=== PATIENT | female | born 1970 | race Caucasian/White ===

== ENCOUNTER 2022-12-23 11:52 | Outpatient (OUT) | payer OTHER, SELFPAY ==
--- NOTE | 2022-12-23 11:55 | MM_ITS ---
Patient: CHIP LUCAS Exam Date: 12/23/2022 : 1970 Gender:F Ordering : DR Kay Devries M.D. Admission #: [id number] Family : Order #: [id number] CLICK HERE TO VIEW EXAM RADIOLOGY REPORT PROCEDURE: MM TOMOSYNTHESIS SCREENING BI COMPARISON: MG MAMM SCREEN 3D DENISSE CAD, 09/14/2020. MG MAMM SCREEN 3D DENISSE CAD, 11/08/2021. INDICATIONS: Screening Calculator Name NCI Breast Cancer Risk Assessment Tool 5 Year Breast Cancer Risk 1.70% Lifetime Breast Cancer Risk 12.60% Personal Breast Cancer No Personal Ovarian Cancer No Treatments None Family Cancers Mother with uterine cancer at age 54; Father with colon cancer at age 65. LOCATION: [facility] BREAST COMPOSITION: Scattered areas fibroglandular density. DIAGNOSTIC CATEGORY 1--NEGATIVE. NO CHANGE FROM COMPARISON ASSESSMENT. Scattered benign-appearing calcifications are present. Scattered benign-appearing lymph nodes are present. RIGHT BREAST: No significant suspicious finding. LEFT BREAST: No significant suspicious finding. RECOMMENDATIONS: ROUTINE MAMMOGRAM AND CLINICAL EVALUATION IN 12 MONTHS. PLEASE NOTE: A NORMAL MAMMOGRAM DOES NOT EXCLUDE THE POSSIBILITY OF BREAST CANCER. A CLINICALLY SUSPICIOUS PALPABLE LUMP SHOULD BE BIOPSIED. Dictated by: Stuart Johnson MD on 12/23/2022 at 13:55 Approved by: Stuart Johnson MD on 12/23/2022 at 13:57
== END 2022-12-23 11:53 | disposition home or self-care (01) ==
LOC: MAMMO 11:52
PROVIDERS: PCP Family Medicine; Visit Provider Family Medicine
DX: Z12.31 Encounter for screening mammogram for malignant neoplasm of breast (principal); Z80.0 Family history of malignant neoplasm of digestive organs; Z80.8 Family history of malignant neoplasm of other organs or systems
CPT/HCPCS: 77063; 77067

== ENCOUNTER 2022-12-23 13:45 | Outpatient (RCR) | payer OTHER, SELFPAY | END 2023-02-25 16:04 | disposition home or self-care (01) | LOC: PT 13:45 | PROVIDERS: PCP Family Medicine; Visit Provider Family Medicine | DX: Z12.31 Encounter for screening mammogram for malignant neoplasm of breast (principal); Z80.0 Family history of malignant neoplasm of digestive organs; Z80.8 Family history of malignant neoplasm of other organs or systems | CPT/HCPCS: 77063; 77067; 97010; 97012; 97110; 97140; 97162 ==

== ENCOUNTER 2023-02-06 20:39 | Outpatient (REF) | payer OTHER, SELFPAY ==
[2023-02-10 17:07] LABS: Age Gdln ACOG Testing Note (.); HPV Aptima Negative (Negative); IGP, Aptima HPV, rfx 16/18,45 Note (.)
== END 2023-02-06 20:40 | disposition home or self-care (01) ==
LOC: LAB 20:39
PROVIDERS: PCP Family Medicine; Visit Provider Physician Assistant
DX: Z01.419 Encounter for gynecological examination (general) (routine) without abnormal findings (principal)
CPT/HCPCS: 87624; G0145

== ENCOUNTER 2024-02-23 09:23 | Outpatient (OUT) | payer OTHER, SELFPAY ==
--- NOTE | 2024-02-23 09:27 | MM_ITS ---
Patient Name: CHIP LUCAS MR#: [id number] : 1970 Exam Date: 02/23/2024 Ordering Doctor: Non-Staff Physician RADIOLOGY REPORT PROCEDURE: MM TOMOSYNTHESIS SCREENING BI COMPARISON: MM TOMOSYNTHESIS SCREENING BI, 12/23/2022. MG MAMM SCREEN 3D DENISSE CAD, 11/08/2021. MG MAMM SCREEN 3D DENISSE CAD, 09/14/2020. MG MAMM DENISSE SCRN W CAD DIG, 04/02/2013. INDICATIONS: Screening Calculator Name NCI Breast Cancer Risk Assessment Tool 5 Year Breast Cancer Risk 1.70% Lifetime Breast Cancer Risk 12.40% Personal Breast Cancer No Personal Ovarian Cancer No Treatments None Family Cancers Mother with uterine cancer at age 54; Father with colon cancer at age 65. LOCATION: [facility] BREAST COMPOSITION: There are scattered areas of fibroglandular density. FINDINGS: DIAGNOSTIC CATEGORY 1--NEGATIVE. RIGHT BREAST: No significant suspicious finding. No significant change has occurred. LEFT BREAST: No significant suspicious finding. No significant change has occurred. RECOMMENDATIONS: ROUTINE MAMMOGRAM AND CLINICAL EVALUATION IN 12 MONTHS. PLEASE NOTE: A NORMAL MAMMOGRAM DOES NOT EXCLUDE THE POSSIBILITY OF BREAST CANCER. A CLINICALLY SUSPICIOUS PALPABLE LUMP SHOULD BE BIOPSIED. Dictated by: Jeison Willard M.D. on 02/28/2024 at 14:12 Approved by: Jeison Willard M.D. on 02/28/2024 at 14:31
== END 2024-02-23 09:24 | disposition home or self-care (01) ==
PROVIDERS: PCP Family Medicine
DX: Z12.31 Encounter for screening mammogram for malignant neoplasm of breast (principal); Z80.0 Family history of malignant neoplasm of digestive organs; Z80.8 Family history of malignant neoplasm of other organs or systems
CPT/HCPCS: 77063; 77067

== ENCOUNTER 2025-04-18 08:59 | Outpatient (OUT) | payer OTHER, SELFPAY ==
--- OUTSIDE RECORDS SUMMARY | 2025-04-18 09:03 | XMS_ITS | CCD ---
Author Organization [facility] Care Team Providers Care Warehouse Assembly Worker Name Role Phone Trung Magdaleno MD Primary Care Provider LISA, DR CORRALES Admitting Unavailable KARASIK, DR CORRALES Attending Unavailable REQUEST, NONE LISTED Primary Care Unavaila ble KARASIK, DR CORRALES Consulting Unavailable WEST, DR CARROLL Jacinto Consulting Unavailable KARASIK, DR CORRALES Admitting Unavailable KARASIK, DR CORRALES Attending Unavailable REQUEST, NONE LISTED Primary Care Unavaila ble KARASIK, DR CORRALES Consulting Unavailable KARASIK, DR CORRALES Admitting Unavailable KARASIK, DR CORRALES Attending Unavailable REQUEST, NONE LISTED Primary Care Unavaila ble KARASIK, DR CORRALES Consulting Unavailable WEST, DR CARROLL Jacinto Consulting Unavailable MAGDALENO, DR TRUNG Martinez Primary Care Unavailable ONEL CARDONA Admitting Unavailable ONEL CARDONA Attending Unavailable CA, DR CARROLL Jacinto Consulting Unavailable DALE ALEMAN Consulting Unavailable TRUNG MAGDALENO Primary Care Physician Trung Magdaleno MD Primary Care Provider Trung Magdaleno MD Primary Care Provider NILYoana, Terrence R Referring Unavailable NILL, Terrence R Admitting Unavailable NILL, Terrence R Attending Unavailable NILL, Terrence R Referring Unavailable NILL, Terrence R Admitting Unavailable NILL, Terrence R Attending Unavailable NILYoana, Terrence Bolanos Attending Unavailable Trung Magdaleno MD Primary Care Provider Trung Magdaleno MD Primary Care Provider Trung Magdaleno Unavailable Petra Wilson Unavailable SIMON SMITH Attending Unavailable TRUNG MAGDALENO Referring Unavailable TRUNG MAGDALENO Primary Care Unavailable SIMON SMITH Referring Unavailable TRUNG MAGDALENO Primary Care Unavailable TRUNG MAGDALENO Referring Unavailable TRUNG MAGDALENO Primary Care Unavailable GIOVANY RIVAS Attending Unavailable Trung Magdaleno MD Primary Care Provider [phone] JOSH, DARIA Referring Unavailable TRUNG MAGDALENO Primary Care Unavailable Trung Magdaleno MD Primary Care Provider [phone] TRUNG MAGDALENO Primary Care Unavailable JUSTIN PRESTON Referring Unavailable TRUNG MAGDALENO Primary Care Unavailable JUSTIN PRESTON Attending Unavailable TRUNG MAGDALENO Primary Care Unavailable JUSTIN PRESTON Referring Unavailable TRUNG MAGDALENO Primary Care Unavailable JUSTIN PRESTON Referring Unavailable TRUNG MAGDALENO Primary Care Unavailable JUSTIN PRESTON Attending Unavailable Medications Current Medications MedicationDrug Class(es)DatesSig (Normalized)Sig (Original)albuterol HFA 90 mcg/inh MDI (1 source)Start: 17-59-9052kmpv 2 puff(s) by inhalation four times daily albuterol HFA 90 mcg/inh MDI 2 puff(s), Inhalation, QID Shortness of breath or wheezing, Refill(s) 0 Start Date: 01/07/22 Status: Orderedamoxicillin 875 mg / clavulanate 125 mg oral tablet (2 sources)Penicillin-class AntibacterialStart: 50-06-2476ijci 1 tablet by mouth every twelve hoursAmoxicillin-Pot Clavulanate 875-125 MG 1 tablet Orally every 12 hrs for 10 day(s) Dec, Activeascorbic acid 1000 mg oral tablet (20 sources)Vitamin Ctake 1 tablet by mouth once dailyAscorbic Acid 1,000 mg tablet Take 1,000 mg by mouth once daily. ActiveComment on above:Take 1,000 mg by mouth once daily.60 actuat budesonide 0.08 mg/actuat / formoterol fumarate 0.0045 mg/actuat metered dose inhaler (20 sources)Corticosteroid, beta2-Adrenergic AgonistStart: 04-84-8068tyuf 1 puff(s) by mouth twice dailySYMBICORT 80-4.5 mcg/actuation inhaler TAKE 1 PUFF BY MOUTH TWICE A DAY 11/28/2020 Activetake 1 puff(s) by mouth twice daily Symbicort 80-4.5 MCG/ACT TAKE 1 PUFF BY MOUTH TWICE A DAY for 30 ActiveComment on above:TAKE 1 PUFF BY MOUTH TWICE A DAYcholecalciferol 0.01 mg oral capsule (20 sources)Vitamin Dtake 1 capsule by mouth once dailycholecalciferol, vitamin D3, 10 mcg (400 unit) cap Take 3,000 Units by mouth once daily. Activetake 1 capsule by mouth once dailycholecalciferol, vitamin D3, 10 mcg (400 unit) cap Take 400 Units by mouth once daily. 0 ActiveComment on above:Take 400 Units by mouth once daily.Take 3,000 Units by mouth once daily.fluticasone propionate 0.05 mg/actuat metered dose nasal spray (1 source)CorticosteroidStart: 11-74-1716lzpp 1 spray(s) nasal route once daily Fluticasone Propionate 50 MCG/ACT 1 spray in each nostril Nasally Once a day for 30 days Jan, Activemeloxicam 15 mg oral tablet (7 sources)Nonsteroidal Anti-inflammatory DrugStart: 56-99-1357vanq 1 tablet by mouth once daily at mealtime for painmeloxicam (MOBIC) 15 mg tablet Take 1 tablet by mouth once daily. Take with food. For pain 90 tablet 3 05/17/2024 ActiveStart: 10-20-2023 End: 48-00-9568hfye 1 tablet by mouth once dailymeloxicam (MOBIC) 7.5 mg tablet Indications: Chronic bilateral low back pain with left-sided sciatica , Chronic hip pain, bilateral , Chronic pain of both knees , Cervicalgia Take 1 tablet by mouth once daily. 30 tablet 3 10/20/2023 05/17/2024 Discontinuedmv- min/iron/folic/calcium/vitK (WOMEN'S 50 PLUS MULTIVIT-IRON ORAL) (20 sources)mv-min/iron/folic/calcium/vitK (WOMEN'S 50 PLUS MULTIVIT-IRON ORAL) Take by mouth. Activemv-min/iron/folic/calcium/vitK (WOMEN'S 50 PLUS MULTIVIT- IRON ORAL) Take by mouth. 0 ActiveComment on above:Take by mouth.Symbicort 80/4.5 inhalation aerosol with adapter (1 source)Start: 07-86-6129jgrt 2 puff(s) by inhalation twice dailySymbicort 80/4.5 inhalation aerosol with adapter 2 puff(s), Inhalation, BID, Refill(s) 0 Start Date: 01/07/22 Status: Ordered Completed/Discontinued Medications MedicationDrug Class(es)DatesSig (Normalized)Sig (Original)calcium/D3/mag ox/copy center operator/ai/Zn (CALTRATE + D3 PLUS MINERALS ORAL) (14 sources) End: 61-45-1947xvgdisq/D3/mag ox/copy center operator/ai/Zn (CALTRATE + D3 PLUS MINERALS ORAL) Take by mouth. 0 04/05/2023 Discontinuedcalcium/D3/mag ox/copy center operator/ai/Zn (CALTRATE + D3 PLUS MINERALS ORAL) Take by mouth. 0 ActiveComment on above:Take by mouth. folic acid 1 mg oral tablet (20 sources)Start: 09-14-2021 End: 88-10-8015sxjt 1 tablet by mouth once daily at mealtimefolic acid 1 mg tablet Indications: GEGE positive TAKE 1 TABLET BY MOUTH EVERY DAY WITH FOOD 90 tablet 3 04/05/2023 ActiveComment on above:TAKE 1 TABLET BY MOUTH EVERY DAY WITH FOODMagnesium (14 sources) End: 34-62-4877Fhpbmbdfm 250 mg tab Take 250 mg by mouth. 0 04/05/2023 DiscontinuedMagnesium 250 mg tab Take 250 mg by mouth. 0 ActiveComment on above: Take 250 mg by mouth.methotrexate 2.5 mg oral tablet (20 sources)Folate Analog Metabolic InhibitorStart: 10-20-2022 End: 87-54-8295googhvtjuoeu 2.5 mg tablet Indications: GEGE positive TAKE 3 TABS ONCE A WEEK WITH FOOD. NO ALCOHOL.HOLD IF ON ANTIBIOTICS OR ILL. HOLD 1-2WEEKS AFTER VACCINES. 30 tablet 3 03/21/2023 04/05/2023 DiscontinuedStart: 01-10-2022 End: 87-08-0433kmshhakzkktn 2.5 mg tablet Indications: GEGE positive TAKE 6 TABS ONCE A WEEK WITH FOOD. NO ALCOHOL.HOLD IF ON ANTIBIOTICS OR ILL. HOLD 1-2WEEKS AFTER VACCINES. 30 tablet 3 01/10/2022 10/20/2022 DiscontinuedStart: 01-07-2022 take 1 tablet by mouth once dailymethotrexate 2.5 mg Tab 2.5 mg = 1 tab(s), Oral, Daily, Refills(s) 0 Start Date: 01/07/22 Status: OrderedStart: 07-13-2021 methotrexate 2.5 mg tablet Indications: GEGE positive TAKE 4 TABS ONCE A WEEK WITH FOOD. NO ALCOHOL.HOLD IF ON ANTIBIOTICS OR ILL. HOLD 1-2WEEKS AFTER VACCINES. 36 tablet 3 04/05/2023 ActiveComment on above:TAKE 4 TABS ONCE A WEEK WITH FOOD. NO ALCOHOL. HOLD IF ON ANTIBIOTICS OR ILL. HOLD 1-2WEEKS AFTER [facility] CCINES.TAKE 6 TABS ONCE A WEEK WITH FOOD. NO ALCOHOL. HOLD IF ON ANTIBIOTICS OR ILL. HOLD 1-2WEEKS AFTER VACCINES.TAKE 3 TABS ONCE A WEEK WITH FOOD. NO ALCOHOL. HOLD IF ON ANTIBIOTICS OR ILL. HOLD 1-2WEEKS AFTER VACCINES. omrba-2p-kfd-epa-fish oil 600-1,200 mg cap (14 sources) End: 13-47-7972qpsie-4c-ahj-ovb-fish oil 600-1,200 mg cap Take by mouth. 0 04/05/2023 Ketittkhsvkjhihvf-7w-myb-epa-fish oil 600-1,200 mg cap Take by mouth. 0 ActiveComment on above:Take by mouth.pregabalin 100 mg oral capsule (20 sources)Start: 03-11-2022 End: 66-71-8984ydhd 1 capsule by mouth once dailypregabalin (LYRICA) 100 mg capsule Indications: Chronic bilateral low back pain with left-sided sciatica , Fibromyalgia Take 1 capsule by mouth once daily. 90 capsule 3 05/17/2024 09/21/2024 DiscontinuedStart: 08-16-2021 End: 39-23-6081tins 1 tablet by mouth once dailypregabalin (LYRICA) 25 mg capsule Indications: Chronic bilateral low back pain with left-sided sciatica Take 1tab of 75mg plus 1tab 25mg by mouth nightly. May cause drowsiness 90 capsule 3 209/ DiscontinuedStart: 08-16-2021 End: 08-96-5874oprs 1 capsule by mouth once daily, then take 1 capsule by mouth once dailypregabalin (LYRICA) 75 mg capsule Indications: Chronic bilateral low back pain with left-sided sciatica TAKE 1 CAPSULE BY MOUTH NIGHTLY PLUS TAKE 1 CAPSULE 25MG NIGHTLY 90 capsule 3 03/02/2022 03/11/2022 DiscontinuedComment on above:Take 1tab of 75mg plus 1tab 25mg by mouth nightly. May cause drowsiness Take 1 capsule by mouth once daily.TAKE 1 CAPSULE BY MOUTH NIGHTLY PLUS TAKE 1 CAPSULE 25MG NIGHTLYvitamin b12 1 mg oral tablet (14 sources)Vitamin B12 End: 09-41-9958ouyv 1 tablet by mouth once dailycyanocobalamin (VITAMIN B-12) 1,000 mcg tab Take 1,000 mcg by mouth once daily. 0 04/05/2023 Discontinued Comment on above:Take 1,000 mcg by mouth once daily. Problems Active Problems Problem ClassificationProblemDateDocumented DateEpisodic/ChronicAcquired foot deformities (2 sources)Valgus deformity, not elsewhere classified, left ankle; Translations: [Valgus deformity]EpisodicAsthma (5 sources)Asthma; Translations: [Asthmatic bronchitis]51-81-8219FkhumlbUferyan dysrhythmias (2 sources)Tachycardia; Translations: [Tachycardia, unspecified]Onset: 85-78-0520DlydfdvbYlivwjh obstructive pulmonary disease and bronchiectasis (1 source)Bronchitis; Translations: [Bronchitis, not specified as acute or chronic]EpisodicConditions associated with dizziness or vertigo (2 sources)Benign paroxysmal vertigo, bilateral; Translations: [Dizziness and giddiness]EpisodicDeficiency and other anemia (7 sources)Anemia of chronic disease; Translations: [Anemia in other chronic diseases classified elsewhere]ChronicDeficiency and other anemia (1 source)Anemia in other chronic diseases classified elsewhere; Translations: [Anemia of chronic disease]Onset: 17-73-4711JdxmsuiTgdatliynbl chest pain (1 source)Chest pain; Translations: [Chest pain, unspecified]EpisodicNutritional deficiencies (8 sources)Vitamin D deficiency; Translations: [Vitamin D deficiency, unspecified]Onset: 65-18-1339TrliteyHlfewpjqluw deficiencies (1 source)Cobalamin deficiency; Translations: [Deficiency of other specified B group vitamins]EpisodicOsteoarthritis (20 sources)Degenerative joint disease involving multiple joints; Translations: [Secondary multiple arthritis]Onset: 447712-65-9063RrenantPuveusmgaucg (3 sources)Postmenopausal osteoporosis; Translations: [Age-related osteoporosis without current pathological fracture]ChronicOther acquired deformities (1 source)Contracture of ankle fakig53-72-7776MqlhctfFxcdo acquired deformities (1 source)Joint contracture of the ankle and/or foot; Translations: [Contracture, left ankle]ChronicOther acquired deformities (1 source)Acquired varus deformity of joint of lower juvn32-12-1250KahcispxOacss connective tissue disease (20 sources)Fibromyalgia; Translations: [Fibromyalgia]Onset: 01-25-2021 51-12-7534QdcuvxntEayfw connective tissue disease (1 source)Pain in left foot; Translations: [Pain in left foot]EpisodicOther connective tissue disease (1 source)Tibialis tendinitis; Translations: [Posterior tibial tendinitis, left leg]EpisodicOther diseases of veins and lymphatics (1 source)Chronic venous hypertension (idiopathic) without complications of unspecified lower extremity; Translations: [Chronic venous hypertension (idiopathic) without complications of unspecified lower extremity]Onset: 90-05-1817HhaudngKhyuf diseases of veins and lymphatics (2 sources)Venous hypertension; Translations: [Chronic venous hypertension (idiopathic) without complications of unspecified lower extremity]Onset: 895769-40-8649BbpvklwUfuoy diseases of veins and lymphatics (2 sources)Venous insufficiency (chronic) (peripheral); Translations: [Venous insufficiency (chronic) (peripheral)]Onset: 69-59-0220IrzpprstRpuqk endocrine disorders (4 sources)Hypoglycemia; Translations: [Hypoglycemia, unspecified]ChronicOther endocrine disorders (1 source)Hypoglycemia, unspecifiedChronicOther female genital disorders (4 sources)Hypertrophy of uterus; Translations: [HYPERTROPHY OF UTERUS]Onset: 39-88-2966YbrjhgcjLuccn female genital disorders (1 source)Hypertrophy of uterus; Translations: [Hypertrophy of uterus]Episodic Other injuries and conditions due to external causes (1 source)History of fall; Translations: [History of falling]EpisodicOther nervous system disorders (1 source)Other chronic pain; Translations: [Chronic bilateral low back pain with left-sided sciatica]Onset: 05-17-7033PfjjcwnXwohs nervous system disorders (2 sources)Tremor; Translations: [Tremor, unspecified]96-56-1807OhsyabdbCaiey non-traumatic joint disorders (1 source)Arthralgia of the ankle and/or foot; Translations: [Pain in left ankle and joints of left foot]EpisodicOther non-traumatic joint disorders (1 source)Joint pain; Translations: [Pain in unspecified joint]EpisodicOther nutritional; endocrine; and metabolic disorders (2 sources)Body mass index 25-29 - overweight; Translations: [Body mass index (BMI) 25.0-25.9, adult]98-64-8242DjpueirzDygmw nutritional; endocrine; and metabolic disorders (1 source)Overweight; Translations: [Overweight]EpisodicOther screening for suspected conditions (not mental disorders or infectious disease) (20 sources)Other specified abnormal findings of blood chemistry; Translations: [Other abnormal blood chemistry]Onset: 88-79-4153NhlnckihFejxx upper respiratory infections (1 source)Chronic sinusitis; Translations: [Chronic sinusitis, unspecified] ChronicOther upper respiratory infections (2 sources)Acute sinusitis; Translations: [Acute sinusitis, unspecified]Onset: 07-81-1754VfkczqtjDwjhvg media and related conditions (1 source)Unspecified Eustachian tube disorder, left earEpisodicOvarian cyst (1 source)Unspecified ovarian cyst, left side; Translations: [UNSPECIFIED OVARIAN CYST LEFT SIDE]Onset: 47-32-4741FmhcfzhdUiuvjchnh (except that caused by tuberculosis or sexually transmitted disease) (1 source)Pneumonia (except that caused by tuberculosis or sexually transmitted disease); Translations: [PNEUMONIA D/T CORONAVIRUS DIS 2019]Onset: 06-22-2021 Residual codes; unclassified (1 source)Family history of malignant neoplasm of digestive organs; Translations: [FAM HX MALIG NEOPLASM DIGESTIV ORGN]Onset: 05-98-8344Ybzzklry Residual codes; unclassified (1 source)Family history of malignant neoplasm of other genital organs; Translations: [FAM HX MALIG NEOPLSM OTH GENIT ORGN]Onset: 20-29-6465Gdtycsdi Residual codes; unclassified (1 source)Menopause vumjbvf04-16-4046XhiugubgOvbgevla codes; unclassified (1 source)Postmenopausal state; Translations: [Asymptomatic menopausal state] EpisodicRespiratory failure; insufficiency; arrest (adult) (1 source)Respiratory failure; insufficiency; arrest (adult)Onset: 08-10-2023 Rheumatoid arthritis and related disease (2 sources)Rheumatoid arthritis; Translations: [Rheumatoid arthritis, unspecified]98-27-4703JbdmpdhHdpetvmtyyyb (1 source)Patient encounter gsaxoy18-47-6482Pclapeppsplg (1 source)New PatientOnset: 15-61-4404Apscyqac veins of lower extremity (3 sources)Varicose veins of bilateral lower extremities with pain; Translations: [Varicose veins of lower extremity]Onset: EpisodicViral infection (2 sources)COVID-19; Translations: [Disease caused by 2019-nCoV]Onset: 06-22-2021 Past or Other Problems Problem ClassificationProblemDateDocumented DateEpisodic/ChronicAbdominal pain (1 source)Pelvic and perineal pain; Translations: [Pelvic and perineal pain] Resolved: 56-06-5080DrqhnaoyEvccdsgqbejzj and screening for infectious disease (20 sources)Anti-nuclear factor positive; Translations: [Other specified abnormal immunological findings in serum]Onset: 36-54-5929UsoxysifSvnddwxivbum breast conditions (1 source)Breast signs and symptoms; Translations: [Other signs and symptoms in breast]Onset: 09-25-2007 Resolved: 81-91-4075GvasqjmgKuxzk aftercare (20 sources)H/O: high risk medication; Translations: [Other exterminator helper termite (current) drug therapy]Onset: 942149-26-3070OoqunnqgPnqld aftercare (1 source)Other exterminator helper termite (current) drug therapy; Translations: [OTH TILE FITTER CURRENT DRUG THERAPY]Onset: 25-74-5215BzxwezmpDuwkq aftercare (1 source)History and physical examination, follow-up; Translations: [Encounter for follow-up examination after completed treatment for conditions other than malignant neoplasm] Resolved: 14-17-3411AwmtsnnoDrsmg bone disease and musculoskeletal deformities (6 sources)Osteopenia; Translations: [Other specified disorders of bone density and structure, multiple sites]Onset: 067430-35-5187AqomgmruPpdkt connective tissue disease (20 sources)Pain of bilateral hands; Translations: [Pain in right hand]Onset: 342496-19-1974EwwczgdhZhrkw connective tissue disease (20 sources)Medial epicondylitis of right humerus; Translations: [Medial epicondylitis, right elbow]Onset: 882667-84-7963YncacomzDfjyx connective tissue disease (1 source)Fibromyalgia; Translations: [Fibromyalgia]Onset: 84-27-6020Qqnlqazc Other diseases of veins and lymphatics (1 source)Vascular insufficiency; Translations: [Venous insufficiency (chronic) (peripheral)]48-22-1344HycsfrdiOicug female genital disorders (1 source)Noninflammatory disorder of vulva; Translations: [Other specified noninflammatory disorders of vulva and perineum]Onset: 09-29-2007 Resolved: 42-52-3745XpauxmjiBxatg hematologic conditions (20 sources)ESR raised; Translations: [Elevated erythrocyte sedimentation rate] Onset: 18-03-4667YudnpfphWbmvb hematologic conditions (1 source)Elevated erythrocyte sedimentation rate; Translations: [Elevated sed rate]Onset: 68-17-1643QrlkonlrVfpob lower respiratory disease (3 sources)Shortness of breath; Translations: [SHORTNESS OF BREATH]Onset: 30-70-7807MkefbzqbHfnmz nervous system disorders (20 sources)Paresthesia of hand ; Translations: [Anesthesia of skin]Onset: 707589-74-9663TbdmbukgAchsm non-traumatic joint disorders (20 sources)Pain in right knee; Translations: [Pain in joint, lower leg]Onset: 399028-65-3667WkchpgcuXhsrf non-traumatic joint disorders (20 sources)Chronic pain of right upper limb; Translations: [Pain in right elbow]Onset: 421280-79-4366AtfecugoQrayb non-traumatic joint disorders (19 sources)Hip pain; Translations: [Pain in right hip]Onset: 78-17-8371Oyqstofo Other skin disorders (1 source)Hypertrophic condition of skin; Translations: [Other hypertrophic disorders of the skin]Onset: 09-47-9001PlzuzvqlOwonvykj codes; unclassified (20 sources)FH: Gout; Translations: [Family history of other diseases of the musculoskeletal system and connective tissue]Onset: 098257-00-0900Usrchmfn Residual codes; unclassified (20 sources)FH: Rheumatoid arthritis; Translations: [Family history of arthritis]Onset: 689632-33-3532LgpqoajtKsrqozwljsf; intervertebral disc disorders; other back problems (20 sources)Chronic low back pain; Translations: [Lumbago with sciatica, left side]Onset: 040494-15-2973RpznnnbxQcres infection (1 source)Herpesviral vesicular dermatitis; Translations: [Herpesviral vesicular dermatitis]Onset: 64-07-9544Gklugjmd Results Test NameValueInterpretationReference RangeFacilityCNPNon 71-54-0959BKWD Telephone ([employer]án) CHIP LUCAS ([id number]) 1970 F Date Time Provider Department 04/03/25 JUSTIN PRESTON During your visit today, we recorded the following information about you: Justin Preston MD 04/03/2025 8:30 PM Signed Please Call patient if [employer] note not read to review results/released to My Chart if tests completed at [facility]: normal labs and no inflammation. Continue same vitamin D intake with food. Happy to further review and discuss at follow up visit. Thank you. 03/31/25 normal cbc, cmp, esr 15, crp 0.8, vitamin D 50.1; Dannie Ortiz MA 04/04/2025 8:09 AM Signed patient has viewed the [employer] message per [employer]. Allergies As of Date: 04/03/2025 (No Known Allergies) Date Reviewed: 03/31/2025 Reviewed by: Justin Preston MD - Fully Assessed Reason for Visit: Results [95] Prescriptions as of 04/04/2025 - pregabalin (LYRICA) 50 mg capsule Take 1cap by mouth nightly - meloxicam (MOBIC) 15 mg tablet Take 1 tablet by mouth once daily. Take with food. For pain - SYMBICORT 80-4.5 mcg/actuation inhaler TAKE 1 PUFF BY MOUTH TWICE A DAY - mv-min/iron/folic/calcium/vitK (WOMEN'S 50 PLUS MULTIVIT-IRON ORAL) Take by mouth. - cholecalciferol, vitamin D3, 10 mcg (400 unit) cap Take 3,000 Units by mouth once daily. - Ascorbic Acid 1,000 mg tablet Take 1,000 mg by mouth once daily. Problem List As Of Date 04/03/2025 Noted Resolved Secondary osteoarthritis of multiple sites [M15*01/25/2021 Chronic bilateral low back pain with left-sided*01/25/2021 Bilateral hand pain [M79.641, M79.642] 01/25/2021 Chronic pain of both knees [M25.561, M25.562, G*01/25/2021 Chronic elbow pain, right [M25.521, G89.29] 01/25/2021 Elevated sed rate [R70.0] 01/25/2021 Elevated C-reactive protein (CRP) [R79.82] 01/25/2021 Fibromyalgia [M79.7] 01/25/2021 Numbness and tingling in both hands [R20.0, R20*01/25/2021 Medial epicondylitis of right elbow [M77.01] 01/25/2021 Family history of gout [Z82.69] 01/25/2021 Family history of rheumatoid arthritis [Z82.61] 01/25/2021 Long-term use of high-risk medication [Z79.899] 01/25/2021 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] 01/28/2021 Chronic hip pain, bilateral [M25.551, M25.552, *10/20/2022 Inflammatory arthritis [M13.80] 10/20/2022 Osteopenia of multiple sites [M85.89] 10/21/2023 Numbness and tingling of left leg [R20.0, R20.2]03/31/2025 Cervicalgia [M54.2] 03/31/2025 Encounter Status:Closed by DANNIE ORTIZ on [address] [place], [place] [id number]([place])D3 SamiTrinh [id number]-rmrkbivkljvkqe D3 [Mass/Vol]50.1 ng/qPJznlva11.0-80.0[facility] on above:Order Comment: Specimen Type: BLOOD SPECIMEN Ordering Facility: [facility] Address: [address] [place], [place] [id number] Comment: Classification of 25 [place] Vitamin D status: Deficiency/Insufficiency: < or = 30 ng/ml. Sufficiency/Optimal Levels: 31-80 ng/mL Toxicity: > 100 ng/mL. Test performed by chemiluminescent immunoassay.Performed By: #### 1989-3 #### [facility] CLIA [id number] [address] [place], [place] [id number] [place] AMER[place]BC panel Auto (Bld)on 53-09-8320Erujhfnzqxe distribution width (RBC) [Ratio]14.6 %Etydle50.5-15.0 [facility] on above:Order Comment: Specimen Type: BLOOD SPECIMEN Ordering Facility: [facility] Address: [address] [place], [place] [id number] By: #### 93979-9, 4537-7 #### [facility] CLIA [id number] [address] [place], [place] [id number] [place] AMERICAHematocrit (Bld) [Volume fraction]43.5 %Eaulit09.0-46.0[facility] on above:Order Comment: Specimen Type: BLOOD SPECIMEN Ordering Facility: [facility] Address: [address] [place], [place] [id number] By: #### 17566-5, 4537-7 #### [facility] CLIA [id number] [address] [place], [place] [address] [place] AMERICAHemoglobin (Bld) [Mass/Vol] 14.0 g/pUDvyify29.5-15.5C[facility] on above:Order Comment: Specimen Type: BLOOD SPECIMEN Ordering Facility: [facility] Address: [address] [place], [place] [address]Performed By: #### 80162-7, 4537-7 #### [facility] CLIA [id number] [address] [place], [place] [address] (RBC) [Entitic mass]26.5 ahDpghat22.0-34.0[facility] on above:Order Comment: Specimen Type: BLOOD SPECIMEN Ordering Facility: [facility] Address: [address] [place], [place] [address]Performed By: #### 19499-5, 4537-7 #### [facility] CLIA [id number] [address] [place], [place] [address]HC (RBC) [Mass/Vol]32.2 g/xITrjjsf56.5-36.0[facility] on above:Order Comment: Specimen Type: BLOOD SPECIMEN Ordering Facility[facility] Address: [address] [place], [place] [address]Performed By: #### 00691-8, 4537-7 #### [facility] CLIA [id number] [address] [place] [address] (RBC) [Entitic vol]82.2 uZFsdvoq45.0-100.0[facility] on above:Order Comment: Specimen Type: BLOOD SPECIMEN Ordering Facility[facility] Address: [address] [place], [place] [address]Performed By: #### 26899-6, 4537-7 #### [facility] CLIA [id number] [address] [place] [address] RBC (Bld) [#/Vol] 10*3/uLNormal<0.01[facility] on above:Order Comment: Specimen Type: BLOOD SPECIMEN Ordering Facility[facility] Address: [address] [place], [place] [address]Performed By: #### 24311-2, 4537-7 #### [facility] CLIA [id number] [address] [place], [place] [address] [place] OF AMERICAPlatelet mean volume (Bld) [Entitic vol]10.8 fLNormal9.0-12.7CSelect [facility] on above: Order Comment: Specimen Type: BLOOD SPECIMEN [facility] Address: [address] [place], [place] [address]Performed By: #### 36587-8, 4537-7 #### [facility] CLIA [id number] [address] [place], [place] [address] [place] AMERICAPlatelets (Bld) [#/Vol]314 10*3/tQWwtdjm281-127OmtmpreenOhioHealth [facility]ville Health Center on above:Order Comment: Specimen Type: BLOOD SPECIMEN [facility] Address: [address] [place], [place] [address]Performed By: #### 61804-0, 4537-7 #### [facility] CLIA [id number] [address] [place] [address] [place] AMERICARBC (Bld) [#/Vol]5.29 10*6/uLHigh3.90-5.20[facility] on above:Order Comment: Specimen Type: BLOOD SPECIMEN [facility] Address: [address] [place], [place] [address]Performed By: #### 98162-5, 4537-7 #### [facility] CLIA [id number] [address] [place] [address] [place] AMERICAWBC (Bld) [#/Vol]6.68 10*3/uLNormal3.70-11.00[facility] on above:Order Comment: Specimen Type: BLOOD SPECIMEN [facility] Address: [address] [place], [place] [address]Performed By: #### 72536-9, 4537-7 #### [facility] CLIA [id number] [address] [place] [address] [address]CNOVon [id number] Visit (LEANNE) CHIP LUCAS ([id number]) 1970 F Date Time Provider Department 03/31/25 8:20 AM JUSTIN PRESTON During your visit today, we recorded the following information about you: Pulse Blood pressure Weight 84/minute 103/70 67.5 kg Justin Preston MD 03/31/2025 9:10 AM Addendum May apply over the counter arthritis creams/patches (biofreeze, icy hot, asper cream, tiger balm, capsacin, lidocaine, salon pas, voltaren gel, etc.) or over the counter pain patches to painful joints up to four times a day. Avoid contact with eyes. May take Extra Strength acetaminophen 500mg every 4-6hours for joint pain. Do not exceed 3000mg /day. Decrease stress Improve sleep May apply heat/ice 20minutes on and off to areas of pain Avoid aggravating triggers If needed, may take Calcium 1200mg daily with food in DIVIDED doses If labs normal, take Vitamin D 4000 International Units daily with food lyrica 50mg daily at nightly OFF Methotrexate/folic acid take mobic 15mg daily with food for pain if needed Recommend goal: exercising 30minutes 3-5 times a week Recommend weight-bearing aerobic exercises such as walking, dancing, low impact aerobics, elliptical machine, stair climbing, gardening flexibility exercises and strength training exercises Recommend avoiding high impact exercises such as jumping, running or jogging or movements where you bend forward and twist the waist, for instance- touching your toes, sit-ups, using row machine Next bone mineral density after 04/05/2025 group home pain recommendations per primary care provider/pain clinic Nonfasting labs as scheduled Thank you. 05/17/24 neck xrays- Mild cervical spine degenerative changes as described. Minimal anterolisthesis of C2 on C3 and C6 on C7. Tiny multilevel endplate osteophytes. Mild bony femoral narrowing involving C5-C6 on the right. 05/17/24 high crp 0.9;normal esr 10; 12/18/23 normal cbc, cmp, esr 16, crp 0.9, vitamin D 56.1; 09/15/23 high glucose 126, crp 1.3;normal rest of cmp, cbc, esr 17, vitamin D 59.5; Justin Preston MD 03/31/2025 9:10 AM Signed Face to face follow up visit for osteoarthritis/ osteopenia/+GEGE/high crp/inflammatory arthritis Today's visit 03/31/25:bmd after 04/05/25. Labs due. taking vitamin D 3000 International Units daily with food, mobic 1tab/not daily, lyrica 100mg/not daily gives her a hangover the next morning, inhalers. Last month recent oral steroids x 2 for illness URI (was also on antibiotics). Numbness of left leg/foot if sitting long time. no issues with eyes. Poor sleep. (if high APRs/start dmards/plaquenil/azathioprine/sulfasalazine/arava ) 05/17/24 neck xrays- Mild cervical spine degenerative changes as described. Minimal anterolisthesis of C2 on C3 and C6 on C7. Tiny multilevel endplate osteophytes. Mild bony femoral narrowing involving C5-C6 on the right. 05/17/24 high crp 0.9;normal esr 10; Walking for exercise. NO swelling. Chronic current pain in both hips, knees worse in AM. Reports pain 2/10. Has 20min minimal AM stiffness. Feels safe at home. Has enough food, supplies and medications. Overall mildly uncomfortable but happy with rheum care. No falls/fx/trauma/illness/oral sores/rash/hairloss/jaw pain/dysphagia/epistaxis/hemoptysis since last visit. No adverse effects with meds. No other complaints. Patient denies fever, chills, cp, dyspnea, nausea, vomiting, night sweats, scalp tenderness, visual changes, castillo, bowel/bladder changes, weight changes or other complaints. Last visit supportive care, check labs, check xrays, increase mobic 15mg daily, if high APRs/start dmards/plaquenil/azathioprine/sulfasalazine/arava, start hand/feet braces/sleeves, restart PT, OFF methotrexate/folic acid due to brain fog/lightheadedness, start fall precautions, improved with lyrica change to 100mg capsule nightly/notify office if interested in increased dose, improved with prn nsaids/stopped aleve due to GI upset, start prn heat/ice/otc arthritis creams, start low impact weightbearing exercise as tolerated, avoid aggravating triggers, improved methotrexate/lightheaded/dizzy at higher doses/notify office if not tolerated, daily folic acid, calcium/vit D, did discuss additional dmards if high APRs/patient agreeable to start new medication , may consider bisphosphonates if repeat BMD abnormal, 05/17/24:bmd after 04/05/25. taking mobic, vitamin D 3000 International Units daily with food, improved with lyrica 100mg daily. NO recent oral steroids. OFF methotrexate/decreased mental focus. But open to retrying another arthritis medication. 12/18/23 normal cbc, cmp, esr 16, crp 0.9, vitamin D 56.1; Motivated to start exercise. NO swelling. Chronic current pain in both hands, L>R thumbs, feet, neck, hips. Last 2days intense discomfort at base of head and then goes away. Reports pain 5/10. H (more content not included)...Normal [facility] SerPl-ncon [id number] [Mass/Vol]0.8 mg/dL Normal<0.9CBluffton HospitalComtrinity health [facility] on above:Order Comment: Specimen Type: BLOOD SPECIMEN Order[facility] Address: [address] [place] [id number] By: #### 49843-4, 1987-10 #### [facility] CLIA [id number] [address] [place] [address] [place] OF AMERICAComprehensive metabolic 2000 panelon [id number] [Mass/Vol]4.3 g/dLNormal3.9-4.9CSelect [facility] on above:Order Comment: Specimen Type: BLOOD SPECIMEN [facility] Address: [address] [place], [place] [address]Performed By: #### 84501-0, 1987-10 #### [facility] CLIA [id number] [address] [place], [place] [address] [place] AMERICAALP [Catalytic activity/Vol] 98 U/NUfkgnq77-723AkylcohesOhioHealth Nelsonville Health Center on above:Order Comment: Specimen Type: BLOOD SPECIMEN [facility] Address: [address] [place], [place] [address]Performed By: #### 63663-9, 1987-10 #### [facility] CLIA [id number] [address] [place], [place] [address] [place] AMERICAALT [Catalytic activity/Vol] 22 U/LNormal7-38[facility] on above:Order Comment: Specimen Type: BLOOD SPECIMEN [facility] Address: [address] [place], [place] [address]Performed By: #### 40473-6, 1987-10 #### [facility] CLIA [id number] [address] [place], [place] [address] [place] AMERICAAnion gap [Moles/Vol]11 mmol/LNormal8-15[facility] on above:Order Comment: Specimen Type: BLOOD SPECIMEN [facility] Address: [address] [place], [place] [address]Performed By: #### 78019-7, 1987-10 #### [facility] CLIA [id number] [address] [place] [address] [place] AMERICAAST [Catalytic activity/Vol] 23 U/VFxbiqr40-90ZqgphcdvgOhioHealth [facility] Health Center on above:Order Comment: Specimen Type: BLOOD SPECIMEN [facility] Address: [address] [place], [place] [address]Performed By: #### 04527-2, 1987-10 #### [facility] CLIA [id number] [address] [place] [address] [place] AMERICABilirubin [Mass/Vol]0.3 mg/dLNormal0.2-1.3CSelect [facility] on above:Order Comment: Specimen Type: BLOOD SPECIMEN Order[facility] Address: [address] [place], [place] [address]Performed By: #### 81668-3, 1987-10 #### [facility] CLIA [id number] [address] [place], [place] [address] [place] AMERICACalcium [Mass/Vol]9.9 mg/dL Normal8.5-10.2C[facility] on above:Order Comment: Specimen Type: BLOOD SPECIMEN [facility] Address: [address] [place], [place] [address]Performed By: #### 14806-9, 1987-10 #### [facility] CLIA [id number] [address] [place], [place] [address] [place] AMERICAChloride [Moles/Vol]104 mmol/GHwyons75-047JydsggjxyOhioHealth [facility] Center on above:Order Comment: Specimen Type: BLOOD SPECIMEN [facility] Address: [address] [place] [id number] By: #### 56236-2, 1987-10 #### [facility] CLIA [id number] [address] [place] [address] [place] AMERICACO2 [Moles/Vol]25 mmol/L Pshszg26-37CwxshpnfsOhioHealth Nelsonville Health Center on above:Order Comment: Specimen Type: BLOOD SPECIMEN Order[facility] Address: [address] [place], [place] [address]Performed By: #### 81980-2, 1987-10 #### [facility] CLIA [id number] [address] [place] [address] [place] AMERICACreatinine [Mass/Vol]0.62 mg/dLNormal0.58-0.96[facility] on above:Order Comment: Specimen Type: BLOOD SPECIMEN Order[facility] Address: [address] [place], [place] [address]Performed By: #### 73347-7, 1987-10 #### [facility] IA [id number] [address] [place] [address] [place] AMERICAeGFRcr SerPlBld CKD-EPI 2020 105 mL/min/1.73m???Normal>=60[facility] on above:Order Comment: Specimen Type: BLOOD SPECIMEN [facility] Address: [address] [place], [place] [address]Result Comment: Estimated Glomerular Filtration Rate (eGFR) is calculated using the 2020 CKD-EPI cre atinine equation. This equation utilizes serum creatinine, sex, and age as parameters. The creatinine assay has traceable calibration to isotope dilution- mass spectrometry. Refer to KDIGO guidelines for clinical interpretation. In patients with unstable renal function, e.g. those with acute kidney injury, the eGFR may not accurately reflect actual GFR.Performed By: #### 33102-8, 1987-10 #### [facility] CLIA [id number] [address] [place], [place] [address] [place] AMERICAGlucose [Mass/Vol]102 mg/dL Mrlh03-88IgwkwbvxcOhioHealth [facility]ville Health Center on above:Order Comment: Specimen Type: BLOOD SPECIMEN Order[facility] Address: [address] [place], [place] [address]Result Comment: The [place] Diabetes Association (ADA) provides guidance for cutoff values for fasting glucose and random glucose. The ADA defines fasting as no caloric intake for at least 8 hours. Fasting plasma glucose results between 100 to 125 mg/dL indicate increased risk for diabetes (prediabetes). Fasting plasma glucose results greater than or equal to 126 mg/dL meet the criteria for diagnosis of diabetes. In the absence of unequivocal hyperglycemia, results should be confirmed by repeat testing. In a patient with classic symptoms of hyperglycemia or hyperglycemic crisis, random plasma glucose results greater than or equal to 200 mg/dL meet the criteria for diagnosis of diabetes. Reference: Standards of Medical Care in Diabetes 2016, [place] Diabetes Association. Diabetes Care. 2016.39(Suppl 1).Performed By: #### 31453-0, 1987-10 #### [facility] CLIA [id number] [address] [place] [address] [place] AMERICAPotassium [Moles/Vol]4.3 mmol/LNormal3.7-5.1CSelect [facility] on above:Order Comment: Specimen Type: BLOOD SPECIMEN [facility] Address: [address] [place], [place] [address]Performed By: #### 89892-6, 1987-10 #### [facility] CLIA [id number] [address] [place] [address] [place] AMERICAProtein [Mass/Vol]7.5 g/dL Normal6.3-8.0[facility] on above:Order Comment: Specimen Type: BLOOD SPECIMEN [facility] Address: [address] [place], [place] [address]Performed By: #### 54997-0, 1987-10 #### [facility] CLIA [id number] [address] [place] [address] [place] AMERICASodium [Moles/Vol]140 mmol/L Shdpqk547-610WlytofshgOhioHealth Nelsonville Health Center on above:Order Comment: Specimen Type: BLOOD SPECIMEN [facility] Address: [address] [place], [place] [address]Performed By: #### 63858-3, 1987-10 #### [facility] CLIA [id number] [address] [place], [place] [address] [place] AMERICAUrea nitrogen [Mass/Vol]16 mg/dLNormal7-21[facility] on above:Order Comment: Specimen Type: BLOOD SPECIMEN [facility] Address: [address] [place], [place] [address]Performed By: #### 02260-8, 1987-10 #### [facility] CLIA [id number] [address] [place] [address] OF DAY[facility] OSTEOPATHIC HOSPITALESR Westergren method (Bld) [Velocity]on [id number] (Bld) [Velocity]15 mm/hNormal0-20[facility] on above:Order Comment: Specimen Type: BLOOD SPECIMEN [facility] Address: [address] [place] [address] [place], [place] [address]Performed By: #### 41964-0, 45377 #### [facility] CLIA [id number] [address] [place], [place] [address]CNPNon [id number] Telephone (LEANNE) CHIP LUCAS ([id number]) 1970 F Date Time Provider Department 05/18/24 JUSTIN PRESTON During your visit today, we recorded the following information about you: Justin Preston MD 05/23/2024 6:32 PM Addendum Please Call patient if MyChart note not read to review results/released to My Chart if tests completed at [facility]: One borderline inflammatory test-will monitor. Notify office if agreeable to try a new anti inflammatory medication. Neck xrays show osteoarthritis with osteophytes. May see spine and or pain clinic if pain symptoms persist or worsen.. Happy to further review and discuss at follow up visit. Thank you. (if high APRs/start dmards/plaquenil/azathioprine/sulfasalazine/arava ) 05/17/24 neck xrays- Mild cervical spine degenerative changes as described. Minimal anterolisthesis of C2 on C3 and C6 on C7. Tiny multilevel endplate osteophytes. Mild bony femoral narrowing involving C5-C6 on the right. 05/17/24 high crp 0.9;normal esr 10; Dannie Ortiz MA 05/20/2024 7:30 AM Signed patient has viewed the GloNav message per [employer]. Allergies As of Date: 05/18/2024 (No Known Allergies) Date Reviewed: 05/18/2024 Reviewed by: Justin Preston MD - Fully Assessed Reason for Visit: Results [95] Prescriptions as of 05/23/2024 - meloxicam (MOBIC) 15 mg tablet Take 1 tablet by mouth once daily. Take with food. For pain - pregabalin (LYRICA) 100 mg capsule Take 1 capsule by mouth once daily. - SYMBICORT 80-4.5 mcg/actuation inhaler TAKE 1 PUFF BY MOUTH TWICE A DAY - mv-min/iron/folic/calcium/vitK (WOMEN'S 50 PLUS MULTIVIT-IRON ORAL) Take by mouth. - cholecalciferol, vitamin D3, 10 mcg (400 unit) cap Take 3,000 Units by mouth once daily. - Ascorbic Acid 1,000 mg tablet Take 1,000 mg by mouth once daily. Problem List As Of Date 05/18/2024 Noted Resolved Secondary osteoarthritis of multiple sites [M15*01/25/2021 Chronic bilateral low back pain with left-sided*01/25/2021 Bilateral hand pain [M79.641, M79.642] 01/25/2021 Chronic pain of both knees [M25.561, M25.562, G*01/25/2021 Chronic elbow pain, right [M25.521, G89.29] 01/25/2021 Elevated sed rate [R70.0] 01/25/2021 Elevated C-reactive protein (CRP) [R79.82] 01/25/2021 Fibromyalgia [M79.7] 01/25/2021 Numbness and tingling in both hands [R20.0, R20*01/25/2021 Medial epicondylitis of right elbow [M77.01] 01/25/2021 Family history of gout [Z82.69] 01/25/2021 Family history of rheumatoid arthritis [Z82.61] 01/25/2021 Long-term use of high-risk medication [Z79.899] 01/25/2021 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] 01/28/2021 Chronic hip pain, bilateral [M25.551, M25.552, *10/20/2022 Inflammatory arthritis [M19.90] 10/20/2022 Osteopenia of multiple sites [M85.89] 10/21/2023 Encounter Status:Closed by DANNIE ORTIZ on 05/20/24NoalCACMC Healthcare System-REACTIVE PROTEINon [id number] [Mass/Vol]0.9 mg/dLHighNINF - 0.9 mg/dLAdams County HospitalCNOVon [id number] Visit (LEANNE) CHIP LUCAS ([id number]) 1970 F Date Time Provider Department 05/17/24 10:00 AM JUSTIN PRESTON During your visit today, we recorded the following information about you: Pulse Blood pressure Weight 71/minute 115/50 71 kg Justin Preston MD 05/18/2024 8:05 AM Signed Face to face follow up visit for osteoarthritis/ osteopenia/+GEGE/high crp/inflammatory arthritis Today's visit 05/17/24:bmd after 04/05/25. taking mobic, vitamin D 3000 International Units daily with food, improved with lyrica 100mg daily. NO recent oral steroids. OFF methotrexate/decreased mental focus. But open to retrying another arthritis medication. 12/18/23 normal cbc, cmp, esr 16, crp 0.9, vitamin D 56.1; Motivated to start exercise. NO swelling. Chronic current pain in both hands, L>R thumbs, feet, neck, hips. Last 2days intense discomfort at base of head and then goes away. Reports pain 5/10. Has minimal AM stiffness. Feels safe at home. Has enough food, supplies and medications. Overall uncomfortable but happy with rheum care. No falls/fx/trauma/illness/oral sores/rash/hairloss/jaw pain/dysphagia/epistaxis/hemoptysis since last visit. No adverse effects with meds. No other complaints. Patient denies fever, chills, cp, dyspnea, nausea, vomiting, night sweats, scalp tenderness, visual changes, castillo, bowel/bladder changes, weight changes or other complaints. Last visit supportive care, consult PT, stop methotrexate/folic acid due to brain fog/lightheadedness, start mobic 7.5mg prn, notify office if interested in starting alternative dmard, start fall precautions, improved with lyrica change to 100mg capsule nightly, improved with prn nsaids/stopped aleve due to GI upset, start prn heat/ice/otc arthritis creams, start low impact weightbearing exercise as tolerated, avoid aggravating triggers, improved methotrexate/lightheaded/dizzy at higher doses/notify office if not tolerated, daily folic acid, calcium/vit D, did discuss additional dmards if high APRs/patient will notify office which medication she is comfortable starting if needed, may consider bisphosphonates if repeat BMD abnormal, 10/20/23:due for labs 11/2023. taking lyrica 100mg nightly, methotrexate 3tabs weekly gave brain fog/lightheadedness, folic acid daily, tylenol with good response, vitamin D 3000 International Units daily with food. No recent oral steroids. 09/15/23 high glucose 126, crp 1.3;normal rest of cmp, cbc, esr 17, vitamin D 59.5; 07/10/23 and 08/10/23 saw vascular for LE varicosities from venous HTN better with compression therapy and leg elevation. 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 04/05/23 bmd osteopenia 04/05/23 lumbar xrays-Slight disc space narrowing and endplate osteophytes at L4-5 and mild facet hypertrophy. Slight anterolisthesis. L1-2, L2-3 and L3-4 disc spaces are preserved. Posterior elements are intact. Mild degenerative changes at sacral iliac joints 02/10/23 normal cbc, cmp, esr 17, crp 0.8, tsh 1.41, fsh 32.9, DHEA-S 120.3, progesterone 0.2, estradiol 61; 11/04/22 high crp 1.3 (0.7);normal cbc, cmp, esr 15(17), vitamin D 56.5; limited exercise. Joint pain better when stretching. ankle swelling anytime. Chronic current pain in neck, low back, hips, knees. Reports pain /10. Has minimal AM stiffness. Feels safe at home. Has enough food, supplies and medications. Overall mildly uncomfortable but happy with rheum care. No falls/fx/trauma/illness/oral sores/rash/hairloss/jaw pain/dysphagia/epistaxis/hemoptysis since last visit. No adverse effects with meds. No other complaints. Patient denies fever, chills, cp, dyspnea, nausea, vomiting, night sweats, scalp tenderness, visual changes, castillo, bowel/bladder changes, weight changes or other complaints. Last visit supportive care, start fall precautions, improved with lyrica change to 100mg capsule nightly, improved with prn nsaids, start prn heat/ice/otc arthritis creams, start low impact weightbearing exercise as tolerated, avoid aggravating triggers, improved methotrexate/try lower dose 1-3tabs ONCE a week/lightheaded/dizzy at higher doses/notify office if not tolerated, daily folic acid, calcium/vit D, did discuss additional dmards if high APRs/patient will notify office which medication she is comfortable starting if needed, may consider bisphosphonates if repeat BMD abnormal, 10/20/22:due for labs 10/2022. Due for bmd after 10/19/22, in 10/19/20 osteopenia. Much improved with lyrica 100mg daily, methotrexate 6tabs weekly/very dizzy last while/loopy, felt great at 1-3tabs weekly but more side effects with higher doses,daily folic acid, vitamin D 400 International Units daily with food, daily vitamin b12, daily calcium. No recent infections. recent oral ster (more content not included)...NormalMercy HealthCRP SerPl-mCncon [id number] [Mass/Vol]0.9 mg/dLHigh<0.9CBluffton Hospital Comment on above:Order Comment: Specimen Type: BLOOD SPECIMEN [facility] Address: [address] [place], [place] [address]Performed By: #### 1988-5 #### [facility] CLIA [id number] [address] [place] [address] [place] AMERICACRP [Mass/Vol]on 05-17-2024 Interpretation and review of laboratory resultsAbnormalCThe Bellevue HospitalR Westergren method (Bld) [Velocity]on [id number] (Bld) [Velocity]10 mm/hCleveland ClinicInterpretation and review of laboratory resultsNormal [facility] HospitalR (Bld) [Velocity]10 mm/hNormal0-20Mercy HealthComment on above:Order Comment: Specimen Type: BLOOD SPECIMEN Ordering Facility: [facility] Address: [address] [place], [place] [address]Performed By: #### [id number] #### [facility] CLIA [id number] [address] [place] [address] [place] OF AMERICAXR CERVICAL 4V AP/LAT/OBLon 24-23-6293FJ CERVICAL 4V AP/LAT/OBL* * *Final Report* * * DATE OF EXAM: May 17 2024 11:09AM LNX 5311 - XR CERVICAL 4V AP/LAT/OBL / PROCEDURE REASON: Cervicalgia * * * * Physician Interpretation * * * * HISTORY: Cervicalgia . Pain in the neck and posterior aspect of the skull TECHNIQUE: XR CERVICAL 4V AP/LAT/OBL Laterality: NOT APPLICABLE Number of different views (projections): 4 COMPARISON: None RESULT: Counting reference: Craniocervical junction. Vertebral body heights are maintained without compression deformity. Minimal anterolisthesis of C2 on C3 and C6 on C7. Disc spaces are preserved. Tiny multilevel endplate osteophytes. Facet joints are intact bilaterally. Mild bony femoral narrowing involving C5-C6 on the right. No significant bony femoral narrowing on the left. Prevertebral soft tissues are within normal limits. IMPRESSION: Mild cervical spine degenerative changes as described. Veterinary Toxicologist: PSCB Transcribe Date/Time: May 21 2024 8:41A Dictated by : SAVANNA ADAM MD This examination was interpreted and the report reviewed and electronically signed by: SAVANNA ADAM MD on May 21 2024 8:43AM EST [id number] Health System Marietta Memorial HospitalvelandCytology Reporton [id number] report Cyto stain.thin prep Doc (Cvx/Vag)(NOTE) Path Number: [id number] DIAGNOSIS Imaged ThinPrep Pap - Cervical (1 monolayer slide): Specimen Adequacy: Satisfactory for evaluation. -Endocervical/transformation zone component is absent. Descriptive Diagnosis: Negative for intraepithelial lesion or malignancy. Cytotech Screener: EY Electronically Signed Out Magdy Orozco CT(ASCP) ey/03/15/2024 Source of Specimen: A: Imaged ThinPrep Pap - Cervical (1 monolayer slide) HPV Reflex?......................HPV if Abnormal Clinical History Z01.419 Routine bag machine adjuster exam without abnormal findings LMP: 01.23.2024 Processing Lab: [address] [address] Interpretation performed at [address] [address] This Pap Test has been evaluated with the assistance of the ThinPrep Pap Test Imaging System. The Pap smear is a screening test primarily for squamous epithelial lesions, which is subject to both false negative and false positive results. Your patient should be reminded to consult you immediately if she experiences any suspicious signs or symptoms, regardless of her Pap smear result. GYNECOLOGIC CYTOLOGY REPORT Patient Name: CHIP LUCAS [facility] Rec: [id number] [facility] ANATOMIC PATHOLOGY [facility]. [place], [place] [address] NormalMercy Health Perrysburg HospitalXR LUMBAR GENERAL 3V AP/LAT/L5-S1 on [id number] ClinicXR HAND GENERAL 3V PA/LAT/OBL BILATERALon [id number] ClinicCoding Summary.on 21-91-1525Fotvvu Summary. CD:[id number] MD9FHloV5YumpAr [file] dHls (more content not included)...[facility]HealthCoding Summary. CD:[id number] [id number] [file] dHls (more content not included)...[facility]HealthProgress Note-Physicianon [id number] Note-PhysicianPatient: CHIP LUCAS Age: 51 years Sex: Female : 1970 Associated Diagnoses: None Author: Carlos Hobbs Jr, DO Postoperative Information Post Operative Note: Post Anesthesia Care Unit. Anesthetic utilized: Monitored anesthesia care. Health Status Allergies: Allergic Reactions (Selected) No Known Allergies Problem list: All Problems Varus foot deformity, acquired / SNOMED CT 357759605 / Confirmed Asthma / SNOMED CT 690290740 / Confirmed BMI 26.0-26.9,adult / SNOMED CT 5436779889 / Confirmed Ankle contracture / SNOMED CT 171484034 / Confirmed Menopause / SNOMED CT 867544820 / Confirmed Screening for malignant neoplasm of colon / SNOMED CT 095351207 / Confirmed Rheumatoid arthritis / SNOMED CT 910902101 / Confirmed Tremor / SNOMED CT 38120365 / Confirmed Physical Examination Vital Signs 02/04/2022 8:40 EDT Heart Rate Monitored 69 bpm Respiratory Rate Monitored 12 br/min Systolic Blood Pressure 115 mmHg Diastolic Blood Pressure 57 mmHg LOW Blood Pressure Location Left arm SpO2 98 % 02/04/2022 8:25 EDT Heart Rate Monitored 80 bpm Respiratory Rate Monitored 20 br/min Systolic Blood Pressure 98 mmHg Diastolic Blood Pressure 50 mmHg LOW Blood Pressure Location Left arm SpO2 90 % 02/04/2022 8:20 EDT Heart Rate Monitored 74 bpm Respiratory Rate Monitored 13 br/min Systolic Blood Pressure 100 mmHg Diastolic Blood Pressure 55 mmHg LOW Blood Pressure Location Left arm SpO2 97 % 02/04/2022 8:15 EDT Heart Rate Monitored 78 bpm Respiratory Rate Monitored 13 br/min Systolic Blood Pressure 98 mmHg Diastolic Blood Pressure 58 mmHg LOW Blood Pressure Location Left arm SpO2 97 % 02/04/2022 8:13 EDT Temperature Temporal Artery 36.6 DegC Heart Rate Monitored 76 bpm Respiratory Rate Monitored 13 br/min Systolic Blood Pressure 100 mmHg Diastolic Blood Pressure 60 mmHg Blood Pressure Location Left arm SpO2 99 % 02/04/2022 8:10 EDT Heart Rate Monitored 79 bpm bpm Respiratory Rate Monitored 16 br/min br/min SpO2 100 % % 02/04/2022 8:09 EDT Systolic Blood Pressure 108 mmHg mmHg Diastolic Blood Pressure 70 mmHg mmHg 02/04/2022 8:05 EDT Heart Rate Monitored 76 bpm bpm Respiratory Rate Monitored 16 br/min br/min Systolic Blood Pressure 120 mmHg mmHg Diastolic Blood Pressure 75 mmHg mmHg SpO2 100 % % 02/04/2022 8:01 EDT Systolic Blood Pressure 91 mmHg mmHg Diastolic Blood Pressure 56 mmHg mmHg 02/04/2022 8:00 EDT Heart Rate Monitored 75 bpm bpm Respiratory Rate Monitored 16 br/min br/min SpO2 100 % % 02/04/2022 7:57 EDT Systolic Blood Pressure 119 mmHg mmHg Diastolic Blood Pressure 77 mmHg mmHg 02/04/2022 7:47 EDT Temperature Temporal Artery 36.3 DegC Heart Rate Monitored 89 bpm Respiratory Rate Monitored 15 br/min Systolic Blood Pressure 115 mmHg Diastolic Blood Pressure 69 mmHg Blood Pressure Location Left arm SpO2 100 % Vital Signs (last 24 hrs) Last Charted Resp Rate 12 br/min (FEB 04 08:40) SBP 115 mmHg (FEB 04 08:40) DBP L 57mmHg (FEB 04 08:40) SpO2 98 % (FEB 04 08:40) Weight 70.7 kg (FEB 04 07:46) BMI 26.77 (FEB 04 07:46) Documented vital signs Pain assessment: Pain Assessment 02/04/2022 8:40 EDT Pain Symptoms Self Report No, able to self report 02/04/2022 8:25 EDT Pain Symptoms Self Report No, able to self report Patient Preferred Pain Tool Numeric rating Numeric Pain Scale 0 = No pain Numeric Pain Score 0 . General: Alert and oriented, No acute distress. Respiratory: Lungs are clear to auscultation. Cardiovascular: Normal rate, Regular rhythm. Neurologic: Normal sensory. Review / Management Condition: Stable. Assessment Anesthetic outcome No anesthetic complications noted. Adequate pain relief. TOLERATING PO INTAKE. voiding w/o diff.. No Complaint of nausea and vomiting. Plan Transfer/ Discharge: Condition stable.[place]HealthComment on above:Result Comment: Electronically Signed By: Carlos Hobbs Jr, DO\.br\Date and Time Signed: 02/21/22 08:11 EDTProgress Note-PhysicianPatient: CHIP LUCAS Age: 51 years Sex: Female : 1970 Associated Diagnoses: None Author: Carlos Hobbs Jr, DO Preoperative Information Anesthesia Preop Information NPO 8 HOURS EXCEPT GI PREP AT LEAST 4 HOURS PRIOR TO PROCEDURE Anesthesia history: Patient history: No prior anesthesia problems. Re-evaluation prior to induction: Initial evaluation reviewed: No significant change. Anesthesia results Review of Systems Cardiovascular: Negative. Respiratory: Negative. Health Status Allergies: Allergic Reactions (Selected) No Known Allergies Current medications: (Selected) Inpatient Medications Ordered Sodium Chloride 0.9% IV Delma 1000 mL 1,000 mL: 1,000 mL, IV, 20 mL/hr, Routine, Start date 02/04/22 6:49:00 EDT, 50 hour(s), Total volume (mL): 1,000, 70.7 kg, 1.79, m2 Documented Medications Documented Lyrica 25 mg Cap: 25 mg = 1 cap(s), Oral, Bedtime, Refills(s) 0, Arthritis Symbicort 80/4.5 inhalation aerosol with adapter: 2 puff(s), Inhalation, BID Shortness of breath orwheezing, Refill(s) 0, Asthma albuterol HFA 90 mcg/inh MDI: 2 puff(s), Inhalation, QID Shortness of breath or wheezing, Refill(s)0 methotrexate 2.5 mg Tab: 2.5 mg = 1 tab(s), Oral, qWeek, Refills(s) 0, Arthritis, Home Medications (4) Active albuterol HFA 90 mcg/inh MDI 2 puff(s), PRN, Inhalation, QID Lyrica 25 mg Cap 25 mg = 1 cap(s), Oral, Bedtime methotrexate 2.5 mg Tab 2.5 mg = 1 tab(s), Oral, qWeek Symbicort 80/4.5 inhalation aerosol with adapter 2 puff(s), PRN, Inhalation, BID Problem list: All Problems Varus foot deformity, acquired / SNOMED CT 062033668 / Confirmed Asthma / SNOMED CT 377615009 / Confirmed BMI 26.0-26.9,adult / SNOMED CT 1834689948 / Confirmed Ankle contracture / SNOMED CT 475156673 / Confirmed Menopause / SNOMED CT 333012746 / Confirmed Screening for malignant neoplasm of colon / SNOMED CT 956354450 / Confirmed Rheumatoid arthritis / SNOMED CT 171482610 / Confirmed Tremor / SNOMED CT 58819536 / Confirmed Histories Past Medical History: No active or resolved past medical history items have been selected or recorded. Social History Social & Psychosocial Habits Alcohol 03/03/2020 Risk Assessment: Low Risk Substance Abuse 01/10/2022 Risk Assessment: Denies Substance Abuse Tobacco 01/10/2022 Tobacco Use: Never (less than 100 in l Smokeless tobacco use: Never . Physical Examination Airway: Mallampati classification: II (soft palate, fauces, uvula visible). Respiratory: Lungs are clear to auscultation. Cardiovascular: Regular rhythm. Neurologic: Alert, Oriented. Plan Citizen Of [place] Society of Anesthesiologists (ASA) physical status classification: Class II. Anesthetic Preoperative Plan Anesthesia: General. . Anesthetic plan, risks, benefits, and alternatives discussed with the patient and/or family. Communication: face to face with (patient 5 minutes, Patient educated on smoking cesstation).[place]HealthComment on above:Result Comment: Electronically Signed By: Carlos Hobbs Jr, DO\.annabel\Date and Time Signed: 02/21/22 08:11 EDTIntraOperative Documentson 02-14-2022 IntraOperative [id number]#1.00CD:127 [facility]HealthPostoperative Documentson 02-10-2022 Postoperative [id number]#1.00CD:127 [facility] OR Intraoperative Recordon [id number] OR Intraoperative RecordIntraOp Document Type FT Summary Primary Physician: Terrence GOOD MD Finalized Date/Time: 02/08/22 15:22:08 Pt. Name: CHIP LUCAS D.O.B./Sex: 1970 Female Med Rec #: [id number] Physician: Terrence GOOD MD Financial #: [id number] Pt. Type: A Room/Bed: / Admit/Disch: 02/04/22 07:22:51 - 02/04/22 23:59:59 Institution: Case Times FT Entry 1 Patient Times In Room 02/04/22 07:57:00 Out Room 02/04/22 08:13:00 Procedure Times Start 02/04/22 08:00:00 Stop 02/04/22 08:11:00 Anesthesia Times Start 02/04/22 07:57:00 Stop 02/04/22 08:13:00 Time at [place] 02/04/22 08:05:00 Last Modified By: Alexis MEJIA, Amina Alcaraz 02/04/22 08:13:22 General Comments: 02/08/22 Chart open to review and send charges. yoana banerjee rn Case Attendance FT Entry 1 Entry 2 Entry 3 Case Attendee Chip Foreman RN, Lelia Lopez Role Performed Anesthesiologist Medical Billing Supervisor - Primary Staff - Other Kosher Dietary Service Supervisor Time In 02/04/22 07:57:00 02/04/22 07:57:00 02/04/22 07:57:00 Time Out 02/04/22 08:13:00 02/04/22 08:13:00 02/04/22 08:13:00 Procedure COLONOSCOPY(.) COLONOSCOPY(.) COLONOSCOPY(.) Comments Dr. Hobbs is supervising Last Modified By: Alexis MEJIA, Amina Espinoza RN, Amina Moe RN 02/04/22 08:13:22 02/04/22 08:13:22 02/04/22 08:13:22 Entry 4 Entry 5 Case Attendee Andreina Frey MD, Michael R Role Performed Scrub - Primary Surgeon - Primary Time In 02/04/22 07:57:00 02/04/22 07:57:00 Time Out 02/04/22 08:13:00 02/04/22 08:13:00 Procedure COLONOSCOPY(.) COLONOSCOPY(.) Comments Last Modified By: Amina Espinoza RN, RN, Kristin N 02/04/22 08:13:22 02/04/22 08:13:22 Perioperative Protocols FT Pre-Care Text: Implements protective measures prior to operative or invasive procedure, confirms identity before the operative or invasive procedure, verifies operative procedure, surgical site, and laterality Entry 1 Procedure(s) COLONOSCOPY(.) Patient Identity Birthday, ID Band Verified (select at Check, Patient least 2): Participation Consents / H and P Anesthesia Consent, Operative Site N/A Verified HandP, Surgery/Procedure Marking Verified Consent Surgical Site No Laterality Verified n/a Verified Procedure Verified Yes Correct Patient Yes Position Verified Availability Equipment, Medication Prep Dry n/a Verified (If Applicable) PreOp Antibiotic No Time Out Chip Foreman, Given Participants Lelia Lopez Sherman RN, Shante Goncalves Micala E, NILL MD, Michael R Time Out Complete 02/04/22 08:01:00 Outcomes Met? Yes Last Modified By: Amina Espinoza RN 02/04/22 08:02:44 Post-Care Text: The patient is free from signs and symptoms of injury caused by extraneous objects Allergy Information FT Pre-Care Text: Verifies allergies Entry 1 Allergies Reviewed? Yes Allergies Reviewed Self/Patient With Outcomes Met? Yes Last Modified By: Amina Espinoza RN 02/04/22 08:02:51 Post-Care Text: The patient received appropriate medication(s) safely administered during the perioperative period Surgical Procedures FT Entry 1 Procedure Description Procedure COLONOSCOPY Modifiers . Surgeon Description Colonoscopy Primary Procedure Yes Primary Surgeon Terrence GOOD MD Start 02/04/22 08:00:00 Stop 02/04/22 08:11:00 Anesthesia Type General Surgical Service General Wound Class 2 - Clean-Contaminated Last Modified By: Amina Espinoza RN 02/04/22 08:11:13 General Case Data FT Pre-Care Text: Classifies surgical wound, implements aseptic technique, initiates traffic control Entry 1 Case Information OR ENDO 1 FT Case Level Level 2 Wound Class 2 - Clean-Contaminated Specialty General ASA Class 2 Preop Diagnosis Screening Postop Same As Preop No Postop Diagnosis Diverticulosis Outcomes Met? Yes Last Modified By: Amina Espinoza RN 02/04/22 08:11:05 Post-Care Text: The patient is free from signs and symptoms of infection Skin Assessment (Pre Procedure) FT Pre-Care Text: Implements protective measures to prevent skin/ tissue injury due to thermal or mechanical sources Evaluates for signs and symptoms of physical injury to skin and tissue Entry 1 Skin Integrity Intact, [place], Warm, and Skin Abnormality No Dry Outcomes Met? Yes Last Modified By: Amina Espinoza RN 02/04/22 08:03:25 Post-Care Text: The patient is free from signs and symptoms of injury caused by extraneous objects Patient Positioning FT Pre-Care Text: Identifies physical alterations that require additional precautions for procedure-specific positioning, verifies presence of prosthetics or corrective devices, positions the patient, evaluates the patient for signs and symptoms of injury as a result of positioning Entry 1 Procedure COLONOSCOPY(.) Body Position Lateral, right side up Feet Uncrossed? Yes Left Arm Position Resting at Side Right Arm Position Resting at Si (more content not included)...[facility]HealthConsenton [id number] [id number]#1.00CD:[address] [place], [place] [address]Discharge Instructionson 87-26-7379Prhmtpvew Instructions [id number]:127[facility]HealthIntraOperative Documentson 29-22-6615QxmvsYkbpldryl Documents [id number]:127OhioHealthReminderson 07-91-8926Wbxotirzd From: Neva Proctor LPN To: N - Clinical; Sent: 02/07/2022 11:55:32 EDT Show up: 01/05/2032 07:00:00 EDT Subject: colonoscopy recall Due Date/Time: 02/05/2032 07:00:00 EDT Reminder/Recall Patient is due for screening colonoscopy 02/05/2032.[facility]HealthColonoscopy Procedure Reporton [id number] Procedure Report Patient: CHIP LUCAS Age: 51 years Sex: Female : 1970 Associated Diagnoses: None Author: Terrence GOOD MD Pre-Procedure Procedure Date 02/04/2022 10:08:00 . Procedure Type: Colonoscopy. Procedure provider Performed by Terrence GOOD MD. Referred by TRUNG MAGDALENO MD. Current history and physical Documented on chart. Colorectal neoplasm risk assessment Average risk. Informed Consent After discussing the rationale, risks and benefits, and alternatives to this procedure, the patient provided signed consent for the procedure. Pre-procedure diagnosis: Age 50 years or over. ASA Classification: Class II. . Monitoring: See anesthesia record. . Procedure The procedure was performed in the hospital. See anesthesia record for sedation given during procedure. Rectal exam was performed and was normal. The patient was positioned starting in the left lateral decubitus position. Endoscope type used was an adult-size. The endoscope was lubricated then introduced through the anus. The scope was advanced to the cecum verified by photographing the appendiceal orifice, verified by photographing the ileocecal valve. No difficulties encountered during the procedure. The bowel preparation quality was excellent and was adequate (see polyps greater than or equal to 6 millimeters). The patient tolerated the procedure well. Findings Diverticulosis was identified in the sigmoid colon. The severity of the diverticulosis is moderate. Images Procedure images: anal canal rectal veins diverticulosis ileocecal valve appendiceal orifice . Post-Procedure Complications: none. Estimated blood loss: none. Specimens: none. Devices/ implants: none left in place. Impression and Plan Diagnosis: Colon, diverticulosis (LDT56-LD K57.30, Discharge, Medical). Course: Progressing as expected. Recommendations: Repeat colonoscopy:: In 10 years. Follow-up:: if problems/questions. Diet:: Regular diet. Medication resumption:: Continue current medications. Return to activities:: After 24 hours. Education and Follow-up: Counseled: Family.[facility] Comment on above:Other Comment: Missing Attachment - attachment storage system not supported [id number] Can be viewed in source systemMissing Attachment - attachment storage system not supported [id number] Can be viewed insource systemMissing Attachment - attachment storage system not supported [id number] Can be viewed in source systemMissing Attachment - attachment storage system not supported [id number] Can be viewed in source systemMissing Attachment - attachment storage system not supported [id number] Can be viewed in source systemConsent for Treatmenton 50-60-2572Cnbrugi for Treatment [id number]#1.00CD:127NoFisher-Titus Medical CenterInpatient Patient Summaryon 35-17-4008Nldnjclok Patient Summary [place] [id number] [facility] Clinical Discharge Instructions PERSON INFORMATION Name: CHIP LUCAS PHYSICIANS Admitting Physician: Terrence GOOD MD Attending Physician: Terrence GOOD MD PCP: TRUNG MAGDALENO MD Discharge Diagnosis: Colon, diverticulosis Comment: PATIENT EDUCATION INFORMATION Instructions: Medication Leaflets: Follow up: With: Address: When: Terrence GOOD [address] [place] [address], [facility] [address] [address] [facility] (1) , only if needed MEDICATION LIST Medications to Continue Taking That Have Changed Other Medications START: budesonide-formoterol (Symbicort 80/4.5 inhalation aerosol with adapter) 2 Puffs Inhalation 2 times a day as needed Shortness of breath or wheezing. START: methotrexate (methotrexate 2.5 mg Tab) 1 Tablets By Mouth every week. Medications to Continue with No Changes Other Medications albuterol (albuterol HFA 90 mcg/inh MDI) 2 Puffs Inhalation 4 times a day as needed Shortness of breath or wheezing. pregabalin (Lyrica 25 mg Cap) 1 Capsules By Mouth at bedtime. Comment:[facility] OR PACU I Recordon 42-75-5025Rwvx OR PACU I RecordPACU Phase I Document Type FT Summary Primary Physician: Terrence GOOD MD Finalized Date/Time: 02/04/22 09:00:29 Pt. Name: SHAYY CHIP Bruno/Sex: 1970 Female Med Rec #: [id number] Physician: Terrence GOOD MD Financial #: [id number] Pt. Type: A Room/Bed: / Admit/Disch: 02/04/22 07:22:51 - Institution: Case Times PACU I FT Pre-Care Text: Identifies barriers to communication and implements measures to provide psychological support Develops individualized plan of care, and ensures continuity of care Maintains patient's dignity and privacy, and maintains patient confidentiality Identifies and reports philosophical, cultural, and spiritual beliefs and values Identifies individual values and wishes concerning care Implements aseptic technique, and administers prescribed antibiotic therapy and immunizing agents as ordered Evaluates postoperative tissue perfusion Implements thermoregulation measures, and monitors body temperature Evaluates postoperative respiratory status Evaluates postoperative cardiac status Evaluates postoperative neurological status Assesses pain control, collaborated in initiating patient-controlled analgesia and implements alternative methods of pain control Verifies allergies, administers prescribed medications and solutions, evaluates response to medications Entry 1 In PACU I 02/04/22 08:13:00 Discharge from PACU 02/04/22 08:50:00 I Outcomes Met? Yes Last Modified By: Petra Kohli RN 02/04/22 09:00:05 Post-Care Text: The patient demonstrates knowledge of the expected response to the operative or invasive procedure The patient's care is consistent with the individualized perioperative plan of care The patient's rightto privacy is maintained The patient's value system, lifestyle, ethnicity, and culture are considered, respected, and incorporated into the perioperative plan of care The patient participates in decisions affecting his or her perioperative plan of care The patient is free from signs and symptoms of infection The patient has wound/tissue perfusion consistent with or improved from baseline levels established preoperatively The patient is at or returning to normothermia at the conclusion of the immediate postoperative period The patient's respiratory function is consistent with or improved from baseline levels established preoperativelyThe patient's cardiovascular status is consistent with or improved from baseline levels established preoperatively The patient's cardiovascular status is consistent with or improved from baseline levels established preoperatively The patient demonstrates and/or reports adequate pain control throughout the perioperative period The patient received appropriate medication(s), safely administered during the perioperativeperiod Acuity Level PACU I FT Entry 1 Start Time 02/04/22 08:13:00 Stop Time 02/04/22 08:50:00 Acuity Level Acuity Level I Last Modified By: Petra Kohli RN 02/04/22 09:00:23 Finalized By: Petra Kohli RN Document Signatures Signed By: Petra Kohli RN 02/04/22 09:00[facility] Preoperative Recordon 07-73-2637Clsp OR Preoperative RecordHolding Area Document Type FT Summary Primary Physician: Terrence GOOD MD Finalized Date/Time: 02/04/22 07:46:36 Pt. Name: CHIP LUCAS./Sex: 1970 Female Med Rec #: [id number] Physician: Terrence GOOD MD Financial #: [id number] Pt. Type: A Room/Bed: / Admit/Disch: 02/04/22 07:22:51 - Institution: Case Times Holding FT Pre-Care Text: Verifies consent for planned procedure, identifies individual values and wishes concerning care, includes family members in perioperative teaching Secures patient's records' belongings, and valuables, maintains patient's dignity and privacy, and maintains patient confidentiality Entry 1 In Holding 02/04/22 07:35:00 Outcomes Met? Yes Last Modified By: Marychuy Lakhani RN 02/04/22 07:43:33 Post-Care Text: The patient participates in decisions affecting his or her perioperative plan of care The patient'sright to privacy is maintained Surgery Checklist FT Entry 1 Patient Birthday, ID Band Procedure History and Physical, Identification: Check, Patient Verification: Surgical Consent, With Participation Patient NPO after Midnight: Yes Date/Time: 02/04/22 00:00:00 Personal Items: Glasses Limitations: vision Complaints of Pain: No Pain Comment: denies Operative Site n/a Availability Equipment Marking: Verified: Does Patient Smoke No Patient states Yes Comment - Adult niece- Margie postop adult Supervision supervision available Case Cancelled in No Holding Area see comments below for reason Last Modified By: Marychuy Lakhani RN 02/04/22 07:46:34 Finalized By: Marychuy Lakhani RN Document Signatures Signed By: Marychuy Lakhani RN 02/04/22 07:46NoFisher-Titus Medical CenterMonitor Record on 80-84-8726Xvixfyh [id number]#1.00CD:127 [facility] Record [id number]#1.00CD:127NoFisher-Titus Medical CenterOutpatient Surgery Discharge Instructionon 81-13-7480Qiwjyhnnjc Surgery Discharge Instruction [place] [id number] Patient Discharge Instructions PERSON INFORMATION Name: CHIP LUCAS Date of : 1970 Current Date: 02/04/2022 08:13:27 PHYSICIANS Admitting Physician: Terrence GOOD MD Discharge Diagnosis: Colon, diverticulosis CHIP LUCAS has been given the following list of follow-up instructions, prescriptions, and patient education materials: PATIENT FOLLOW-UP INFORMATION Diet: Regular Discharge Activity: Resume normal activities in 24 hours, Arrange for a responsible adult supervision for 24 hours Discharge Restrictions: No driving for 24 hrs, Do not operate machinery or tools, Do not make important decisions for 24 hours, Do not drink alcoholic beverages for 24 hours Call Your Doctor For: Persistent or heavy bleeding, Temperature above 101.5 degrees, Redness, swelling, or pus at operative site, Severe pain at the operative site, Persistent vomiting IF UNABLE TO CONTACT YOUR PHYSICIAN AND YOU FEEL IT IS AN EMERGENCY, GO TO THE NEAREST EMERGENCY ROOM OR CALL 911 ISHAYY NICOLE D, have received the attached patient education materials/instructions and have verbalized understanding: May we do a follow up call? Yes No I was present when discharge instructions were given Patient Signature Date Clinican/Nurse Signature Date Follow up: With: Address: When: Terrence GOOD [address], [address], [facility] [address] [place] [address] Business (1) , only if needed Pharmacy Information: Other: [facility] You may receive a survey from [employer] asking you to rate your care experience. Your feedback is important and will help us understand what we do well and how we can improve the quality of care we provide to you, your loved ones and our community. It?s an honor to serve you. Thank you for choosing [facility] HERE ARE THE MEDICATION CHANGES THAT OCCURRED DURING YOUR HOSPITAL STAY Medications to Continue Taking That Have Changed Other Medications START: budesonide-formoterol (Symbicort 80/4.5 inhalation aerosol with adapter) 2 Puffs Inhalation 2 times a day as needed Shortness of breath or wheezing. START: methotrexate (methotrexate 2.5 mg Tab) 1 Tablets By Mouth every week. Medications to Continue with No Changes Other Medications albuterol (albuterol HFA 90 mcg/inh MDI) 2 Puffs Inhalation 4 times a day as needed Shortness of breath or wheezing. pregabalin (Lyrica 25 mg Cap) 1 Capsules By Mouth at bedtime. PATIENT EDUCATION INFORMATION Instructions: Medication Leaflets:[facility]HealthPatient Education - Texton 64-79-1282Bgaluxk Education - TextNormalGrand Lake Joint Township District Memorial HospitalCoding Summary.on 36-03-7618Njfqki Summary. CD:[id number]:[id number]+PGhlYWQ+XZ3XAKIfJ36fsKPsdW9AF3xVDP6ZXRIQSSGTYE3KAY4zx YO5SPabR1OcikKi [file] cHNl (more content not included)...NormalGrand Lake Joint Township District Memorial HospitalCOVID-19 ([facility] [place]on 31-92-8079ZFGY-CoV-2 (COVID-19) RNA HÉCTOR+probe Ql (Resp)Not detected NormalNot DetectedGrand Lake Joint Township District Memorial HospitalComment on above:Result Comment: This test result should be correlated with clinical presentations and medical history by a healthcare provider to determine its clinical significance. This assay was performed by a reverse transcriptase real-time polymerase chain reaction (rt PCR) method on the [employer] system. This test has been authorized only for the detection of nucleic acid from SARS-CoV-2, not for any other viruses or pathogens. This test has not been FDA cleared or approved. This test has been authorized by FDA under an Emergency Use Authorization (EUA). This test is only authorized for the duration of time the declaration on that circumstances exist justifying the authorization emergency use of in vitro diagnostic tests for detection and/or diagnosis of COVID-19 infection under section 564 (b) (1) of the Act, 21 U.S.C. 360 bbb-3 (b) (1), unless authorization is terminated or revoked sooner.Performed By: #### [id number] ####[facility] [address] [id number]-JxF-2 (COVID-19) RNA HÉCTOR+probe Ql (Unsp spec)PassNormalPassGrand Lake Joint Township District Memorial HospitalComment on above:Performed By: #### [id number] ####[facility] [address] [id number] source Nom (Unsp spec)NasalNormACMC Healthcare SystemComment on above:Performed By: #### [id number] ####[address]Consent for Treatmenton 16-62-6611Amtprks for Treatment [id number]#1.00CD:[address] [place], [place] [address]COVID-19 ([facility] [place]on 89-77-5215VBEPEWCA TO INTENSIVE CARE UNIT FOR CONDITION OF INTEREST:FIND:PT:NONTrumbull Memorial HospitalComment on above: Performed By: #### [id number] ####[place], [place] [address]EMPLOYED IN A HEALTHCARE SETTING:FIND:PT:Unknown OhioHealthComment on above:Performed By: #### [id number] ####[place], [place] [address]FIRST TEST FOR CONDITION OF INTEREST:FIND:PT:UnknownOhioHealth Comment on above:Performed By: #### [id number] ####[place] [id number] SYMPTOMS RELATED TO CONDITION OF INTEREST:FIND:PT:UnknownOhioHealthComment on above: Performed By: #### [id number] ####[address]HOSPITALIZED FOR CONDITION OF INTEREST:FIND:PT:NO OhioHealthComment on above:Performed By: #### [id number] ####[address] STATUS:FIND:PT:NONTrumbull Memorial HospitalComment on above: Performed By: #### [id number] ####[address]RESIDES IN A CONGREGATE CARE SETTING:FIND:PT:Unknown OhioHealthComment on above:Performed By: #### [id number] ####[facility] [address] [place], [place] Ambulatory Visit Summaryon 40-46-2079Jhgpnfypsx Visit Summary CHIP LUCAS :1970 Visit Date:01/10/2022 Ambulatory Visit Instructions Your Care Team Attending Physician - FLORENTINO PURDY, Terrence Bolanos Primary Care Physician - SHARLA PURDY, TRUNG This Is Your Medications List Contact prescribing physician if questions or concerns albuterol (albuterol HFA 90 mcg/inh MDI) budesonide-formoterol (Symbicort 80/4.5 inhalation aerosol with adapter) methotrexate (methotrexate 2.5 mg Tab) pregabalin (Lyrica 25 mg Cap) Procedures Performed Injection of nerve root of lumbar spine using fluoroscopic guidance (02/18/2020), Laparoscopy (05/2015), section, LEEP. Discharge Vitals Heart Rate (Peripheral) 79 Respiratory Rate 16 Blood Pressure 124/84 Height 162.5 cm Height 162.5 cm Weight 70.7 kg Weight 70.7 kg BMI 26.77 What to do next Scheduled Follow-Up Appointments Monday 10:00 AM EDT Where: [facility] Monday 10:30 AM EDT Where: [facility] Medications What How Much When Instructions Unchanged albuterol (albuterol HFA 90 mcg/ inh MDI) 2 Puffs Inhalation 4 times a day as needed for Shortness of breath or wheezing Contact prescribing physician if questions or concerns Unchanged budesonide-formoterol (Symbicort 80/ 4.5 inhalation aerosol with adapter) 2 Puffs Inhalation 2 times a day Contact prescribing physician if questions or concerns Unchanged methotrexate (methotrexate 2.5 mg Tab) 1 Tablets By Mouth Every day Contact prescribing physician if questions or concerns Unchanged pregabalin (Lyrica 25 mg Cap) 1 Capsules By Mouth At bedtime Contact prescribing physician if questions or concerns Allergies No Known Allergies Problems Ongoing - Any problem that you are currently receiving treatment for. Ankle contracture Asthma BMI 26.0-26.9,adult Menopause Rheumatoid arthritis Tremor Varus foot deformity, acquired NormalFisher Cayey Medical CenterConsent for Procedure/Surgeryon 86-13-7696Evfmloe for Procedure/Surgery [id number]#1.00CD:127[facility] HospitalPA ACOG PANEL 2: 30 to 65on 12-19-2021..NormalZanesville City Hospital Comment on above:Result Comment: Performed at: WBPerformed By: #### [id number] #### [facility] [address] [place] [address] Dr. Wing Short Gdln ACOG Wlvphdj68-04OobzcaWpzAkron Children's HospitalComment on above:Performed By: #### [id number] #### [facility] [address] [place] [address] Dr. Wing StuartDIAGNOSIS:CommentProMedica Toledo HospitalComment on above: Result Comment: NEGATIVE FOR INTRAEPITHELIAL LESION OR MALIGNANCY. Performed at: WBPerformed By: #### [id number] #### [facility] [address] [place] [address] Dr. Wing StuartHPV AptimaNegativeNormalNegativeZanesville City HospitalComment on above:Result Comment: This nucleic acid amplification test detects fourteen high-risk HPV types (16,18,31,33,35,39,45,51,52,56,58,59,66,68) without differentiation. Performed at: =GPerformed By: #### [id number] #### [facility] [address] [place] [address] Dr. Wing StuartMethodology:CommentNoAkron Children's HospitalComment on above: Result Comment: This liquid based ThinPrep(R) pap test was screened with the use of an image guided system. Performed at: WBPerformed By: #### [id number] #### [facility] [address] [place] [address] Dr. Wing StuartNote:CommentProMedica Toledo HospitalComment on above:Result Comment: The Pap smear is a screening test designed to aid in the detection of premalignant and malignant conditions of the uterine cervix. It is not a diagnostic procedure and should not be used as the sole means of detecting cervical cancer. Both false-positive and false-negative reports do occur. . Performed at: WBPerformed By: #### [id number] #### [facility] [address] [place] [address] Dr. Wing StuartPerformed by:CommentChillicothe Hospital on above: Result Comment: Rosenda Quiroz, Oil Separator (ASCP) Performed at: WBPerformed By: #### [id number] #### [facility] [address] [place] [address] Dr. Wing StuartSpecimeromán adequacy:CommentChillicothe Hospital on above:Result Comment: Satisfactory for evaluation. Endocervical and/or squamous metaplastic cells (endocervical component) are present. Performed at: WBPerformed By: #### [id number] #### [facility] [address] [place] [address] Dr. Wing StuartUS PELVIS TRANSVAGon 21-37-1994RB PELVIS TRANSVAGEXAMINATION: US PELVIS TRANSVAG HISTORY: Hypertrophy of uterus COMPARISON: No relevant comparison available. FINDINGS: The uterus is mildly prominent in size, normal in contour and echotexture measuring 9.0 x 5.2 x 4.3 cm. No focal mass. Multiple areas of anechoic echogenicity in the cervix, likely nabothian cysts. Endometrium measures 8 mm. The right ovary measures 2.2 x 2.1 x 1.4 cm. Normal color and Doppler flow. 3 mm area of hyper echogenicity possibly calcification. Normal subcentimeter follicles. The left ovary measures 2.9 x 2.9 x 1.7 cm. Normal color and Doppler flow. 2 areas of anechoic echogenicity the largest measuring 1.5 x 2.3 x 1.2 cm. Simple cysts are favored. IMPRESSION: Mildly prominent uterine size with no focal mass 3 mm benign-appearing calcifications Two left ovarian cysts measuring up to 2.3 cm Electronically authenticated by: CARROLL JOHNSON Date: 2021-12-18 07:59ProMedica Toledo HospitalPhysician Referralon 99-33-6848Agiuhxazn Referral [id number]:127NoFisher-Titus Medical CenterMG MAMM SCREEN 3D DENISSE CADon 38-12-4235JJ MAMM SCREEN 3D DENISSE CADPatient: CHIP LUCAS Exam Date: 11/08/2021 : 1970 Gender:F Ordering : DR SAVANNA MACIAS . Admission #: [id number] Family : Order #: [id number] CLICK HERE TO VIEW EXAM RADIOLOGY REPORT PROCEDURE: MAMMOGRAM SCREENING 3D BILATERAL CAD COMPARISON: MG MAMM SCREEN 3D DENISSE CAD, 09/14/2020. INDICATIONS: Screening mammography Calculator Name NCI Breast Cancer Risk Assessment Tool 5 Year Breast Cancer Risk 1.50% Lifetime Breast Cancer Risk 13.00% Personal Breast Cancer No Personal Ovarian Cancer No Treatments None Family Cancers Mother with uterine cancer at age 54; Father with colon cancer at age 65. LOCATION: [facility] BREAST COMPOSITION: Scattered areas fibroglandular density. FINDINGS: DIAGNOSTIC CATEGORY 1--NEGATIVE. NO CHANGE FROM COMPARISON ASSESSMENT. Scattered benign-appearing calcifications are present. Scattered benign-appearing lymph nodes are present. RIGHT BREAST: No significant suspicious finding. LEFT BREAST: No significant suspicious finding. RECOMMENDATIONS: ROUTINE MAMMOGRAM AND CLINICAL EVALUATION IN 12 MONTHS. PLEASE NOTE: A NORMAL MAMMOGRAM DOES NOT EXCLUDE THE POSSIBILITY OF BREAST CANCER. A CLINICALLY SUSPICIOUS PALPABLE LUMP SHOULD BE BIOPSIED. Dictated by: Carroll Johnson MD on 11/08/2021 at 10:52 Approved by: Carroll Johnson MD on 11/08/2021 at 10:55ProMedica Toledo HospitalXR CHEST 1 Von 09-08-2461TZ CHEST 1 VEXAMINATION: XR CHEST 1 V HISTORY: SHORTNESS OF BREATH COMPARISON: 06/21/2016 TECHNIQUE: AP portable erect FINDINGS: LUNGS: Bibasilar opacities, left greater than right. The upper lung zones are clear VASCULATURE: No increased pulmonary vasculature. PLEURA: No pneumothorax, effusion, or pleural thickening. CARDIAC: No cardiomegaly or cardiac silhouette abnormality. MEDIASTINUM: No visible mass or adenopathy. BONES: No fracture or visible bone lesion. OTHER: Negative. IMPRESSION: Bibasilar infiltrates, consider multifocal pneumonia Electronically authenticated by: CARROLL JOHNSON Date: 2021-06-21 15:11ProMedica Toledo HospitalNo Panel Informationon 80-34-5103Iutblkwth ClinicCBC W/DIFFon 62-34-4728JSTY ABS0.1 K/uLNormal0.0-0.2[facility] CenterComtr[facility] health [facility] on above:Order Comment: CBN: YES [place]: MAINPerformed By: #### L200.13501 #### Test performed at: [address] [address]Xwfizwvqh/100 WBC (Bld)0.7 %NormalSt. Orange Coast Memorial Medical CenterComtrinity health oakland hospital on above:Order Comment: CBN: YES [place]: MAINPerformed By: #### L200.37920 #### Test performed at: [address] [address]ENA ABS0.1 K/uLNormal0.0-0.5St. [facility] CenterComtrinity health oak[facility] hospital on above:Order Comment: CBN: YES [place]: MAINPerformed By: #### L200.00572 #### Test performed at: [address] [address]Xuqcrilxnyj/100 WBC (Bld)0.6 %NormalSt. Orange Coast Memorial Medical CenterComtrinity health oakland hospital on above:Order Comment: CBN: YES [place]: MAINPerformed By: #### L200.30919 #### Test performed at: [address] [address]Jsyftysimdn distribution width (RBC) [Ratio]13.4 %Normal 11.5-14.5St. [facility] CenterComtr[facility] on above:Order Comment: CBN: YES [place]: MAINPerformed By: #### L200.66981 #### Test performed at: [address] [address]Mtimwfwnme (Bld) [Volume fraction]43.2 %Maeqod40.0-48.0St[facility] CenterComtr[facility] on above:Order Comment: CBN: YES [place]: MAINPerformed By: #### L200.31711 #### Test performed at: [address] [address]Aeselorvvz (Bld) [Mass/Vol]13.6 g/sSAcxoqc93.0-15.0St. [facility] CenterComtr[facility] on above:Order Comment: CBN: YES [place]: MAINPerformed By: #### L200.02927 #### Test performed at: [address] [address]YV %0.5 %NormalSt. Orange Coast Memorial Medical CenterComtrinity health [facility] hospital on above:Order Comment: CBN: YES [place]: MAINPerformed By: #### L200.68232 #### Test performed at: [address] [address]VE ABS0.04 K/uLNormal0-0.05St. [facility] CenterComtr[facility] on above:Order Comment: CBN: YES [place]: MAINPerformed By: #### L200.72010 #### Test performed at: [address] [address]Qxbuslxsreq (Bld) [#/Vol]1.9 10*3/uLNormal1.2-3.5St. [facility] CenterComtr[facility] on above:Order Comment: CBN: YES [place]: MAINPerformed By: #### L200.45782 #### Test performed at: [address] [address]Hrubrnvpszq/100 WBC (Bld)23.1 %NormalSt. [facility] Coast Memorial Medical CenterComtrinity health [facility] hospital on above:Order Comment: CBN: YES [place]: MAINPerformed By: #### L200.23002 #### Test performed at: [address] [address]XKK (RBC) [Entitic mass]26.0 pfVfjkfe85.4-34.6St[facility] CenterComtr[facility] on above:Order Comment: CBN: YES [place]: MAINPerformed By: #### L200.51499 #### Test performed at: [address] [address]YOTB (RBC) [Mass/Vol]31.5 g/uDZvvpkv17.5-36.5St. [facility] Medical CenterComment on above:Order Comment: CBN: YES [place]: MAINPerformed By: #### L200.96406 #### Test performed at: [address] Jones StreetV (RBC) [Entitic vol]82.6 qYSayxyr73.0-98.0St[address] [facility] Medical CenterComment on above:Order Comment: CBN: YES [place]: MAINPerformed By: #### L200.83175 #### Test performed at: [address] [address]PJMS ABS0.8 K/uLNormal0.0-1.0St. [facility] Medical CenterComment on above:Order Comment: CBN: YES [place]: MAINPerformed By: #### L200.35005 #### Test performed at: [address] [address]Cofyuhvny/100 WBC (Bld)9.5 %NormalSt. Orange Coast Memorial Medical CenterComtrinity health oak[facility] hospital on above:Order Comment: CBN: YES [place]: MAINPerformed By: #### L200.57287 #### Test performed at: [address] [address]SYKAZDXVKY ABS5.3 K/uLNormal1.4-6.6St. [facility] CenterComtr[facility] on above:Order Comment: CBN: YES [place]: MAINPerformed By: #### L200.96470 #### Test performed at: [address] [address]Fqgijymzges/100 WBC (Bld)65.6 %NormalSt. Orange Coast Memorial Medical CenterComment on above:Order Comment: CBN: YES [place]: MAINPerformed By: #### L200.17259 #### Test performed at: [address] [address]VJLI #0.000 K/uLNormal0-0.012St. [facility] Medical CenterComment on above:Order Comment: CBN: YES [place]: MAINPerformed By: #### L200.18923 #### Test performed at: [address] [address]KNFE %0.0 /100 WBCNormal0-0.2St[address] [facility] Medical CenterComment on above:Order Comment: CBN: YES [place]: MAINPerformed By: #### L200.83674 #### Test performed at: [address] [address]Lcpyasyr mean volume (Bld) [Entitic vol]11.3 fLNormal 8.7-12.4St. [facility] Medical CenterComment on above:Order Comment: CBN: YES [place]: MAINPerformed By: #### L200.28023 #### Test performed at: [address] [address]Jvuidkluj (Bld) [#/Vol]328 10*3/aIAiptto407-128Jj. [facility] CenterComtr[facility] on above:Order Comment: CBN: YES [place]: MAINPerformed By: #### L200.25361 #### Test performed at: [address] [address]TMO (Bld) [#/Vol]5.23 10*6/uLNormal3.5-5.5St. [facility] CenterComtr[facility] on above:Order Comment: CBN: YES [place]: MAINPerformed By: #### L200.46730 #### Test performed at: [address] [address]QAU (Bld) [#/Vol]8.1 10*3/uLNormal3.9-11.0St. [facility] Medical CenterComment on above:Order Comment: CBN: YES [place]: MAINPerformed By: #### L200.38726 #### Test performed at: [address] [address]NKPxf 32-37-4959YDS [Mass/Vol]8.3 mg/LHigh0.0-3.0St. [facility] Medical CenterComment on above:Order Comment: CBN: YES [place]: MAINPerformed By: #### L500.03351 #### Test performed at: [address] [address]JUN 2-3 VIEWS W PELVIS LTon 27-09-3149PTU 2-3 VIEWS W PELVIS LTSTUDY: HIP 2-3 VIEWS W PELVIS LT; 07/10/2020 12:09 pm INDICATION: PAIN. COMPARISON: None. ACCESSION NUMBER(S): [id number] ORDERING CLINICIAN: Ashley Briscoe FINDINGS: The pelvic ring appears intact. No acute fracture or dislocation.. Mild joint space narrowing. IMPRESSION: Mild degenerative changes of the left hip.NormalSt. Orange Coast Memorial Medical CenterRA FACTOR QUANTon 56-45-2061OX FACTOR QUANT< 10Normal<15St. [facility] Medical CenterComment on above:Order Comment: CBN: YES [place]: MAINPerformed By: #### L700.18508 #### Test performed at: [address] [address] Vital Signs Date TimeVital SignValuePerforming GehdphajeYvxtuwwb60-53-0814 10:02-0500Body mass index (BMI) [Ratio]26.87 kg/n2FogcvkbqJustin Preston MD Work Phone: [facility]11-22-2024 10:02-050Body kg Justin Preston MD Work Phone: [facility]11-22-2024 10:02-0500Diastolic blood jpkmychu85 mm[Hg]Justin Preston MD Work Phone: [facility]11-22-2024 10:02-0500Heart rate71 /min Justin Preston MD Work Phone: [facility]11-22-2024 10:02-0500Systolic blood dnzpafra452 mm[Hg]Justin Preston MD Work Phone: [facility]02-15-2024 16:13-0500Body tspads990 cm Giovany Rivas MD Work Phone: 1(248)[facility]02-15-2024 16:13-0500Body mass index (BMI) [Ratio]28.39 kg/m2Giovany Rivas MD Work Phone: 1(143)[facility]02-15-2024 16:13-0500Body csonww68.67 kgGiovany Rivas MD Work Phone: 1(099)[facility]02-15-2024 16:13-0500Diastolic blood vgjounya57 mm[Hg]Giovany Rivas MD Work Phone: 1(342)[facility]02-15-2024 16:13-0500Heart rate 86 /minGiovany Rivas MD Work Phone: 1(369)[facility]02-15-2024 16:13-5992TkH1% (BldA) [Mass fraction]97 %Giovany Rivas MD Work Phone: 1(060)[facility]02-15-2024 16:13-0500Systolic blood mm[Hg]Giovany Rivas MD Work Phone: 1(829)[facility]01-15-2024 11:08-0500Diastolic blood yijtyyby55 mm[Hg]Simon HUNTER Work Phone: 1(660)[facility] Accurence Kqmsrj58-05-0032 11:08-0500Systolic blood mm[Hg]Simon HUNTER Work Phone: 1(767)[facility]01-15-2024 11:07-0500Body zkiruq550 cmAruy HUNTER Work Phone: 1(783)[facility]01-15-2024 11:07-0500Body mass index (BMI) [Ratio]26.57 kg/m2Adacyrus Sarah HUNTER Work Phone: 1(660)[facility]01-15-2024 11:07-0500Body pbxdeu51.04 kgAdacyrus Sarah PA Work Phone: [phone]10-11-2023 09:31-0400Body qfaluw45.4 kgIsidra Sanchez APRN.COMPUTER PROJECT MANAGER Work Phone: [facility]10-11-2023 09:31-0400Diastolic blood mm[Hg]Isidra Sanchez APRN.COMPUTER PROJECT MANAGER Work Phone: [facility]10-11-2023 09:31-0400Heart rate76 /min Isidra Sanchez APRN.COMPUTER PROJECT MANAGER Work Phone: [facility]10-11-2023 09:31-0400Systolic blood qbtyoalp081 mm[Hg]Isidra Sanchez APRN.COMPUTER PROJECT MANAGER Work Phone: [facility]08-02-2023 09:00-0400Body yyxbwv904.56 cmPetra Wilson Other [employer] Other 08-02-2023 09:00-0400Body mass index (BMI) [Ratio] 26.77 kg/n3HvpmbaxmPetra Wilson Other [employer] Other 08-02-2023 09:00-0400Body ucqych02.76 kgPetra Wilson Other [employer] Other 08-02-2023 09:00-0400Diastolic blood sonbwdrb05 mm[Hg] Petra Wilson Other [employer] Other 08-02-2023 09:00-0400Systolic blood obtwqduf278 mm[Hg] Petra Wilson Other [employer] Other 06-23-2023 14:00-0400Body gazdfo299.56 cmTrung Magdaleno Other [employer] Other 06-23-2023 14:00-0400Body mass index (BMI) [Ratio] 26.95 kg/k6Hkjcdb Magdaleno Other [employer] Other 06-23-2023 14:00-0400Body ajupbh98.22 kgTrung Magdaleno Other [employer] Other 06-23-2023 14:00-0400Diastolic blood naljxrdw88 mm[Hg] Trung Sharla Other [employer] Other 06-23-2023 14:00-0400Systolic blood btxxcnoj180 mm[Hg] Trung Magdaleno Other [employer] Other 04-27-2023 08:23-0400Body soqkkb56.4 kgJustin Preston MD Work Phone: [facility]04-27-2023 08:23-0400Diastolic blood rsjqxjop94 mm[Hg]Justin Preston MD Work Phone: [facility]04-27-2023 08:23-0400Heart rate86 /min Justin Preston MD Work Phone: [facility]04-27-2023 08:23-0400Systolic blood hzkulgmr135 mm[Hg]Justin Preston MD Work Phone: [facility]09-16-2022 08:41-0400Body .85 kgJustin Preston MD Work Phone: [facility]09-16-2022 08:41-0400Diastolic blood mm[Hg]Justin Preston MD Work Phone: [facility]09-16-2022 08:41-0400Heart rate69 /min Justin Preston MD Work Phone: [facility]09-16-2022 08:41-0400Systolic blood gkzqjyvi789 mm[Hg]Justin Pretson MD Work Phone: [facility]07-18-2022 13:08-0400Blood Pressure LocationMichael NILL [phone]-VtuzxSt. [facility] [place] 07-18-2022 13:08-0400Diastolic blood bkxudrdy60 mm[Hg] Terrence NILL [phone]-[facility]puThe [facility] 07-18-2022 13:08-0400Heart rate79 /minMichael NILL [phone]-KaxcuSt. [facility] Of [facility] [place] 07-18-2022 13:08-0400Respiratory rate16 /minMichael NILL [phone]-AbnyzSelect [facility] [place] 07-18-2022 13:08-0400Systolic blood nvbpgnbu085 mm[Hg] Terrence NILL [phone]-DqxvgSelect [facility] [place] Encounters Encounter DateEncounter TypeCare ProviderFacilityStart: 03-31-2025 End: 30-58-7116yakfwzewznINZAII Michelle BRAUNFacility:[facility] Hospitaltart: 09-20-2024 End: 48-61-9158EdmuopQgyhyzwj Tsai MD Work Phone: RheumatologyComment on above:Refill RequestStart: 05-18-2024 End: 79-32-2670Kelkroefx encounterJustin Preston MD Work Phone: RheumatologyComment on above:ResultsStart: 05-17-2024 End: 01-21-0299Ojikgllsil hospital visit by physicianXr [facility] Comment on above:Cervicalgia [M54.2]Start: 05-17-2024 End: 95-51-8315frcpmufgaxVOETKW E BRAUNFacility:[facility] HospitalStart: 05-17-2024 End: 34-60-1771Elgmvta encounter procedureJustin Preston MD Work Phone: RheumatologyComment on above:Inflammatory arthritis (Primary Dx); Postmenopausal osteoporosis of multiple sites; Cervicalgia; Elevated sed rate; Elevated C-reactive protein (CRP); Chronic bilateral low back pain with left-sided sciatica; Fibromyalgia; GEGE positive; Secondary osteoarthritis of multiple sites; Chronic hip pain, bilateral; Chronic pain of both knees; Long-term use of high-risk medication; Family history of gout; Family history of rheumatoid arthritisStart: 03-06-2024 End: 34-51-5192vqwljkolncBDETSMIIN [facility] HospitalStart: 99-81-7422Qampvrvwj for gynecological examination (general) (routine) without abnormal findingsHOLZER MEDICAL CENTER – JACKSONROX Aranda HospitalStart: 91-90-7447Omxxebkeiko Preston MD Work Phone: RheumatologyComment on above:Refill RequestStart: 40-54-1988Cpmfmzcqu encounterJustin Preston MD Work Phone: RheumatologyComment on above:ResultsStart: 09-16-2023 Telephone encounterJustin Preston MD Work Phone: RheumatologyComment on above:ResultsStart: 08-10-2023 ambulatoryMARCIA E BRAUNProMedica Yi HospitalStart: 08-10-2023 End: 12-19-4531rlopeqrrysIDPH W MOMOKINPAUGHProMedica Yi HospitalStart: 08-10-2023 End: 55-03-8250Ksirqi outpatient visit 15 minutesToashley Rivas MD Work Phone: [facility] VascularComment on above: Venous hypertension (Primary Dx); Varicose veins of bilateral lower extremities with painStart: 07-10-2023 End: 87-21-2281lzxpxcnetrGMHD W SARAHSelect [facility] Start: 07-10-2023 End: 33-80-4345Blsmam outpatient new 30 minutesAdam W Sarah HUNTER Work Phone: [facility] VascularComment on above: Venous insufficiency (Primary Dx)Start: 89-52-8804Rbwgyagmh encounterJustin Preston MD Work Phone: RheumatologyComment on above:ResultsStart: 05-04-2023 ambulatoryGirgis E Pierre DO Work Phone: Pain ManagementComment on above:pain questionnaire Start: 26-15-8013X-mail encounter from caregiverGirgis E Pierre DO Work Phone: [facility]ENTERtart: 57-33-5852Jbyrmwkum encounter Justin Preston MD Work Phone: RheumatologyComment on above:ResultsStart: 04-06-2023 ambulatoryNo Pcp APRNNavigatWVU Medicine [facility] EnterpriseStart: 52-69-6094Swshqinaz encounterIsidra Sanchez APRN.CNP Work Phone: RheumatologyComment on above:ResultsStart: 04-05-2023 End: 02-69-8005Keowfub encounter Evelia Sanchez APRN.CNP Work Phone: RheumatologyComment on above:GEGE positive (Primary Dx); Inflammatory arthritis; Chronic bilateral low back pain with left-sided sciatica; Fibromyalgia; Secondary osteoarthritis of multiple sites; Long-term use of high-risk medicationStart: 04-05-2023 End: 47-49-7268Xxnvtvtqwe hospital visit by Bjorn Parker [facility] RadiologyComment on above:Postmenopausal osteoporosis of multiple sites [M81.0] Start: 74-32-1277HesxbeEbiliiud Tsai MD Work Phone: RheumatologyComment on above:Refill RequestStart: 01-25-2023 End: 22-92-0481nlolhycxbeOqbcfoav Rohrbacher Other [employer] Other Start: 71-17-9498Cwaejz outpatient visit 15 minutes Petra AliciaCleveland Clinic [facility]ina Hospital ClinicStart: 12-26-2022 End: 87-92-8368zlhraekvdhKneahy Sharla Other [facility] [employer] Other Start: 65-32-3924Iapymiyte encounterTrung MagdalenoMemorial Health System [facility] ClinicStart: 12-16-2022 End: 46-54-6110uyqxsvjvbsNjbdmg Braun Other [employer] Other Start: 74-88-0819Rvvhyv outpatient visit 15 minutes Trung SharlaMemorial Health System [facility] ClinicStart: 79-05-4326Nqwjremeg encounterJustin Preston MD Work Phone: RheumatologyComment on above:ResultsStart: 10-20-2022 End: 37-33-3169Xlkoxwt encounter procedureJustin Preston MD Work Phone: eumatologyComment on above:Inflammatory arthritis (Primary Dx); Postmenopausal osteoporosis of multiple sites; Chronic bilateral low back pain with left-sided sciatica; Fibromyalgia; GEGE positive; Chronic pain of both knees; Secondary osteoarthritis of multiple sites; Long-term use of high-risk medication; Family history of gout; Family history of rheumatoid arthritis; Elevated C-reactive protein (CRP); Elevated sed rate; Chronic hip pain, bilateralStart: 90-50-4617Ecdvundjn encounterJustin Preston MD Work Phone: RhghulammatologyComment on above:ResultsStart: 06-14-2022 Gynecological examination normalJennleo Wilson Other [employer] Other Start: 93-93-8409Difojjcwb encounterJustin Preston MD Work Phone: RheumatologyComment on above:ResultsStart: 03-13-2022 Telephone encounterJustin Preston MD Work Phone: RheumatologyComment on above:ResultsStart: 03-11-2022 ambulatorySammi Lugo RT(R)RadiologyComment on above:Radiology XRStart: 03-11-2022 End: 48-66-6417Awhfsyb encounter procedureSammi Lugo RT(R)[facility] Comment on above:Inflammatory arthritis (Primary Dx); Bilateral hand pain; Chronic bilateral low back pain with left-sided sciatica; Fibromyalgia; GEGE positive; Chronic pain of both knees; Chronic elbow pain, right; Secondary osteoarthritis of multiple sites; Long-term use of high-risk medication; Family history of gout; Family history of rheumatoid arthritis; Elevated C-reactive protein (CRP); Elevated sed rate; Numbness and tingling in both handsStart: 03-11-2022 End: 15-31-9031Rsfehprfqh hospital visit by physicianXr [facility] Comment on above:Bilateral hand pain [M79.641, M79.642]Start: 98-15-7125Xfffmgsherie Preston MD Work Phone: RheumatologyComment on above:Refill RequestStart: 02-04-2022 End: 66-22-1134sjwvusmuuaUcixfmg R NILLFacility:FTMCStart: 61-83-5360Qytrwxpqm encounterJustin Preston MD Work Phone: RheumatologyComment on above:ResultsStart: 01-28-2022 End: 69-86-1614fzkctervgbPsxvgaj R NILLFacility:FTMCStart: 01-10-2022 End: 12-31-3619owosrialunKhopvyb R NILLFacility: NorwalkStart: 01-10-2022 End: 48-71-6492Bszcofs encounter procedureMichael R NILL [phone]-UzkmnSelect [facility] [place] Start: 53-51-8125essyhgtpstYyyysnq NILLFacility: VeronicakStart: 12-17-2021 End: 41-69-0043xsxameeauxOQ SAVANNA MACIASFacility:P1Orgxm: 12-17-2021 ambulatoryMichael NILLFacility:[facility] HospitalevueStart: 12-15-2021 End: 43-54-9357fzoxvskhtrAM SAVANNA MACIASFacility:B4Prxgx: 11-08-2021 End: 60-74-4441laovoumxddIL SAVANNA MACIASFacility:Q6Uyauj: 94-72-5829Mxhmpwwhg encounterJustin Preston MD Work Phone: RheumatologyComment on above:ResultsStart: 06-21-2021 End: 19-74-3402awedgrlzezBY TRUNG MAGDALENOFacility:A0Hqfed: 01-25-2021 End: 20-67-5714Llntutqcgi hospital visit by physicianXr [facility] Comment on above:Bilateral hand pain [M79.641, M79.642] Procedures DateProcedureProcedure DetailPerforming ClinicianStart: 44-17-7662Sqkbe hand minimum 3 viewsJustin Preston MD Work Phone: Start: 72-63-3552Fjdys elbow 2 Lucero Preston MD Work Phone: Start: 08-26-0505Fmtwpfnqj of nerve root of lumbar spine using fluoroscopic guidanceMichael NILL Comment on above:Left L4+L5 50% relief to presentStart: 03-73-5388HratzknfuncSqhljyp NILL Start: 88-63-0948Jcbpdryua visitPetra Wilson Other Cesarean sectionMichael NILL Depression screeningJennifer Rohrbacher Other Loop electrosurgical excision procedureMichael NILL Screening for malignant neoplasm of breastJennifer Rohrbacher Other Screening for malignant neoplasm of colonJennifer Rohrbacher Other Plan of Treatment DateCare ActivityDetailAuthorStart: 48-28-4223Qrksiclo ScreeningDiabetes ScreeningBucyrus Community Hospitaltart: 54-64-1386Qidlckxg ScreeningDiabetes Screening [facility] Hospitaltart: 39-60-2843Qdynpwla ScreeningDiabetes ScreeningBucyrus Community Hospitaltart: 24-78-6684Qxtqbvee ScreeningDiabetes ScreeningAd[facility] Hospital Start: 02-00-4551Ebcjydff ScreeningDiabetes ScreeningBucyrus Community Hospitaltart: 01-37-2308XRMYWWLI SCREENDIABETES SCREENBucyrus Community Hospitaltart: 08-05-2025 DIABETES SCREENDIABETES SCREENBucyrus Community Hospitaltart: 55-66-8911XIIAOPQX SCREEN DIABETES SCREENBucyrus Community Hospitaltart: 04-08-2025 End: 64-08-2713Rnqrzvh encounter dlfffvpce85/14/2025 11:15 AM EDT Appointment Radiology [address] [place] [address] AQA-AXIAL SKELETONRadiologyComment on above:DXA-AXIAL SKELETONStart: 03-31-2025 End: 61-10-2179Phoadod encounter tnvxbznad14/06/2025 8:20 AM EDT Office Visit Rheumatology [address] [place] [address] Justin Preston MD [address] [place] [address] for osteoarthritis/osteopenia fu OV 6-12months.Rheumatology Comment on above:for osteoarthritis/osteopenia fu OV 6-12months.Start: 35-44-9314Wrqkhwprt for malignant neoplasm of breastMammogram ScreeningBucyrus Community Hospitaltart: 00-60-8177NPXSNRZL SCREENDIABETES SCREENBucyrus Community Hospitaltart: 68-14-0503AAFLLTES SCREENDIABETES SCREENBucyrus Community Hospitaltart: 10-21-2024 End: 95-67-8953Fyiicbp encounter rvlineqpu31/28/2025 8:40 AM EDT Office Visit Rheumatology [address] [place] [address] Justin Preston MD [address] [place] [address] for osteoarthritis/osteopenia/high crp/+GEGE fu OV 6-12months RheumatologyComment on above:for osteoarthritis/osteopenia/high crp/+GEGE fu OV 6-12monthsStart: 85-09-1462Pzsbz BMI ScreeningAdult BMI ScreeningSumma Health [facility] SystemStart: 01-72-7666Pdkkxqv ScreeningTobacco ScreeningSumma Health Barberton Campus SystemStart: 04-22-2024 End: 30-22-0852Zzzyzju encounter hzmsirvvs67/28/2024 8:30 AM EDT Office Visit Rheumatology [address] [place] [address] Isidra Sanchez APRN.COMPUTER PROJECT MANAGER [address] [place] [address] for osteoarthritis/osteopenia/high crp/+GEGE fu OV 6-12months RheumatologyComment on above:for osteoarthritis/osteopenia/high crp/+GEGE fu OV 6-12monthsStart: 31-41-2066Lojuo-19 Vaccine ( season)Covid-19 Vaccine ( season)[facility] Hospitaltart: 55-26-2478Nulpyjvos vaccination [facility] Hospitaltart: 12-17-2023 End: 792502-qgwztocwfwesnv D3 [Mass/volume] in Serum or PlasmaVITAMIN D 25 HYDROXY Lab Routine Vitamin D deficiency Expected: 12/17/2023 (Approximate), Expires: 09/15/2024[facility] Work Phone: Comment on above:Expected: 12/17/2023 (Approximate), Expires: 09/15/2024Start: 12-17-2023 End: 09-15-2024 reactive protein [Mass/volume] in Serum or PlasmaC-REACTIVE PROTEIN (CRP) Lab Routine Elevated sed rate Elevated C-reactive protein (CRP) Expected: 12/17/2023 (Approximate), Expires: 09/15/2024[facility] Work Phone: Comment on above:Expected: 12/17/2023 (Approximate), Expires: 09/15/2024Start: 12-17-2023 End: 00-01-0872FSU panel - Blood by Automated countCBC Lab Routine Anemia of chronic disease Expected: 12/17/2023 (Approximate), Expires: 09/15/2024[facility] Work Phone: Comment on above:Expected: 12/17/2023 (Approximate), Expires: 09/15/2024Start: 12-17-2023 End: 17-81-0436Idxiakgertxxh metabolic 2000 panel - Serum or PlasmaCOMP METABOLIC PANEL Lab Routine Elevated LFTs Expected: 12/17/2023 (Approximate), Expires: 09/15/2024[facility] Work Phone: Comment on above:Expected: 12/17/2023 (Approximate), Expires: 09/15/2024Start: 12-17-2023 End: 88-70-3575Yhjkvtaefbx sedimentation rateSED RATE WESTERGREN Lab Routine Elevated sed rate Elevated C-reactive protein (CRP) Expected: 12/17/2023 (Approximate), Expires: 09/15/2024[facility] Work Phone: Comment on above:Expected: 12/17/2023 (Approximate), Expires: 09/15/2024Start: 08-28-2023 End: 908054-akfqvklemlbolp D3 [Mass/volume] in Serum or PlasmaVITAMIN D 25 HYDROXY Lab Routine Vitamin D deficiency Expected: 08/28/2023 (Approximate), Expires: 05/29/2024[facility] Work Phone: Comment on above:Expected: 08/28/2023 (Approximate), Expires: 05/29/2024Start: 08-28-2023 End: 05-29-2024 reactive protein [Mass/volume] in Serum or PlasmaC-REACTIVE PROTEIN (CRP) Lab Routine Elevated sed rate Elevated C-reactive protein (CRP) Expected: 08/28/2023 (Approximate), Expires: 05/29/2024[facility] Work Phone: Comment on above:Expected: 08/28/2023 (Approximate), Expires: 05/29/2024Start: 08-28-2023 End: 00-00-2987HQS panel - Blood by Automated countCBC Lab Routine Anemia of chronic disease Expected: 08/28/2023 (Approximate), Expires: 05/29/2024[facility] Work Phone: Comment on above:Expected: 08/28/2023 (Approximate), Expires: 05/29/2024Start: 08-28-2023 End: 57-47-3376Kkmbatcwgmklr metabolic 2000 panel - Serum or PlasmaCOMP METABOLIC PANEL Lab Routine Elevated LFTs Expected: 08/28/2023 (Approximate), Expires: 05/29/2024[facility] Work Phone: Comment on above:Expected: 08/28/2023 (Approximate), Expires: 05/29/2024Start: 08-28-2023 End: 92-60-3823Qltjxaemcwc sedimentation rateSED RATE WESTERGREN Lab Routine Elevated sed rate Elevated C-reactive protein (CRP) Expected: 08/28/2023 (Approximate), Expires: 05/29/2024[facility] Work Phone: Comment on above:Expected: 08/28/2023 (Approximate), Expires: 05/29/2024Start: 08-21-2023 End: 00-54-0734Jdkihss encounter jmidlpfsf92/26/2024 11:00 AM EST Office Visit [facility] [address] [place] [phone] Giovany Rivas MD [address] [place] [address], [address] [address] 025- [facility] VascularStart: 08-14-2023 End: 14-72-8093Iucgdsl encounter dceatnwww46/19/2024 8:30 AM EST Appointment [facility] - Vascular [address] [place] [address] [phone] [facility] - VascularStart: 07-10-2023 End: 00-37-6519RE.doppler Lower extremity vein - bilateralVas venous duplex insufficiency lwr bi Vascular Ultrasound Routine Venous insufficiency Expected: 07/10/2023, Expires: 07/10/2024[facility] Work Phone: Comment on above:Expected: 07/10/2023, Expires: 07/10/2024Start: 56-27-0642Ntpjtpdilo Health ScreeningBehavioral Health ScreeningBucyrus Community Hospitaltart: 19-41-3985Auscptdtks AssessmentDepression AssessmentBucyrus Community Hospitaltart: 07-82-2376Jqrlw-19 Vaccine ( season) Covid-19 Vaccine ( season)[facility] Hospitaltart: 23-54-6665Takwxxdyk vaccinationBucyrus Community Hospitaltart: 02-06-2023 End: 951274-qeohoiubstjtye D3 [Mass/volume] in Serum or PlasmaVITAMIN D 25 HYDROXY Lab Routine Vitamin D deficiency Expected: 02/06/2023 (Approximate), Expires: 11/07/2023[facility] Work Phone: Comment on above:Expected: 02/06/2023 (Approximate), Expires: 11/07/2023Start: 02-06-2023 End: 11-07-2023 reactive protein [Mass/volume] in Serum or PlasmaC-REACTIVE PROTEIN (CRP) Lab Routine Elevated sed rate Elevated C-reactive protein (CRP) Expected: 02/06/2023 (Approximate), Expires: 11/07/2023[facility] Work Phone: Comment on above:Expected: 02/06/2023 (Approximate), Expires: 11/07/2023Start: 02-06-2023 End: 34-51-6316CSA panel - Blood by Automated countCBC Lab Routine Anemia of chronic disease Expected: 02/06/2023 (Approximate), Expires: 11/07/2023[facility] Work Phone: Comment on above:Expected: 02/06/2023 (Approximate), Expires: 11/07/2023Start: 02-06-2023 End: 29-13-4696Dnmtbxpscrlph metabolic 2000 panel - Serum or PlasmaCOMP METABOLIC PANEL Lab Routine Elevated LFTs Expected: 02/06/2023 (Approximate), Expires: 11/07/2023[facility] Work Phone: Comment on above:Expected: 02/06/2023 (Approximate), Expires: 11/07/2023Start: 02-06-2023 End: 29-08-4003Sjhgjlhmggc sedimentation rateSED RATE WESTERGREN Lab Routine Elevated sed rate Elevated C-reactive protein (CRP) Expected: 02/06/2023 (Approximate), Expires: 11/07/2023[facility] Work Phone: Comment on above:Expected: 02/06/2023 (Approximate), Expires: 11/07/2023Start: 11-03-2022 End: 25-38-855006151791-lxrpkunucsuqyh D3 [Mass/volume] in Serum or PlasmaVITAMIN D 25 HYDROXY Lab Routine Vitamin D deficiency Expected: 11/03/2022 (Approximate), Expires: 08/06/2023[facility] Work Phone: Comment on above:Expected: 11/03/2022 (Approximate), Expires: 08/06/2023Start: 11-03-2022 End: 08-06-2023 reactive protein [Mass/volume] in Serum or PlasmaC-REACTIVE PROTEIN (CRP) Lab Routine Elevated sed rate Elevated C-reactive protein (CRP) Expected: 11/03/2022 (Approximate), Expires: 08/06/2023[facility] Work Phone: Comment on above:Expected: 11/03/2022 (Approximate), Expires: 08/06/2023Start: 11-03-2022 End: 13-92-0749STU panel - Blood by Automated countCBC Lab Routine Anemia of chronic disease Expected: 11/03/2022 (Approximate), Expires: 08/06/2023[facility] Work Phone: Comment on above:Expected: 11/03/2022 (Approximate), Expires: 08/06/2023Start: 11-03-2022 End: 88-71-5586Ptclxhfjjlctg metabolic 2000 panel - Serum or PlasmaCOMP METABOLIC PANEL Lab Routine Elevated LFTs Expected: 11/03/2022 (Approximate), Expires: 08/06/2023[facility] Work Phone: Comment on above:Expected: 11/03/2022 (Approximate), Expires: 08/06/2023Start: 11-03-2022 End: 82-67-3417Mrkoucneghr sedimentation rateSED RATE WESTERGREN Lab Routine Elevated sed rate Elevated C-reactive protein (CRP) Expected: 11/03/2022 (Approximate), Expires: 08/06/2023[facility] Work Phone: Comment on above:Expected: 11/03/2022 (Approximate), Expires: 08/06/2023Start: 07-31-2022 End: 74-54-426432291588-qijltgaklbdaei D3 [Mass/volume] in Serum or PlasmaVITAMIN D 25 HYDROXY Lab Routine Vitamin D deficiency Expected: 07/31/2022 (Approximate), Expires: 04/30/2023[facility] Work Phone: Comment on above:Expected: 07/31/2022 (Approximate), Expires: 04/30/2023Start: 07-31-2022 End: 04-30-2023 reactive protein [Mass/volume] in Serum or PlasmaC-REACTIVE PROTEIN (CRP) Lab Routine Elevated sed rate Elevated C-reactive protein (CRP) Expected: 07/31/2022 (Approximate), Expires: 04/30/2023[facility] Work Phone: Comment on above:Expected: 07/31/2022 (Approximate), Expires: 04/30/2023Start: 07-31-2022 End: 96-04-1151WIO panel - Blood by Automated countCBC Lab Routine Anemia of chronic disease Expected: 07/31/2022 (Approximate), Expires: 04/30/2023[facility] Work Phone: Comment on above:Expected: 07/31/2022 (Approximate), Expires: 04/30/2023Start: 07-31-2022 End: 01-63-8598Xxvmemputictd metabolic 2000 panel - Serum or PlasmaCOMP METABOLIC PANEL Lab Routine Elevated LFTs Expected: 07/31/2022 (Approximate), Expires: 04/30/2023[facility] Work Phone: Comment on above:Expected: 07/31/2022 (Approximate), Expires: 04/30/2023Start: 07-31-2022 End: 56-55-8921Rzffozpessw sedimentation rateSED RATE WESTERGREN Lab Routine Elevated sed rate Elevated C-reactive protein (CRP) Expected: 07/31/2022 (Approximate), Expires: 04/30/2023[facility] Work Phone: Comment on above:Expected: 07/31/2022 (Approximate), Expires: 04/30/2023Start: 35-59-9405URTAWXCVTL ASSESSMENTDEPRESSION ASSESSMENT [facility]tart: 05-02-2022 End: 81-42-976745390731-tmtyyfprscnkfi D3 [Mass/volume] in Serum or PlasmaVITAMIN D 25 HYDROXY Lab Routine Vitamin D deficiency Expected: 05/02/2022 (Approximate), Expires: 01/30/2023[facility] Work Phone: Comment on above:Expected: 05/02/2022 (Approximate), Expires: 01/30/2023Start: 05-02-2022 End: 01-30-2023 reactive protein [Mass/volume] in Serum or PlasmaC-REACTIVE PROTEIN (CRP) Lab Routine Elevated sed rate Elevated C-reactive protein (CRP) Expected: 05/02/2022 (Approximate), Expires: 01/30/2023[facility] Work Phone: Comment on above:Expected: 05/02/2022 (Approximate), Expires: 01/30/2023Start: 05-02-2022 End: 40-80-1053AWF panel - Blood by Automated countCBC Lab Routine Anemia of chronic disease Expected: 05/02/2022 (Approximate), Expires: 01/30/2023[facility] Work Phone: Comment on above:Expected: 05/02/2022 (Approximate), Expires: 01/30/2023Start: 05-02-2022 End: 81-45-8122Ncjlxlugnxevl metabolic 2000 panel - Serum or PlasmaCOMP METABOLIC PANEL Lab Routine Elevated LFTs Expected: 05/02/2022 (Approximate), Expires: 01/30/2023[facility] Work Phone: Comment on above:Expected: 05/02/2022 (Approximate), Expires: 01/30/2023Start: 05-02-2022 End: 63-76-7026Lchjxygvrqb sedimentation rateSED RATE WESTERGREN Lab Routine Elevated sed rate Elevated C-reactive protein (CRP) Expected: 05/02/2022 (Approximate), Expires: 01/30/2023[facility] Work Phone: Comment on above:Expected: 05/02/2022 (Approximate), Expires: 01/30/2023Start: 76-88-9247Cdltsbpdo vaccinationBucyrus Community Hospitaltart: 01-27-2022 End: 10-27-2022 reactive protein [Mass/volume] in Serum or PlasmaC-REACTIVE PROTEIN (CRP) Lab Routine Elevated sed rate Elevated C-reactive protein (CRP) Expected: 01/27/2022 (Approximate), Expires: 10/27/2022[facility] Work Phone: Comment on above:Expected: 01/27/2022 (Approximate), Expires: 10/27/2022Start: 01-27-2022 End: 89-89-5483ASH panel - Blood by Automated countCBC Lab Routine Anemia of chronic disease Expected: 01/27/2022 (Approximate), Expires: 10/27/2022[facility] Work Phone: Comment on above:Expected: 01/27/2022 (Approximate), Expires: 10/27/2022Start: 01-27-2022 End: 39-34-4907Srnmxnkqxtqvj metabolic 2000 panel - Serum or PlasmaCOMP METABOLIC PANEL Lab Routine Elevated LFTs Expected: 01/27/2022 (Approximate), Expires: 10/27/2022[facility] Work Phone: Comment on above:Expected: 01/27/2022 (Approximate), Expires: 10/27/2022Start: 01-27-2022 End: 81-72-2468Szjqljmqiga sedimentation rateSED RATE WESTERGREN Lab Routine Elevated sed rate Elevated C-reactive protein (CRP) Expected: 01/27/2022 (Approximate), Expires: 10/27/2022[facility] Work Phone: Comment on above:Expected: 01/27/2022 (Approximate), Expires: 10/27/2022Start: 01-27-2022 End: 01-87-7180FSIXIUW B12 BLOODVITAMIN B12 BLOOD Lab Routine Vitamin B12 deficiency Expected: 01/27/2022 (Approximate), Expires: 10/27/2022[facility] Work Phone: Comment on above:Expected: 01/27/2022 (Approximate), Expires: 10/27/2022Start: 01-27-2022 End: 87-83-1014OLNGBXU D 25 HYDROXYVITAMIN D 25 HYDROXY Lab Routine Vitamin D deficiency Expected: 01/27/2022 (Approximate), Expires: 10/27/2022[facility] Work Phone: Comment on above:Expected: 01/27/2022 (Approximate), Expires: 10/27/2022Start: 65-57-0202UVBJFOTAPV ASSESSMENTDEPRESSION ASSESSMENT [facility]: 15-84-0897Iibvjuijyxqxwp of varicella zoster vaccine Zoster (Shingles) Vaccine (1 of 2)[employer] SystemStart: 12-06-2019 Pneumococcal Vaccine: 50+ (1 of 1 - PCV)Pneumococcal Vaccine: 50+ (1 of 1 - PCV) [facility]: 07-39-5292QXHMRLHU VACCINE (1 of 2)SHINGRIX VACCINE (1 of 2)[facility]: 15-41-8366UUQNOGRWQ (FIT-DNA)COLOGUARD (FIT-DNA) [facility]: 82-56-8107YbkooyuayiaQDVDXFQKFDQIuwsgjald ClinicStart: 37-00-0875BGRZXNNGBI CANCER SCREENINGCOLORECTAL CANCER SCREENINGAdams County Hospital Start: 80-86-4447WI COLONOGRAPHYCT COLONOGRAPHYBucyrus Community Hospitaltart: 2014 FECAL OCCULT BLOODFECAL OCCULT BLOODBucyrus Community Hospitaltart: 78-24-8341Fzasc 1996 panel - Serum or PlasmaLipid ScreeningBucyrus Community Hospitaltart: 90-43-5477Kgpgg panelLipid ScreeningBucyrus Community Hospitaltart: 65-16-4260WTSJS SCREENLIPID SCREEN [facility]: 96-44-9502Zjxnjoddq for malignant neoplasm of colon [facility]: 71-39-0238KOLLBJUMFOCRMFLTWLPEOFCYKZOopwmsrfa Clinic Start: 49-56-3583EsrmhlsjzkeKzejmfpft ClinicStart: 35-47-0197Zbtdzcscv for malignant neoplasm of breastMammogram ScreeningBucyrus Community Hospitaltart: 12-06-1999 HPV TESTINGHPV TESTINGBucyrus Community Hospitaltart: 58-48-6722Ywvypxamt for malignant neoplasm of cervixHPV TestingBucyrus Community Hospitaltart: 90-34-9755TRX TESTINGPAP TESTINGBucyrus Community Hospitaltart: 47-37-4051Puaatikzm for malignant neoplasm of cervixBucyrus Community Hospitaltart: 84-51-3798EBaR,Tdap and Td Vaccines (1 - Tdap) DTaP,Tdap and Td Vaccines (1 - Tdap)[facility] 1988 Hepatitis B Vaccine (1 of 3 - 19+ 3-dose series)Hepatitis B Vaccine (1 of 3 - 19+ 3-dose series)[facility]: 79-11-6292VQPLCXCL VACCINE (1 of 2) SHINGRIX VACCINE (1 of 2)[facility]: 18-50-3136Vybtj microalbumin profileBucyrus Community Hospitaltart: 26-13-7809Nxqms BMI Follow Up PlanAdult BMI Follow Up [facility] SystemStart: 58-61-1526Synnsmc ScreeningAnxiety ScreeningBucyrus Community Hospitaltart: 05-83-6948Eoxejfisck ScreeningDepression ScreeningBucyrus Community Hospitaltart: 47-16-9828BFI SCREENINGHIV SCREENINGBucyrus Community Hospitaltart: 27-82-4746SEI screeningHIV ScreeningBucyrus Community Hospitaltart: 96-37-8893Qudda depression screening assessmentDEPRESSION SCREENINGBucyrus Community Hospitaltart: 22-48-4960EBFMP-19 VACCINE (1)COVID-19 VACCINE (1)[facility] Start: 70-47-0309XGIUSZRYIYOJ (1 - PCV)PNEUMOCOCCAL (1 - PCV)[facility] Start: 29-00-5494Uiflfruifait vaccinationBucyrus Community Hospitaltart: 09-01-4460Vyeya- 19 Vaccine (#1)Covid-19 Vaccine (#1)[facility]: 09-74-2804SPUHC-19 VACCINE (#1)COVID-19 VACCINE (#1)[facility]: 04-15-8681TWPDPLZQN B (1 of 3 - 3-dose series)HEPATITIS B (1 of 3 - 3-dose series)[facility]: 27-69-4419Yxrpqgxgv B Vaccine (1 of 3 - 3-dose series)Hepatitis B Vaccine (1 of 3 - 3-dose series)[facility] End: 61-24-7426TT DXA TRABECULAR BONE SCORE (TBS)BD DXA TRABECULAR BONE SCORE (TBS) Radiology Routine Postmenopausal osteoporosis of multiple sites 1 Occurrences starting 05/17/2024 until 5[facility]Comment [facility] Occurrences starting 05/17/2024 until 06/16/2025 End: 51-57-6072NBC Skeletal system.axial Views for bone densityDXA-AXIAL SKELETON Radiology Routine Postmenopausal osteoporosis of multiple sites 1 Occurrences starting 05/17/2024 until 5[facility] ClinicComment [facility] above:1 Occurrences starting 05/17/2024 until 06/16/2025 End: 67-57-0868QOU-AXIAL SKELETONDXA-AXIAL SKELETON Radiology Routine Postmenopausal osteoporosis of multiple sites 1 [facility]: Comment on above:1 Occurrences starting 10/20/2022 until 4DXA-AXIAL SKELETONDXA-AXIAL SKELETON Radiology Routine Postmenopausal osteoporosis of multiple sites 04/05/2023 9:13 AM [facility] Work Phone: End: 19-63-5436LGA-FOREARM SKELETONDXA-FOREARM SKELETON Radiology Routine Postmenopausal osteoporosis of multiple sites 1 Occurrences starting 10/20/2022 until 11/19/2023[facility] Work Phone: Comment on above:1 Occurrences starting 10/20/2022 until 4DXA-FOREARM SKELETONDXA-FOREARM SKELETON Radiology Routine Postmenopausal osteoporosis of multiple sites 04/05/2023 9:13 AM [facility] Work Phone: End: 95-22-0444QKR-FOREARM SKELETONDXA-FOREARM SKELETON Radiology Routine Postmenopausal osteoporosis of multiple sites 1 Occurrences starting 05/17/2024 until [facility] Work Phone: Comment on above:1 Occurrences starting 05/17/2024 until 06/16/2025XR Cervical spine AP and Lateral and obliqueXR CERV OTHER 4V AP/LAT/OBL Radiology Routine Cervicalgia 05/17/2024 11:09 AM [facility] Work Phone: End: 00-26-5164KU Cervical spine AP and Lateral and obliqueXR CERV OTHER 4V AP/LAT/OBL Radiology Routine Cervicalgia 1 Occurrences starting 05/17/2024 until 4CMercy Health Defiance HospitalComment on above:1 Occurrences starting 05/17/2024 until 06/16/2024 End: 23-95-6205LV HAND GENERAL 3V PA/LAT/OBL BILATERALXR HAND GENERAL 3V PA/LAT/OBL BILATERAL Radiology Routine Bilateral hand pain 1 Occurrences starting 03/11/2022 until 04/10/2023[facility] Work Phone: Comment on above:1 Occurrences starting 03/11/2022 until 04/10/2023XR HAND GENERAL 3V PA/LAT/OBL BILATERALXR HAND GENERAL 3V PA/LAT/OBL BILATERAL Radiology Routine Bilateral hand pain 03/11/2022 9:52 AM [facility] Work Phone: [facility] Payers DatePayer CategoryPayerPolicy ID2015[place] [facility] MEDICAID [id number] 2014-Present [phone] [address] [place] [address] [id number] [id number] 2.0.1.136559.3.57[id number] 2.0.1.527569.3.57[id number] 2.0.1.996474.3.57[id number] 2.0.1.049648.3.57[id number] 2.0.1.489369.3.57[id number] 2.0.1.629449.3.57[id number] 2.0.1.188437.3.57[id number] 2.0.1.813687.3.57[id number] 2.0.1.658609.3.57[id number] 2.840.1.977594.3.57[id number] 2..840.1.715924.3.57[id number] 2.16.840.1.855964.3.57[id number] Social History DateTypeDetailFacilityStart: 01-25-2021 End: 22-38-4626Lgwsaxb smoking status NHISNever smoked tobaccoAdams County Hospital Start: 01-25-2021 End: 91-99-1087Fvqulmh use and exposureSmokeless tobacco non-userBucyrus Community Hospitaltart: 08-16-2021 End: 03-85-2905Jnahjur intakeCurrent drinker of alcohol (finding)[facility]: 29-47-0096Uwsxhvf SDOH Alcohol CommentsociallyCkettering health preble Clinic Start: 23-40-3837Eqt Assigned At BirthNot on fileBucyrus Community Hospitaltart: 12-26-2020 End: 29-08-6804Cuqkfprz to SARS-CoV-2 (event)Not sureAdams County HospitalTobanorthwest surgical hospital – [place] smoking statusNeverThe [facility] Start: 03-11-2022 End: 96-96-0516Ped Assigned At BirthFemalCincinnati [facility] Start: 03-11-2022 End: 65-60-1694Ilwysrt of Social functionBucyrus Community Hospitaltart: 07-10-2023 End: 73-74-3409Xxngytw intakeLifetime non-drinker (finding)[facility] Functional Status GhacIfyqpezjvxDgmmheDccgvfcm04-29-9681Xxedbwxhhe StatusN/AFMercy Health St. [facility] Clinical Notes 10-27-2021 to 03-31-2025 Note Date & JhwaYzwhKlnqokwm31-66-3831 NoteHNO ID: [id number] Author: JUSTIN PRESTON MD Service: ? Author Type: Physician Type: Progress Notes Filed: 03/31/2025 09:10 Note Text: Face to face follow up visit for osteoarthritis/ osteopenia/+GEGE/high crp/inflammatory arthritis Today's visit 03/31/25:bmd after 04/05/25. Labs due. taking vitamin D 3000 International Units daily with food, mobic 1tab/not daily, lyrica 100mg/not daily gives her a hangover the next morning, inhalers. Last month recent oral steroids x 2 for illness URI (was also on antibiotics). Numbness of left leg/foot if sitting long time. no issues with eyes. Poor sleep. (if high APRs/start dmards/plaquenil/azathioprine/sulfasalazine/arava ) 05/17/24 neck xrays- Mild cervical spine degenerative changes as described. Minimal anterolisthesis of C2 on C3 and C6 on C7. Tiny multilevel endplate osteophytes. Mild bony femoral narrowing involving C5-C6 on the right. 05/17/24 high crp 0.9;normal esr 10; Walking for exercise. NO swelling. Chronic current pain in both hips, knees worse in AM. Reports pain 2/10. Has 20min minimal AM stiffness. Feels safe at home. Has enough food, supplies and medications. Overall mildly uncomfortable but happy with rheum care. No falls/fx/trauma/illness/oral sores/rash/hairloss/jaw pain/dysphagia/epistaxis/hemoptysis since last visit. No adverse effects with meds. No other complaints. Patient denies fever, chills, cp, dyspnea, nausea, vomiting, night sweats, scalp tenderness, visual changes, castillo, bowel/bladder changes, weight changes or other complaints. Last visit supportive care, check labs, check xrays, increase mobic 15mg daily, if high APRs/start dmards/plaquenil/azathioprine/sulfasalazine/arava, start hand/feet braces/sleeves, restart PT, OFF methotrexate/folic acid due to brain fog/lightheadedness, start fall precautions, improved with lyrica change to 100mg capsule nightly/notify office if interested in increased dose, improved with prn nsaids/stopped aleve due to GI upset, start prn heat/ice/otc arthritis creams, start low impact weightbearing exercise as tolerated, avoid aggravating triggers, improved methotrexate/lightheaded/dizzy at higher doses/notify office if not tolerated, daily folic acid, calcium/vit D, did discuss additional dmardsif high APRs/patient agreeable to start new medication , may consider bisphosphonates if repeat BMD abnormal, 05/17/24:bmd after 04/05/25. taking mobic, vitamin D 3000 International Units daily with food, improved with lyrica 100mg daily. NO recent oral steroids. OFF methotrexate/decreased mental focus. But open to retrying another arthritis medication. 12/18/23 normal cbc, cmp, esr 16, crp 0.9, vitamin D 56.1; Motivated to start exercise. NO swelling. Chronic current pain in both hands, L>R thumbs, feet, neck, hips. Last 2days intense discomfort at base of head and then goes away. Reports pain 5/10. Has minimal AM stiffness. Feels safe at home. Has enough food, supplies and medications. Overall uncomfortable but happy with rheum care. No falls/fx/trauma/illness/oral sores/rash/hairloss/jaw pain/dysphagia/epistaxis/hemoptysis since last visit. No adverse effects with meds. No other complaints. Patient denies fever, chills, cp, dyspnea, nausea, vomiting, night sweats, scalp tenderness, visual changes, castillo, bowel/bladder changes, weight changes or other complaints. Last visit supportive care, consult PT, stop methotrexate/folic acid due to brain fog/lightheadedness, start mobic 7.5mg prn, notify office if interested in starting alternative dmard, start fall precautions, improved with lyrica change to 100mg capsule nightly, improved with prn nsaids/stopped aleve due to GI upset, start prn heat/ice/otc arthritis creams, start low impact weightbearing exercise as tolerated, avoid aggravating triggers, improved methotrexate/lightheaded/dizzy at higher doses/notify office if not tolerated, daily folic acid, calcium/vit D, did discuss additional dmardsif high APRs/patient will notify office which medication she is comfortable starting if needed, may consider bisphosphonates if repeat BMD abnormal, 10/20/23:due for labs 11/2023. taking lyrica 100mg nightly, methotrexate 3tabs weekly gave brain fog/lightheadedness, folic acid daily, tylenol with good response, vitamin D 3000 International Units daily with food. No recent oral steroids. 09/15/23 high glucose 126, crp 1.3;normal rest of cmp, cbc, esr 17, vitamin D 59.5; 07/10/23 and 08/10/23 saw vascular for LE varicosities from venous HTN better with compression therapy and leg elevation. 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 04/05/23 bmd osteopenia 04/05/23 lumbar xrays-Slight disc space narrowing and endplate osteophytes at L4-5 and mild facet hypertrophy. Slight anterolisthesis. L1-2, L2-3 and L3-4 disc spaces are preserved. Posterior tribal (more content not included)... [facility]03-29-2025 Telephone encounter Note* Telephone Encounter - Justin Preston MD - 09/21/2024 12:32 PM EDT Notify patient medication sent as requested Thank you. Patient's request for medication is as follows: Requested Prescriptions Signed Prescriptions Disp Refills pregabalin (LYRICA) 100 mg capsule 90 capsule 3 Sig: Take 1 capsule by mouth once daily. Authorizing Provider: JUSTIN PRESTON Prescription(s) as above. Please process accordingly. Justin Preston MD [facility]03-29-2025 Miscellaneous Notes* Telephone Encounter - Justin Preston MD - 09/21/2024 12:32 PM EDT Notify patient medication sent as requested Thank you. Patient's request for medication is as follows: Requested Prescriptions Signed Prescriptions Disp Refills pregabalin (LYRICA) 100 mg capsule 90 capsule 3 Sig: Take 1 capsule by mouth once daily. Authorizing Provider: JUSTIN PRESTON Prescription(s) as above. Please process accordingly. Justin Preston MD * Telephone Encounter - Malathi Gudino MA - 09/20/2024 1:56 PM EDT Images from the original note were not included. Most recent Rheumatology visit: 05/17/2024 (with Justin Preston) Last Bone Density on file: 04/10/2023 Rheumatology Care Team: None on file Recent Office Visits - This Specialty 05/17/2024 Inflammatory arthritis Rheumatology Justin Preston MD 10/20/2023 Inflammatory arthritis Rheumatology Justin Preston MD 04/05/2023 GEGE positive Rheumatology Isidra Sanchez, CRITICAL SYSTEMS TECHNICIAN.COMPUTER PROJECT MANAGER Upcoming Rheumatology Appointments - Next 365 Days Visit Type Date Time Department [facility] 03/31/2025 8:20 AM [facility] CBC: None on file in the last 6 months Vitamin D: None on file in the last 6 months LFT: None on file in the last 6 months Hepatic Function: Creatinine: None on file in the last 6 months ESR/CRP: Latest Ref Rng & Units 12/18/2023 05/17/2024 ESR, WSR WSR 0 - 20 mm/hr 16 10 Latest Ref Rng & Units 12/18/2023 05/17/2024 CRP CRP <0.9 mg/dL 0.9 0.9 Uric Acid: None on file in the last 6 months Open Standing (Multiple Instance) Lab Orders None Open Future (Single Instance) Lab Orders None documented in this encounterAdams County Hospital03-28-2025 Telephone encounter Note * Telephone Encounter - Malathi Gudino MA - 09/20/2024 1:56 PM EDT Images from the original note were not included. Most recent Rheumatology visit: 05/17/2024 (with Justin Preston) Last Bone Density on file: 04/10/2023 Rheumatology Care Team: None on file Recent Office Visits - This Specialty 05/17/2024 Inflammatory arthritis Rheumatology Justin Preston MD 10/20/2023 Inflammatory arthritis Rheumatology Justin Preston MD 04/05/2023 GEGE positive Rheumatology Isidra Sanchez, CRITICAL SYSTEMS TECHNICIAN.COMPUTER PROJECT MANAGER Upcoming Rheumatology Appointments - Next 365 Days Visit Type Date Time Department [facility] 03/31/2025 8:20 AM [facility] CBC: None on file in the last 6 months Vitamin D: None on file in the last 6 months LFT: None on file in the last 6 months Hepatic Function: Creatinine: None on file in the last 6 months ESR/CRP: Latest Ref Rng & Units 12/18/2023 05/17/2024 ESR, WSR WSR 0 - 20 mm/hr 16 10 Latest Ref Rng & Units 12/18/2023 05/17/2024 CRP CRP <0.9 mg/dL 0.9 0.9 Uric Acid: None on file in the last 6 months Open Standing (Multiple Instance) Lab Orders None Open Future (Single Instance) Lab Orders None [facility]11-25-2024 Telephone encounter Note* Telephone Encounter - Dannie Ortiz MA - 05/20/2024 7:30 AM EST patient has viewed the Gl[employer] message per [employer]. [facility]11-25-2024 Miscellaneous Notes* Telephone Encounter - Dannie Ortiz MA - 05/20/2024 7:30 AM EST patient has viewed the [employer] message per [employer]. * Telephone Encounter - Justin Preston MD - 05/18/2024 8:05 PM EST Please Call patient if Appdrat note not read to review results/released to My Chart if tests completed at [facility]: One borderline inflammatory test-will monitor. Notify office if agreeable to try a new anti inflammatory medication. Happy to further review and discuss at follow up visit. Thank you. (if high APRs/start dmards/plaquenil/azathioprine/sulfasalazine/arava ) 05/17/24 high crp 0.9;normal esr 10; documented in this encounterAdams County Hospital11-23-2024 Telephone encounter Note * Telephone Encounter - Justin Preston MD - 05/18/2024 8:05 PM EST Please Call patient if MyChart note not read to review results/released to My Chart if tests completed at [facility]: One borderline inflammatory test-will monitor. Notify office if agreeable to try a new anti inflammatory medication. Happy to further review and discuss at follow up visit. Thank you. (if high APRs/start dmards/plaquenil/azathioprine/sulfasalazine/arava ) 05/17/24 high crp 0.9;normal esr 10; [facility]11-22-2024 NoteHNO ID: [id number] Author: WILLIE DOMÍNGUEZ RT(R) Service: ? Author Type: Technologist Type: Progress Notes Filed: 05/17/2024 11:10 Note Text: Radiology Service Progress Note PATIENT NAME: Chip Lucas DATE OF SERVICE: May 17, 2024 TIME: 11:10 AM PATIENT IDENTITY VERIFICATION COMPLETED USING TWO (2) IDENTIFIERS: Name and Date of confirmed by patient verbally. FALL SCREENING: Has the patient had 2 falls in the last year or 1 fall with injury or currently using an Ambulatory Assistive Device (Walker, Cane, Wheelchair, Crutches, etc.)? No PATIENT GENDER DATA: Female. status: : No status: NO. PATIENT RELEVANT IMPLANT DATA REVIEWED: Not Applicable PATIENT PRESENTS WITH AN IMPLANTABLE OR ATTACHED MANAGER PART: No RADIOLOGY DEPARTMENT: General X-ray: Exam(s) Completed: Spine X-Ray(s): Cervical AP / LAT / OBL PERIPHERAL IV DATA: Not applicable SIGNED BY: RT Hien(R) May 17, 2024 11:10 [facility]11-22-2024 Instructions* Patient Instructions* Justin Preston MD - 05/17/2024 10:17 AM EST May apply over the counter arthritis creams/patches (biofreeze, icy hot, asper cream, tiger balm, capsacin, lidocaine, salon pas, voltaren gel, etc.) or over the counter pain patches to painful joints up to four times a day. Avoid contact with eyes. May take Extra Strength acetaminophen 500mg every 4-6hours for joint pain. Do not exceed 3000mg /day. Decrease stress Improve sleep May apply heat/ice 20minutes on and off to areas of pain Avoid aggravating triggers If needed, may take Calcium 1200mg daily with food in DIVIDED doses If labs normal, take Vitamin D 4000 International Units daily with food lyrica 100mg daily at nightly OFF Methotrexate/folic acid take mobic 15mg daily with food for pain if needed Recommend goal: exercising 30minutes 3-5 times a week Recommend weight-bearing aerobic exercises such as walking, dancing, low impact aerobics, elliptical machine, stair climbing, gardening flexibility exercises and strength training exercises Recommend avoiding high impact exercises such as jumping, running or jogging or movements where youbend forward and twist the waist, for instance- touching your toes, sit-ups, using row machine Next bone mineral density after 04/05/2025 group home pain recommendations per primary care provider/pain clinic Nonfasting labs as scheduled Thank you. Latest Ref Rng 12/18/2023 Protein, Total 6.3 - 8.0 g/dL 7.7 Albumin 3.9 - 4.9 g/dL 4.5 Calcium 8.5 - 10.2 mg/dL 9.9 Bilirubin, Total 0.2 - 1.3 mg/dL 0.3 Alkaline Phosphatase 34 - 123 U/L 99 AST 13 - 35 U/L 16 ALT 7 - 38 U/L 20 Glucose 74 - 99 mg/dL 81 BUN 7 - 21 mg/dL 14 Creatinine 0.58 - 0.96 mg/dL 0.70 Sodium 136 - 144 mmol/L 139 Potassium 3.7 - 5.1 mmol/L 4.7 Chloride 98 - 107 mmol/L 104 CO2 22 - 30 mmol/L 27 Anion Gap 8 - 15 mmol/L 8 eGFR >=60 mL/min/1.73m 103 WBC 3.70 - 11.00 k/uL 7.38 RBC 3.90 - 5.20 m/uL 5.38 (H) Hemoglobin 11.5 - 15.5 g/dL 14.0 Hematocrit 36.0 - 46.0 % 43.4 MCV 80.0 - 100.0 fL 80.7 MCH 26.0 - 34.0 pg 26.0 MCHC 30.5 - 36.0 g/dL 32.3 RDW-CV 11.5 - 15.0 % 13.8 Platelet Count 150 - 400 k/uL 325 MPV 9.0 - 12.7 fL 10.2 Absolute nRBC <0.01 k/uL <0.01 WSR 0 - 20 mm/hr 16 CRP <0.9 mg/dL 0.9 (H) Vitamin D 25 Hydroxy 31.0 - 80.0 ng/mL 56.1 04/05/23 bmd osteopenia Lumbar spine (L1-L3): 0.794 g/cm2, T-score -2.0, Z-score -1.1 Left Femoral Neck: 0.642 g/cm2, T-score -1.9, Left Total Hip: 0.786 g/cm2, T-score -1.3, Left Forearm, Distal 1/3 of Radius: 0.678 g/cm2, T-score -0.3 FRAX major osteoporotic fracture = 6.5 % - hip fracture = 0.7 % BONE MINERAL DENSITY PATIENT INSTRUCTIONS Bone mineral density testing measures the amount of calcium in certain parts of your bones. This information determines how strong your bones are. The test is used to detect osteoporosis, a disease in which the bone's mineral content and density are low, increasing a person's risk of fractures. Thelumbar spine (lower back) and the hip are the skeletal sites usually examined. For the test, remember that: 1. You cannot take this test if you are . 2. Eat a normal diet on the day of the test. 3. Take your medications as you normally would. 4. DO NOT take calcium supplements (such as Tums) for 24 hours before the test. 5. On the day of the test, leave valuables (jewelry or credit cards) at home. 6. The test should be performed prior to oral, rectal or IV contrast studies, or at least 7 days after any of these studies. For the test, you may be asked to wear a hospital gown. You will lie on your back, on a padded table, in a comfortable position. Generally, you can resume your usual activities immediately. documented in this encounterAdams County Hospital11-22-2024 NoteHNO ID: [id number] Author: JUSTIN PRESTON MD Service: ? Author Type: Physician Type: Progress Notes Filed: 05/18/2024 08:05 Note Text: Face to face follow up visit for osteoarthritis/ osteopenia/+GEGE/high crp/inflammatory arthritis Today's visit 05/17/24:bmd after 04/05/25. taking mobic, vitamin D 3000 International Units daily with food, improved with lyrica 100mg daily. NO recent oral steroids. OFF methotrexate/decreased mental focus. But open to retrying another arthritis medication. 12/18/23 normal cbc, cmp, esr 16, crp 0.9, vitamin D 56.1; Motivated to start exercise. NO swelling. Chronic current pain in both hands, L>R thumbs, feet, neck, hips. Last 2days intense discomfort at base of head and then goes away. Reports pain 5/10. Has minimal AM stiffness. Feels safe at home. Has enough food, supplies and medications. Overall uncomfortable but happy with rheum care. No falls/fx/trauma/illness/oral sores/rash/hairloss/jaw pain/dysphagia/epistaxis/hemoptysis since last visit. No adverse effects with meds. No other complaints. Patient denies fever, chills, cp, dyspnea, nausea, vomiting, night sweats, scalp tenderness, visual changes, castillo, bowel/bladder changes, weight changes or other complaints. Last visit supportive care, consult PT, stop methotrexate/folic acid due to brain fog/lightheadedness, start mobic 7.5mg prn, notify office if interested in starting alternative dmard, start fall precautions, improved with lyrica change to 100mg capsule nightly, improved with prn nsaids/stopped aleve due to GI upset, start prn heat/ice/otc arthritis creams, start low impact weightbearing exercise as tolerated, avoid aggravating triggers, improved methotrexate/lightheaded/dizzy at higher doses/notify office if not tolerated, daily folic acid, calcium/vit D, did discuss additional dmardsif high APRs/patient will notify office which medication she is comfortable starting if needed, may consider bisphosphonates if repeat BMD abnormal, 10/20/23:due for labs 11/2023. taking lyrica 100mg nightly, methotrexate 3tabs weekly gave brain fog/lightheadedness, folic acid daily, tylenol with good response, vitamin D 3000 International Units daily with food. No recent oral steroids. 09/15/23 high glucose 126, crp 1.3;normal rest of cmp, cbc, esr 17, vitamin D 59.5; 07/10/23 and 08/10/23 saw vascular for LE varicosities from venous HTN better with compression therapy and leg elevation. 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 04/05/23 bmd osteopenia 04/05/23 lumbar xrays-Slight disc space narrowing and endplate osteophytes at L4-5 and mild facet hypertrophy. Slight anterolisthesis. L1-2, L2-3 and L3-4 disc spaces are preserved. Posterior elements are intact. Mild degenerative changes at sacral iliac joints 02/10/23 normal cbc, cmp, esr 17, crp 0.8, tsh 1.41, fsh 32.9, DHEA-S 120.3, progesterone 0.2, estradiol 61; 11/04/22 high crp 1.3 (0.7);normal cbc, cmp, esr 15(17), vitamin D 56.5; limited exercise. Joint pain better when stretching. ankle swelling anytime. Chronic current pain in neck, low back, hips, knees. Reports pain 5/10. Has minimal AM stiffness. Feels safe at home. Has enough food, supplies and medications. Overall mildly uncomfortable but happy with rheum care. No falls/fx/trauma/illness/oral sores/rash/hairloss/jaw pain/dysphagia/epistaxis/hemoptysis since last visit. No adverse effects with meds. No other complaints. Patient denies fever, chills, cp, dyspnea, nausea, vomiting, night sweats, scalp tenderness, visual changes, castillo, bowel/bladder changes, weight changes or other complaints. Last visit supportive care, start fall precautions, improved with lyrica change to 100mg capsule nightly, improved with prn nsaids, start prn heat/ice/otc arthritis creams, start low impact weightbearing exercise as tolerated, avoid aggravating triggers, improved methotrexate/try lower dose 1-3tabs ONCE a week/lightheaded/dizzy at higher doses/notify office if not tolerated, daily folic acid, calcium/vit D, did discuss additional dmards if high APRs/patient will notify office which medication she is comfortable starting if needed, may consider bisphosphonates if repeat BMD abnormal, 10/20/22:due for labs 10/2022. Due for bmd after 10/19/22, in 10/19/20 osteopenia. Much improved with lyrica 100mg daily, methotrexate 6tabs weekly/very dizzy last while/loopy, felt great at 1-3tabs weekly but more side effects with higher doses,daily folic acid, vitamin D 400 International Units daily with food, daily vitamin b12, daily calcium. No recent infections. recent oral steroids. Motivated to increase exercise. no swelling. Chronic current pain in L>R hips, low back, less knee pain. Better with moving. worse pain in AM. Reports pain 10/03. Has minimal AM stiffness. History of low glucose. Feels safe at home. Has yuly (more content not included)...[facility]11-22-2024 History of Present illness Narrative* Justin Preston MD - 05/17/2024 10:11 AM EST Face to face follow up visit for osteoarthritis/ osteopenia/+GEGE/high crp/inflammatory arthritis Today's visit 05/17/24:bmd after 04/05/25. taking mobic, vitamin D 3000 International Units daily with food, improved with lyrica 100mg daily. NO recent oral steroids. OFF methotrexate/decreased mental focus. But open to retrying another arthritis medication. 6/24/24 normal cbc, cmp, esr 16, crp 0.9, vitamin D 56.1; Motivated to start exercise. NO swelling. Chronic current pain in both hands, L>R thumbs, feet, neck, hips. Last 2days intense discomfort at base of head and then goes away. Reports pain 5/10. Hasminimal AM stiffness. Feels safe at home. Has enough food, supplies and medications. Overall uncomfortable but happy with rheum care. No falls/fx/trauma/illness/oral sores/rash/hairloss/jaw pain/dysph agia/epistaxis/hemoptysis since last visit. No adverse effects with meds. No other complaints. Patient denies fever, chills, cp, dyspnea, nausea, vomiting, night sweats, scalp tenderness, visual changes, castillo, bowel/bladder changes, weight changes or other complaints. Last visit supportive care, consult PT, stop methotrexate/folic acid due to brain fog/lightheadedness, start mobic 7.5mg prn, notifyoffice if interested in starting alternative dmard, start fall precautions, improved with lyrica change to 100mg capsule nightly, improved with prn nsaids/stopped aleve due to GI upset, start prn heat/ice/otc arthritis creams, start low impact weightbearing exercise as tolerated, avoid aggravating triggers, improved methotrexate/lightheaded/dizzy at higher doses/notify office if not tolerated, daily folic acid, calcium/vit D, did discuss additional dmards if high APRs/patient will notify officewhich medication she is comfortable starting if needed, may consider bisphosphonates if repeat BMD abnormal, 10/20/23:due for labs 11/2023. taking lyrica 100mg nightly, methotrexate 3tabs weekly gave brain fog/lightheadedness, folic acid daily, tylenol with good response, vitamin D 3000 International Units daily with food. No recent oral steroids. 09/15/23 high glucose 126, crp 1.3;normal rest of cmp, cbc, esr 17, vitamin D 59.5; 07/10/23 and 08/10/23 saw vascular for LE varicosities from venous HTN better with compression therapy and leg elevation. 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 04/05/23 bmd osteopenia 04/05/23 lumbar xrays-Slight disc space narrowing and endplate osteophytes at L4-5 and mild facet hypertrophy. Slight anterolisthesis. L1-2, L2-3 and L3-4 disc spaces are preserved. Posterior elements are intact. Mild degenerative changes at sacral iliac joints 02/10/23 normal cbc, cmp, esr 17, crp 0.8, tsh 1.41, fsh 32.9, DHEA-S 120.3, progesterone 0.2, estradiol 61; 11/04/22 high crp 1.3 (0.7);normal cbc, cmp, esr 15(17), vitamin D 56.5; limited exercise. Joint pain better when stretching. ankle swelling anytime. Chronic current pain in neck, low back, hips, knees. Reports pain 5/10. Has minimal AM stiffness. Feels safe at home. Has enough food, supplies and medications. Overall mildly uncomfortable but happy with rheum care. No fal ls/fx/trauma/illness/oral sores/rash/hairloss/jaw pain/dysphagia/epistaxis/hemoptysis since last visit. No adverse effects with meds. No other complaints. Patient denies fever, chills, cp, dyspnea, nausea, vomiting, night sweats, scalp tenderness, visual changes, castillo, bowel/bladder changes, weight changes or other complaints. Last visit supportive care, start fall precautions, improved with lyricachange to 100mg capsule nightly, improved with prn nsaids, start prn heat/ice/otc arthritis creams,start low impact weightbearing exercise as tolerated, avoid aggravating triggers, improved methotrexate/try lower dose 1-3tabs ONCE a week/lightheaded/dizzy at higher doses/notify office if not tolerated, daily folic acid, calcium/vit D, did discuss additional dmards if high APRs/patient will notify office which medication she is comfortable starting if needed, may consider bisphosphonates if repeat BMD abnormal, 10/20/22:due for labs 10/2022. Due for bmd after 10/19/22, in 10/19/20 osteopenia. Much improved with lyrica 100mg daily, methotrexate 6tabs weekly/very dizzy last while/loopy, felt great at 1-3tabs weekly but more side effects with higher doses,daily folic acid, vitamin D 400 International Units dailywith food, daily vitamin b12, daily calcium. No recent infections. recent oral steroids. Motivated to increase exercise. no swelling. Chronic current pain in L>R hips, low back, less knee pain. Better with moving. worse pain in AM. Reports pain 4/10. Has minimal AM stiffness. History of low glucose. Feels safe at home. Has enough food, supplies and medications. Overall mildly uncomfortable buthappy with rheum care. No falls/fx/trauma/illness/oral sores/rash/hairloss/jaw pain/dysphagia/epistaxis/hemoptysis since last visit. No adverse effects with meds. No other complaints. Patient denies fever, chills, cp, dyspnea, nausea, vomiting, night sweats, scalp tenderness, visual changes, castillo, bowel/bladder changes, weight changes or other complaints. Last visit supportive care, start fall precautions, improved with lyrica change to 100mg capsule nightly, improved with prn nsaids, start prn heat/ice/otc arthritis creams, start low impact weightbearing exercise as tolerated, avoid aggravating triggers, try methotrexate 3tabs TWICE a week, daily folic acid, calcium/vit D, may consider bisphosphonates if repeat BMD abnormal, 03/11/22:improved with taking lyrica 100mg nightly (but is drowsy the morning afterwards if she takes medication too late in the evening), prefers 100mg capsules since not getting enough 25mg and 75mgcaps at the same time, thus only taking 75mg daily since out of the other medication script. Takingmethotrexate 3tabs weekly since she was lightheaded with higher doses, daily folic acid, vitamin D 400 International Units daily with food, vitamin b12 daily, calcium once a day. Chronic current painin R>L hips, L>R knees, elbow, hands, back. Hips feel very tight. Reports pain 5/10. Better with stretches with boyfriend. minimal AM stiffness. Worse hip pain when walking fast with friend, but no pain when doing house errands. Fell twice when ot up out of the car, light headed with flip flops, bent left fingers. Same numbness and tingling. Feels safe at home. Has enough food, supplies andmedications. Overall mildly uncomfortable but happy with rheum care. No fx/trauma/illness/oral sores/rash/hairloss/jaw pain/dysphagia/epistaxis/hemoptysis since last visit. No adverse effects with meds. No other complaints. Patient denies fever, chills, cp, dyspnea, nausea, vomiting, night sweats, scalp tenderness, visual changes, castillo, bowel/bladder changes, weight changes or other complaints. Last visit supportive care, improved with lyrica/increase 100mg nightly if tolerated/notify office if not tolerated improved with prn nsaids, start prn heat/ice/otc arthritis creams, low impact weightbearing exercise as tolerated, avoid aggravating triggers, methotrexate 4tabs once a week, daily folic acid, calcium/vit D, may consider bisphosphonates if repeat BMD abnormal, 08/16/21:taking methotrexate, folic acid feeling good until 04/2021 stopped due to strept throat. Then contracted COVID infection with loss of taste/smell/diarrhea treated with steroids and antibiotics twice for pneumonia. Daughter had and fiance' infection. Son healthy. More joint pain since was off methotrexate for 2months, thus just restarted methotrexate and folic acid. More joint stiffness after long car ride. LLE numbness and pain, L media knee, lyrica 75mg nightly, felt strange if taking 150mg nightly. Chronic current pain in L knee, Low back, thumbs, R>L hips. Reports pain 4/10. minimal AM stiffness. Feels safe at home. Has enough food, supplies and medications. Overall mildly unco mfortable but happy with rheum care. No falls/fx/trauma/illness/oral sores/rash/hairloss/jaw pain/dysphagia/epistaxis/hemoptysis since last visit. No adverse effects with meds. No other complaints. Patient denies fever, chills, cp, dyspnea, nausea, vomiting, night sweats, scalp tenderness, visual changes, castillo, bowel/bladder changes, weight changes or other complaints. Last visit supportive care, improved with lyrica/restart/notify office if not tolerated improved with prn nsaids, start prn heat/ice/otc arthritis creams, low impact weightbearing exercise as tolerated, avoid aggravating triggers, may consider dmards/methotrexate if rheum testing positive, calcium/vit D, may consider bisphosphonates if repeat BMD abnormal, January 25, 2021 SUBJECTIVE Ms. Lucas is a 50 year old female who presents for joint pain eval. 2018 L great mid toe cracks/painful, L ankle medial painful Saw podiatry, recommended brace, makde her weaker Then pain moved to R heel, arch of foot AM stiffness after hot shower, 20minutes Stands all day doing hair, Better with moving. But worse with standing all day. Last year disc herniation, LLE sciatica pain, better with epidurals Better with lyrica (helped with overall pain), weaned off, interested retrying Better with shoes/inserts, worse with flipflops More R thumb both wrists, R elbows Better with ibuprofen, does not take daily Hands weak, numbness and tingling when sleeping Took steroids for asthma, helped joints pain x 1week Did well with methotrexate trial 2019 Reports pain 11/02 No falls/fx/trauma/illness/oral sores/rash/hairloss/jaw pain/dysphagia/epistaxis/hemoptysis. No adverse effects with meds. No other complaints. Patient denies fever, chills, cp, dyspnea, nausea, vomiting, night sweats, scalp tenderness, visual changes, castillo, bowel/bladder changes, weight changes or other complaints. COMPLETE REVIEW OF SYSTEMS: RHEUM. ROS: Joint pain: yes- L>R foot, both ankles, both hips, low back, thumbs, R elbow, wrists Joint swelling: yes- ankles, R wrist off and on Am stiffness: yes 20minutes Low back pain: yes Eye inflammation: contacts SICCA: dry eyes, recent GI problems-diarrhea/bleeding/IBD/Gluten intolerence/Dysphagia: gerd Organ inv-Serositis: asthma Lung disease/ILD: asthma Fatigue: yes, sleeps 8hr/night PMR/GCA ROS: negative Patient denies history of Gout or Pseudogout, Psoriasis, Rheumatic Fever, PUD, Liver Disease, Hepatitis , Kidney Disease, Kidney Stones, DM, HTN, CAD, Dyslipidemia, PAD, Sinusitis, TB infection or exposure, Pneumonias, Anemia, Seizures, Stroke, MS, Clots, Cancer, Thyroid Disease, Transfusions, Tattoos and Alcohol dependency. Other ROS:The remainder of the review of systems is negative. All other reviewed and negative other than HPI. PATIENT REPORTS: Cardiac stress test: years ago, asthma stable, Breast exam:negative Pap exam: normal, last menses 11/2020 (usually regular), not taking hormones; G2, P2, no miscarriage Colonoscopy: no Bone Density:04/05/23 bmd osteopenia;10/19/20 osteopenia L1-4 0.993g/cm2, tscore-1.6, zscore-1.1;L neck 0.828g/cm2, tscore-1.5, zscore- 0.7;R fem neck 0.902g/cm2, tscore-1;zscore-0.2; History of Fractures:no Height Loss: no IMMUNIZATION HX: Pneumovax yes Flu shot yes Tetanus yes No COVID vaccines Last PPD: negative PAST MEDICAL HISTORY: PMH gerd, asthma, s/p pectus repair as child, s/p csection PAST SURGICAL HISTORY: s/p pectus repair as child, s/p csection FAMILY HISTORY: father/two brothers- rheumatoid arthritis;mother- aneurysm/cancer;children-healthy;brothers-gout; SOCIAL HISTORY: Social History Tobacco Use Smoking status: Never Smokeless tobacco: Never Substance Use Topics Alcohol use: Yes Comment: socially Job hairdressor Smoking no etoh no No gout MEDICATIONS: reviewed medlist 05/17/24 Calcium mvi Vitamin D daily CURRENT ALLERGIES: Allergies As of Date: 05/17/2024 (No Known Allergies) Fully Assessed 05/17/2024 TESTS:All Diagnostic tests reviewed for today's visit: 12/18/23 normal cbc, cmp, esr 16, crp 0.9, vitamin D 56.1; 09/15/23 high glucose 126, crp 1.3;normal rest of cmp, cbc, esr 17, vitamin D 59.5; 08/10/23 saw vascular for LE varicositiesfrom venous HTN better with compression therapy and leg elevation. 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 04/05/23 bmd osteopenia Lumbar spine (L1-L3): 0.794 g/cm2, T-score -2.0, Z-score -1.1 Left Femoral Neck: 0.642 g/cm2, T-score -1.9, Left Total Hip: 0.786 g/cm2, T-score -1.3, Left Forearm, Distal 1/3 of Radius: 0.678 g/cm2, T-score -0.3 FRAX major osteoporotic fracture = 6.5 % - hip fracture = 0.7 % 04/05/23 lumbar xrays-Slight disc space narrowing and endplate osteophytes at L4-5 and mild facet hypertrophy. Slight anterolisthesis. L1-2, L2-3 and L3-4 disc spaces are preserved. Posterior elements are intact. Mild degenerative changes at sacral iliac joints 02/10/23 normal cbc, cmp, esr 17, crp 0.8, tsh 1.41, fsh 32.9, DHEA-S 120.3, progesterone 0.2, estradiol 61; 11/04/22 high crp 1.3 (0.7);normal cbc, cmp, esr 15(17), vitamin D 56.5; 08/05/22 normal cbc, cmp, esr 17 (20), crp 0.7 (1.2), vitamin D 58; 04/29/22 high crp 1.2 (0.7);normal esr 20 (12), cbc, cmp, vitamin D 68.5; 03/11/22 normal hand xrays 01/28/22 normal cbc, cmp, esr 12(20), crp 0.7, vitamin D 74.4, vitamin [id number]; 10/25/21 normal cbc, cmp, esr 20, crp 0.6, vitamin D 70.2; 07/23/21 normal cbc, cmp, esr 10, crp 0.4; 03/30/21 normal cbc, cmp, esr12, crp 0.7 (1.3) 01/25/21 +GEGE 1:160/homogenous, crp 1.3;NL esr 16, cbc, cmp, vitamin D 76.9, vitamin b12-925;negativequantiferon tb, kristian, dsdna<12, ccp<15; 01/25/21 normal R elbow, both hand, both knee xrays; Outside 09/2020 high esr 34 (normal 0-30mm/hr);NL crp 0.8 (NL1mg/dl), bmp; Outside 06/2020 high crp 8.3 (normal<3mg/dL);negative rf<10; Outside 06/2020 hip xrays-degenerative joint disease PHYSICAL EXAM:reviewed vitals BP 115/50 Pulse 71 Wt 71 kg (156 lb 8.4 oz) LMP 02/03/2023 BMI 26.87 kg/m General Appearance: WD/WN, NAD. Appropriate grooming. Very pleasant. Ambulates fair without assistance or without assistive devices, uncomfortable, speaks in full sentences without distress SKIN: No rash, no psoriasis, no purpura, no ulcers, no skin thickening/tightness, no telangiectasias. HEENT: No patchy alopecia, normal temporal artery pulsations, non-tender, scalp non-tender, no conjunctival injection or icterus, no oral ulcers, no thrush, normal nasal mucosa, no sinus tenderness, normal TM's. Yes contacts, no glasses, fair dentition NECK: neck supple w/o masses, no thyromegaly, no LAD. LUNGS: CTA, Good respiratory effort. HEART: RRR, - m/r/g ABDOMEN: soft, non-tender, no HSM/masses/bruits. EXTREMITIES: Adequate pulses b/l UE ; No clubbing,discoloration,sclerodactyly, periungual erythema,digital ulcers, nail pitting, edema, varicosities. MUSCULOSK: No joint deformities, no rheumatoid nodules, calcifications or tophi. No SI tenderness, no brandin's tenderness, no heel/plantar tenderness, lumbar flexion full, negative Abner's test, tinel's and genoveva tests Swoll JTS:no Tend. JTS:hands, thumbs, feet, neck, L>R hips, lumbar area, both knees, L>R foot, both ankles, less R elbow, yes wrists, decreased range of motion due to pain; no warmth/erythema No clinical synovitis in the DIP's, PIP's, MCP's, wrists, elbows, shoulders, knees, ankles, midfoot, or toes. no knee effusions bilateral. Shoulder exam:fair range of motion; no warmth/erythema Hip rom without pain LIMITATION of Motion of Joints: yes Thoracic/Lumbar Spine: No percussion tenderness SLR:negative No instability in any upper or lower extremity joints. NEURO: Mental Status: alert and oriented x 3, anxious, CN II - XII grossly intact Motor: 5/5 proximally and distally b/l Sensory: intact to fine touch TENDER POINTS: 06/12 Gait: see above Toe and heel walk normal. 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 Lucas is a 53 year old Wfemale with PMH gerd, asthma, s/p pectus repair as child, s/p csectionpresents with 2018 L great mid toe cracks/painful, L ankle medial painful Saw podiatry, recommended brace, makde her weaker Then pain moved to R heel, arch of foot AM stiffness after hot shower, 20minutes Stands all day doing hair, Better with moving. But worse with standing all day. Last year disc herniation, LLE sciatica pain, better with epidurals Better with lyrica (helped with overall pain), weaned off, interested retrying Better with shoes/inserts, worse with flipflops More R thumb both wrists, R elbows Better with ibuprofen, does not take daily Hands weak, numbness and tingling when sleeping Took steroids for asthma, helped joints pain x 1week Did well with methotrexate trial 2020 Reports pain 5/10 Degenerative joint disease on imaging High esr/crp in past Has findings with secondary osteoarthritis of multiple joints, osteopenia of multiple areas, lumbago with sciatica, inflammatory arthritis, chronic pain syndrome/generalized pain due to chronic fibromyalgia/sites of pain all over, R lateral epicondylitis, here taking methotrexate, folic acid feeling good until 04/2021 stopped due to strept throat. Then contracted COVID infection with loss of taste/smell/diarrhea treated with steroids and antibiotics twice for pneumonia. Daughter had and fiance'infection. Son healthy. More joint pain since was off methotrexate for 2months. More joint stiffness after long car ride. LLE numbness and pain, L media knee, lyrica 75mg nightly, felt strange if taking 150mg nightly. improved with taking lyrica 100mg nightly (but is drowsy the morning afterwards if she takes medication too late in the evening), prefers 100mg capsules since not getting enough 25mg and 75mg caps at the same time, was only taking 75mg daily since out of the other medication script. Hips feel very tight. Better with stretches with boyfriend. Worse hip pain when walking fast withfriend, but no pain when doing house errands. Fell twice when up out of the car, light headed with flip flops, bent left fingers. Same numbness and tingling. due for labs 10/2022. 10/19/20 osteopenia. Much improved with lyrica 100mg daily, methotrexate 6tabs weekly/very dizzy last while/loopy, felt great at 1-3tabs weekly but more side effects with higher doses,. History of low glucose. due for labs 11/2023. taking lyrica 100mg nightly, methotrexate 3tabs weekly gave brain fog/lightheadedness, folic acid daily, tylenol with good response, vitamin D 3000 International Units daily with food. Norecent oral steroids. 09/15/23 high glucose 126, crp 1.3;normal rest of cmp, cbc, esr 17, vitamin D 59.5; 07/10/23 and 08/10/23 saw vascular for LE varicosities from venous HTN better with compression therapy and leg elevation. 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 04/05/23 bmd osteopenia 04/05/23 lumbar xrays-Slight disc space narrowing and endplate osteophytes at L4-5 and mild facet hypertrophy. Slight anterolisthesis. L1-2, L2-3 and L3-4 disc spaces are preserved. Posterior elements are intact. Mild degenerative changes at sacral iliac joints 02/10/23 normal cbc, cmp, esr 17, crp 0.8, tsh 1.41, fsh 32.9, DHEA-S 120.3, progesterone 0.2, estradiol 61; 11/04/22 high crp 1.3 (0.7);normal cbc, cmp, esr 15(17), vitamin D 56.5; limited exercise. Joint pain better when stretching. ankle swelling anytime. bmd after 04/05/25. taking mobic, vitamin D 3000 International Units daily with food, improved withlyrica 100mg daily. NO recent oral steroids. OFF methotrexate/decreased mental focus. But open to retrying another arthritis medication. 12/18/23 normal cbc, cmp, esr 16, crp 0.9, vitamin D 56.1; Motivated to start exercise. NO swelling. Chronic current pain in both hands, L>R thumbs, feet, neck, hips. Last 2days intense discomfort at base of head and then goes away. Reports pain 5/10. Hasminimal AM stiffness. Feels safe at home. Has enough food, supplies and medications. Overall uncomfortable but happy with rheum care. Will complete workup for reported symptoms = supportive care, check labs, check xrays, increase mobic 15mg daily, if high APRs/start dmards/plaquenil/azathioprine/sulfasalazine/arava, start hand/feet braces/sleeves, restart PT, OFF methotrexate/folic acid due to brain fog/lightheadedness, start fall precautions, improved with lyrica change [id number] capsule nightly/notify office if interested in increased dose, improved with prn nsaids/stopped aleve due to GI upset, start prn heat/ice/otc arthritis creams, start low impact weightbearing exercise as tolerated, avoid aggravating triggers, improved methotrexate/lightheaded/dizzy at higher doses/notify office if not tolerated, daily folic acid, calcium/vit D, did discuss additional dmards if high APRs/patient agreeable to start new medication , may consider bisphosphonates if repeat BMD abnormal, answered all questions and concerns, patient voiced understanding. RECOMMENDATION/PLAN: Office Visit on 05/17/24 DXA-FOREARM SKELETON DXA-AXIAL SKELETON BD DXA TRABECULAR BONE SCORE (TBS) XR CERV OTHER 4V AP/LAT/OBL SEDIMENTATION RATE, WESTERGREN C-REACTIVE PROTEIN Reviewed labs/tests with patient Provided printed info osteoarthritis 11/22/24 check above tests Modified 05/17/24 KIN 0, pain 0%;10/20/23 KIN 0, pain 50%;10/20/22 KIN 0, pain 40%;03/11/22 KIN 0, pain 50%;08/16/21 KIN 0, pain 40%;January 25, 2021 KIN 0, pain 50%; May apply over the counter arthritis creams/patches (biofreeze, icy hot, asper cream, tiger balm, capsacin, lidocaine, salon pas, voltaren gel, etc.) or over the counter pain patches to painful joints up to four times a day. Avoid contact with eyes. May take Extra Strength acetaminophen 500mg every 4-6hours for joint pain. Do not exceed 3000mg /day. Decrease stress Improve sleep May apply heat/ice 20minutes on and off to areas of pain Avoid aggravating triggers If needed, may take Calcium 1200mg daily with food in DIVIDED doses If labs normal, take Vitamin D 4000 International Units daily with food lyrica 100mg daily at nightly OFF Methotrexate/folic acid increase mobic 15mg daily with food for pain if needed Recommend goal: exercising 30minutes 3-5 times a week Recommend weight-bearing aerobic exercises such as walking, dancing, low impact aerobics, elliptical machine, stair climbing, gardening flexibility exercises and strength training exercises Recommend avoiding high impact exercises such as jumping, running or jogging or movements where youbend forward and twist the waist, for instance- touching your toes, sit-ups, using row machine Next bone mineral density after 04/05/2025 group home pain recommendations per primary care provider/pain clinic Nonfasting labs as scheduled Additional time spent with patient on healthy lifestyle, healthy food and anti- inflammatory diet (with emphasis on whole plant based diet), avoiding refined carbs/sugars and processed food, appropriate exercise (stretching, cardio and strengthening), good sleep hygiene, stress mgt, and supplementing vital deficiencies and maintaining healthy wt and BMI. Additional information provided with references and educational information. Bone Health Recommendations: -Bone Density: After age 70 yrs, sooner if new clinical risk factors, or systemic steroid use of 3 months or more. -Vitamin D supplementation recommended, optimal dose is the dose necessary to achieve Vitamin D 25-OH blood level in range of 40-60 ng/mL. -Recommended daily dose of calcium: 1000-1200mg total a day in divided doses. Calcium from dietary sources, if not sufficient, or if with h/o calcium nephrolithiasis would recommend Calcium Citrate supplement, as it is recommended to avoid calcium carbonate products, which as main dietary calcium source. The after visit summary has information on dietary calcium and instructions on reading calcium label and converting the %DV to mg. -Regular weight-bearing and muscle-strengthening exercise -Avoidance of tobacco smoking, excessive alcohol intake and excessive caffeine intake. -Fall and fracture precautions -Continued regular dental follow up visits and good dental/gum care Stressed the importance of following up with PCP and specialists for his/her chronic diseases, health, CV, and cancer screening and continued care. Will follow disease activity/progression and adjusttherapeutic regimen to disease activity and severity. Discussed medication dosage, usage, goals of therapy, and side effects. Available test results were reviewed An additional 20minutes were spent outside of the patient visit to review records. Additional time spent with the patient to discuss their questions. Additional time spent with the patient devoted to discussing treatment strategy, planning, and implementation. Discussed findings, impression and plan with patient. Patient understands above plan; questions asked and answered. Patient agrees to plan as noted above. The above reflects my independent exam and review. I saw and examined the patient myself personally. Parts of the HPI, ROS, exam and impression/plan may have been copied from my personal previous clinical note and remain pertinent. Current changes have been made and documented today. Other parts ordata were deleted if not relevant for today. Plan as outlined. Medical decision making was high complexity due to patient's, multiple symptoms, multiple advancing diseases. Total time spent on this visit, with more than 50% of time spent in face to face with patient, in consultation, and in addition to Counseling and Coordination of Care, explanation of diagnosis, and planning of further management; I spent a total of 30 minutes on the date of the service which included preparing to talk with the patient, [id number] patient care, completing clinical documentation, obtaining and/or reviewing separately obtained history, performing a medically appropriate examination, counseling and educating the patient/family/caregiver, ordering medications, tests, or procedures, communicating with other HCPs (not separately reported), independently interpreting results (not separately reported), communicating results to the patient/family/caregiver and care coordination (not separately reported) Follow up 6months, earlier if needed Recommendations to share with referring physician/Primary care physician : Dear Dr.Marcia Michelle Magdaleno MD : I had the pleasure of seeing your patient, Chip Lucas. I have enclosed a copy of my clinic note with my assessment and recommendations for this patient. Recommendations for your consideration as you deem necessary: -Continuous follow up with Primary care physician for cardiovascular disease prevention, for age appropriate cancer screening and routine health maintenance and wellness, and infection precautions and age appropriate immunization recommended. Thank you for allowing me to participate in the care of your patient. Justin Preston MD I will relay my findings and recommendations to the physician requesting the consult by letter/electronic shared medical records. cc Trung Magdaleno MD [facility] Telephone encounter Note * Telephone Encounter - Justin Preston MD - 12/22/2023 11:02 PM EDT Notify patient medication sent as requested Thank you. Patient's request for medication is as follows: Requested Prescriptions Signed Prescriptions Disp Refills pregabalin (LYRICA) 100 mg capsule 90 capsule 3 Sig: Take 1 capsule by mouth once daily. Authorizing Provider: JUSTIN PRESTON Prescription(s) as above. Please process accordingly. Justin Preston MD [facility] Miscellaneous Notes* Telephone Encounter - Justin Preston MD - 12/22/2023 11:02 PM EDT Notify patient medication sent as requested Thank you. Patient's request for medication is as follows: Requested Prescriptions Signed Prescriptions Disp Refills pregabalin (LYRICA) 100 mg capsule 90 capsule 3 Sig: Take 1 capsule by mouth once daily. Authorizing Provider: JUSTIN PRESTON Prescription(s) as above. Please process accordingly. Justin Preston MD * Telephone Encounter - Malathi Gudino MA - 12/22/2023 7:40 AM EDT Images from the original note were not included. Most recent Rheumatology visit: 10/20/2023 (with Justin Preston) Rheumatology Care Team: None on file Recent Office Visits - This Specialty 10/20/2023 Inflammatory arthritis Rheumatology Justin Preston MD 04/05/2023 GEGE positive Rheumatology Isidra Sanchez, CRITICAL SYSTEMS TECHNICIAN.COMPUTER PROJECT MANAGER 10/20/2022 Inflammatory arthritis Rheumatology Justin Preston MD Upcoming Rheumatology Appointments - Next 365 Days Visit Type Date Time Department [facility] 04/22/2024 8:30 AM [facility] 10/21/2024 8:40 AM [facility] CBC: Latest Ref Rng & Units 09/15/2023 12/18/2023 CBC WBC 3.70 - 11.00 k/uL 6.73 7.38 Hemoglobin 11.5 - 15.5 g/dL 14.1 14.0 Hematocrit 36.0 - 46.0 % 43.6 43.4 Platelet Count 150 - 400 k/uL 350 325 Vitamin D: Latest Ref Rng & Units 09/15/2023 12/18/2023 Vitamin D Vitamin D 25 Hydroxy 31.0 - 80.0 ng/mL 59.5 56.1 LFT: Latest Ref Rng & Units 09/15/2023 12/18/2023 CMP Sodium 136 - 144 mmol/L 138 139 Potassium 3.7 - 5.1 mmol/L 4.3 4.7 Chloride 98 - 107 mmol/L 103 104 CO2 22 - 30 mmol/L 26 27 Glucose 74 - 99 mg/dL 126 81 BUN 7 - 21 mg/dL 11 14 Creatinine 0.58 - 0.96 mg/dL 0.68 0.70 Calcium 8.5 - 10.2 mg/dL 9.9 9.9 AST 13 - 35 U/L 23 16 ALT 7 - 38 U/L 28 20 Alkaline Phosphatase 34 - 123 U/L 106 99 Hepatic Function: Creatinine: Latest Ref Rng & Units 09/15/2023 12/18/2023 Creatinine Creatinine 0.58 - 0.96 mg/dL 0.68 0.70 ESR/CRP: Latest Ref Rng & Units 09/15/2023 12/18/2023 ESR, WSR WSR 0 - 20 mm/hr 17 16 Latest Ref Rng & Units 09/15/2023 12/18/2023 CRP CRP <0.9 mg/dL 1.3 0.9 Uric Acid: None on file in the last 6 months Open Standing (Multiple Instance) Lab Orders None Open Future (Single Instance) Lab Orders None documented in this encounterAd[facility]06-[facility] Telephone encounter Note * Telephone Encounter - Malathi Gudino MA - 12/22/2023 7:40 AM EDT Images from the original note were not included. Most recent Rheumatology visit: 10/20/2023 (with Justin Preston) Rheumatology Care Team: None on file Recent Office Visits - This Specialty 10/20/2023 Inflammatory arthritis Rheumatology Justin Preston MD 04/05/2023 GEGE positive Rheumatology Isidra Sanchez, CRITICAL SYSTEMS TECHNICIAN.COMPUTER PROJECT MANAGER 10/20/2022 Inflammatory arthritis Rheumatology Justin Preston MD Upcoming Rheumatology Appointments - Next 365 Days Visit Type Date Time Department [facility] 04/22[facility]2024 8:30 [facility] 8:40 AM [facility] CBC: Latest Ref Rng & Units 09/15/2023 12/18/2023 CBC WBC 3.70 - 11.00 k/uL 6.73 7.38 Hemoglobin 11.5 - 15.5 g/dL 14.1 14.0 Hematocrit 36.0 - 46.0 % 43.6 43.4 Platelet Count 150 - 400 k/uL 350 325 Vitamin D: Latest Ref Rng & Units 09/15/2023 12/18/2023 Vitamin D Vitamin D 25 Hydroxy 31.0 - 80.0 ng/mL 59.5 56.1 LFT: Latest Ref Rng & Units 09/15/2023 12/18/2023 CMP Sodium 136 - 144 mmol/L 138 139 Potassium 3.7 - 5.1 mmol/L 4.3 4.7 Chloride 98 - 107 mmol/L 103 104 CO2 22 - 30 mmol/L 26 27 Glucose 74 - 99 mg/dL 126 81 BUN 7 - 21 mg/dL 11 14 Creatinine 0.58 - 0.96 mg/dL 0.68 0.70 Calcium 8.5 - 10.2 mg/dL 9.9 9.9 AST 13 - 35 U/L 23 16 ALT 7 - 38 U/L 28 20 Alkaline Phosphatase 34 - 123 U/L 106 99 Hepatic Function: Creatinine: Latest Ref Rng & Units 09/15/2023 12/18/2023 Creatinine Creatinine 0.58 - 0.96 mg/dL 0.68 0.70 ESR/CRP: Latest Ref Rng & Units 09/15/2023 12/18/2023 ESR, WSR WSR 0 - 20 mm/hr 17 16 Latest Ref Rng & Units 09/15/2023 12/18/2023 CRP CRP <0.9 mg/dL 1.3 0.9 Uric Acid: None on file in the last 6 months Open Standing (Multiple Instance) Lab Orders None Open Future (Single Instance) Lab Orders None [facility]06-[facility] Telephone encounter Note* Telephone Encounter - Paty Rosenthal RN - 12/20/2023 7:08 PM EDT Pt identified by name and Pt notified of below message and verbalizes understanding. [facility]06-[facility] Miscellaneous Notes* Telephone Encounter - Paty Rosenthal RN - 12/20/2023 7:08 PM EDT Pt identified by name and Pt notified of below message and verbalizes understanding. * Telephone Encounter - Justin Preston MD - 12/20/2023 6:44 PM EDT Please Call patient if MyChart note not read to review results/released to My Chart if tests completed at [facility]: Improved/Stable rest of labs. Continue same vitamin D intake with food. Happy to further review and discuss at follow up visit. Thank you. 12/18/23 normal cbc, cmp, esr 16, crp 0.9, vitamin D 56.1; --- 09/15/23 high glucose 126, crp 1.3;normal rest of cmp, cbc, esr 17, vitamin D 59.5; 08/10/23 saw vascular for LE varicositiesfrom venous HTN better with compression therapy and leg elevation. 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 04/05/23 bmd osteopenia documented in this encounterAd[facility]06-[facility] Telephone encounter Note * Telephone Encounter - Justin Preston MD - 12/20/2023 6:44 PM EDT Please Call patient if MyChart note not read to review results/released to My Chart if tests completed at [facility]: Improved/Stable rest of labs. Continue same vitamin D intake with food. Happy to further review and discuss at follow up visit. Thank you. 12/18/23 normal cbc, cmp, esr 16, crp 0.9, vitamin D 56.1; --- 09/15/23 high glucose 126, crp 1.3;normal rest of cmp, cbc, esr 17, vitamin D 59.5; 08/10/23 saw vascular for LE varicositiesfrom venous HTN better with compression therapy and leg elevation. 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 04/05/23 bmd osteopenia [facility]03-[facility] Miscellaneous Notes* Telephone Encounter - Malathi Estrada MA - 09/18/2023 9:10 AM EDT Spoke to pt aware of results and recommendations. * Telephone Encounter - Justin Preston MD - 09/16/2023 9:26 PM EDT Please Call patient if MyChart note not read to review results/released to My Chart if tests completed at [facility]: Once mildly high normal inflammatory test- will monitor with primary care provider. Stable rest of labs. Continue same vitamin D intake with food. Recheck nonfasting labs in 3months.The orders have been placed. Happy to further review and discuss at follow up visit. Continue rest of treatment plan per instructions at last office visit. Thank you. 09/15/23 high glucose 126, crp 1.3;normal rest of cmp, cbc, esr 17, vitamin D 59.5; 08/10/23 saw vascular for LE varicositiesfrom venous HTN better with compression therapy and leg elevation. 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 04/05/23 bmd osteopenia Lumbar spine (L1-L3): 0.794 g/cm2, T-score -2.0, Z-score -1.1 Left Femoral Neck: 0.642 g/cm2, T-score -1.9, Left Total Hip: 0.786 g/cm2, T-score -1.3, Left Forearm, Distal 1/3 of Radius: 0.678 g/cm2, T-score -0.3 FRAX major osteoporotic fracture = 6.5 % - hip fracture = 0.7 % 04/05/23 lumbar xrays-Slight disc space narrowing and endplate osteophytes at L4-5 and mild facet hypertrophy. Slight anterolisthesis. L1-2, L2-3 and L3-4 disc spaces are preserved. Posterior elements are intact. Mild degenerative changes at sacral iliac joints 02/10/23 normal cbc, cmp, esr 17, crp 0.8, tsh 1.41, fsh 32.9, DHEA-S 120.3, progesterone 0.2, estradiol 61; 11/04/22 high crp 1.3 (0.7);normal cbc, cmp, esr 15(17), vitamin D 56.5; documented in this encounterAd[facility]02-[facility] History of Present illness Narrative* Giovany Rivas MD - 08/10/2023 4:10 PM EST Chip Lucas was recently evaluated for varicosities in both lower extremities with symptoms that were potentially consistent with venous hypertension. She has been using compression therapy with good improvement. A venous insufficiency scan shows only a limited segment of reflux in the great saphenous veins bilaterally, not involving the saphenofemoral junction but involving the proximal or mid thigh. On the right side this reflux feeds into a visible varicosity that crosses her patella into her calf. On the left side it feeds into a varicosity that connects to her short saphenous vein which also has a short segment of reflux isolated to that junction area. Based on these findings I do not think she has substantial venous hypertension. The diameter of her veins is not particularly dilated and the segments of reflux a very focal. She will continue with conservative treatment including exercise elevation and compression stockings now. If she should see worsening over time of either the symptoms or the visible findings she will call me and we can repeat her venous insufficiency scan to see if she has had progressive deterioration of her valve function. documented in this [facility] History of Present illness Narrative* DALE Hernandez - 07/10/2023 11:00 AM EST Images from the original note were not included. Subjective Chief complaint/Reason for visit: Varicose veins of the lower extremities with pain Chip Lucas is a 52 year old female who presented to the clinic as a new patient to discuss varicose veins with aching discomfort affecting both lower extremities. These have been present for several years, but seemed to have worsened over the past 6-8 months in particular. Associated symptoms include aching pain associated with both lower legs, with mild right ankle swelling that is most pronounced at the end of the day. 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 Palliative factors include compression and leg elevation. The patient has tried knee-high compression for relief with moderate success, and wears them typically during the spraks and while at work. She has no known personal history of DVT or pulmonary embolism. Her mother's unfortunate was attributed to a pulmonary embolism, though itsounds like she had undiagnosed cancer at the time of her based on what Ms. Lucas reports asthe autopsy findings. She reports no other known familial history of DVT or pulmonary embolism, andno prior events with regard to her mother. She denies discoloration, blistering or the development of ulcerations associated with either lower extremity. Review of Systems Review of Systems Constitutional: Negative for activity change and chills. Respiratory: Negative for shortness of breath. Cardiovascular: Positive for leg swelling. Negative for chest pain. Musculoskeletal: Negative for back pain. Aching discomfort of both lower legs Skin: Negative for color change and wound. Objective Past Medical History Pectus excavatum status post surgical intervention Past Surgical History Past Surgical History: Procedure Laterality Date SECTION CHEST SURGERY Family History Maternal history of pulmonary embolism - subjectively reports Maternal history of Cancer - subjectively reported Social History Social History Socioeconomic History Marital status: Single Spouse name: Not on file Number of children: Not on file Years of education: Not on file Highest education level: Not on file Occupational History Not on file Tobacco Use Smoking status: Never Smokeless tobacco: Never Vaping Use Vaping Use: Never used Substance and Sexual Activity Alcohol use: Never Drug use: Never Sexual activity: Not on file Other Topics Concern Not on file Social History Narrative Not on file Social Determinants of Health Financial Resource Strain: Not on file Food Insecurity: No Food Insecurity (07/10/2023) Hunger Screening Food Insecurity - Worry: Never True Food Insecurity - Inability: Never True Transportation Needs: Not on file Physical Activity: Not on file Stress: Not on file Social Connections: Not on file Interpersonal Safety: Not on file Allergies No Known Allergies Current Medications Current Outpatient Medications Medication Sig Dispense Refill methotrexate 2.5 mg chemo tablet TAKE 4 TABS ONCE A WEEK WITH FOOD. NO ALCOHOL. HOLD IF ON ANTIBIOTICS OR ILL, 1-2WEEKS AFTER VACCINE pregabalin (LYRICA) 100 mg capsule TAKE 1 CAPSULE BY MOUTH EVERY DAY No current facility-administered medications for this visit. Vitals BP 110/70 (BP Site: Left Arm, BP Postition: Sitting, BP CUFF SIZE: M (9-13 inches)) Ht 160 cm (5'3 ) Wt 68 kg (150 lb) BMI 26.57 kg/m Physical Exam Physical Exam Vitals and nursing note reviewed. Constitutional: General: She is not in acute distress. Appearance: She is well-developed. She is not diaphoretic. Comments: Ms. Lucas is a well-appearing female in no acute pain or respiratory distress. She ambulated into and from the office without an assistive device or any apparent difficulty. HENT: Head: Normocephalic and atraumatic. Comments: Symmetric facies. Right Ear: External ear normal. Left Ear: External ear normal. Eyes: General: No scleral icterus. Right eye: No discharge. Left eye: No discharge. Conjunctiva/sclera: Conjunctivae normal. Neck: Vascular: No JVD. Trachea: No tracheal deviation. Comments: No carotid bruit noted. Cardiovascular: Rate and Rhythm: Normal rate and regular rhythm. Heart sounds: Normal heart sounds. No murmur heard. No friction rub. No gallop. Comments: Prominent venous structure crossing over the patella on the right, with fairly pronouncedreticular or small varicose veins associated with the anterior aspect of the right patrick. Associatedtelangiectasias are noted. There is a visible and slightly enlarged venous structure associated with the posteromedial aspect of the left distal thigh. Palpable popliteal and pedal pulses bilaterally. Pulmonary: Effort: Pulmonary effort is normal. No respiratory distress. Genitourinary: Comments: Deferred at this time Musculoskeletal: General: Swelling present. No tenderness. Normal range of motion. Cervical back: Normal range of motion and neck supple. Comments: Mild right nadya malleolar swelling without pitting edema. Skin: General: Skin is warm and dry. Coloration: Skin is not pale. Findings: No erythema. Neurological: Mental Status: She is alert. Psychiatric: Behavior: Behavior normal. Comments: The patient is alert, pleasant and appropriate in conversation. Conversational content does not reflect aberrant mentation. She is dressed appropriately for the season and occasion. CEAP classification (note all that apply or n/a): CEAP - Clinical class Right Left C0 - No visible or palpable signs of venous disease C1 - Telangiectasias or reticular veins x x C2 - Varicose veins x x C3 - Edema C4a - Pigmentation or eczema C4b - Lipodermatosclerosis or atrophie tristen C5 - Healed venous ulcer C6 - Active venous ulcer) S or A - Symptomatic, i.e. ache, pain, tightness, skin irritation, heaviness, muscle cramps, other complaints attributable to venous dysfunction vs. asymptomatic. S S Venous clinical severity score (VCSS)--none: 0, mild: 1, moderate: 2, severe: 3. Right Left Pain (0- none, 1- occasional pain, not restricting activity, 2- daily pain, interferes with but doesn't prevent regular activity, 3- daily pain, limits most regular daily activity. 2 2 Varicose veins (>/= 3 mm) 0- none, 1 - few scattered, isolated clusters, ariza phlebectatica, 2- confined to calf or thigh, 3- involves calf and thigh. 3 3 Venous edema 0- none, 1- limited to foot and ankle, 2- extends above ankle but below knee, 3- extends to knee and above. 1 0 Skin pigmentation (NOT localized over vv) 0- none, 1- limited to perimalleolar area, 2- diffuse over lower third of calf, 3- wider distribution above lower third of calf. 0 0 Inflammation (i.e. erythema, cellulitis, venous eczema, dermatitis) 0- none, 1- limited to perimalleolar area, 2- diffuse over lower third of calf, 3- wider distribution above lower third of calf 0 0 Induration (i.e. fibrosis, atrophie tristen, LDS) 0- none, 1- limited to perimalleolar area, 2- diffuse over lower third of calf, 3- wider distribution above lower third of calf. 0 0 Active ulcer number- 0- none, 1, 2, >/= 3 Active ulcer duration- < 3 mo (1), > 3 mo < 1 y (2), not healed > 1 y (3) Active ulcer size- diameter < 2 cm (1) , 2-6 cm (2), > 6 cm (3) 0 0 Use of compression therapy 0- not used, 1- intermittent use, 2- wears most days, 3- full compliance 2 2 VCSS summary: right le, left le. Assessment Varicose veins of both lower extremities Bilateral lower extremity pain Plan Ms. Lucas and I discussed the pathophysiology of venous insufficiency as relates to her clinical presentation and symptomatology. Lower extremity venous insufficiency studies certainly seem to be warranted. These have been ordered and the patient will return to the office for discussion once the imaging has been completed. I reinforced the importance of compression garments and provided resources for both prescription and commercially available options. She wears knee-high compression garmentson a regular basis and indicates that they mitigate but do not entirely address her aching discomfort. I encouraged the patient to contact the office with any questions or concerns prior to their next appointment, and recommend continued compression, use of NSAIDs, if tolerable, and lower extremityelevation for symptomatic relief. Thank you for allowing us to participate in Ms. Lucas's care. Your referrals are sincerely appreciated. Please do not hesitate to contact our service with any questions regarding her management. Simon Smith PA-C [facility] [place] Pager: [phone] Daytime office/After-hours call number: [phone] DALE Hernandez 07/10/23 1221 documented in this encounterMetroHealth Parma Medical CenterTalkpush [id number] Miscellaneous Notes* Telephone Encounter - Malathi Gudino MA - 05/29/2023 10:33 AM EST Pt was notified via . * Telephone Encounter - Justin Preston MD - 05/29/2023 6:39 AM EST Please Call patient if MyChart note not read to review results/released to My Chart if tests completed at [facility]: Stable labs and no inflammation. Continue same vitamin D intake with food. Recheck nonfasting labs in 3months.The orders have been placed. Happy to further review and discuss at follow up visit. Continue rest of treatment plan per instructions at last office visit. Thank you. 05/26/23 normal cbc, cmp, esr 12, crp 0.9, vitamin D 61.7; 04/05/23 bmd osteopenia Lumbar spine (L1-L3): 0.794 g/cm2, T-score -2.0, Z-score -1.1 Left Femoral Neck: 0.642 g/cm2, T-score -1.9, Left Total Hip: 0.786 g/cm2, T-score -1.3, Left Forearm, Distal 1/3 of Radius: 0.678 g/cm2, T-score -0.3 FRAX major osteoporotic fracture = 6.5 % - hip fracture = 0.7 % 04/05/23 lumbar xrays-Slight disc space narrowing and endplate osteophytes at L4-5 and mild facet hypertrophy. Slight anterolisthesis. L1-2, L2-3 and L3-4 disc spaces are preserved. Posterior elements are intact. Mild degenerative changes at sacral iliac joints 02/10/23 normal cbc, cmp, esr 17, crp 0.8, tsh 1.41, fsh 32.9, DHEA-S 120.3, progesterone 0.2, estradiol 61; 11/04/22 high crp 1.3 (0.7);normal cbc, cmp, esr 15(17), vitamin D 56.5; documented [facility] encounterAd[facility]10[facility]23 Miscellaneous Notes* Telephone Encounter - Deepika Villeda RN - 04/12/2023 1:14 PM EDT Pt identified by name and Pt given message below Stated understanding * Telephone Encounter - Isidra Sanchez APRN.GILL - 04/12/2023 12:44 PM EDT Please call patient Her calcium level is normal If needed she can start taking calcium Recommended daily calcium is 1200mg We recommend trying to get this through diet and if diet is not sufficient may add to it with supplement if needed Patient may not need to take additional calcium Needs to check what is in her diet first then add to it if needed * Telephone Encounter - Deepika Villeda RN - 04/12/2023 11:00 AM EDT Pt identified by name and Pt given message below Stated understanding Pt seen 04-05 Pt takes 3000 units of vitd3 ( Asking for difference in vit d that are available) Advised pt that she can discuss vit d vitamins available with pharm - she agrees) Pt does not take calcium - only what is in daily multivitamin Was advised to take 1200 mg calcium daily with food in divided doses per 04-05 ov 02-10 calcium 9.9 Pt had questions re: bone density All questions answered No further question or needs at this time * Telephone Encounter - Malathi Gudino MA - 04/12/2023 10:19 AM EDT Pt was notified via . * Telephone Encounter - Justin Preston MD - 04/11/2023 9:13 PM EDT Please Call patient if MyChart note not read to review results/released to My Chart if tests completed at [facility]: Spine xrays show osteoarthritis. May see spine and or pain clinic if pain symptoms persist or worsen.. Bone mineral density shows osteopenia. Happy to further review and discuss at follow up visit. Continue rest of treatment plan per instructions at last office visit. Thank you. 04/05/23 bmd osteopenia Lumbar spine (L1-L3): 0.794 g/cm2, T-score -2.0, Z-score -1.1 Left Femoral Neck: 0.642 g/cm2, T-score -1.9, Left Total Hip: 0.786 g/cm2, T-score -1.3, Left Forearm, Distal 1/3 of Radius: 0.678 g/cm2, T-score -0.3 FRAX major osteoporotic fracture = 6.5 % - hip fracture = 0.7 % 04/05/23 lumbar xrays-Slight disc space narrowing and endplate osteophytes at L4-5 and mild facet hypertrophy. Slight anterolisthesis. L1-2, L2-3 and L3-4 disc spaces are preserved. Posterior elements are intact. Mild degenerative changes at sacral iliac joints 02/10/23 normal cbc, cmp, esr 17, crp 0.8, tsh 1.41, fsh 32.9, DHEA-S 120.3, progesterone 0.2, estradiol 61; 11/04/22 high crp 1.3 (0.7);normal cbc, cmp, esr 15(17), vitamin D 56.5; documented in this encounterAd[facility]10-12-2023 History of Present illness Narrative* Marcy Garg - 04/06/2023 11:39 AM EDT POPULATION HEALTH NAVIGATION OUTREACH Action/FYI scheduled Patient Identified by Name and : YES, via phone Outreach Outcome/Action Spoke to patient / parent / legal guardian: Patient scheduled Did you use a PCP flex slot to schedule this appointment? N/A Reason for Outreach Care Gap or Scheduling/Wellness visits Payer: Payor: [place] [employer]ICA[employer] / Plan: [facility] MEDICAID / Product Type: Medicaid / Care Gap Reviewed:: Specialty Scheduling Reminder: Reminder note to check Health Maintenance for items below Health Maintenance items due: Hepatitis B Vaccine(1 of 3 - 3-dose series) Never done Covid-19 Vaccine(1) Never done Pneumococcal Vaccine(1 - PCV) Never done HIV Screening Never done DTaP,Tdap,Td Vaccine(1 - Tdap) Never done Shingrix Vaccine(1 of 2) Never done Pap Testing Never done HPV Testing Never done Mammogram Screening Never done Lipid Screening Never done Colorectal Cancer Screening Never done Depression Assessment Never done Influenza Vaccine(1) Never done Navigation Signature: Marcy Wagner April 06, 2023 11:39 AM documented in this encounterAd[facility]10-12-2023 Miscellaneous Notes* Telephone Encounter - Karol Lkae 04/06/2023 9:42 AM EDT Roosevelt Huynh I spoke with Ms. Lucas and she declined to schedule as requested. She stated she would think aboutthings and call us back if she decides to proceed with scheduling a Pain Management consult. Thank you, Karol Bernstein KAREN April 06, 2023 9:42 AM * Telephone Encounter - Indiana Parekh MA - 04/06/2023 8:59 AM EDT Left message for patient to call office regarding below. sent mychart routed to scheduling to assist in scheduling pain consult Telephone on 04/05/23 CONSULT TO PAIN MGT * Telephone Encounter - Deepika Villeda RN - 04/05/2023 2:41 PM EDT Left message on machine for pt to call office Please await call back * Telephone Encounter - Isidra Sanchez APRN.CNP - 04/05/2023 12:54 PM EDT Please call patient Xray shows Mild degenerative changes SI joints Slight facet hypertrophy and minimal anterolisthesis at L4-5. I placed a consult to pain mgt for your back May apply over the counter arthritis creams/patches (biofreeze, icy hot, asper cream, tiger balm, capsacin, lidocaine, salon pas, voltaren gel, etc.) or over the counter pain patches to painful joints up to four times a day. Avoid contact with eyes. May take Extra Strength acetaminophen 500mg every 4-6hours for joint pain. Do not exceed 3000mg /day. May apply heat/ice 20minutes on and off to areas of pain Avoid aggravating triggers documented in this encounterAd[facility]10-11-2023 Instructions* Patient Instructions* Isidra Sanchez APRN.CNP - 04/05/2023 10:23 AM EDT May apply over the counter arthritis creams/patches (biofreeze, icy hot, asper cream, tiger balm, capsacin, lidocaine, salon pas, voltaren gel, etc.) or over the counter pain patches to painful joints up to four times a day. Avoid contact with eyes. May take Extra Strength acetaminophen 500mg every 4-6hours for joint pain. Do not exceed 3000mg /day. Decrease stress Improve sleep May apply heat/ice 20minutes on and off to areas of pain Avoid aggravating triggers If needed, may take Calcium 1200mg daily with food in DIVIDED doses If labs normal, take Vitamin D 4000 International Units daily with food lyrica 100mg daily at nightly Please take Methotrexate 2.5mg tabs:(HOLD 1-2weeks after vaccines) Take 4 tabs by mouth with food once a week Do not drink alcohol while taking methotrexate Have bloodwork every 8-12weeks for monitoring while taking Methotrexate Please take folic acid 1mg tab:Take 1tab by mouth daily Please hold methotrexate if on antibiotics or if you have any signs/symptoms of infection. Recommend goal: exercising 30minutes 3-5 times a week Recommend weight-bearing aerobic exercises such as walking, dancing, low impact aerobics, elliptical machine, stair climbing, gardening flexibility exercises and strength training exercises Recommend avoiding high impact exercises such as jumping, running or jogging or movements where youbend forward and twist the waist, for instance- touching your toes, sit-ups, using row machine Next bone mineral density after 04/05/2025 group home pain recommendations per primary care provider/pain clinic Thank you. documented in this encounterAd[facility]10-11-2023 History of Present illness Narrative* Isidra Sanchez APRN.CNP - 04/05/2023 9:48 AM EDT FOLLOW UP VISIT MD Chip Hoffmann is a 52 year old year old patient here today for follow up of osteoarthritis/ osteopenia/+GEGE/high crp/inflammatory arthritis Interim History: Doing so/so Pain- 2/10 Does not like taking anything for pain Right shoulder upper arm - Elbow tendon pain occasional Thumbs Pains move around Swelling- no AM [id number] min Feels tight and stiff No falls No interim fractures No new bone pains No dental or Jaw problems or pains. Denies jaw pains Follows with dentist every 6 months Denies upcoming dental work or invasive procedures No serious infections or fevers Exercise- not much OP therapy: not on treatment Tolerating meds: No Missed doses- no Vit d 3000 international unit(s) daily Mtx 3 tabs weekly - doing better Sometimes does not feel well with it harsh Has not bothered her this week Drinking more water Taking lyrica Better when she takes earlier in the evening Helps her body feels worse with out taking No recent infection: No Review of Systems CONSTITUTION: Negative for: Fever and Recent weight change HEENT: Negative for: Nosebleeds, Mouth sores, Trouble swallowing and Dry mouth RESPIRATORY: Negative for: Cough, Shortness of breath and Pain with breathing GASTROINTESTINAL: Negative for: Melena, Diarrhea, Heartburn and Abdominal pain MUSCULOSKELETAL: Positive for: Arthralgias, Myalgias, Muscle weakness and Morning Joint Stiffness Negative for: Joint swelling NEUROLOGICAL: Negative for: Headaches, Numbness and Memory loss SKIN: Negative for: Rash, Skin changes, Hair loss and Nail changes EYES: Negative for: Eye pain, Eye redness, Eye dryness and visual disturbance Everything is ok with eyes CARDIOVASCULAR: Negative for: Chest pain and Leg swelling GENITOURINARY: Negative for: Dysuria and Hematuria HEMATOLOGIC/LYMPHATIC: Negative for: Swollen glands Past Medical Hx, Past Surgical Hx. Social Hx and Family Hx: reviewed ACTIVE PROBLEM LIST Chronic Hip Pain, Bilateral - 10/20/2022 Inflammatory Arthritis - 10/20/2022 Gege Positive - 01/28/2021 Secondary Osteoarthritis of Multiple Sites - 01/25/2021 Chronic Bilateral Low Back Pain With Left-Sided Sciatica - 01/25/2021 Bilateral Hand Pain - 01/25/2021 Chronic Pain of Both Knees - 01/25/2021 Chronic Elbow Pain, Right - 01/25/2021 Elevated Sed Rate - 01/25/2021 Elevated C-Reactive Protein (Crp) - 01/25/2021 Fibromyalgia - 01/25/2021 Numbness and Tingling in Both Hands - 01/25/2021 Medial Epicondylitis of Right Elbow - 01/25/2021 Family History of Gout - 01/25/2021 Family History of Rheumatoid Arthritis - 01/25/2021 Long-Term Use of High-Risk Medication - 01/25/2021 Component Latest Ref Rng & Units 02/10/2023 Protein, Total 6.3 - 8.0 g/dL 7.3 Albumin 3.9 - 4.9 g/dL 4.4 Calcium 8.5 - 10.2 mg/dL 9.9 Bilirubin, Total 0.2 - 1.3 mg/dL 0.3 Alkaline Phosphatase 34 - 123 U/L 120 AST 13 - 35 U/L 23 ALT 7 - 38 U/L 35 Glucose 74 - 99 mg/dL 100 (H) BUN 7 - 21 mg/dL 16 Creatinine 0.58 - 0.96 mg/dL 0.67 Sodium 136 - 144 mmol/L 140 Potassium 3.7 - 5.1 mmol/L 4.5 Chloride 97 - 105 mmol/L 101 CO2 22 - 30 mmol/L 30 Anion Gap 9 - 18 mmol/L 9 eGFR >=60 mL/min/1.73m 105 WSR 0 - 20 mm/hr 17 CRP <0.9 mg/dL 0.8 Vitamin D 25 Hydroxy 31.0 - 80.0 ng/mL 64.7 PHYSICAL EXAM: VS:BP 128/82 Pulse 76 Wt 69.4 kg (153 lb) LMP 02/03/2023 BMI 26.26 kg/m GEN: A & O in NAD. SKIN: no lesions HEENT: No conj. inj., oral ulcers, thrush LUNGS: CTA B/L HEART: RRR, no g/r/m NEURO: Mental Status: alert and oriented x 3 cheerful, Gait: Normal w/o assistive devices Tone: normal no focal weakness. MUSCULOSKELETAL: Sw Jts.:0 T Jts.:0 No joint deformities, no rheumatoid nodules. calcifications or tophi. No SI tenderness, no brandin's tenderness, no heel/plantar tenderness, lumbar flexion full, negative Abner's test. No clinical synovitis in the DIP's, PIP's, MCP's, wrists, elbows, shoulders, knees, ankles, midfoot, or toes. No knee effusions bilateral. Shoulder exam:from Tender right shoulder FROM: all upper and lower extremity joints Thoracic/Lumbar Spine: No percussion tenderness Tender Left lower back SLR: negative Extr.: no edema CBC Latest Ref Rng & Units 04/29/2022 08/05/2022 11/04/2022 02/10/2023 WBC 3.70 - 11.00 k/uL 6.69 5.47 5.51 6.78 HEMOGLOBIN 11.5 - 15.5 g/dL 13.5 14.1 13.7 13.4 HEMATOCRIT 36.0 - 46.0 % 42.1 43.6 42.8 41.7 PLATELETS 150 - 400 k/uL 335 306 314 313 ABS NEUT (ANC) 1.45 - 7.50 k/uL - - - 3.80 ABS LYMPH 1.00 - 4.00 k/uL - - - 2.14 CMP Latest Ref Rng & Units 04/29/2022 08/05/2022 11/04/2022 02/10/2023 SODIUM 136 - 144 mmol/L 137 142 139 140 POTASSIUM 3.7 - 5.1 mmol/L 4.2 4.2 4.2 4.5 CHLORIDE 97 - 105 mmol/L 102 105 103 101 CO2 22 - 30 mmol/L 26 28 26 30 GLUCOSE 74 - 99 mg/dL 107(H) 66(L) 122(H) 100(H) BUN 7 - 21 mg/dL 13 17 14 16 CREATININE 0.58 - 0.96 mg/dL 0.71 0.78 0.71 0.67 CALCIUM, TOTAL 8.5 - 10.2 mg/dL 9.4 9.8 9.8 9.9 AST 13 - 35 U/L 23 24 19 23 ALT 7 - 38 U/L 20 30 22 35 ALKALINE PHOSPHATASE 34 - 123 U/L 107 113 101 120 ESR, WSR Latest Ref Rng & Units 04/29/2022 08/05/2022 11/04/2022 02/10/2023 WSR 0 - 20 mm/hr 20 17 15 17 CRP Latest Ref Rng & Units 04/29/2022 08/05/2022 11/04/2022 02/10/2023 CRP <0.9 mg/dL 1.2(H) 0.7 1.3(H) 0.8 RF and CCP Latest Ref Rng & Units 01/25/2021 CCP ANTIBODY, IGG <20 Units <15 Hepatitis Screen Latest Ref Rng & Units 01/25/2021 HEPBCOTOL Negative Negative HEPSABQ Negative Negative HEPCABEIA Negative Negative HBSAGR Negative Negative TB Screen Latest Ref Rng & Units 01/25/2021 TBGINT - No evidence of current or previous infection with Mycobacterium tuberculosis. TBGRES Negative Negative Antibodies Latest Ref Rng & Units 01/25/2021 GEGE Negative Positive(A) GEGE TITER Negative 1:160(A) GEGE PATTERN - Homogeneous DNA ANTIBODY W/CONFIRMATION <30 IU/mL <12 SM ANTIBODY <1.0 AI <0.2 RIBOSOMAL RETAIL RECEIVING CLERK <1.0 AI <0.2 CHROMATIN ANTIBODY <1.0 AI <0.2 SSA ANTIBODY <1.0 AI <0.2 SSB ANTIBODY <1.0 AI <0.2 RETAIL RECEIVING CLERK ANTIBODY <1.0 AI <0.2 SCLERODERMA AB, IGG <1.0 AI <0.2 CENTROMERE AB <1.0 AI <0.2 VIDYA-1 ANTIBODY, IGG <1.0 AI <0.2 Prior Test results discussed with patient. IMPRESSION/DIAGNOSIS: R76.8 GEGE positive (primary encounter diagnosis) M19.90 Inflammatory arthritis M54.42, G89.29 Chronic bilateral low back pain with left-sided sciatica M79.7 Fibromyalgia M15.3 Secondary osteoarthritis of multiple sites Z79.899 Long-term use of high-risk medication Per Dr. Preston's last office visit note Wfemale with PMH gerd, asthma, s/p pectus repair as child, s/p csection presents with 2018 L great mid toe cracks/painful, L ankle medial painful Saw podiatry, recommended brace, makde her weaker Then pain moved to R heel, arch of foot AM stiffness after hot shower, 20minutes Stands all day doing hair, Better with moving. But worse with standing all day. Last year disc herniation, LLE sciatica pain, better with epidurals Better with lyrica (helped with overall pain), weaned off, interested retrying Better with shoes/inserts, worse with flipflops More R thumb both wrists, R elbows Better with ibuprofen, does not take daily Hands weak, numbness and tingling when sleeping Took steroids for asthma, helped joints pain x 1week Did well with methotrexate trial 2019 Reports pain 510 Degenerative joint disease on imaging High esr/crp in past Has findings with secondary osteoarthritis of multiple joints, osteopenia of multiple areas, lumbago with sciatica, inflammatory arthritis, chronic pain syndrome/generalized pain due to chronic fibromyalgia/sites of pain all over, R lateral epicondylitis, here taking methotrexate, folic acid feeling good until 04/2021 stopped due to strept throat. Then contracted COVID infection with loss of taste/smell/diarrhea treated with steroids and antibiotics twice for pneumonia. Daughter had and fiance'infection. Son healthy. More joint pain since was off methotrexate for 2months. More joint stiffness after long car ride. LLE numbness and pain, L media knee, lyrica 75mg nightly, felt strange if taking 150mg nightly. improved with taking lyrica 100mg nightly (but is drowsy the morning afterwards if she takes medication too late in the evening), prefers 100mg capsules since not getting enough 25mg and 75mg caps at the same time, was only taking 75mg daily since out of the other medication script. Chronic current pain in R>L hips, L>R knees, elbow, hands, back. Hips feel very tight. Better with stretches with boyfriend. Worse hip pain when walking fast with friend, but no pain when doing house errands. Fell twice when up out of the car, light headed with flip flops, bent left fingers. Same numbness and tingling. due for labs 10/2022. Due for bmd after 10/19/22, in 10/19/20 osteopenia.Much improved with lyrica 100mg daily, methotrexate 6tabs weekly/very dizzy last while/loopy, felt great at 1-3tabs weekly but more side effects with higher doses,daily folic acid, vitamin D 400 International Units daily with food, daily vitamin b12, daily calcium. No recent infections. recent oralsteroids. Motivated to increase exercise. no swelling. Chronic current pain in L>R hips, low back, less knee pain. Better with moving. worse pain in AM. Reports pain 4/10. Has minimal AM stiffness. History of low glucose. Feels safe at home. Has enough food, supplies and medications. Overall mildly uncomfortable but happy with rheum care. = supportive care, start fall precautions, improved with lyrica change to 100mg capsule nightly, improved with prn nsaids, start prn heat/ice/otc arthritis creams, start low impact weightbearing exercise as tolerated, avoid aggravating triggers, improved methotrexate/try lower dose 1-3tabs ONCE a week /lightheaded/dizzy at higher doses/notify office if not tolerated, daily folic acid, calcium/vit D,did discuss additional dmards if high APRs/patient will notify office which medication she is comfortable starting if needed, may consider bisphosphonates if repeat BMD abnormal, answered all questions and concerns, patient voiced understanding. At today's visit the patient's osteoarthritis/ osteopenia/+GEGE/high crp/inflammatory arthritis No inflammation on labs Taking mtx 3 tabs weekly , folic acid daily . Patient wants to try mtx 4 tabs weekly . Lyrica daily. Meds are working well to help with pains and stiffness Occasional feeling of not feeling well/ loopy . Better when she takes lyrica earlier in evening. Will try eating a snack with meds. Chronic lower back pain - will update xray and consider PT . Advised salon pas patches, heat/ ice. Labs in nov Patient happy with plan She will call office if not tolerating meds well Had dxa today results not back yet No falls, no fractures, no new bone pains, no dental concerns, no procedures planned, no s/s of infections and no antibiotics. PLAN/RECOMMENDATIONS: Office Visit on 04/05/23 XR LUMBAR GENERAL 3V AP/LAT/L5-S1 methotrexate 2.5 mg tablet folic acid 1 mg tablet Xray Labs in nov May apply over the counter arthritis creams/patches (biofreeze, icy hot, asper cream, tiger balm, capsacin, lidocaine, salon pas, voltaren gel, etc.) or over the counter pain patches to painful joints up to four times a day. Avoid contact with eyes. May take Extra Strength acetaminophen 500mg every 4-6hours for joint pain. Do not exceed 3000mg /day. Decrease stress Improve sleep May apply heat/ice 20minutes on and off to areas of pain Avoid aggravating triggers If needed, may take Calcium 1200mg daily with food in DIVIDED doses If labs normal, take Vitamin D 4000 International Units daily with food lyrica 100mg daily at nightly Please take Methotrexate 2.5mg tabs:(HOLD 1-2weeks after vaccines) Take 4 tabs by mouth with food once a week Do not drink alcohol while taking methotrexate Have bloodwork every 8-12weeks for monitoring while taking Methotrexate Please take folic acid 1mg tab:Take 1tab by mouth daily Please hold methotrexate if on antibiotics or if you have any signs/symptoms of infection. 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 Patient instructed to notify provider of any changes in medical condition. Patient in agreement and in understanding of plan. . Follow up: 6 months or sooner Isidra Sanchez APRN.GILL I spent a total of 34 minutes on the date of the service which included preparing to see the patient, [id number] patient care, completing clinical documentation, obtaining and/or reviewing separately obtained history, performing a medically appropriate examination, counseling and educating the pat ient/family/caregiver, and ordering medications, tests, or procedures. Portions of this note have been copied from my previous note and have been updated to reflect today's visit note April 05, 2023 all reflect current medical decision making from date of this visit. Recommendations to share with referring physician/Primary care physician : Dear Dr. Magdaleno I had the pleasure of seeing your patient, Chip Lucas. I have enclosed a copy of my clinic note with my assessment and recommendations for this patient. Recommendations for your consideration as you deem necessary: -Continuous follow up with Primary care physician for cardiovascular disease prevention, for age appropriate cancer screening and routine health maintenance and wellness, and infection precautions and age appropriate immunization recommended. Thank you for allowing me to participate in the care of your patient. CC: Trung Magdaleno MD * Indiana Parekh MA - 04/05/2023 9:29 AM EDT Last 4 Encounter Wt Readings: Date: Wt: 10/20/2022 69.4 kg (153 lb) 03/11/2022 69.9 kg (154 lb) 08/16/2021 71.7 kg (158 lb) 01/25/2021 69.4 kg (153 lb) [facility] History of Present illness Narrative* Mayda Gonzalez RT(R) - 04/05/2023 8:55 AM EDT Radiology Service Progress Note PATIENT NAME: Chip Lucas DATE OF SERVICE: April 05, 2023 TIME: 8:51 AM PATIENT IDENTITY VERIFICATION COMPLETED USING TWO (2) IDENTIFIERS: Name and Date of confirmedby patient verbally. FALL SCREENING: Has the patient had 2 falls in the last year or 1 fall with injury or currently using an Ambulatory Assistive Device (Walker, Cane, Wheelchair, Crutches, etc.)? No PATIENT GENDER DATA: Female. status: : No status: NO. PATIENT RELEVANT IMPLANT DATA REVIEWED: Not Applicable RADIOLOGY DEPARTMENT: Bone Density PERIPHERAL IV DATA: Not applicable SIGNED BY: RT Mary(R) April 05, 2023 8:51 AM documented in this encounterAd[facility]09-26-[facility]23 Miscellaneous Notes* Telephone Encounter - Justin Preston MD - 03/21/2023 6:41 AM EDT Notify patient medication sent as requested Thank you. Patient's request for medication is as follows: Requested Prescriptions Pending Prescriptions Disp Refills methotrexate 2.5 mg tablet 30 tablet 3 Sig: TAKE 3 TABS ONCE A WEEK WITH FOOD. NO ALCOHOL. HOLD IF ON ANTIBIOTICS OR ILL. HOLD 1-2WEEKS AFTER VACCINES. Prescription(s) as above. Please process accordingly. Justin Preston MD * Telephone Encounter - Anne KarenKathleen - 03/20/2023 11:34 AM EDT Patient has been identified by name and date of : Yes Requested Prescriptions Pending Prescriptions Disp Refills methotrexate 2.5 mg tablet 30 tablet 3 Sig: TAKE 3 TABS ONCE A WEEK WITH FOOD. NO ALCOHOL. HOLD IF ON ANTIBIOTICS OR ILL. HOLD 1-2WEEKS AFTER VACCINES. RX INSTRUCTIONS: Patient aware RX will be sent to pharmacy. No need to notify patient. Kathleen Mullins Anne Karen documented in this encounterAd[facility]08-[facility] Evaluation note* Encounter Date Diagnosis Assessment Notes Treatment Notes Treatment Clinical Notes Jan, Dysfunction of left eustachian t ube (ICD-10 - H69.92) Discussed with pt that her symptoms are consitent with eustachian tube dysfunction and ear effusionon the left. Discussed this with patient. Use Flonase nasal spray daily until symptoms clear. OTC 24 hour antihistamine daily until symptoms clear. Tylenol/Ibuprofen PRN. Patient is to notify office should symptoms persist, maay need referral to ENT. Warning s/s reviewed with patient. Follow-up if symptoms persistent. Patient verbalizes understanding and agrees to treatment plan. [employer] Other 06-23-2023 Evaluation note* Encounter Date Diagnosis Assessment Notes Treatment Notes Treatment Clinical Notes Nov, Hypoglycemia (ICD-10 - E16.2) Printed lab orders, Will consider completing them, understands that most of treatment is frequent snacks with protein and carbs. Nov,PV (benign positional vertigo), bilateral (ICD-10 - H81.13)Order printed for PT. Pt will set it up. [employer] Other 05-15-2023 Miscellaneous Notes* Telephone Encounter - Irene Maldonado RN - 11/07/2022 6:44 AM EDT Pt notified via [employer] * Telephone Encounter - Justin Preston MD - 11/06/2022 4:23 PM EDT Please Call patient if MyChart note not read to review results/released to My Chart if tests completed at [facility]: One mildly high inflammatory test- will monitor. Normal rest of labs. Continue same vitamin D intake with food. Continue methotrexate 1-3tabs once a week if tolerated. Notify office if medication change is not tolerated. Recheck nonfasting labs in 3months, orders have been placed. Happy to further review and discuss at follow up visit. Continue rest of treatment plan per instructions at last office visit. Thank you. 11/04/22 high crp 1.3 (0.7);normal cbc, cmp, esr 15(17), vitamin D 56.5; documented in this encounterAd[facility]04-27-[facility] History of Present illness Narrative* Justin Preston MD - 10/20/2022 8:20 AM EDT Face to face follow up visit for osteoarthritis/ osteopenia/+GEGE/high crp/inflammatory arthritis Today's visit 10/20/22:due for labs 10/2022. Due for bmd after 10/19/22, in 10/19/20 osteopenia. Much improved with lyrica 100mg daily, methotrexate 6tabs weekly/very dizzy last while/loopy, felt great at 1-3tabs weekly but more side effects with higher doses,daily folic acid, vitamin D 400 International Units daily with food, daily vitamin b12, daily calcium. No recent infections. recent oral steroids. Motivated to increase exercise. no swelling. Chronic current pain in L>R hips, low back, lessknee pain. Better with moving. worse pain in AM. Reports pain 4/10. Has minimal AM stiffness. History of low glucose. Feels safe at home. Has enough food, supplies and medications. Overall mildly uncomfortable but happy with rheum care. No falls/fx/trauma/illness/oral sores/rash/hairloss/jaw pain/dysphagia/epistaxis/hemoptysis since last visit. No adverse effects with meds. No other complaints. Patient denies fever, chills, cp, dyspnea, nausea, vomiting, night sweats, scalp tenderness, visual changes, castillo, bowel/bladder changes, weight changes or other complaints. Last visit supportive care, start fall precautions, improved with lyrica change to 100mg capsule nightly, improved with prn nsaids, start prn heat/ice/otc arthritis creams, start low impact weightbearing exercise as tolerated, avoid aggravating triggers, try methotrexate 3tabs TWICE a week, daily folic acid, calcium/vit D, may consider bisphosphonates if repeat BMD abnormal, 03/11/22:improved with taking lyrica 100mg nightly (but is drowsy the morning afterwards if she takes medication too late in the evening), prefers 100mg capsules since not getting enough 25mg and 75mgcaps at the same time, thus only taking 75mg daily since out of the other medication script. Takingmethotrexate 3tabs weekly since she was lightheaded with higher doses, daily folic acid, vitamin D 400 International Units daily with food, vitamin b12 daily, calcium once a day. Chronic current painin R>L hips, L>R knees, elbow, hands, back. Hips feel very tight. Reports pain 5/10. Better with stretches with boyfriend. minimal AM stiffness. Worse hip pain when walking fast with friend, but no pain when doing house errands. Fell twice when ot up out of the car, light headed with flip flops, bent left fingers. Same numbness and tingling. Feels safe at home. Has enough food, supplies andmedications. Overall mildly uncomfortable but happy with rheum care. No fx/trauma/illness/oral sores/rash/hairloss/jaw pain/dysphagia/epistaxis/hemoptysis since last visit. No adverse effects with meds. No other complaints. Patient denies fever, chills, cp, dyspnea, nausea, vomiting, night sweats, scalp tenderness, visual changes, castillo, bowel/bladder changes, weight changes or other complaints. Last visit supportive care, improved with lyrica/increase 100mg nightly if tolerated/notify office if not tolerated improved with prn nsaids, start prn heat/ice/otc arthritis creams, low impact weightbearing exercise as tolerated, avoid aggravating triggers, methotrexate 4tabs once a week, daily folic acid, calcium/vit D, may consider bisphosphonates if repeat BMD abnormal, 08/16/21:taking methotrexate, folic acid feeling good until 04/2021 stopped due to strept throat. Then contracted COVID infection with loss of taste/smell/diarrhea treated with steroids and antibiotics twice for pneumonia. Daughter had and fiance' infection. Son healthy. More joint pain since was off methotrexate for 2months, thus just restarted methotrexate and folic acid. More joint stiffness after long car ride. LLE numbness and pain, L media knee, lyrica 75mg nightly, felt strange if taking 150mg nightly. Chronic current pain in L knee, Low back, thumbs, R>L hips. Reports pain 4/10. minimal AM stiffness. Feels safe at home. Has enough food, supplies and medications. Overall mildly unco mfortable but happy with rheum care. No falls/fx/trauma/illness/oral sores/rash/hairloss/jaw pain/dysphagia/epistaxis/hemoptysis since last visit. No adverse effects with meds. No other complaints. Patient denies fever, chills, cp, dyspnea, nausea, vomiting, night sweats, scalp tenderness, visual changes, castillo, bowel/bladder changes, weight changes or other complaints. Last visit supportive care, improved with lyrica/restart/notify office if not tolerated improved with prn nsaids, start prn heat/ice/otc arthritis creams, low impact weightbearing exercise as tolerated, avoid aggravating triggers, may consider dmards/methotrexate if rheum testing positive, calcium/vit D, may consider bisphosphonates if repeat BMD abnormal, January 25, 2021 SUBJECTIVE Ms. Lucas is a 50 year old female who presents for joint pain eval. 2018 L great mid toe cracks/painful, L ankle medial painful Saw podiatry, recommended brace, makde her weaker Then pain moved to R heel, arch of foot AM stiffness after hot shower, 20minutes Stands all day doing hair, Better with moving. But worse with standing all day. Last year disc herniation, LLE sciatica pain, better with epidurals Better with lyrica (helped with overall pain), weaned off, interested retrying Better with shoes/inserts, worse with flipflops More R thumb both wrists, R elbows Better with ibuprofen, does not take daily Hands weak, numbness and tingling when sleeping Took steroids for asthma, helped joints pain x 1week Did well with methotrexate trial 2019 Reports pain 10 No falls/fx/trauma/illness/oral sores/rash/hairloss/jaw pain/dysphagia/epistaxis/hemoptysis. No adverse effects with meds. No other complaints. Patient denies fever, chills, cp, dyspnea, nausea, vomiting, night sweats, scalp tenderness, visual changes, castillo, bowel/bladder changes, weight changes or other complaints. COMPLETE REVIEW OF SYSTEMS: RHEUM. ROS: Joint pain: yes- L>R foot, both ankles, both hips, low back, thumbs, R elbow, wrists Joint swelling: yes- ankles, R wrist off and on Am stiffness: yes 20minutes Low back pain: yes Eye inflammation: contacts SICCA: dry eyes, recent GI problems-diarrhea/bleeding/IBD/Gluten intolerence/Dysphagia: gerd Organ inv-Serositis: asthma Lung disease/ILD: asthma Fatigue: yes, sleeps 8hr/night PMR/GCA ROS: negative Patient denies history of Gout or Pseudogout, Psoriasis, Rheumatic Fever, PUD, Liver Disease, Hepatitis , Kidney Disease, Kidney Stones, DM, HTN, CAD, Dyslipidemia, PAD, Sinusitis, TB infection or exposure, Pneumonias, Anemia, Seizures, Stroke, MS, Clots, Cancer, Thyroid Disease, Transfusions, Tattoos and Alcohol dependency. Other ROS:The remainder of the review of systems is negative. All other reviewed and negative other than HPI. PATIENT REPORTS: Cardiac stress test: years ago, asthma stable, Breast exam:negative Pap exam: normal, last menses 11/2020 (usually regular), not taking hormones; G2, P2, no miscarriage Colonoscopy: no Bone Density:10/19/20 osteopenia L1-4 0.993g/cm2, tscore-1.6, zscore-1.1;L neck 0.828g/cm2, tscore-1.5, zscore- 0.7;R fem neck 0.902g/cm2, tscore-1;zscore-0.2; History of Fractures:no Height Loss: no IMMUNIZATION HX: Pneumovax yes Flu shot yes Tetanus yes No COVID vaccines Last PPD: negative PAST MEDICAL HISTORY: PMH gerd, asthma, s/p pectus repair as child, s/p csection PAST SURGICAL HISTORY: s/p pectus repair as child, s/p csection FAMILY HISTORY: father/two brothers- rheumatoid arthritis;mother- aneurysm/cancer;children-healthy;brothers-gout; SOCIAL HISTORY: Social History Tobacco Use Smoking status: Never Smokeless tobacco: Never Substance Use Topics Alcohol use: Yes Comment: socially Job hairdressor Smoking no etoh no No gout MEDICATIONS: reviewed medlist 10/20/22 Calcium mvi Vitamin D daily CURRENT ALLERGIES: Allergies As of Date: 10/20/2022 (No Known Allergies) Fully Assessed 03/11/2022 TESTS:All Diagnostic tests reviewed for today's visit: 08/05/22 normal cbc, cmp, esr 17 (20), crp 0.7 (1.2), vitamin D 58; 04/29/22 high crp 1.2 (0.7);normal esr 20 (12), cbc, cmp, vitamin D 68.5; 03/11/22 normal hand xrays 01/28/22 normal cbc, cmp, esr 12(20), crp 0.7, vitamin D 74.4, vitamin [id number]; 10/25/21 normal cbc, cmp, esr 20, crp 0.6, vitamin D 70.2; 07/23/21 normal cbc, cmp, esr 10, crp 0.4; 03/30/21 normal cbc, cmp, esr12, crp 0.7 (1.3) 01/25/21 +GEGE 1:160/homogenous, crp 1.3;NL esr 16, cbc, cmp, vitamin D 76.9, vitamin b12-925;negativequantiferon tb, kristian, dsdna<12, ccp<15; 01/25/21 normal R elbow, both hand, both knee xrays; Outside 09/2020 high esr 34 (normal 0-30mm/hr);NL crp 0.8 (NL1mg/dl), bmp; Outside 06/2020 high crp 8.3 (normal<3mg/dL);negative rf<10; Outside 06/2020 hip xrays-degenerative joint disease PHYSICAL EXAM:reviewed vitals BP 126/65 Pulse 86 Wt 69.4 kg (153 lb) BMI 26.26 kg/m General Appearance: WD/WN, NAD. Appropriate grooming. Very pleasant. Ambulates fair without assistance or without assistive devices, mildly uncomfortable, speaks in full sentences without distress SKIN: No rash, no psoriasis, no purpura, no ulcers, no skin thickening/tightness, no telangiectasias. HEENT: No patchy alopecia, normal temporal artery pulsations, non-tender, scalp non-tender, no conjunctival injection or icterus, no oral ulcers, no thrush, normal nasal mucosa, no sinus tenderness, normal TM's. Yes contacts, no glasses, fair dentition NECK: neck supple w/o masses, no thyromegaly, no LAD. LUNGS: CTA, Good respiratory effort. HEART: RRR, - m/r/g ABDOMEN: soft, non-tender, no HSM/masses/bruits. EXTREMITIES: Adequate pulses b/l UE ; No clubbing,discoloration,sclerodactyly, periungual erythema,digital ulcers, nail pitting, edema, varicosities. MUSCULOSK: No joint deformities, no rheumatoid nodules, calcifications or tophi. No SI tenderness, no brandin's tenderness, no heel/plantar tenderness, lumbar flexion full, negative Abner's test, tinel's and genoveva tests Swoll JTS:no Tend. JTS:L>R hips, lumbar area, L>R foot, both ankles, L>R knees, lumbar area, thumbs, R elbow, wrists, decreased range of motion due to pain; no warmth/erythema No clinical synovitis in the DIP's, PIP's, MCP's, wrists, elbows, shoulders, knees, ankles, midfoot, or toes. no knee effusions bilateral. Shoulder exam:fair range of motion; no warmth/erythema Hip rom without pain LIMITATION of Motion of Joints: yes Thoracic/Lumbar Spine: No percussion tenderness SLR:negative No instability in any upper or lower extremity joints. NEURO: Mental Status: alert and oriented x 3, anxious, CN II - XII grossly intact Motor: 5/5 proximally and distally b/l Sensory: intact to fine touch TENDER POINTS: 06/12 Gait: see above Toe and heel walk normal. 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 Lucas is a 51 year old Wfemale with PMH gerd, asthma, s/p pectus repair as child, s/p csectionpresents with 2018 L great mid toe cracks/painful, L ankle medial painful Saw podiatry, recommended brace, makde her weaker Then pain moved to R heel, arch of foot AM stiffness after hot shower, 20minutes Stands all day doing hair, Better with moving. But worse with standing all day. Last year disc herniation, LLE sciatica pain, better with epidurals Better with lyrica (helped with overall pain), weaned off, interested retrying Better with shoes/inserts, worse with flipflops More R thumb both wrists, R elbows Better with ibuprofen, does not take daily Hands weak, numbness and tingling when sleeping Took steroids for asthma, helped joints pain x 1week Did well with methotrexate trial 2020 Reports pain 5/10 Degenerative joint disease on imaging High esr/crp in past Has findings with secondary osteoarthritis of multiple joints, osteopenia of multiple areas, lumbago with sciatica, inflammatory arthritis, chronic pain syndrome/generalized pain due to chronic fibromyalgia/sites of pain all over, R lateral epicondylitis, here taking methotrexate, folic acid feeling good until 04/2021 stopped due to strept throat. Then contracted COVID infection with loss of taste/smell/diarrhea treated with steroids and antibiotics twice for pneumonia. Daughter had and fiance'infection. Son healthy. More joint pain since was off methotrexate for 2months. More joint stiffness after long car ride. LLE numbness and pain, L media knee, lyrica 75mg nightly, felt strange if taking 150mg nightly. improved with taking lyrica 100mg nightly (but is drowsy the morning afterwards if she takes medication too late in the evening), prefers 100mg capsules since not getting enough 25mg and 75mg caps at the same time, was only taking 75mg daily since out of the other medication script. Chronic current pain in R>L hips, L>R knees, elbow, hands, back. Hips feel very tight. Better with stretches with boyfriend. Worse hip pain when walking fast with friend, but no pain when doing house errands. Fell twice when up out of the car, light headed with flip flops, bent left fingers. Same numbness and tingling. due for labs 10/2022. Due for bmd after 10/19/22, in 10/19/20 osteopenia.Much improved with lyrica 100mg daily, methotrexate 6tabs weekly/very dizzy last while/loopy, felt great at 1-3tabs weekly but more side effects with higher doses,daily folic acid, vitamin D 400 International Units daily with food, daily vitamin b12, daily calcium. No recent infections. recent oralsteroids. Motivated to increase exercise. no swelling. Chronic current pain in L>R hips, low back, less knee pain. Better with moving. worse pain in AM. Reports pain 4/10. Has minimal AM stiffness. History of low glucose. Feels safe at home. Has enough food, supplies and medications. Overall mildly uncomfortable but happy with rheum care. = supportive care, start fall precautions, improved with lyrica change to 100mg capsule nightly, improved with prn nsaids, start prn heat/ice/otc arthritis creams, start low impact weightbearing exercise as tolerated, avoid aggravating triggers, improved methotrexate/try lower dose 1-3tabs ONCE a week /lightheaded/dizzy at higher doses/notify office if not tolerated, daily folic acid, calcium/vit D,did discuss additional dmards if high APRs/patient will notify office which medication she is comfortable starting if needed, may consider bisphosphonates if repeat BMD abnormal, answered all questions and concerns, patient voiced understanding. RECOMMENDATION/PLAN: Office Visit on 10/20/22 DXA-AXIAL SKELETON DXA-FOREARM SKELETON Reviewed labs/tests with patient Provided printed info osteoarthritis 10/20/22 check cmp, cbc, esr, crp, vitamin D every 3months Modified 10/20/22 KIN 0, pain 40%;03/11/22 KIN 0, pain 50%;08/16/21 KIN 0, pain 40%;January 25, 2021 KIN 0, pain 50%; May apply over the counter arthritis creams/patches (biofreeze, icy hot, asper cream, tiger balm, capsacin, lidocaine, salon pas, voltaren gel, etc.) or over the counter pain patches to painful joints up to four times a day. Avoid contact with eyes. May take Extra Strength acetaminophen 500mg every 4-6hours for joint pain. Do not exceed 3000mg /day. Decrease stress Improve sleep May apply heat/ice 20minutes on and off to areas of pain Avoid aggravating triggers If needed, may take Calcium 1200mg daily with food in DIVIDED doses If labs normal, take Vitamin D 4000 International Units daily with food lyrica 100mg daily at nightly Please take Methotrexate 2.5mg tabs:(HOLD 1-2weeks after vaccines) Take 1-3tabs by mouth with food ONCE a week Do not drink alcohol while taking methotrexate Have bloodwork every 8-12weeks for monitoring while taking Methotrexate Please take folic acid 1mg tab:Take 1tab by mouth daily Please hold methotrexate if on antibiotics or if you have any signs/symptoms of infection. Recommend goal: exercising 30minutes 3-5 times a week Recommend weight-bearing aerobic exercises such as walking, dancing, low impact aerobics, elliptical machine, stair climbing, gardening flexibility exercises and strength training exercises Recommend avoiding high impact exercises such as jumping, running or jogging or movements where youbend forward and twist the waist, for instance- touching your toes, sit-ups, using row machine group home pain recommendations per primary care provider/pain clinic Additional time spent with patient on healthy lifestyle, healthy food and anti- inflammatory diet (with emphasis on whole plant based diet), avoiding refined carbs/sugars and processed food, appropriate exercise (stretching, cardio and strengthening), good sleep hygiene, stress mgt, and supplementing vital deficiencies and maintaining healthy wt and BMI. Additional information provided with references and educational information. Bone Health Recommendations: -Bone Density: After age 70 yrs, sooner if new clinical risk factors, or systemic steroid use of 3 months or more. -Vitamin D supplementation recommended, optimal dose is the dose necessary to achieve Vitamin D 25-OH blood level in range of 40-60 ng/mL. -Recommended daily dose of calcium: 1000-1200mg total a day in divided doses. Calcium from dietary sources, if not sufficient, or if with h/o calcium nephrolithiasis would recommend Calcium Citrate supplement, as it is recommended to avoid calcium carbonate products, which as main dietary calcium source. The after visit summary has information on dietary calcium and instructions on reading calcium label and converting the %DV to mg. -Regular weight-bearing and muscle-strengthening exercise -Avoidance of tobacco smoking, excessive alcohol intake and excessive caffeine intake. -Fall and fracture precautions -Continued regular dental follow up visits and good dental/gum care Stressed the importance of following up with PCP and specialists for his/her chronic diseases, health, CV, and cancer screening and continued care. Will follow disease activity/progression and adjusttherapeutic regimen to disease activity and severity. Discussed medication dosage, usage, goals of therapy, and side effects. Available test results were reviewed An additional 20minutes were spent outside of the patient visit to review records. Additional time spent with the patient to discuss their questions. Additional time spent with the patient devoted to discussing treatment strategy, planning, and implementation. Discussed findings, impression and plan with patient. Patient understands above plan; questions asked and answered. Patient agrees to plan as noted above. Total time spent on this visit, with more than 50% of time spent in face to face with patient, in consultation, and in addition to Counseling and Coordination of Care, explanation of diagnosis, and planning of further management; I spent a total of 30 minutes on the date of the service which included preparing to see the patient, [id number] patient care, completing clinical documentation, obtaining and/or reviewing separately obtained history, performing a medically appropriate examination, counseling and educating the pat ient/family/caregiver, ordering medications, tests, or procedures, communicating with other HCPs (not separately reported), independently interpreting results (not separately reported), communicatingresults to the patient/family/caregiver and care coordination (not separately reported) Follow up 6months, earlier if needed Recommendations to share with referring physician/Primary care physician : Dear Dr.Marcia Michelle Magdaleno MD : I had the pleasure of seeing your patient, Chip Lucas. I have enclosed a copy of my clinic note with my assessment and recommendations for this patient. Recommendations for your consideration as you deem necessary: -Continuous follow up with Primary care physician for cardiovascular disease prevention, for age appropriate cancer screening and routine health maintenance and wellness, and infection precautions and age appropriate immunization recommended. Thank you for allowing me to participate in the care of your patient. Justin Preston MD I will relay my findings and recommendations to the physician requesting the consult by letter/electronic shared medical records. cc Trung Magdaleno MD [facility] Instructions* Patient Instructions* Justin Preston MD - 10/20/2022 6:10 AM EDT May apply over the counter arthritis creams/patches (biofreeze, icy hot, asper cream, tiger balm, capsacin, lidocaine, salon pas, voltaren gel, etc.) or over the counter pain patches to painful joints up to four times a day. Avoid contact with eyes. May take Extra Strength acetaminophen 500mg every 4-6hours for joint pain. Do not exceed 3000mg /day. Decrease stress Improve sleep May apply heat/ice 20minutes on and off to areas of pain Avoid aggravating triggers If needed, may take Calcium 1200mg daily with food in DIVIDED doses If labs normal, take Vitamin D 4000 International Units daily with food lyrica 100mg daily at nightly Please take Methotrexate 2.5mg tabs:(HOLD 1-2weeks after vaccines) Take 1-3tabs by mouth with food once a week Do not drink alcohol while taking methotrexate Have bloodwork every 8-12weeks for monitoring while taking Methotrexate Please take folic acid 1mg tab:Take 1tab by mouth daily Please hold methotrexate if on antibiotics or if you have any signs/symptoms of infection. Recommend goal: exercising 30minutes 3-5 times a week Recommend weight-bearing aerobic exercises such as walking, dancing, low impact aerobics, elliptical machine, stair climbing, gardening flexibility exercises and strength training exercises Recommend avoiding high impact exercises such as jumping, running or jogging or movements where youbend forward and twist the waist, for instance- touching your toes, sit-ups, using row machine Next bone mineral density after 10/19/22 group home pain recommendations per primary care provider/pain clinic Thank you. BONE MINERAL DENSITY PATIENT INSTRUCTIONS Bone mineral density testing measures the amount of calcium in certain parts of your bones. This information determines how strong your bones are. The test is used to detect osteoporosis, a disease in which the bone's mineral content and density are low, increasing a person's risk of fractures. Thelumbar spine (lower back) and the hip are the skeletal sites usually examined. For the test, remember that: 1. You cannot take this test if you are . 2. Eat a normal diet on the day of the test. 3. Take your medications as you normally would. 4. DO NOT take calcium supplements (such as Tums) for 24 hours before the test. 5. On the day of the test, leave valuables (jewelry or credit cards) at home. 6. The test should be performed prior to oral, rectal or IV contrast studies, or at least 7 days after any of these studies. For the test, you may be asked to wear a hospital gown. You will lie on your back, on a padded table, in a comfortable position. Generally, you can resume your usual activities immediately. documented in this encounterAd[facility]02-13-[facility]23 Miscellaneous Notes* Telephone Encounter - Malathi Gudino MA - 08/08/2022 10:03 AM EST Spoke to pt aware of results and recommendations. * Telephone Encounter - Justin Preston MD - 08/06/2022 9:42 PM EST Please Call patient if MyChart note not read to review results/released to My Chart if tests completed at [facility]: Improved/ normal labs and no inflammation. Continue same daily vitamin D with food. Recheck nonfasting labs in 3months.The orders have been placed. Happy to further review and discuss at follow up visit. Continue rest of treatment plan per instructions at last office visit. Thank you. 08/05/22 normal cbc, cmp, esr 17 (20), crp 0.7 (1.2), vitamin D 58; 04/29/22 high crp 1.2 (0.7);normal esr 20 (12), cbc, cmp, vitamin D 68.5; 03/11/22 normal hand xrays documented [facility] encounterAd[facility]11-07-[facility]22 Miscellaneous Notes* Telephone Encounter - Irene Maldonado RN - 05/02/2022 9:25 AM EST Pt notified via [employer] * Telephone Encounter - Justin Preston MD - 04/30/2022 9:53 PM EDT Please Call patient if MyChart note not read to review results/released to My Chart if tests completed at [facility]: One mildly high inflammatory test- will monitor. Rest of labs normal. Vitamin D pending. Will notify if abnormal. Recheck nonfasting labs in 3months.The orders have been placed. Happy to further review and discuss at follow up visit. Continue rest of treatment plan per instructions at last office visit. Thank you. 04/29/22 high crp 1.2 (0.7);normal esr 20 (12), cbc, cmp;pending vitamin D; 03/11/22 normal hand xrays [facility]09-19-[facility]22 Miscellaneous Notes* Telephone Encounter - Malathi Gudino MA - 03/14/2022 8:23 AM EDT Pt was notified via . * Telephone Encounter - Justin Preston MD - 03/13/2022 9:47 AM EDT Please Call patient if MyChart note not read to review results/released to My Chart if tests completed at [facility]: Normal hand xrays. May see ortho and or pain clinic if pain symptoms persist or worsen. Happy to further review and discuss at follow up visit. Continue rest of treatment plan per instructions at last office visit. Thank you. 03/11/22 normal hand xrays documented in [facility] encounterAd[facility]09-16-[facility]22 History of Present illness Narrative* RT Ryan(R) - 03/11/2022 9:50 AM EDT Radiology Service Progress Note PATIENT NAME: Chip Lucas DATE OF SERVICE: March 11, 2022 TIME: 9:50 AM PATIENT IDENTITY VERIFICATION COMPLETED USING TWO (2) IDENTIFIERS: Name and Date of confirmedby patient verbally. FALL SCREENING: Has the patient had 2 falls in the last year or 1 fall with injury or currently using an Ambulatory Assistive Device (Walker, Cane, Wheelchair, Crutches, etc.)? No PATIENT GENDER DATA: Female. status: : No status: N/A PATIENT RELEVANT IMPLANT DATA REVIEWED: Not Applicable RADIOLOGY DEPARTMENT: General X-ray: Exam(s) Completed: Upper Extremity X- Ray(s): Hand, bilateral PERIPHERAL IV DATA: Not applicable SIGNED BY: RT Ryan(R) March 11, 2022 9:50 AM documented in this encounterAd[facility]09-16-2022 History of Present illness Narrative* Justin Preston MD - 03/11/2022 8:40 AM EDT Face to face follow up visit for osteoarthritis/ osteopenia/+GEGE/high crp Today's visit 03/11/22:improved with taking lyrica 100mg nightly (but is drowsy the morning afterwards if she takes medication too late in the evening), prefers 100mg capsules since not getting [id number] and 75mg caps at the same time, thus only taking 75mg daily since out of the other medication script. Taking methotrexate 3tabs weekly since she was lightheaded with higher doses, daily folic acid, vitamin D 400 International Units daily with food, vitamin b12 daily, calcium once a day. Chronic current pain in R>L hips, L>R knees, elbow, hands, back. Hips feel very tight. Reports pain 5/10. Better with stretches with boyfriend. minimal AM stiffness. Worse hip pain when walking fast with friend, but no pain when doing house errands. Fell twice when ot up out of the car, light headedwith flip flops, bent left fingers. Same numbness and tingling. Feels safe at home. Has enough food, supplies and medications. Overall mildly uncomfortable but happy with rheum care. No fx/trauma/illness/oral sores/rash/hairloss/jaw pain/dysphagia/epistaxis/hemoptysis since last visit. No adverse effects with meds. No other complaints. Patient denies fever, chills, cp, dyspnea, nausea, vomiting, night sweats, scalp tenderness, visual changes, castillo, bowel/bladder changes, weight changes or other complaints. Last visit supportive care, improved with lyrica/increase 100mg nightly if tolerated/notify office if not tolerated improved with prn nsaids, start prn heat/ice/otc arthritis creams, low impact weightbearing exercise as tolerated, avoid aggravating triggers, methotrexate 4tabs once a week, daily folic acid, calcium/vit D, may consider bisphosphonates if repeat BMD abnormal, 08/16/21:taking methotrexate, folic acid feeling good until 04/2021 stopped due to strept throat. Then contracted COVID infection with loss of taste/smell/diarrhea treated with steroids and antibiotics twice for pneumonia. Daughter had and fiance' infection. Son healthy. More joint pain since was off methotrexate for 2months, thus just restarted methotrexate and folic acid. More joint stiffness after long car ride. LLE numbness and pain, L media knee, lyrica 75mg nightly, felt strange if taking 150mg nightly. Chronic current pain in L knee, Low back, thumbs, R>L hips. Reports pain 10. minimal AM stiffness. Feels safe at home. Has enough food, supplies and medications. Overall mildly unco mfortable but happy with rheum care. No falls/fx/trauma/illness/oral sores/rash/hairloss/jaw pain/dysphagia/epistaxis/hemoptysis since last visit. No adverse effects with meds. No other complaints. Patient denies fever, chills, cp, dyspnea, nausea, vomiting, night sweats, scalp tenderness, visual changes, castillo, bowel/bladder changes, weight changes or other complaints. Last visit supportive care, improved with lyrica/restart/notify office if not tolerated improved with prn nsaids, start prn heat/ice/otc arthritis creams, low impact weightbearing exercise as tolerated, avoid aggravating triggers, may consider dmards/methotrexate if rheum testing positive, calcium/vit D, may consider bisphosphonates if repeat BMD abnormal, January 25, 2021 SUBJECTIVE Ms. Lucas is a 50 year old female who presents for joint pain eval. 2018 L great mid toe cracks/painful, L ankle medial painful Saw podiatry, recommended brace, makde her weaker Then pain moved to R heel, arch of foot AM stiffness after hot shower, 20minutes Stands all day doing hair, Better with moving. But worse with standing all day. Last year disc herniation, LLE sciatica pain, better with epidurals Better with lyrica (helped with overall pain), weaned off, interested retrying Better with shoes/inserts, worse with flipflops More R thumb both wrists, R elbows Better with ibuprofen, does not take daily Hands weak, numbness and tingling when sleeping Took steroids for asthma, helped joints pain x 1week Did well with methotrexate trial 2019 Reports pain 10 No falls/fx/trauma/illness/oral sores/rash/hairloss/jaw pain/dysphagia/epistaxis/hemoptysis. No adverse effects with meds. No other complaints. Patient denies fever, chills, cp, dyspnea, nausea, vomiting, night sweats, scalp tenderness, visual changes, castillo, bowel/bladder changes, weight changes or other complaints. COMPLETE REVIEW OF SYSTEMS: RHEUM. ROS: Joint pain: yes- L>R foot, both ankles, both hips, low back, thumbs, R elbow, wrists Joint swelling: yes- ankles, R wrist off and on Am stiffness: yes 20minutes Low back pain: yes Eye inflammation: contacts SICCA: dry eyes, recent GI problems-diarrhea/bleeding/IBD/Gluten intolerence/Dysphagia: gerd Organ inv-Serositis: asthma Lung disease/ILD: asthma Fatigue: yes, sleeps 8hr/night PMR/GCA ROS: negative Patient denies history of Gout or Pseudogout, Psoriasis, Rheumatic Fever, PUD, Liver Disease, Hepatitis , Kidney Disease, Kidney Stones, DM, HTN, CAD, Dyslipidemia, PAD, Sinusitis, TB infection or exposure, Pneumonias, Anemia, Seizures, Stroke, MS, Clots, Cancer, Thyroid Disease, Transfusions, Tattoos and Alcohol dependency. Other ROS:The remainder of the review of systems is negative. All other reviewed and negative other than HPI. PATIENT REPORTS: Cardiac stress test: years ago, asthma stable, Breast exam:negative Pap exam: normal, last menses 11/2020 (usually regular), not taking hormones; G2, P2, no miscarriage Colonoscopy: no Bone Density:10/19/20 osteopenia L1-4 0.993g/cm2, tscore-1.6, zscore-1.1;L neck 0.828g/cm2, tscore-1.5, zscore- 0.7;R fem neck 0.902g/cm2, tscore-1;zscore-0.2; History of Fractures:no Height Loss: no IMMUNIZATION HX: Pneumovax yes Flu shot yes Tetanus yes No COVID vaccines Last PPD: negative PAST MEDICAL HISTORY: PMH gerd, asthma, s/p pectus repair as child, s/p csection PAST SURGICAL HISTORY: s/p pectus repair as child, s/p csection FAMILY HISTORY: father/two brothers- rheumatoid arthritis;mother- aneurysm/cancer;children-healthy;brothers-gout; SOCIAL HISTORY: Social History Tobacco Use Smoking status: Never Smokeless tobacco: Never Substance Use Topics Alcohol use: Yes Comment: socially Job hairdressor Smoking no etoh no No gout MEDICATIONS: reviewed medlist 03/11/22 Calcium mvi Vitamin D daily CURRENT ALLERGIES: Allergies As of Date: 03/11/2022 (No Known Allergies) Fully Assessed 08/16/2021 TESTS:All Diagnostic tests reviewed for today's visit: 01/28/22 normal cbc, cmp, esr 12(20), crp 0.7, vitamin D 74.4, vitamin [id number]; 10/25/21 normal cbc, cmp, esr 20, crp 0.6, vitamin D 70.2; 07/23/21 normal cbc, cmp, esr 10, crp 0.4; 03/30/21 normal cbc, cmp, esr12, crp 0.7 (1.3) 01/25/21 +GEGE 1:160/homogenous, crp 1.3;NL esr 16, cbc, cmp, vitamin D 76.9, vitamin b12-925;negativequantiferon tb, kristian, dsdna<12, ccp<15; 01/25/21 normal R elbow, both hand, both knee xrays; Outside 09/2020 high esr 34 (normal 0-30mm/hr);NL crp 0.8 (NL1mg/dl), bmp; Outside 06/2020 high crp 8.3 (normal<3mg/dL);negative rf<10; Outside 06/2020 hip xrays-degenerative joint disease PHYSICAL EXAM:reviewed vitals BP (!) 108/44 Pulse 69 Wt 69.9 kg (154 lb) BMI 26.43 kg/m General Appearance: WD/WN, NAD. Appropriate grooming. Very pleasant. Ambulates fair without assistance or without assistive devices, mildly uncomfortable SKIN: No rash, no psoriasis, no purpura, no ulcers, no skin thickening/tightness, no telangiectasias. HEENT: No patchy alopecia, normal temporal artery pulsations, non-tender, scalp non-tender, no conjunctival injection or icterus, no oral ulcers, no thrush, normal nasal mucosa, no sinus tenderness, normal TM's. Yes contacts, no glasses, fair dentition NECK: neck supple w/o masses, no thyromegaly, no LAD. LUNGS: CTA, Good respiratory effort. HEART: RRR, - m/r/g ABDOMEN: soft, non-tender, no HSM/masses/bruits. EXTREMITIES: Adequate pulses b/l UE ; No clubbing,discoloration,sclerodactyly, periungual erythema,digital ulcers, nail pitting, edema, varicosities. MUSCULOSK: No joint deformities, no rheumatoid nodules, calcifications or tophi. No SI tenderness, no brandin's tenderness, no heel/plantar tenderness, lumbar flexion full, negative Abner's test, tinel's and genoveva tests Swoll JTS:no Tend. JTS:L>R foot, both ankles, R>L hips, L>R knees, lumbar area, thumbs, R elbow, wrists, decreased range of motion due to pain; no warmth/erythema No clinical synovitis in the DIP's, PIP's, MCP's, wrists, elbows, shoulders, knees, ankles, midfoot, or toes. no knee effusions bilateral. Shoulder exam:fair range of motion; no warmth/erythema Hip rom without pain LIMITATION of Motion of Joints: yes Thoracic/Lumbar Spine: No percussion tenderness SLR:negative No instability in any upper or lower extremity joints. NEURO: Mental Status: alert and oriented x 3, anxious, CN II - XII grossly intact Motor: 5/5 proximally and distally b/l Sensory: intact to fine touch TENDER POINTS: 12/18 Gait: see above Toe and heel walk normal. Tone: normal IMPRESSION/DIAGNOSIS:03/11/ M19.90 Inflammatory arthritis (primary encounter diagnosis) M79.641, M79.642 Bilateral hand pain M54.42, G89.29 Chronic bilateral low back pain with left-sided sciatica M79.7 Fibromyalgia R76.8 GEGE positive M25.561, M25.562, G89.29 Chronic pain of both knees M25.521, G89.29 Chronic elbow pain, right M15.3 Secondary osteoarthritis of multiple sites Z79.899 Long-term use of high-risk medication Z82.69 Family history of gout Z82.61 Family history of rheumatoid arthritis R79.82 Elevated C-reactive protein (CRP) R70.0 Elevated sed rate R20.0, R20.2 Numbness and tingling in both hands Ms. Lucas is a 51 year old Wfemale with PMH gerd, asthma, s/p pectus repair as child, s/p csectionpresents with 2018 L great mid toe cracks/painful, L ankle medial painful Saw podiatry, recommended brace, makde her weaker Then pain moved to R heel, arch of foot AM stiffness after hot shower, 20minutes Stands all day doing hair, Better with moving. But worse with standing all day. Last year disc herniation, LLE sciatica pain, better with epidurals Better with lyrica (helped with overall pain), weaned off, interested retrying Better with shoes/inserts, worse with flipflops More R thumb both wrists, R elbows Better with ibuprofen, does not take daily Hands weak, numbness and tingling when sleeping Took steroids for asthma, helped joints pain x 1week Did well with methotrexate trial 2019 Reports pain 5/10 Degenerative joint disease on imaging High esr/crp in past Has findings consistent with secondary osteoarthritis of multiple joints, osteopenia of multiple areas, lumbago with sciatica, inflammatory arthritis, chronic pain syndrome/generalized pain due to chronic fibromyalgia/sites of pain all over, R lateral epicondylitis, here taking methotrexate, folic acid feeling good until 04/2021 stopped due to strept throat. Then contracted COVID infection with loss of taste/smell/diarrhea treated with steroids and antibiotics twice for pneumonia. Daughter had and fiance' infection. Son healthy. More joint pain since was off methotrexate for 2months. More joint stiffness after long car ride. LLE numbness and pain, L media knee, lyrica 75mg nightly, felt strange if taking 150mg nightly. improved with taking lyrica 100mg nightly (but is drowsy the morning afterwards if she takes medication too late in the evening), prefers 100mg capsules since not gettingenough 25mg and 75mg caps at the same time, thus only taking 75mg daily since out of the other medic ation script. Taking methotrexate 3tabs weekly since she was lightheaded with higher doses, daily folic acid, vitamin D 400 International Units daily with food, vitamin b12 daily, calcium once a day.Chronic current pain in R>L hips, L>R knees, elbow, hands, back. Hips feel very tight. Reports pain 5/10. Better with stretches with boyfriend. minimal AM stiffness. Worse hip pain when walking fast with friend, but no pain when doing house errands. Fell twice when ot up out of the car, lightheaded with flip flops, bent left fingers. Same numbness and tingling. Feels safe at home. Has enough food, supplies and medications. Overall mildly uncomfortable but happy with rheum care. = supportive care, start fall precautions, improved with lyrica change to 100mg capsule nightly, improved with prn nsaids, start prn heat/ice/otc arthritis creams, start low impact weightbearing exercise as tolerated, avoid aggravating triggers, try methotrexate 3tabs TWICE a week, daily folic acid, calcium/vit D, may consider bisphosphonates if repeat BMD abnormal, answered all questions and concerns, patient voiced understanding. RECOMMENDATION/PLAN: Office Visit on 03/11/22 XR HAND GENERAL 3V PA/LAT/OBL BILATERAL Reviewed labs/tests with patient Provided printed info osteoarthritis 03/11/22 check cmp, cbc, esr, crp, vitamin D every 3months Modified 03/11/22 KIN 0, pain 50%;08/16/21 KIN 0, pain 40%;January 25, 2021 KIN 0, pain 50%; May apply over the counter arthritis creams/patches (biofreeze, icy hot, asper cream, tiger balm, capsacin, lidocaine, salon pas, voltaren gel, etc.) or over the counter pain patches to painful joints up to four times a day. Avoid contact with eyes. May take Extra Strength acetaminophen 500mg every 4-6hours for joint pain. Do not exceed 3000mg /day. Decrease stress Improve sleep May apply heat/ice 20minutes on and off to areas of pain Avoid aggravating triggers If needed, may take Calcium 1200mg daily with food in DIVIDED doses If labs normal, take Vitamin D 4000 International Units daily with food lyrica 100mg daily at nightly Please take Methotrexate 2.5mg tabs:(HOLD 1-2weeks after vaccines) Take 3tabs by mouth with food TWICE a week Do not drink alcohol while taking methotrexate Have bloodwork every 8-12weeks for monitoring while taking Methotrexate Please take folic acid 1mg tab:Take 1tab by mouth daily Please hold methotrexate if on antibiotics or if you have any signs/symptoms of infection. Recommend goal: exercising 30minutes 3-5 times a week Recommend weight-bearing aerobic exercises such as walking, dancing, low impact aerobics, elliptical machine, stair climbing, gardening flexibility exercises and strength training exercises Recommend avoiding high impact exercises such as jumping, running or jogging or movements where youbend forward and twist the waist, for instance- touching your toes, sit-ups, using row machine exterminator helper termite pain recommendations per primary care provider/pain clinic Additional time spent with patient on healthy lifestyle, healthy food and anti- inflammatory diet (with emphasis on whole plant based diet), avoiding refined carbs/sugars and processed food, appropriate exercise (stretching, cardio and strengthening), good sleep hygiene, stress mgt, and supplementing vital deficiencies and maintaining healthy wt and BMI. Additional information provided with references and educational information. Bone Health Recommendations: -Bone Density: After age 70 yrs, sooner if new clinical risk factors, or systemic steroid use of 3 months or more. -Vitamin D supplementation recommended, optimal dose is the dose necessary to achieve Vitamin D 25-OH blood level in range of 40-60 ng/mL. -Recommended daily dose of calcium: 1000-1200mg total a day in divided doses. Calcium from dietary sources, if not sufficient, or if with h/o calcium nephrolithiasis would recommend Calcium Citrate supplement, as it is recommended to avoid calcium carbonate products, which as main dietary calcium source. The after visit summary has information on dietary calcium and instructions on reading calcium label and converting the %DV to mg. -Regular weight-bearing and muscle-strengthening exercise -Avoidance of tobacco smoking, excessive alcohol intake and excessive caffeine intake. -Fall and fracture precautions -Continued regular dental follow up visits and good dental/gum care Stressed the importance of following up with PCP and specialists for his/her chronic diseases, health, CV, and cancer screening and continued care. Will follow disease activity/progression and adjusttherapeutic regimen to disease activity and severity. Discussed medication dosage, usage, goals of therapy, and side effects. Available test results were reviewed An additional 20minutes were spent outside of the patient visit to review records. Additional time spent with the patient to discuss their questions. Additional time spent with the patient devoted to discussing treatment strategy, planning, and implementation. Discussed findings, impression and plan with patient. Patient understands above plan; questions asked and answered. Patient agrees to plan as noted above. Total time spent on this visit, with more than 50% of time spent in face to face with patient, in consultation, and in addition to Counseling and Coordination of Care, explanation of diagnosis, and planning of further management; I spent a total of 30 minutes on the date of the service which included preparing to see the patient, [id number] patient care, completing clinical documentation, obtaining and/or reviewing separately obtained history, performing a medically appropriate examination, counseling and educating the pat ient/family/caregiver, ordering medications, tests, or procedures, communicating with other HCPs (not separately reported), independently interpreting results (not separately reported), communicatingresults to the patient/family/caregiver and care coordination (not separately reported) Follow up 6months, earlier if needed Recommendations to share with referring physician/Primary care physician : Dear Dr.Marcia Michelle Magdaleno MD : I had the pleasure of seeing your patient, Chip Lucas. I have enclosed a copy of my clinic note with my assessment and recommendations for this patient. Recommendations for your consideration as you deem necessary: -Continuous follow up with Primary care physician for cardiovascular disease prevention, for age appropriate cancer screening and routine health maintenance and wellness, and infection precautions and age appropriate immunization recommended. Thank you for allowing me to participate in the care of your patient. Justin Preston MD I will relay my findings and recommendations to the physician requesting the consult by letter/electronic shared medical records. cc Trung Magdaleno MD documented in this encounterAd[facility]09-15-2022 Instructions* Patient Instructions* Justin Preston MD - 03/10/2022 7:36 AM EDT May apply over the counter arthritis creams/patches (biofreeze, icy hot, asper cream, tiger balm, capsacin, lidocaine, salon pas, voltaren gel, etc.) or over the counter pain patches to painful joints up to four times a day. Avoid contact with eyes. May take Extra Strength acetaminophen 500mg every 4-6hours for joint pain. Do not exceed 3000mg /day. Decrease stress Improve sleep May apply heat/ice 20minutes on and off to areas of pain Avoid aggravating triggers If needed, may take Calcium 1200mg daily with food in DIVIDED doses If labs normal, take Vitamin D 4000 International Units daily with food lyrica 100mg daily at nightly Please take Methotrexate 2.5mg tabs:(HOLD 1-2weeks after vaccines) Take 3tabs by mouth with food TWICE a week Do not drink alcohol while taking methotrexate Have bloodwork every 8-12weeks for monitoring while taking Methotrexate Please take folic acid 1mg tab:Take 1tab by mouth daily Please hold methotrexate if on antibiotics or if you have any signs/symptoms of infection. Recommend goal: exercising 30minutes 3-5 times a week Recommend weight-bearing aerobic exercises such as walking, dancing, low impact aerobics, elliptical machine, stair climbing, gardening flexibility exercises and strength training exercises Recommend avoiding high impact exercises such as jumping, running or jogging or movements where youbend forward and twist the waist, for instance- touching your toes, sit-ups, using row machine group home pain recommendations per primary care provider/pain clinic Thank you. documented in this encounterAdams [facility] Hospital08-25-2022 Miscellaneous Notes* Telephone Encounter - Karena Ortiz RN - 02/17/2022 5:13 PM EDT Call to pt. . Id'd by name and . States understanding of the below, denies any questions or concerns, agrees with plan of care and will follow. * Telephone Encounter - Justin Preston MD - 02/17/2022 3:31 PM EDT Notify patient medication sent as requested Thank you. Patient's request for medication is as follows: Requested Prescriptions Pending Prescriptions Disp Refills folic acid 1 mg tablet [Pharmacy Med Name: FOLIC ACID 1 MG TABLET] 90 tablet 3 Sig: TAKE 1 TABLET BY MOUTH EVERY DAY WITH FOOD Prescription(s) as above. Please process accordingly. Justin Preston MD * Telephone Encounter - Zahra Amador MA - 02/17/2022 10:28 AM EDT Most recent Rheumatology visit: 08/16/2021 (with Justin Preston) Recent Office Visits - This Specialty 08/16/2021 Secondary osteoarthritis of multiple sites Rheumatology Justin Preston MD 01/25/2021 Secondary osteoarthritis of multiple sites Rheumatology Justin Preston MD Upcoming Rheumatology Appointments - Next 365 Days Visit Type Date Time Department [facility] 03/11/2022 8:40 AM [facility] CBC: CBC Latest Ref Rng & Units 10/25/2021 01/28/2022 WBC 3.70 - 11.00 k/uL 6.09 7.07 HEMOGLOBIN 11.5 - 15.5 g/dL 13.3 13.0 HEMATOCRIT 36.0 - 46.0 % 41.6 40.4 PLATELETS 150 - 400 k/uL 317 284 Vitamin D: Vitamin D Latest Ref Rng & Units 10/25/2021 01/28/2022 VITAMIN D 25 HYDROXY 31.0 - 80.0 ng/mL 70.2 74.4 LFT: CMP Latest Ref Rng & Units 10/25/2021 01/28/2022 SODIUM 136 - 144 mmol/L 140 136 POTASSIUM 3.7 - 5.1 mmol/L 4.0 4.4 CHLORIDE 97 - 105 mmol/L 102 102 CO2 22 - 30 mmol/L 27 27 GLUCOSE 74 - 99 mg/dL 79 91 BUN 7 - 21 mg/dL 21 18 CREATININE 0.58 - 0.96 mg/dL 0.69 0.64 CALCIUM, TOTAL 8.5 - 10.2 mg/dL 9.7 9.5 AST 13 - 35 U/L 35 26 ALT 7 - 38 U/L 55(H) 38 ALKALINE PHOSPHATASE 34 - 123 U/L 127(H) 105 Creatinine: Creatinine Latest Ref Rng & Units 10/25/2021 01/28/2022 CREAT 0.58 - 0.96 mg/dL 0.69 0.64 ESR/CRP: ESR, WSR Latest Ref Rng & Units 10/25/2021 01/28/2022 WSR 0 - 20 mm/hr 20 12 CRP Latest Ref Rng & Units 10/25/2021 01/28/2022 CRP <0.9 mg/dL 0.6 0.7 Uric Acid: None on file in the last 6 months Open Standing (Multiple Instance) Lab Orders None Open Future (Single Instance) Lab Orders Expected Expires Ordered COMP METABOLIC PANEL [SQCMP] 05/02/22 01/30/23 01/30/22 Auth. provider: Justin Preston MD Assoc. diagnoses: Elevated LFTs CBC [SQCBC] 05/02/22 01/30/23 01/30/22 Auth. provider: Justin Preston MD Assoc. diagnoses: Anemia of chronic disease SED RATE WESTERGREN [SQWSR] 05/02/22 01/30/23 01/30/22 Auth. provider: Justin Preston MD Assoc. diagnoses: Elevated sed rate, Elevated C-reactive protein (CRP) C-REACTIVE PROTEIN (CRP) [SQCRP] 05/02/22 01/30/23 01/30/22 Auth. provider: Justin Preston MD Assoc. diagnoses: Elevated sed rate, Elevated C-reactive protein (CRP) VITAMIN D 25 HYDROXY [SQVITD] 05/02/22 01/30/23 01/30/22 Auth. provider: Justin Preston MD Assoc. diagnoses: Vitamin D deficiency documented in this encounterAdams County Hospital08-15-2022 Note [id number]:[address] [place] [address] 02-04-2022 NotePatient: CHIP LUCAS Age: 51 years Sex: Female : 1970 Associated Diagnoses: None Author: Terrence GOOD MD Subjective no changes to H & PFGalion HospitalComment on above:Result Comment: Electronically Signed By: Terrence GOOD MD\.br\Date and Time Signed: 02/04/22 09:08 [id number] Miscellaneous Notes* Telephone Encounter - Margie Alvarez MA - 01/31/2022 10:54 AM EDT Called patient relayed message below Patient verbalized understanding * Telephone Encounter - Justin Preston MD - 01/30/2022 8:48 AM EDT Please Call patient if [facility] note not read to review results/released to My Chart if tests completed at [facility]: normal labs and no inflammation. Continue same daily over the counter vitamin D with food. Continue arthritis medication/methotrexate 4-6tabs once a week, daily folic acid if tolerated. Recheck nonfasting labs in 3months, orders have been placed. Happy to further review and discuss at follow up office visit. Continue rest of treatment plan per instructions at last office visit. Thank you. 01/28/22 normal cbc, cmp, esr 12(20), crp 0.7, vitamin D 74.4, vitamin [id number]; 10/25/21 normal cbc, cmp, esr 20, crp 0.6, vitamin D 70.2; 07/23/21 normal cbc, cmp, esr 10, crp 0.4; 03/30/21 normal cbc, cmp, esr12, crp 0.7 (1.3) 01/25/21 +GEGE 1:160/homogenous, crp 1.3;NL esr 16, cbc, cmp, vitamin D 76.9, vitamin b12-925;negativequantiferon tb, kristian, dsdna<12, ccp<15; 01/25/21 normal R elbow, both hand, both knee xrays; documented in this encounterAdams [facility] Hospital07-18-2022 NoteChief Complaint consultation for screening colonoscopy HPI Staff 51 year old female presents on consultation from Dr. Macias for screening colonoscopy. Denies abdominal or rectal pain. No rectal bleeding or change in bowel habits. Denies nausea or vomiting. No unexplained weight loss. Never had colonoscopy in the past. Father with history of colon cancer, diagnosed age 65. History of Present Illness 51 yo female with h/o rheumatoid arthritis, asthma, referred for colorectal screening; denies change in bms or blood in stools; no abdominal complaints; denies asa or NSAID use, no SBE prophylaxis; abdominal operations significant for and laparoscopy; fmhx of GI colon cancer in patient's father dx at age 65; no fmhx of IBD; no tobacco use. Review of Systems PHQ Score Initial Depression Screen Score: 0 ROS - Provider Constitutional: no fever, no sweats, no weight loss. Eyes: no glasses, no blurred vision, no visual loss. ENMT: no dentures, no hoarseness, no swallowing difficulties, no hearing loss, no ear infection(s),no nose bleeds. Cardiovascular: normal blood pressure, no chest pain, regular heartbeat, no heart murmur. Respiratory: no shortness of breath, no cough, no asthma, no wheezing. Gastrointestinal: no nausea, no vomiting, no diarrhea, no constipation, no blood in stool, no change in bowel habits, no abdominal pain, no hepatitis. Genitourinary: no kidney stones, no urine infection, no dysuria. Musculoskeletal: no pain, no weakness. Skin: no changing moles, no rash, no skin lumps. Neurologic: no seizures, no epilepsy, no headache. Psychiatric: no emotional or psychiatric problem. Heme/Lymph: no bleeding problems, no anemia, no blood clots, no transfusions. Allergy/Immunologic: no swollen lymph nodes/glands, no IV drug abuse. Other: Additional ROS info: Except as noted in the above Review of Systems and in the History of Present Illness, all other systems have been reviewed and are negative or noncontributory. Physical Exam Vitals & Measurements HR: 79(Peripheral) RR: 16 BP: 124/84 HT: 162.5 cm HT: 162.5 cm WT: 70.7 kg WT: 70.7 kg BMI: 26.77 HEENT: normal conjunctiva, sclera clear, no scleral icterus, EOM intact, PERRLA, oral mucosa moist without lesions. Neck: trachea midline, no mass, symmetric, no thyromegaly or nodules, no adenopathy Respiratory: lungs CTA, respirations non labored. Cardiovascular: regular rate and rhythm, no murmur, no pedal edema or varicosities. Gastrointestinal: soft, non distended, no tenderness, no masses, no palpable hernias, diastasis recti no, no hepatosplenomegaly; normal bs Lymphatic: no cervical adenopathy, Musculoskeletal: normal gait, digits and nails without infection, nodes, cyanosis, clubbing. Skin: no rashes, no lesions, no ulcers, no subcutaneous nodules, induration. Psychiatric/Neuro: oriented to time, place, person, judgement normal, affect appropriate for age, insight intact, no focal deficits. Tests: review of old records completed, Discussed surgical options, risks, and possible complications with patient. Assessment/Plan 1. Screening for malignant neoplasm of colon (Z12.11: Encounter for screening for malignant neoplasm of colon) plan colonoscopy under anesthesia, informed consent obtained. Follow-up No qualifying data available Problem List/Past Medical History Ongoing Ankle contracture Asthma BMI 26.0-26.9,adult Menopause Rheumatoid arthritis Screening for malignant neoplasm of colon Tremor Varus foot deformity, acquired Historical No qualifying data Procedure/Surgical History Injection of nerve root of lumbar spine using fluoroscopic guidance (02/18/2020), Laparoscopy (05/2015), section, LEEP. Medications albuterol HFA 90 mcg/inh MDI, 2 puff(s), Inhalation, QID, PRN Lyrica 25 mg Cap, 25 mg= 1 cap(s), Oral, Bedtime methotrexate 2.5 mg Tab, 2.5 mg= 1 tab(s), Oral, Daily Symbicort 80/4.5 inhalation aerosol with adapter, 2 puff(s), Inhalation, BID Allergies No Known Allergies Social History Alcohol - Low Risk, 03/03/2020 Substance Abuse - Denies Substance Abuse, 01/10/2022 Tobacco Never (less than 100 in lifetime) Tobacco Use:. Never Smokeless Tobacco Use:., 01/10/2022 Family History Abdominal aortic aneurysm: Mother. Diabetes mellitus type 2: Father and Brother. Primary malignant neoplasm of colon: Father. Rheumatoid arthritis: Brother.[facility] HospitalComment on above:Result Comment: Electronically Signed By: FLORENTINO PURDY, Terrence Ricardo\Date and Time Signed: 01/10/22 16:55 [id number] Miscellaneous Notes* Telephone Encounter - Karena Ortiz RN - 10/27/2021 12:46 PM EDT Call from pt. . Id'd by name and . States understanding of the below, denies any questions or concerns, agrees with plan of care and will follow. * Telephone Encounter - Clarisse Sheppard - 10/27/2021 12:07 PM EDT Called and left message for patient to call back regarding message below from . * Telephone Encounter - Justin Preston MD - 10/27/2021 11:50 AM EDT Please Call patient if note not read to review results/released to My Chart if tests completed at [facility]: normal labs and no inflammation. Continue same daily over the counter vitamin D with food. take arthritis medication/methotrexate 4-6tabs once a week, daily folic acid if tolerated. Recheck nonfasting labs in 3months, orders have been placed. Happy to further review and discuss at follow up office visit. Continue rest of treatment plan per instructions at last office visit. Thank you. 10/25/21 normal cbc, cmp, esr 20, crp 0.6, vitamin D 70.2; 07/23/21 normal cbc, cmp, esr 10, crp 0.4; 03/30/21 normal cbc, cmp, esr12, crp 0.7 (1.3) 01/25/21 +GEGE 1:160/homogenous, crp 1.3;NL esr 16, cbc, cmp, vitamin D 76.9, vitamin b12-925;negativequantiferon tb, kristian, dsdna<12, ccp<15; 01/25/21 normal R elbow, both hand, both knee xrays; documented in this encounterAdams County HospitalEvaluation + Plan note Future Appointments Appointment Date:01/28/2022 10:00:00 AM Scheduled Provider: Location:[facility] Appointment Type:Surgery PAT COVID Testing Appointment Date:02/04/2022 10:30:00 AM Scheduled Provider: Location:[facility] Appointment Type:Surgery FT [facility] [place] Evaluation note* Diagnosis GEGE positive- Primary Other and unspecified nonspecific immunological findings Elevated LFTs Other abnormal blood chemistry Anemia of chronic disease Anemia of other chronic disease Elevated sed rate Elevated sedimentation rate Elevated C-reactive protein (CRP) Vitamin D deficiency Unspecified vitamin D deficiency Vitamin B12 deficiency Other B-complex deficiencies documented [facility] this encounter [facility]* Diagnosis Inflammatory arthritis- Primary Unspecified inflammatory polyarthropathy Elevated LFTs Other abnormal blood chemistry Anemia of chronic disease Anemia of other chronic disease Elevated sed rate Elevated sedimentation rate Elevated C-reactive protein (CRP) Vitamin D deficiency Unspecified vitamin D deficiency documented [facility] this encounter [facility]* Diagnosis GEGE positive Other and unspecified nonspecific immunological findings documented [facility] encounter [facility]* Diagnosis Inflammatory arthritis- Primary Unspecified inflammatory polyarthropathy Bilateral hand pain Pain in limb Chronic bilateral low back pain with left-sided sciatica Fibromyalgia Mylagia and myositis, unspecified GEGE positive Other and unspecified nonspecific immunological findings Chronic pain of both knees Chronic elbow pain, right Secondary osteoarthritis of multiple sites Osteoarthrosis involving, or with mention of more than one site, but not specified as generalized, multiple sites Long-term use of high-risk medication Family history of gout Family history of other endocrine and metabolic diseases Family history of rheumatoid arthritis Family history of arthritis Elevated C-reactive protein (CRP) Elevated sed rate Elevated sedimentation rate Numbness and tingling in both hands documented in this encounter [facility]* Diagnosis Inflammatory arthritis- Primary Unspecified inflammatory polyarthropathy Elevated LFTs Other abnormal blood chemistry Anemia of chronic disease Anemia of other chronic disease Elevated sed rate Elevated sedimentation rate Elevated C-reactive protein (CRP) Vitamin D deficiency Unspecified vitamin D deficiency [facility] Diagnosis Inflammatory arthritis- Primary Unspecified inflammatory polyarthropathy 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 Fibromyalgia Mylagia and myositis, unspecified GEGE positive Other and unspecified nonspecific immunological findings Chronic pain of both knees Secondary osteoarthritis of multiple sites Osteoarthrosis involving, or with mention of more than one site, but not specified as generalized, multiple sites Long-term use of high-risk medication Family history of gout Family history of other endocrine and metabolic diseases Family history of rheumatoid arthritis Family history of arthritis Elevated C-reactive protein (CRP) Elevated sed rate Elevated sedimentation rate Chronic hip pain, bilateral documented in this encounter [facility]* Diagnosis Inflammatory arthritis- Primary Unspecified inflammatory polyarthropathy Elevated LFTs Other abnormal blood chemistry Anemia of chronic disease Anemia of other chronic disease Elevated sed rate Elevated sedimentation rate Elevated C-reactive protein (CRP) Vitamin D deficiency Unspecified vitamin D deficiency documented in this encounter [facility] noteNo [facility] Other Evaluation note* Diagnosis Bilateral hand pain Pain in limb [facility] this [facility]* Diagnosis Bilateral hand pain Pain in limb Chronic pain of both knees Chronic elbow pain, right documented in this encounter [facility]* Diagnosis GEGE positive Other and unspecified nonspecific immunological findings documented in this encounter [facility] note* Diagnosis GEGE positive- Primary Other and unspecified nonspecific immunological findings Inflammatory arthritis Unspecified inflammatory polyarthropathy Chronic bilateral low back pain with left-sided sciatica Fibromyalgia Mylagia and myositis, unspecified Secondary osteoarthritis of multiple sites Osteoarthrosis involving, or with mention of more than one site, but not specified as generalized, multiple sites Long-term use of high-risk medication documented in this encounter [facility]* Diagnosis Postmenopausal osteoporosis of multiple sites documented in this encounter [facility]* Diagnosis Chronic bilateral low back pain with left-sided sciatica- Primary documented in this [facility] [facility]* Diagnosis Inflammatory arthritis- Primary Unspecified inflammatory polyarthropathy Elevated LFTs Other abnormal blood chemistry Anemia of chronic disease Anemia of other chronic disease Elevated sed rate Elevated sedimentation rate Elevated C-reactive protein (CRP) Vitamin D deficiency Unspecified vitamin D deficiency documented in this encounter [facility] [facility]* Diagnosis Chronic bilateral low back pain with left-sided sciatica Fibromyalgia Mylagia and myositis, unspecified documented in this encounter [facility] [facility]* Diagnosis Cervicalgia documented in this encounter [facility]* Diagnosis Inflammatory arthritis- Primary Unspecified inflammatory polyarthropathy Postmenopausal osteoporosis of multiple sites Cervicalgia Elevated sed rate Elevated sedimentation rate Elevated C-reactive protein (CRP) Chronic bilateral low back pain with left-sided sciatica Fibromyalgia Mylagia and myositis, unspecified GEGE positive Other and unspecified nonspecific immunological findings Secondary osteoarthritis of multiple sites Osteoarthrosis involving, or with mention of more than one site, but not specified as generalized, multiple sites Chronic hip pain, bilateral Chronic pain of both knees Long-term use of high-risk medication Family history of gout Family history of other endocrine and metabolic diseases Family history of rheumatoid arthritis Family history of arthritis [facility]* Diagnosis Venous insufficiency- Primary Unspecified venous (peripheral) insufficiency [facility]* Diagnosis Venous hypertension- Primary Varicose veins of bilateral lower extremities with pain documented in this encounter [facility]* Diagnosis Fibromyalgia- Primary Mylagia and myositis, unspecified Chronic bilateral low back pain with left-sided sciatica documented in this encounter [facility] general Narrative - Reported* Type Description Date Medical History Neuropathic pain Medical HistoryAsthmaMedical HistoryRheumatoid arthritisSurgical HistoryC sectionSurgical Historycyst removalSurgical HistorybiopsySurgical Historywisdom teethHospitalization HistorySee Above [employer] Other Hospital course Narrative No data available for this section [facility] [place] [facility] Discharge instructions No data available for this section [facility] [place] InstructionsNot on filedocumented in this encounter [facility] SystemInstructionsNot on filedocumented in this encounter [facility] SystemProgress note No data available for this section [facility] [place] Reason for referral (narrative)* Diagnostic Procedure Only (Routine) - ClosedSpecialtyDiagnoses / ProceduresReferred By Contact Referred To ContactXR IMAGING Diagnoses Bilateral hand pain Procedures XR HAND GENERAL 3V PA/LAT/OBL BILATERAL RADEX HAND MINIMUM 3 VIEWS Justin Preston MD [address] [place] [address] Xr Imaging Referral IDStatusReasonStart DateExpiration DateVisits RequestedVisits [id number] Auto-Generated Referral [facility] for referral (narrative)* Diagnostic Procedure Only (Routine) - AuthorizedSpecialtyDiagnoses / ProceduresReferred By Contact Referred To ContactXR IMAGING Diagnoses Postmenopausal osteoporosis of multiple sites Procedures DXA-FOREARM SKELETON DXA BONE DENSITY STUDY 1/>SITES APPENDICLR SKJustin Goss MD [address] [place] [address] Xr Imaging Referral IDStatusReasonStart DateExpiration DateVisits RequestedVisits [id number] Auto-Generated Referral / [facility] for referral (narrative)* Diagnostic Procedure Only (Routine) - ClosedSpecialtyDiagnoses / ProceduresReferred By ContactReferred To ContactXR IMAGING Diagnoses Bilateral hand pain Procedures XR HAND GENERAL 3V PA/LAT/OBL BILATERAL RADEX HAND MINIMUM 3 VIEWS Justin Preston MD [address] [place] [address] Xr Imaging Referral IDStatusReasonStart DateExpiration DateVisits RequestedVisits [id number] Auto-Generated Referral / [facility] for referral (narrative)* Diagnostic Procedure Only (Routine) - ClosedSpecialtyDiagnoses / ProceduresReferred By ContactReferred To ContactXR IMAGING Diagnoses Chronic elbow pain, right Procedures XR ELBOW GENERAL 2V AP/LAT RT X-RAY ELBOW AP/LATERAL Justin Preston MD [address] [place] [address] Xr Imaging Referral IDStatusReasonStart DateExpiration DateVisits RequestedVisits [id number] Auto-Generated Referral / * Diagnostic Procedure Only (Routine) - ClosedSpecialtyDiagnoses / Procedures Referred By ContactReferred To ContactXR IMAGING Diagnoses Chronic pain of both knees Procedures XR KNEE GENERAL 4V AP BOTH/PA BOTH/LAT/MERC BILAT KNEE AP-WGT/LAT/MERCHANT Justin Preston MD [address] [place] [address] Xr Imaging Referral IDStatusReasonStart DateExpiration DateVisits RequestedVisits [id number] Auto-Generated Referral * Diagnostic Procedure Only (Routine) - ClosedSpecialtyDiagnoses / Procedures Referred By ContactReferred To ContactXR IMAGING Diagnoses Bilateral hand pain Procedures XR HAND GENERAL 3V PA/LAT/OBL BILAT X-RAY HAND MINIMUM 3 VIEWS Justin Preston MD [address] [facility] [place] [address] Xr Imaging Referral IDStatusReasonStart DateExpiration DateVisits RequestedVisits [id number] Auto-Generated Referral [facility] for referral (narrative)* Diagnostic Procedure Only (Routine) - ClosedSpecialtyDiagnoses / ProceduresReferred By ContactReferred To ContactXR IMAGING Diagnoses Chronic bilateral low back pain with left-sided sciatica Procedures XR LUMBAR GENERAL 3V AP/LAT/L5-S1 RADEX SPINE LUMBOSACRAL 2/3 VIEWS Isidra Sanchez, CRITICAL SYSTEMS TECHNICIAN.COMPUTER PROJECT MANAGER [address] [facility] [place] [address] [place] [address] Referral IDStatusReasonStart DateExpiration DateVisits RequestedVisits [id number] Auto-Generated Referral / Electronically signed by Isidra Sanchez CRITICAL SYSTEMS TECHNICIAN.COMPUTER PROJECT MANAGER at 04/05/2023 10:29 AM EDT [facility] for referral (narrative)* Diagnostic Procedure Only (Routine) - ClosedSpecialtyDiagnoses / ProceduresReferred By ContactReferred To ContactXR IMAGING Diagnoses Cervicalgia Procedures XR CERV OTHER 4V AP/LAT/OBL RADEX SPINE CERVICAL 4 OR 5 VIEWS Justin Preston MD [address] [facility] [place] [address] [place] [address] Referral IDStatusReasonStart DateExpiration DateVisits RequestedVisits [id number] Auto-Generated Referral * Diagnostic Procedure Only (Routine) - AuthorizedSpecialtyDiagnoses / ProceduresReferred By ContactReferred To ContactXR IMAGING Diagnoses Postmenopausal osteoporosis of multiple sites Procedures DXA-AXIAL SKELETON DXA BONE DENSITY STUDY 1/> SITES AXIAL Justin Hernandez MD [address] [facility] [place] [address] [place] [address] Referral IDStatusReasonStart DateExpiration DateVisits RequestedVisits [id number] Auto-Generated Referral * Diagnostic Procedure Only (Routine) - AuthorizedSpecialtyDiagnoses / ProceduresReferred By ContactReferred To ContactXR IMAGING Diagnoses Postmenopausal osteoporosis of multiple sites Procedures DXA-FOREARM SKELETON DXA BONE DENSITY STUDY 1/>SITES APPENDICLR Justin Hernandez MD [address] [place] [address] [place] [address] Referral IDStatusReasonStart DateExpiration DateVisits RequestedVisits [id number] Auto-Generated Referral [facility] for visit Narrative* Diagnostic Procedure Only (Routine) - ClosedSpecialtyDiagnoses / ProceduresReferred By ContactReferred To Contact XR IMAGING Diagnoses Bilateral hand pain Procedures XR HAND GENERAL 3V PA/LAT/OBL BILATERAL RADEX HAND MINIMUM 3 VIEWS Justin Preston MD [address] [place] [address] Xr Imaging Referral IDStatusReasonStart DateExpiration DateVisits RequestedVisits [id number] Auto-Generated Referral / [facility] for visit Narrative* Diagnostic Procedure Only (Routine) - ClosedSpecialtyDiagnoses / ProceduresReferred By ContactReferred To Contact XR IMAGING Diagnoses Chronic elbow pain, right Procedures XR ELBOW GENERAL 2V AP/LAT RT X-RAY ELBOW AP/LATERAL Justin Preston MD [address] [place] [address] Xr Imaging Referral IDStatusReasonStart DateExpiration DateVisits RequestedVisits [id number] Auto-Generated Referral / [facility] for visit Narrative* Diagnostic Procedure Only (Routine) - ClosedSpecialtyDiagnoses / ProceduresReferred By ContactReferred To Contact XR IMAGING Diagnoses Postmenopausal osteoporosis of multiple sites Procedures DXA-FOREARM SKELETON DXA BONE DENSITY STUDY 1/>SITES APPENDICLR SKJustin Goss MD [address] [place] [address] [place] [address] Referral IDStatusReasonStart DateExpiration DateVisits RequestedVisits [id number] Auto-Generated Referral / [facility] for visit Narrative* Diagnostic Procedure Only (Routine) - ClosedSpecialtyDiagnoses / ProceduresReferred By ContactReferred To Contact XR IMAGING Diagnoses Cervicalgia Procedures XR CERV OTHER 4V AP/LAT/OBL RADEX SPINE CERVICAL 4 OR 5 VIEWS Justin Preston MD [address] [place] [address] [place] [address] Referral IDStatusReasonStart DateExpiration DateVisits RequestedVisits [id number] Auto-Generated Referral / [facility] Summary Purpose Family History No Family History Records FoundNo Family History Records FoundNo Family History Records FoundNo Family History Records FoundNo Family History Records FoundNo Family History Records FoundNo Family History Records Found Advance Directives No Advanced Directives Records FoundNo Advanced Directives Records FoundNo Advanced Directives Records FoundNo Advanced Directives Records FoundNo Advanced Directives Records FoundNo Advanced Directives Records FoundNo Advanced Directives Records Found Reason for Referral SpecialtyDiagnoses / ProceduresReferred By ContactReferred To Contact Diagnoses Venous insufficiency Procedures Vas venous duplex insufficiency l[address] [place], [place] [address] [address] Referral IDStatusReasonStart DateExpiration DateVisits RequestedVisits [id number] / ProceduresReferred By ContactReferred To [facility]Pain [facility] Diagnoses Chronic bilateral low back pain with left-sided sciatica Procedures CONSULT TO PAIN MGT OFFICE/OUTPATIENT [facility] MDM 60-74 MINUTES Isidra Sanchez, CRITICAL SYSTEMS TECHNICIAN.COMPUTER PROJECT MANAGER [address] [place] [address] [address] [place] [address] [place] [address] Referral IDStatusReasonStseneca DateExpiration DateVisits RequestedVisits [id number] PCP Requested Referral / Additional Source Comments INFORMATION SOURCE (unrecogn ized section and content) DATE CREATED AUTHOR 07/18/2020 [facility] DATE CREATED AUTHOR AUTHOR'S ORGANIZ ATION 12/23/2021 [facility] DATE CREATED AUTHOR AUTHOR'S ORGANIZ ATION 04/29/2022 [facility] DATE CREATED AUTHOR AUTHOR'S ORGANIZ ATION 07/11/2023 [facility] DATE CREATED AUTHOR AUTHOR'S ORGANIZ ATION 08/12/2023 [facility] DATE CREATED AUTHOR AUTHOR'S ORGANIZ ATION 03/18/2024 [facility] DATE CREATED AUTHOR AUTHOR'S ORGANSOLEDAD ATION 04/06/2025 [facility] Comments (unrecognize d section and content) In the event this informatio n is protected by the Federal Confidentiality of Alcohol and Drug Abuse Patient Records regulations: The Federal rules restrict any use of the information to criminally investigate or prosecute any alcohol or drug abuse patient.[facility] the event this information is protected by the Federal Confidentiality of Alcohol and Drug Abuse Patient Records regulations: The Federal rules restrict any use of the information to criminally investigate or prosecute any alcohol or drug abuse patient.[facility] HospitalIn the event this information is protected by the Federal Confidentiality of Alcohol and Drug Abuse Patient Records regulations: The Federal rules restrict any use of the information to criminally investigate or prosecute any alcohol or drug abuse patient.[facility] HospitalIn the event this information is protected by the Federal Confidentiality of Alcohol and Drug Abuse Patient Records regulations: The Federal rules restrict any use of the information to criminally investigate or prosecute any alcohol or drug abuse patient.[facility] HospitalIn the event this information is protected by the Federal Confidentiality of Alcohol and Drug Abuse Patient Records regulations: The Federal rules restrict any use of the information to criminally investigate or prosecute any alcohol or drug abuse patient.[facility] HospitalIn the event this information is protected by the Federal Confidentiality of Alcohol and Drug Abuse Patient Records regulations: The Federal rules restrict any use of the information to criminally investigate or prosecute any alcohol or drug abuse patient.[facility] HospitalIn the event this information is protected by the Federal Confidentiality of Alcohol and Drug Abuse Patient Records regulations: The Federal rules restrict any use of the information to criminally investigate or prosecute any alcohol or drug abuse patient.[facility] HospitalIn the event this information is protected by the Federal Confidentiality of Alcohol and Drug Abuse Patient Records regulations: The Federal rules restrict any use of the information to criminally investigate or prosecute any alcohol or drug abuse patient.[facility] HospitalIn the event this information is protected by the Federal Confidentiality of Alcohol and Drug Abuse Patient Records regulations: The Federal rules restrict any use of the information to criminally investigate or prosecute any alcohol or drug abuse patient.[facility] HospitalIn the event this information is protected by the Federal Confidentiality of Alcohol and Drug Abuse Patient Records regulations: The Federal rules restrict any use of the information to criminally investigate or prosecute any alcohol or drug abuse patient.[facility] HospitalIn the event this information is protected by the Federal Confidentiality of Alcohol and Drug Abuse Patient Records regulations: The Federal rules restrict any use of the information to criminally investigate or prosecute any alcohol or drug abuse patient.[facility] HospitalIn the event this information is protected by the Federal Confidentiality of Alcohol and Drug Abuse Patient Records regulations: The Federal rules restrict any use of the information to criminally investigate or prosecute any alcohol or drug abuse patient.[facility] HospitalIn the event this information is protected by the Federal Confidentiality of Alcohol and Drug Abuse Patient Records regulations: The Federal rules restrict any use of the information to criminally investigate or prosecute any alcohol or drug abuse patient.[facility] HospitalIn the event this information is protected by the Federal Confidentiality of Alcohol and Drug Abuse Patient Records regulations: The Federal rules restrict any use of the information to criminally investigate or prosecute any alcohol or drug abuse patient.[facility] HospitalIn the event this information is protected by the Federal Confidentiality of Alcohol and Drug Abuse Patient Records regulations: The Federal rules restrict any use of the information to criminally investigate or prosecute any alcohol or drug abuse patient.[facility] HospitalIn the event this information is protected by the Federal Confidentiality of Alcohol and Drug Abuse Patient Records regulations: The Federal rules restrict any use of the information to criminally investigate or prosecute any alcohol or drug abuse patient.[facility] HospitalIn the event this information is protected by the Federal Confidentiality of Alcohol and Drug Abuse Patient Records regulations: The Federal rules restrict any use of the information to criminally investigate or prosecute any alcohol or drug abuse patient.[facility] HospitalIn the event this information is protected by the Federal Confidentiality of Alcohol and Drug Abuse Patient Records regulations: The Federal rules restrict any use of the information to criminally investigate or prosecute any alcohol or drug abuse patient.[facility] HospitalIn the event this information is protected by the Federal Confidentiality of Alcohol and Drug Abuse Patient Records regulations: The Federal rules restrict any use of the information to criminally investigate or prosecute any alcohol or drug abuse patient.[facility] HospitalIn the event this information is protected by the Federal Confidentiality of Alcohol and Drug Abuse Patient Records regulations: The Federal rules restrict any use of the information to criminally investigate or prosecute any alcohol or drug abuse patient.[facility] HospitalIn the event this information is protected by the Federal Confidentiality of Alcohol and Drug Abuse Patient Records regulations: The Federal rules restrict any use of the information to criminally investigate or prosecute any alcohol or drug abuse patient.[facility] HospitalIn the event this information is protected by the Federal Confidentiality of Alcohol and Drug Abuse Patient Records regulations: The Federal rules restrict any use of the information to criminally investigate or prosecute any alcohol or drug abuse patient.[facility] HospitalIn the event this information is protected by the Federal Confidentiality of Alcohol and Drug Abuse Patient Records regulations: The Federal rules restrict any use of the information to criminally investigate or prosecute any alcohol or drug abuse patient.[facility] HospitalIn the event this information is protected by the Federal Confidentiality of Alcohol and Drug Abuse Patient Records regulations: The Federal rules restrict any use of the information to criminally investigate or prosecute any alcohol or drug abuse patient.[facility] HospitalIn the event this information is protected by the Federal Confidentiality of Alcohol and Drug Abuse Patient Records regulations: The Federal rules restrict any use of the information to criminally investigate or prosecute any alcohol or drug abuse patient.[facility] HospitalIn the event this information is protected by the Federal Confidentiality of Alcohol and Drug Abuse Patient Records regulations: The Federal rules restrict any use of the information to criminally investigate or prosecute any alcohol or drug abuse patient.[facility] HospitalIn the event this information is protected by the Federal Confidentiality of Alcohol and Drug Abuse Patient Records regulations: The Federal rules restrict any use of the information to criminally investigate or prosecute any alcohol or drug abuse patient.[facility] Reason for Visit (unrecogniz ed section and content) ReasonCommentsResultsReasonCommentsRefill RequestReasonCommentsRadiology XR ReasonCommentsPainOngoing right hip pain and behind left knee.ReasonComments Follow UpMedication ProblemDiscuss mtx.ReasonOnset DateCommentsRefill Request 03/20/2023ReasonCommentsResultsReasonCommentsFollow UpPainOngoing generalized pain.ReasonCommentsNew PatientNew patient self referral wants veins on leg checked no recent testingReasonCommentsvenous insufficiency Care Teams (unrecognized sec tion and content) Team MemberRelationshipSpecialtyStart DateEnd Date Trung Magdaleno MD [address] [place] [address] PCP - GeneralFamily Practice12/09/13Team MemberRelationshipSpecialtyStart DateEnd Date Trung Magdaleno MD [address] [place] [address] PCP - GeneralFamily Practice12/09/13Team MemberRelationshipSpecialtyStart DateEnd Date Trung Magdaleno MD [address] [place] [address] PCP - GeneralFamily Practice12/09/13Team MemberRelationshipSpecialtyStart DateEnd Date Trung Magdaleno MD [address] [place] [address] PCP - GeneralFamily Practice12/09/13Team MemberRelationshipSpecialtyStart DateEnd Date Trung Magdaleno MD [address] [place] [address] PCP - GeneralFamily Practice12/09/13Team MemberRelationshipSpecialtyStart DateEnd Date Trung Magdaleno MD [address] [place] [facility] [address] PCP - GeneralFamily Practice12/09/13Team MemberRelationshipSpecialtyStart DateEnd Date Trung Magdaleno MD [address] [place] [facility] [address] PCP - GeneralFamily Medicine12/09/13Team MemberRelationshipSpecialtyStart DateEnd Date Trung Magdaleno MD [address] [place] [facility] [address] PCP - GeneralFamily Medicine12/09/13Team MemberRelationshipSpecialtyStart DateEnd Date Trung Magdaleno MD [address] [place] [facility] [address] PCP - GeneralFamily Medicine12/09/13Team MemberRelationshipSpecialtyStart DateEnd Date Trung Magdaleno MD [address] [place] [facility] [address] PCP - GeneralFamily Medicine12/09/13Team MemberRelationshipSpecialtyStart DateEnd Date Trung Magdaleno MD [address] [place] [facility] [place] [address] PCP - GeneralFamily Medicine12/09/13Team MemberRelationshipSpecialtyStart DateEnd Date Trung Magdaleno MD [address] [place] [place] [address] PCP - GeneralFamily Medicine12/09/13Team MemberRelationshipSpecialtyStart DateEnd Date Trung Magdaleno MD [address] [place] [facility] [place] [address] PCP - GeneralFamily Medicine12/09/13Team MemberRelationshipSpecialtyStart DateEnd Date Trung Magdaleno MD [address] [place] [facility] [place] [address] PCP - GeneralFamily Medicine12/09/13Team MemberRelationshipSpecialtyStart DateEnd Date Trung Magdaleno MD [address] [place] [place] [address] PCP - GeneralFamily Medicine12/09/13Team MemberRelationshipSpecialtyStart DateEnd Date Trung Magdaleno MD [address] [place] [place] [address] PCP - GeneralFamily Medicine12/09/13Team MemberRelationshipSpecialtyStart DateEnd Date Trung Magdaleno MD [address] [place] [place] [address] PCP - GeneralFamily Medicine12/09/13Team MemberRelationshipSpecialtyStart DateEnd Date Trung Magdaleno MD [address] [place] [place] [address] PCP - GeneralFamily Medicine12/09/13Team MemberRelationshipSpecialtyStart DateEnd Date Trung Magdaleno MD [address] [place] [place] [address] PCP - GeneralFamily Medicine12/09/13Team MemberRelationshipSpecialtyStart DateEnd Date Trung Magdaleno MD [address] [place] [place] [address] PCP - GeneralFamily Medicine12/09/13Team MemberRelationshipSpecialtyStart DateEnd Date Trung Magdaleno MD [address] [place] [address] PCP - GeneralFamily Medicine12/09/13Team MemberRelationshipSpecialtyStart DateEnd Date Trung Magdaleno MD [address] [place] [address] PCP - GeneralFamily Medicine12/09/13Team MemberRelationshipSpecialtyStart DateEnd Date Trung Magdaleno MD [address] [place] [address] PCP - GeneralFamily Medicine12/09/13Team MemberRelationshipSpecialtyStart DateEnd Date Trung Magdaleno MD [address] [place] [address] PCP - GeneralFamily Medicine12/09/13Team MemberRelationshipSpecialtyStart DateEnd Date Trung Magdaleno MD [address] [place] [address] PCP - GeneralFamily Xrvkfnty59/2/20Team MemberRelationshipSpecialtyStart DateEnd Date Trung Magdaleno MD [address] [place] [address] PCP - GeneralFamily Dxcgkyal36/2/20 FOR RECORDS PERTAINING TO PATIENTS WHO ARE OR HAVE BEEN ENROLLED IN A CHEMICAL DEPENDENCY/SUBSTANCEABUSE PROGRAM, SOME INFORMATION MAY BE OMITTED. This clinical summary was aggregated from multiple sources. Caution should be exercised in using it in the provision of clinical care. This summary normalizes information from multiple sources, and as a consequence, information in this document may materially change the coding, format and clinical context of patient data. In addition, data may be omitted in some cases. CLINICAL DECISIONS SHOULD BE BASED ON THE PRIMARY CLINICAL RECORDS. [employer] [facility]. provides no warranty or guarantee of the accuracy or completeness of information in this document.
--- OUTSIDE RECORDS SUMMARY | 2025-04-18 09:03 | XMS_ITS | Clinical Summary ---
Author Organization [facility] Address [address] [place] [address] Phone Care Team Providers Care Rock Singer Name Role Phone Unavailable Primary Care Provider Unavailabl e Social History Tobacco UseTypesPacks/DayYears UsedDateSmoking Tobacco: Never Assessed CommentsUnknownSex and Gender InformationValueDate RecordedSex Assigned at Not on fileLegal ArpYzhqgt96/26/2022 7:51 AM ESTGender IdentityNot on fileSexual OrientationNot on file Plan of Treatment Not on file
--- OUTSIDE RECORDS SUMMARY | 2025-04-18 09:03 | XMS_ITS | Clinical Summary ---
Author Organization [facility] Address [address] [place] [address] Care Team Providers Care Audiometric Technician Name Role Phone Unavailable Primary Care Provider Unavailabl e Social History Tobacco UseTypesPacks/DayYears UsedDateSmoking Tobacco: Never Assessed CommentsUnknownSex and Gender InformationValueDate RecordedSex Assigned at Not on fileLegal AloUrgrnd54/07/2021 12:17 PM EDTGender IdentityNot on file Sexual OrientationNot on file Plan of Treatment Health MaintenanceDue DateLast DoneCommentsCT Ukpinibzdbjd40/12/1970Colonoscopy 1969Colorectal Cancer Screening/Nwhgxirqep88/12/1970Fecal DNA1969 Fecal occult blood test (FOBT,FIT)1969Tetanus: Every 10yrs (RETIRED) 1969Wellness Visit1972Depression Screening/Follow-Up (PHQ-2/9) 1981HIV Ydoyqlulp99/12/1985Hepatitis C Kdfzepczu15/12/1988Pap Smear 1990Cervical Cancer Wmlyihzjz08/12/2000HPV/Wfifza0112/06/1999Pneumococcal Vaccine: 50+ Years (1 of 1 - PCV)12/06/2019Zoster Vaccines (1 of 2)12/06/2019 COVID-19 Vaccine (1 - 2023- season)2025Influenza Vaccine (#1)2025
--- OUTSIDE RECORDS SUMMARY | 2025-04-18 09:03 | XMS_ITS | Clinical Summary ---
Author Organization [facility] Address [address] [place] [address] Care Team Providers [employer] Guest Coordinator Name Role Phone Kay Devries MD Primary Care Provider [phone] Allergies No known active allergies Medications MedicationSigDispense QuantityRefillsLast FilledStart DateEnd DateStatus SYMBICORT 80-4.5 mcg/actuation inhaler TAKE 1 PUFF BY MOUTH TWICE A DAY11/28/2020ctive mv-min/iron/folic/calcium/vitK (WOMEN'S 50 PLUS MULTIVIT-IRON ORAL) Take by mouth.Active cholecalciferol, vitamin D3, 10 mcg (400 unit) cap Take 3,000 Units by mouth once daily.Active Ascorbic Acid 1,000 mg tablet Take 1,000 mg by mouth once daily.Active pregabalin (LYRICA) 50 mg capsule Indications:Fibromyalgia,Chronic bilateral low back pain with left-sided sciaticaTake 1cap by mouth nightly 90 capsule /ctive meloxicam (MOBIC) 15 mg tablet Indications:Secondary osteoarthritis of multiple sites,Fibromyalgia,Chronic bilateral low back pain with left-sided sciaticaTake 1 tablet by mouth once daily. Take with food. For pain 90 tablet 5Active meloxicam (MOBIC) 15 mg tablet Take 1 tablet by mouth once daily. Take with food. For pain 90 tablet /11/2024Discontinued pregabalin (LYRICA) 100 mg capsule Indications:Chronic bilateral low back pain with left-sided sciatica, FibromyalgiaTake 1 capsule by mouth once daily. 90 capsule 303/Discontinued Active Problems ProblemNoted DateDiagnosed DateNumbness and tingling of left leg03/31/2025 Jgevmyrcnhn76/06/2025Osteopenia of multiple sites10/21/2023hronic hip pain, hczjjozqg02/27/2023Inflammatory hzoebooll08/27/2023NA fpamrtrz41/05/2021 Secondary osteoarthritis of multiple sites01/25/2021hronic bilateral low back pain with left-sided /02/2021ilateral hand pain01/25/2021hronic pain of both knees01/25/2021hronic elbow pain, right01/25/2021levated sed rate 01/25/2021levated C-reactive protein (CRP)01/25/20218299Rphlnsrazczv24/02/2021 Numbness and tingling in both hands01/25/2021Medial epicondylitis of right elbow 01/25/2021Family history of gout01/25/2021Family history of rheumatoid arthritis 01/25/2021ong-term use of high-risk avqrnaeyyg18/02/2021 Encounters DateTypeDepartmentCare ErjeTvipufionlf22/09/2025Telephone Rheumatology [address] [facility] [place] [address] Riri Cardona MD Vxtnsoq1603/31/2025 8:20 AM EDTOffice Visit Rheumatology [address] [facility] Jagdeep [facility] [place] [address] Riri Cardona MD Fibromyalgia (Primary Dx); Elevated LFTs; Anemia of chronic disease; Elevated sed rate; Elevated C-reactive protein (CRP); Vitamin D deficiency; Secondary osteoarthritis of multiple sites; Chronic bilateral low back pain with left-sided sciatica; GEGE positive; Chronic hip pain, bilateral; Long-term use of high-risk medication; Osteopenia of multiple sites; Chronic pain of both knees; Cervicalgia; Family history of gout; Numbness and tingling of left leg03/31/2025Travelfrom Last 3 Months Social History Tobacco UseTypesPacks/DayYears UsedDateSmoking Tobacco: NeverSmokeless Tobacco: Never Tobacco Cessation:Counseling Given: Yes Alcohol UseStandard Drinks/WeekCommentsYes0 (1 standard drink = 0.6 oz pure alcohol)sociallyPHQ-2AnswerDate RecordedPHQ-2 zmnse416/10/2023Area Deprivation IndexAnswerDate RecordedNational Score (1-100), lower number is lower risk92 04/05/2023State Score (1-10), lower number is lower yvpn0083Data from: https://www.neighborhoodatlas.medicine.[facility]/. Last address used for [address]3CommentsNoSex and Gender InformationValueDate RecordedSex Assigned at BirthNot on fileLegal SexFemale 12/09/2013 11:31 AM EDTGender IdentityNot on fileSexual OrientationNot on file Last Filed Vital Signs Vital SignReadingTime TakenCommentsBlood Wpknlnnv789/7003/31/2025 8:27 AM EDT Jimhb342603/31/2025 8:27 AM EDTTemperature--Respiratory Rate--Oxygen Saturation-- Inhaled Oxygen Concentration--Ocmhwz94.5 kg (148 lb 13 oz)03/31/2025 8:27 AM EDT Zesxkw699.6 cm (5' 4 )01/25/2021 10:11 AM EDTBody Mass Index25.5408 10:11 AM EDT Plan of Treatment DateTypeDepartmentCare Team (Latest Contact Info)Dwokxfsnnan50/09/2026 9:40 AM EDTOffice Visit Rheumatology [address] [place], [place] [id number] Riri Cardona MD [address] [place], [place] [phone] for osteoarthritis/osteopenia fu OV 6-12months.Health MaintenanceDue DateLast DoneCommentsAnxiety Lshneajqe00/12/1988Depression Xejwklgbm86/12/1988HIV Iixyviyhg16/12/1988DTaP,Tdap,Td Vaccine (1 - Tdap)1988Hepatitis B Vaccine (1 of 3 - 19+ 3-dose series)1988Cervical Cancer Ngaunldmo89/12/1991CT Oskgynzmzesx35/12/2015Cologuard (FIT-DNA)12/05/20141591Jhiecowrwgi70/12/2015 Colorectal Cancer Dawaanxne81/12/2015Fecal Occult Blood2014Lipid Screening 12/05/20140645Fsmfwkooejijg12/12/2015Pneumococcal Vaccine: 50+ (1 of 1 - PCV) 12/06/2019Shingrix Vaccine (1 of 2)12/06/2019Mammogram Cqkbhhuys74/30/2025 4Covid-19 Vaccine (1 - 2024- season)2025Influenza Vaccine (#1) 2025Diabetes Cdqoepfin96, 12/18/2023, 09/15/2023, Additional history existsHepatitis C RxlwrpihfHcsnbewlt77/02/2021 Procedures Procedure NamePriorityDate/TimeAssociated DiagnosisCommentsVITAMIN D 25 HYDROXY Awxbrtu5303/31/2025 9:02 AM EDT Vitamin D deficiency C-REACTIVE PROTEIN (CRP)Vpqygsr2803/31/2025 9:02 AM EDT Elevated sed rate Elevated C-reactive protein (CRP) SEDIMENTATION GHEXXaygtbr55/06/2025 9:02 AM EDT Elevated sed rate Elevated C-reactive protein (CRP) COMPLETE BLOOD XDCPQJhizypt00/06/2025 9:02 AM EDT Anemia of chronic disease COMPREHENSIVE METABOLIC ZFXEIZnllxsv51/06/2025 9:02 AM EDT Elevated LFTs *HEP C SHEimykmg83/02/2021 11:37 AM EDT Elevated LFTs from Last 3 Months or Most Recently Relevant to Health Maintenance Results * VITAMIN D 25 HYDROXY (03/31/2025 9:02 AM EDT)ComponentValueRef RangeTest MethodAnalysis TimePerformed AtPathologist SignatureVitamin D 25 Fadfqqx74.1 31.0 - 80.0 ng/mL03/31/2025 9:35 PM EDTCMEMORIAL [facility]ALTH [facility] Comment: Classification of 25 [place] Vitamin D status: Deficiency/Insufficiency: < or = 30 ng/ml. Sufficiency/Optimal Levels: 31-80 ng/mL Toxicity: > 100 ng/mL. Test performed by chemiluminescent immunoassay. Specimen (Source)Anatomical Location / LateralityCollection Method / Volume Collection TimeReceived TimeBloodBLOOD SPECIMEN / UnknownVenipuncture / Unknown 03/31/2025 9:02 AM EDT1 9:02 AM EDT Narrative [facility] - 03/31/2025 9:35 PM EDT The reference range interval was based on an analysis of samples from healthy adults and may not pertain to children from 0-18 years old. Authorizing ProviderResult TypeResult StatusRiri Cardona MDLABORATORYFinal ResultPerforming OrganizationAddressCity/State/ZIP CodePhone Number [facility] [place] [address], * SEDIMENTATION RATE, WESTERGREN (03/31/2025 9:02 AM EDT)ComponentValueRef Range Test MethodAnalysis TimePerformed AtPathologist SignatureSed Rate, Westergren 150 - 20 mm/hr03/31/2025 3:25 PM [facility] LABSpecimen (Source)Anatomical Location / LateralityCollection Method / VolumeCollection TimeReceived TimeBloodBLOOD SPECIMEN / UnknownVenipuncture / Kprtblr7403/31/2025 9:02 AM EDT1 9:02 AM EDT Narrative Authorizing ProviderResult TypeResult Urmila FELIPEORATORYFinal ResultPerforming OrganizationAddressCity/State/ZIP CodePhone Number [facility] [address] [place] [address], * (ABNORMAL) COMPREHENSIVE METABOLIC PANEL (03/31/2025 9:02 AM EDT)Component ValueRef RangeTest MethodAnalysis TimePerformed AtPathologist Signature Protein, Total7.56.3 - 8.0 g/dL03/31/2025 7:13 PM [facility] LABAlbumin4.33.9 - 4.9 g/dL03/31/2025 7:13 PM [facility] LABCalcium, Total9.98.5 - 10.2 mg/dL03/31/2025 7:13 PM [facility] LABBilirubin, Total0.30.2 - 1.3 mg/dL03/31/2025 7:13 PM EDT [facility] LABAlkaline Tccuelspbat3273 - 123 U/L1 7:13 PM [facility] JQVEYQ7053 - 35 U/L1 7:13 PM [facility] APIBJO592 - 38 U/L1 7:13 PM EDT [facility] FKUMuqzyqr436(H)74 - 99 mg/dL03/31/2025 7:13 PM [facility] LABComment: The [place] Diabetes Association (ADA) provides guidance for cutoff values for fasting glucose andrandom glucose. The ADA defines fasting as no [...] Standards of Medical Care in Diabetes 2016, [place] Diabetes Association. Diabetes Care. 2016.39(Suppl 1). WPG691 - 21 mg/dL03/31/2025 7:13 PM [facility] Creatinine0.620.58 - 0.96 mg/dL03/31/2025 7:13 PM [facility] DMALwmexc014018 - 144 mmol/L1 7:13 PM [facility] LABPotassium4.33.7 - 5.1 mmol/L1 7:13 PM [facility] FLYUhfxtmjf72092 - 107 mmol/L1 7:13 PM [facility] KDAPD60945 - 30 mmol/L1 7:13 PM [facility] LABAnion Rys068 - 15 mmol/L1 7:13 PM [facility] LABEstimated Glomerular Filtration Eocu872>=60 mL/min/1.73m 03/31/2025 7:13 PM [facility] LABComment:Estimated Glomerular Filtration Rate (eGFR) is calculated using the 2020 CKD-EPI creatinine equation. This equation utilizes serum creatinine, sex, and age as parameters. The creatinine assay has traceable calibration to isotope dilution- mass spectrometry. Refer to KDIGO guidelines for clinical interpretation. In patients with unstable renal function, e.g. those with acute kidney injury, the eGFRmay not accurately reflect actual GFR.Specimen (Source)Anatomical Location / LateralityCollection Method / VolumeCollection TimeReceived TimeBloodBLOOD SPECIMEN / UnknownVenipuncture / Scvzshx9503/31/2025 9:02 AM EDT1 9:02 AM EDT Narrative Authorizing ProviderResult TypeResult StatusMarfrancisco Cardona MDLABORATORYFinal ResultPerforming OrganizationAddressCity/State/ZIP CodePhone Number [facility] [address] [place] [address], * (ABNORMAL) COMPLETE BLOOD COUNT (03/31/2025 9:02 AM EDT)ComponentValueRef RangeTest MethodAnalysis TimePerformed AtPathologist SignatureWBC6.683.70 - 11.00 k/uL03/31/2025 2:29 PM [facility] LABRBC5.29(H)3.90 - 5.20 m/uL03/31/2025 2:29 PM [facility] LABHemoglobin 14.011.5 - 15.5 g/dL03/31/2025 2:29 PM [facility] Quznppethi24.536.0 - 46.0 %03/31/2025 2:29 PM [facility] VBKMZA73.280.0 - 100.0 fL03/31/2025 2:29 PM [facility] LWFHRX38.526.0 - 34.0 pg03/31/2025 2:29 PM [facility] MCHC32.230.5 - 36.0 g/dL03/31/2025 2:29 PM [facility] RDW-CV14.611.5 - 15.0 %03/31/2025 2:29 PM [facility] Platelet Vuqgk132852 - 400 k/uL03/31/2025 2:29 PM [facility] KABDKE23.89.0 - 12.7 fL03/31/2025 2:29 PM [facility] LABAbsolute nRBC<0.01<0.01 k/uL03/31/2025 2:29 PM [facility] LABSpecimen (Source)Anatomical Location / LateralityCollection Method / VolumeCollection TimeReceived TimeBloodBLOOD SPECIMEN / Unknown Venipuncture / Sqpzlzl4903/31/2025 9:02 AM EDT1 9:02 AM EDT Narrative Authorizing ProviderResult TypeResult StatusRiri Cardona MDLABORATORYFinal ResultPerforming OrganizationAddressCity/State/ZIP CodePhone Number [facility] [address] [place] [address], [place] * C-REACTIVE PROTEIN (03/31/2025 9:02 AM EDT)ComponentValueRef RangeTest Method Analysis TimePerformed AtPathologist SignatureCRP0.8<0.9 mg/dL03/31/2025 7:13 PM [facility] LABSpecimen (Source)Anatomical Location / LateralityCollection Method / VolumeCollection TimeReceived TimeBloodBLOOD SPECIMEN / UnknownVenipuncture / Tnvpdga5403/31/2025 9:02 AM EDT1 9:02 AM EDT Narrative Authorizing ProviderResult TypeResult StatusRiri FELIPEORATORYFinal ResultPerforming OrganizationAddressCity/State/ZIP CodePhone Number [facility] [address] [place] [address], * HEP REMOTE PANEL BL (01/25/2021 11:37 AM EDT)ComponentValueRef RangeTest MethodAnalysis TimePerformed AtPathologist SignatureHep B Core Ab, Total QzsisyayBeszufnm12/02/2021 9:23 PM [facility] LaboratoriesHep C Antibody RLHvqyabskObwfgopl74/02/2021 9:24 PM EDTCleveland Clinic Laboratories KGpHmQvfkbvghBjkwwwnm44/02/2021 9:23 PM EDTCleveland Clinic LaboratoriesHep B Surface Ab, OzirZrhvpsigAcwlcuzl66/02/2021 9:23 PM EDTCleveland Clinic LaboratoriesComment:NEGATIVESpecimen (Source)Anatomical Location / Laterality Collection Method / VolumeCollection TimeReceived TimeBloodBLOOD SPECIMEN / Tenltqa2601/25/2021 11:37 AM EDT01/25/2021 11:40 AM EDT Narrative Authorizing ProviderResult TypeResult StatusMarfrancisco Cardona MDLABORATORYFinal ResultPerforming OrganizationAddressCity/State/ZIP CodePhone Number [facility] [address] [place] [address] [facility] [address] [place] [address] from Last 3 Months or Most Recently Relevant to Health Maintenance Insurance Care Teams Team MemberRelationshipSpecialtyStart DateEnd Date Kay Devries MD [address] [place] [address] PCP - GeneralFamily Medicine12/09/13
--- OUTSIDE RECORDS SUMMARY | 2025-04-18 09:04 | XMS_ITS | Encounter Summary ---
Author Organization [facility] Address [address] [place] [address] Care Team Providers Care Waiter/Waitress Third Class Name Role Phone Kay Devries MD Primary Care Provider [phone] Source Comments In the event this information is protected by the Federal Confidentiality of Alcohol and Drug AbusePatient Records regulations: The Federal rules restrict any use of the information to criminally investigate or prosecute any alcohol or drug abuse patient.[facility] Reason for Visit * ReasonCommentsResults Encounter Details DateTypeDepartmentCare Team (Latest Contact Info)Dknsrtibspw15/09/2025Telephone Rheumatology [address] [place], [place] [phone] Riri Cardona MD [address] [place] [address] Results Social History Tobacco UseTypesPacks/DayYears UsedDateSmoking Tobacco: NeverSmokeless Tobacco: NeverAlcohol UseStandard Drinks/WeekCommentsYes0 (1 standard drink = 0.6 oz pure alcohol)sociallyPHQ-2AnswerDate RecordedPHQ-2 cizqj974rea Deprivation IndexAnswerDate RecordedNational Score (1-100), lower number is lower risk92 04/05/2023State Score (1-10), lower number is lower pvlk7083Data from: https://www.neighborhoodatlas.medicine.[facility].edu/. Last address used for [address]3CommentsNoSex and Gender InformationValueDate RecordedSex Assigned at BirthNot on fileLegal SexFemale 12/09/2013 11:31 AM EDTGender IdentityNot on fileSexual OrientationNot on file documented as of this encounter Miscellaneous Notes * Telephone Encounter - Dannie Baugh MA - 04/04/2025 8:09 AM EDT patient has viewed the [employer] message per [employer]. * Telephone Encounter - Riri Cardona MD - 04/03/2025 8:28 PM EDT Please Call patient if [employer] note not read to review results/released to My Chart if tests completed at [facility]: normal labs and no inflammation. Continue same vitamin D intake with food. Happy to further review and discuss at follow up visit. Thank you. 03/31/25 normal cbc, cmp, esr 15, crp 0.8, vitamin D 50.1; documented in this encounter Plan of Treatment DateTypeDepartmentCare Team (Latest Contact Info)Ztxsnuizjgn92/09/2026 9:40 AM EDTOffice Visit Rheumatology [address] [facility] [place] [address] Riri Cardona MD [address] [place] [address] for osteoarthritis/osteopenia fu OV 6-12months.documented as of this encounter Visit Diagnoses Not on filedocumented in this encounter Care Teams Team MemberRelationshipSpecialtyStart DateEnd Date Kay Devries MD [address] [place] [phone] [facility]CP - [facility]FaF[facility]12/09/13documented as of this encounter
--- OUTSIDE RECORDS SUMMARY | 2025-04-18 09:04 | XMS_ITS | Clinical Summary ---
Author Organization [facility] Address [address], [address] [place] [address] Care Team Providers Care Secretary Office Clerk Name Role Phone Kay Devries MD Primary Care Provider [phone] Allergies No known active allergies Medications MedicationSigDispense QuantityRefillsLast FilledStart DateEnd DateStatus methotrexate (RHEUMATREX) 2.5 MG chemo tablet TAKE 4 TABS ONCE A WEEK WITH FOOD. NO ALCOHOL. HOLD IF ON ANTIBIOTICS OR ILL, 1- 2WEEKS AFTER KMBDZYI4810/20/2022ctive pregabalin (LYRICA) 100 MG capsule Take by mouth daily.Active Family History Medical HistoryRelationNameCommentsArthritisFatherCancerFatherDiabetesFather CancerMotherRelationNameStatusCommentsFatherDeceasedMotherDeceased Social History Tobacco UseTypesPacks/DayYears UsedDateSmoking Tobacco: NeverSmokeless Tobacco: NeverCommentsNoSex and Gender InformationValueDate RecordedSex Assigned at BirthNot on fileLegal HjcDddisd85/13/2020 7:19 PM EDTGender IdentityNot on fileSexual OrientationNot on file Last Filed Vital Signs Vital SignReadingTime TakenCommentsBlood Fpdagsrg942/64003/06/2024 9:17 AM EDT Pulse--Jctlxlzhqwl90.5 ??C (97.7 ??F)02/07/2020 10:45 AM EDTRespiratory Rate-- Oxygen Saturation--Inhaled Oxygen Concentration--Xmuntt20.8 kg (156 lb) 03/06/2024 9:17 AM HOGOjprya664.6 cm (5' 4 )03/06/2024 9:17 AM EDTBody Mass Index26.78003/06/2024 9:17 AM EDT Plan of Treatment Health MaintenanceDue DateLast DoneCommentsCOVID-19 Vaccine (#1)1974 Depression Lnmqrm5512/05/1981HIV bdgkcb7312/05/1984Hepatitis C anztif0212/06/1987 DTaP/Tdap/Td vaccine (1 - Tdap)1988Hepatitis B vaccine (1 of 3 - 19+ 3- dose series)1988HPV (without or with Pap)12/06/19998752Drqsqf85/12/2010 Jdnptusavtw44/12/2015Colorectal Cancer Zrwowm3912/05/2014FIT/FOBT: Average risk 2014Fecal-DNA (Cologuard): Average risk2014Sigmoidoscopy/CT lumagtkchtrb96/12/2015Pneumococcal 50+ years Vaccine (1 of 1 - PCV)12/06/2019 Shingles vaccine (1 of 2)12/06/2019Flu vaccine (#1)5Breast cancer uqaslt86608/4Cervical cancer ojpikp8203/06/2027Pap smear03/06/2027 03/06/2024Hepatitis A vaccineAged OutNo longer eligible based on patient's age to complete this topicHib vaccineAged OutNo longer eligible based on patient's age to complete this topicMeningococcal (ACWY) vaccineAged OutNo longer eligible based on patient's age to complete this topicMeningococcal B vaccineAged OutNo longer eligible based on patient's age to complete this topicPolio vaccineAged OutNo longer eligible based on patient's age to complete this topic Procedures Procedure NamePriorityDate/TimeAssociated DiagnosisCommentsGYN CYTOLOGYRoutine 03/06/2024 12:00 AM EDT KIERRA SCREENING TGTCKYQHWGxncmaq80/30/2024 9:46 AM EDTfrom Last 3 Months or Most Recently Relevant to Health Maintenance Results * SLASHER SAWYER Cytology (03/06/2024 12:00 AM EDT)ComponentValueRef RangeTest Method Analysis TimePerformed AtPathologist SignatureCytology ReportPath Number: [id number] DIAGNOSIS Imaged ThinPrep Pap - Cervical (1 monolayer slide): Specimen Adequacy: ? Satisfactory for evaluation. ? -Endocervical/transformation zone component is absent. Descriptive Diagnosis: ? Negative for intraepithelial lesion or malignancy. ?? Cytotech Screener: ??EY Electronically Signed Out Magdy GALE(ASCP) /03/15/2024 Source of Specimen: A: Imaged ThinPrep Pap - Cervical (1 monolayer slide) HPV Reflex?......................HPV if Abnormal Clinical History Z01.419 Routine trust advisor exam without abnormal findings LMP: ??01.23.2024 Processing Lab: [address] [address] Interpretation performed at [address] [address] This Pap Test has been evaluated with the assistance of the Or[employer] DigitalPrep Pap Test Imaging System. The Pap smear is a screening test primarily for squamous epithelial lesions, which is subject to both false negative and false positive results. Your patient should be reminded to consult you immediately if she experiences any suspicious signs or symptoms, regardless of her Pap smear result. GYNECOLOGIC CYTOLOGY REPORT Patient Name: TASHIA GONZALEZ [facility] Rec: [id number] [facility] ??[facility] ANATOMIC PATHOLOGY [address] [place] [address]. ??[place], [place] [address] bon [facility] LABSSpecimen (Source)Anatomical Location / LateralityCollection Method / VolumeCollection TimeReceived Time CERVICAL PMPWYHFW53/05/2024 7:53 AM EDT Narrative Authorizing ProviderResult TypeResult StatusKathermariana Brink PA-C PATHOLOGY/CYTOLOGY ORDERABLESFinal ResultPerforming OrganizationAddress City/State/ZIP CodePhone Number [facility] [address] [place] [address], [facility] [phone] [facility] * KIERRA Screening Bilateral (02/23/2024 9:46 AM EDT)Anatomical RegionLaterality ModalityBreastBilateralMammography Narrative Authorizing ProviderResult TypeResult StatusMaria G HUNTER-MICHELL MAMMOGRAPHY ORDERABLESFinal Result from Last 3 Months or Most Recently Relevant to Health Maintenance Insurance Care Teams Team MemberRelationshipSpecialtyStart DateEnd Date Kay Devries MD PCP - GeneralFamily Medicine02/07/20
--- OUTSIDE RECORDS SUMMARY | 2025-04-18 09:04 | XMS_ITS | Clinical Summary ---
Author Organization tab ticketbroker tem Address [id number] [address] [place] [address] Care Team Providers Care Ethylene Plant Operator Name Role Phone Kay Devries MD Primary Care Provider [phone] Allergies No known active allergies Medications MedicationSigDispense QuantityRefillsLast FilledStart DateEnd DateStatus methotrexate 2.5 mg chemo tablet TAKE 4 TABS ONCE A WEEK WITH FOOD. NO ALCOHOL. HOLD IF ON ANTIBIOTICS OR ILL, 1- 2WEEKS AFTER VACCINEActive pregabalin (LYRICA) 100 mg capsule TAKE 1 CAPSULE BY MOUTH EVERY DAYActive Active Problems ProblemNoted DateDiagnosed DateVaricose veins of bilateral lower extremities with pain08/10/2023Venous ryvwbiuhdaki64/15/2024 Social History Tobacco UseTypesPacks/DayYears UsedDateSmoking Tobacco: NeverSmokeless Tobacco: Never Tobacco Cessation:Counseling Given: Not Answered Alcohol UseStandard Drinks/WeekCommentsNever0 (1 standard drink = 0.6 oz pure alcohol)ChildcareAnswerDate NyzbmwncLlbfnumioGnptubs09/02/2020EmploymentAnswer Date ZxudfvycYgjzoifhzzNthnmcs35/02/2020Hunger ScreeningAnswerDate Recorded Within the past 12 months we worried whether our food would run out before we got money to buy more.Never True08/10/2023Within the past 12 months the food we bought just didn't last and we didn't have money to get more.Never True 4Purpose - LifeAnswerDate RecordedPurpose and direction in lifeUnknown 1CommentsUnknownSex and Gender InformationValueDate RecordedSex Assigned at BirthNot on fileLegal LvwQhmlvc72/06/2015 11:28 AM EDTGender IdentityNot on fileSexual OrientationNot on file Last Filed Vital Signs Vital SignReadingTime TakenCommentsBlood Hpbyyapz718/8408/10/2023 4:13 PM EST Pwjbg249408/10/2023 4:13 PM ESTTemperature--Respiratory Rate--Oxygen Axknpmefub57% 08/10/2023 4:13 PM ESTInhaled Oxygen Concentration--Gtjpjo00.7 kg (160 lb 3.2 oz)08/10/2023 4:13 PM KUDCnahkc465 cm (5' 2.99 )08/10/2023 4:13 PM ESTBody Mass Index28.39008/10/2023 4:13 PM EST Plan of Treatment Health MaintenanceDue DateLast DoneCommentsDepression Mqjzntztr90/12/1982 DTaP,Tdap and Td Vaccines (1 - Tdap)1988Pap Smear1990Zoster (Shingles) Vaccine (1 of 2)12/06/2019Adult BMI Apzqsjutf74/15/81866808/10/2023 Tobacco Jwwfzjquw60/15/492622/Influenza Ltbqtgw6002/24/2025 Medical Devices Not on file Insurance Care Teams Team MemberRelationshipSpecialtyStart DateEnd Date Kay Devries MD [facility] [place] [address] [facility]03/27/20
--- OUTSIDE RECORDS SUMMARY | 2025-04-18 09:05 | XMS_ITS | Clinical Summary ---
Author Organization [facility] Address [address] [facility] [place] [address] Care Team Providers Care Kiln Stacker Name Role Phone Kay Devries MD Primary Care Provider [phone] Allergies No known active allergies Medications MedicationSigDispense QuantityRefillsLast FilledStart DateEnd DateStatus ascorbic acid (Vitamin C) 1000 MG tablet Take 1,000 mg by mouth in the morning.Active methotrexate 2.5 MG tablet Take 7.5 mg by mouth 1 (one) time per week.10/20/2022ctive pregabalin (Lyrica) 100 MG capsule Take 100 mg by mouth in the morning.Active folic acid (Folvite) 1 MG tablet Take 1 mg by mouth in the morning.Active fluticasone (Flonase) 50 MCG/ACT nasal spray Administer 1 spray into each nostril in the morning.01/25/2023ctive cholecalciferol (Vitamin D-3) 10 MCG (400 UNIT) capsule Take 400 Units by mouth in the morning.Active Symbicort 80-4.5 MCG/ACT inhaler Inhale 1 puff in the morning and 1 puff before bedtime.12/06/2022ctive Encounters DateTypeDepartmentCare JvssWrzregrauvz07/01/2025Telephone [facility] [address] [place] [address] [place] [phone] Debbie Pearson MA from Last 3 Months Social History Tobacco UseTypesPacks/DayYears UsedDateSmoking Tobacco: Never Assessed CommentsUnknownSex and Gender InformationValueDate RecordedSex Assigned at Not on fileLegal VmyUhclxy90/15/2023 6:57 PM EDTGender IdentityNot on fileSexual OrientationNot on file Last Filed Vital Signs Vital SignReadingTime TakenCommentsBlood Avlffkza427/7008/ 3:31 PM EDT Pulse--Temperature--Respiratory Rate--Oxygen Saturation--Inhaled Oxygen Concentration--Qoaxjd92.1 kg (156 lb 12.8 oz)02/06/2023 3:31 PM SPOAfunmg037.6 cm (5' 4 )02/06/2023 3:31 PM EDTBody Mass Index26.9102/06/2023 3:31 PM EDT Plan of Treatment DateTypeDepartmentCare Team (Latest Contact Info)Dzxzpahyoqx82/24/2025 9:00 AM ESTProcedure Visit [facility] [address] [facility] [place] [address] Isidra Soto PA [address] [facility] [place] [address] Insurance Care Teams Team MemberRelationshipSpecialtyStart DateEnd Date Kay Devries MD PCP - GeneralFamily Medicine02/06/23
--- NOTE | 2025-04-18 09:10 | MM_ITS ---
Patient Name: CHIP LUCAS MR#: [id number] : 1970 Exam Date: 04/18/2025 Ordering Doctor: DR ANGELA DAILY . RADIOLOGY REPORT PROCEDURE: MM TOMOSYNTHESIS SCREENING BI COMPARISON: MM TOMOSYNTHESIS SCREENING BI, 02/23/2024. MM TOMOSYNTHESIS SCREENING BI, 12/23/2022. MG MAMM SCREEN 3D DENISSE CAD, 11/08/2021. MG MAMM DENISSE SCRN W CAD DIG, 04/02/2013. INDICATIONS: screening for malignant neoplasm Calculator Name [facility] Breast Cancer Risk Assessment Tool 5 Year Breast Cancer Risk 1.80% Lifetime Breast Cancer Risk 12.20% Personal Breast Cancer No Personal Ovarian Cancer No Treatments None Family Cancers Mother with uterine cancer at age 54; Father with colon cancer at age 65. LOCATION: [facility] BREAST COMPOSITION: There are scattered areas of fibroglandular density. FINDINGS: RIGHT BREAST: No significant suspicious finding. There is a similar focal asymmetry on the right. LEFT BREAST: No significant suspicious finding. Benign-appearing marker within the along chest wall. DIAGNOSTIC CATEGORY 2--BENIGN FINDING. NO CHANGE FROM COMPARISON. RECOMMENDATIONS: ROUTINE MAMMOGRAM AND CLINICAL EVALUATION IN 12 MONTHS. Dictated by: Bo Dc MD on 04/18/2025 at 13:43 Approved by: Bo Dc MD on 04/18/2025 at 13:47
== END 2025-04-18 09:00 | disposition home or self-care (01) ==
LOC: MAMMO 08:59
PROVIDERS: PCP Family Medicine; Visit Provider Obstetrics & Gynecology
DX: Z12.31 Encounter for screening mammogram for malignant neoplasm of breast (principal); Z78.0 Asymptomatic menopausal state; Z80.0 Family history of malignant neoplasm of digestive organs; Z80.8 Family history of malignant neoplasm of other organs or systems; M85.88 Other specified disorders of bone density and structure, other site
CPT/HCPCS: 77063; 77067; 77080

== ENCOUNTER 2025-05-19 20:34 | Outpatient (REF) | payer OTHER, SELFPAY ==
--- OUTSIDE RECORDS SUMMARY | 2025-05-19 09:00 | XMS_ITS | Encounter Summary ---
Author Organization [facility] Address [address] [place] [address] Care Team Providers Care Electrical Prospecting Engineer Name Role Phone Kay Devries MD Primary Care Provider [phone] Reason for Referral * Medications - Pending ReviewSpecialtyDiagnoses / ProceduresReferred By Contact Referred To Contact Diagnoses Hormone imbalance Isidra Soto PA [address] [place] [address] [place] [address] Phone: tel: fax: Referral IDStatusReasonStart DateExpiration DateVisits RequestedVisits [id number] Reason for Visit * ReasonCommentsWell Women Visit Encounter Details DateTypeDepartmentCare Team (Latest Contact Info)Lkdssrxncch37/24/2025 9:00 AM ESTProcedure Visit [facility] [address] [place] [address] [place] [address] Isidra Soto PA [address] [place] [address] [place] [phone] Well woman exam with routine gynecological exam; Hormone imbalance; Osteopenia, unspecified location Social History Tobacco UseTypesPacks/DayYears UsedDateSmoking Tobacco: Never Assessed CommentsUnknownSex and Gender InformationValueDate RecordedSex Assigned at Not on fileLegal VcpDubrho04/15/2023 6:57 PM EDTGender IdentityNot on fileSexual OrientationNot on filedocumented as of this encounter Last Filed Vital Signs Vital SignReadingTime TakenCommentsBlood Bkdnjpyv983/8405/19/2025 9:29 AM EST Pulse--Temperature--Respiratory Rate--Oxygen Saturation--Inhaled Oxygen Concentration--Tcvloe79.8 kg (151 lb 12 oz)05/19/2025 9:29 AM ESTHeight--Body Mass Index26.0508 3:31 PM EDTdocumented in this encounter Progress Notes * DALE Salcido - 05/19/2025 9:00 AM EST Reason for Appointment: Patient ID: Tashia Gonzalez is a 54 y.o. female who presents for Osurv Women Visit Patient presents today for Annual Exam. MEDICATIONS Current Outpatient Medications Medication Instructions ascorbic acid (VITAMIN C) 1,000 mg, Oral, Daily RT cholecalciferol (VITAMIN D-3) 400 Units, Oral, Daily RT Symbicort 80-4.5 MCG/ACT inhaler 1 puff, Inhalation, 2 times daily ALLERGIES No Known Allergies PROBLEMS Active Ambulatory Problems Diagnosis Date Noted No Active Ambulatory Problems Resolved Ambulatory Problems Diagnosis Date Noted No Resolved Ambulatory Problems Past Medical History: Diagnosis Date Screening mammogram for breast cancer 11/08/2021 Screening mammogram for breast cancer 12/23/2022 Visit for review of DEXA scan 10/19/2020 HISTORY PAST MEDICAL HISTORY SOCIAL HISTORY Past Medical History: Diagnosis Date Screening mammogram for breast cancer 11/08/2021 neg Screening mammogram for breast cancer 12/23/2022 negative Visit for review of DEXA scan 10/19/2020 normal Social History Tobacco Use Smoking status: Not on file Smokeless tobacco: Not on file Substance Use Topics Alcohol use: Not on file Drug use: Not on file FAMILY HISTORY No family history on file. SURGICAL HISTORY Past Surgical History: Procedure Laterality Date SECTION, CLASSIC REVIEW OF SYSTEMS Review of Systems: Review of Systems Constitutional: Negative. HENT: Negative. Eyes: Negative. Respiratory: Negative. Cardiovascular: Negative. Gastrointestinal: Negative. Genitourinary: Negative. Musculoskeletal: Negative. Skin: Negative. Neurological: Negative. All other systems reviewed and are negative. Hematological: Negative. Endocrine: Negative. Allergic/Immunologic: Negative. OBJECTIVE Objective: Physical Exam Constitutional: Appearance: Normal appearance. Genitourinary: Right Adnexa: not tender and no mass present. Left Adnexa: not tender and no mass present. No cervical discharge. Breasts: Breasts are soft. Right: Normal. Left: Normal. HENT: Head: Normocephalic. Nose: Nose normal. Mouth/Throat: Mouth: Mucous membranes are moist. Cardiovascular: Rate and Rhythm: Normal rate. Pulmonary: Effort: Pulmonary effort is normal. Abdominal: General: Bowel sounds are normal. Palpations: Abdomen is soft. Musculoskeletal: General: Normal range of motion. Cervical back: Normal range of motion. Neurological: General: No focal deficit present. Mental Status: She is alert. Skin: General: Skin is warm and dry. Psychiatric: Mood and Affect: Mood normal. Vitals and nursing note reviewed. Exam conducted with a knockout machine operator present. Vitals: Estimated body mass index is 26.05 kg/m?? as calculated from the following: Height as of 02/06/23: 5' 4 . Weight as of this encounter: 151 lb 12 oz. BP: 112/84 No LMP recorded. Assessment/Plan ICD-10-CM 1. Well woman exam with routine gynecological exam Z01.419 THIN PREP TIS PAP AND HR HPV DNA Assessment/Plan Annual Exam: Patient presents today for an annual exam. Patient states she is doing well states having perimenopausal symptoms. Pap was obtained without difficulty. Patient did have Mammogram and Dexa scan prior to visit. Discussed Prolia and Boniva infusions for the Dexa scan results. Patient is encouraged weight bearing exercises. Patient is taking Calcium and Vitamin D3. With Acid reflux Fosamx may not help the patient. We will send the orders to [facility] and send request to Insurance. Patient does have bone pain and does follow with Rheumatology and has not discussed Dexa scan and her Level D is fine with the labs she does have done. Advised to Discuss what Induction Heating Equipment Setter thinks when she sees next year at visit. Patient last cycle was about 3 months ago she did go 8 months prior to this. Patient is having Bone pain. WE will send in bijuva for her perimenopausal symptoms Follow Up: Patient is to return in one year for annual unless needed otherwise. Documented by Alessandra Castanon LPN on behalf of: DALE Salcido documented in this encounter Miscellaneous Notes * Addendum Note - Alessandra Castanon LPN - 05/19/2025 9:00 AM ESTAddended by: ALESSANDRA CASTANON on: 05/19/2025 02:21 PM Modules accepted: Orders documented in this encounter Plan of Treatment NameTypePriorityAssociated DiagnosesOrder ScheduleTHIN PREP TIS PAP AND HR HPV DNAPathology and CytologyRoutine Well woman exam with routine gynecological exam Ordered: 5CreatinineLabRoutine Osteopenia, unspecified location Ordered: 5CalciumLabRoutine Osteopenia, unspecified location Expected: 05/19/2025 (Approximate), Expires: 05/19/2026documented as of this encounter Visit Diagnoses Diagnosis Well woman exam with routine gynecological exam Routine gynecological examination Hormone imbalance Osteopenia, unspecified location documented in this encounter Care Teams Team MemberRelationshipSpecialtyStart DateEnd Date Kay Devries MD [address] [place] [phone] PCP - GeneralFamily Medicine02/06/23documented as of this encounter
--- OUTSIDE RECORDS SUMMARY | 2025-05-19 20:37 | XMS_ITS | Clinical Summary ---
Author Organization [facility] Address [address] [place] [address] Care Team Providers Care Fortune Teller Name Role Phone Unavailable Primary Care Provider Unavailabl e Social History Tobacco UseTypesPacks/DayYears UsedDateSmoking Tobacco: Never Assessed CommentsUnknownSex and Gender InformationValueDate RecordedSex Assigned at Not on fileLegal FklKznifq89/07/2021 12:17 PM EDTGender IdentityNot on file Sexual OrientationNot on file Plan of Treatment Health MaintenanceDue DateLast DoneCommentsCT Wkpkhsrjmokt72/12/1970Colonoscopy 1969Colorectal Cancer Screening/Bwxpsengbs51/12/1970Fecal DNA1969 Fecal occult blood test (FOBT,FIT)1969MMR Vaccines (1 of 1 - Standard series)1970Wellness Visit1972Depression Screening/Follow-Up (PHQ-2/9)1981HIV Ngsazukwg80/12/1985Hepatitis C Sxiwebuuq94/12/1988 Hepatitis B Vaccines (1 of 3 - 19+ 3-dose series)1988 Tetanus/Diphtheria/Pertussis (1 - Tdap)1988Pap Smear1990Cervical Cancer Xbnizixxl53/12/2000HPV/Ptjtwx3712/06/1999Pneumococcal Vaccine: 50+ Years (1 of 1 - PCV)12/06/2019Zoster Vaccines (1 of 2)12/06/2019COVID-19 Vaccine (1 - 2023- season)2025Influenza Vaccine (#1)2025RSV Vaccines (1 - 1- dose 75+ series)2044HIB VaccinesAged OutNo longer eligible based on patient's age to complete this topicHPV VaccinesAged OutNo longer eligible based on patient's age to complete this topicHepatitis A VaccinesAged OutNo longer eligible based on patient's age to complete this topicIPV VaccinesAged OutNo longer eligible based on patient's age to complete this topicMeningococcal ACWY VaccineAged OutNo longer eligible based on patient's age to complete this topic Meningococcal B VaccineAged OutNo longer eligible based on patient's age to complete this topicRotavirus VaccinesAged OutNo longer eligible based on patient's age to complete this topic
--- OUTSIDE RECORDS SUMMARY | 2025-05-19 20:37 | XMS_ITS | Clinical Summary ---
Author Organization [facility] Address [address] [place] [address] Phone Care Team Providers Care Microbiology Supervisor Name Role Phone Unavailable Primary Care Provider Unavailabl e Social History Tobacco UseTypesPacks/DayYears UsedDateSmoking Tobacco: Never Assessed CommentsUnknownSex and Gender InformationValueDate RecordedSex Assigned at Not on fileLegal AnzKwdvcr95/26/2022 7:51 AM ESTGender IdentityNot on fileSexual OrientationNot on file Plan of Treatment Not on file
--- OUTSIDE RECORDS SUMMARY | 2025-05-19 20:37 | XMS_ITS | Clinical Summary ---
Author Organization [facility] Address [address] [place] [address] Care Team Providers Care Drapery Rod Assembler Name Role Phone Kay Devries MD Primary Care Provider [phone] Allergies No known active allergies Medications MedicationSigDispense QuantityRefillsLast FilledStart DateEnd DateStatus ascorbic acid (Vitamin C) 1000 MG tablet Take 1,000 mg by mouth in the morning.Active cholecalciferol (Vitamin D-3) 10 MCG (400 UNIT) capsule Take 400 Units by mouth in the morning.Active Symbicort 80-4.5 MCG/ACT inhaler Inhale 1 puff in the morning and 1 puff before bedtime.12/06/2022ctive Estradiol-Progesterone (Bijuva) 0.5-100 MG capsule Indications:Hormone imbalanceTake 1 tablet by mouth Daily 30 capsule tive methotrexate 2.5 MG tablet Take 7.5 mg by mouth 1 (one) time per week.Discontinued pregabalin (Lyrica) 100 MG capsule Take 100 mg by mouth in the morning.05/19/2025Discontinued folic acid (Folvite) 1 MG tablet Take 1 mg by mouth in the morning.05/19/2025Discontinued fluticasone (Flonase) 50 MCG/ACT nasal spray Administer 1 spray into each nostril in the morning. Discontinued Encounters DateTypeDepartmentCare PahaWwffwgjzase75/24/2025 9:00 AM ESTProcedure Visit [facility] [address] [place] [address] [place] [phone] Isidra Soto PA Well woman exam with routine gynecological exam; Hormone imbalance; Osteopenia, unspecified onuksafx55/24/2025Abstract [facility] [address] [facility] [address] Isidra Soto PA 5Bamboo flowsheet [facility] [address] [facility] [place] [address] Isidra Soto PA 05/06/2025Telephone [facility] [address] [facility] [address] Debbie Pearson MA 5Clinisync Result Encounter [facility] Unsolicited Angela Reddy DO 03/26/2025Telephone [facility] [address] [facility] [address] Debbie Pearson MA from Last 3 Months Social History Tobacco UseTypesPacks/DayYears UsedDateSmoking Tobacco: Never Assessed CommentsUnknownSex and Gender InformationValueDate RecordedSex Assigned at Not on fileLegal OtxSmyrph94/15/2023 6:57 PM EDTGender IdentityNot on fileSexual OrientationNot on file Last Filed Vital Signs Vital SignReadingTime TakenCommentsBlood Etlgxpjk123/8405/19/2025 9:29 AM EST Pulse--Temperature--Respiratory Rate--Oxygen Saturation--Inhaled Oxygen Concentration--Ezdbge63.8 kg (151 lb 12 oz)05/19/2025 9:29 AM FHVKjlwul000.6 cm (5' 4 )02/06/2023 3:31 PM EDTBody Mass Index26.05002/06/2023 3:31 PM EDT Plan of Treatment Not on file Procedures Procedure NamePriorityDate/TimeAssociated DiagnosisCommentsMM TOMOSYNTHESIS SCREENING BI04/18/2025 1:47 PM EDT from Last 3 Months Results * MM TOMOSYNTHESIS SCREENING BI (04/18/2025 1:47 PM EDT)Anatomical Region LateralityModalityOtherSpecimen (Source)Anatomical Location / Laterality Collection Method / VolumeCollection TimeReceived Time04/18/2025 1:47 PM EDT Narrative 04/18/2025 1:48 PM EDT [facility] ?[address] ? [place] [address] ? Mammography Report ? Signed ? Patient: TASHIA GONZALEZ ?MR#: [id number] ?? : 1970 ?Acct:[id number] ?? Age/Sex: 54 / F ?ADM Date: 04/18/25 ?? Loc: MAMMO ? Attending Dr: Angela Reddy D.O. ? Ordering Physician: Angela Reddy D.O. ?Results: ? Date of Service: 04/18/25 ?Follow Up: ? Procedure(s): MM tomosynthesis screening BI ?? Accession Number(s): [id number] ? cc: Kay Devries M.D.; Angela Reddy D.O. ? Patient Name: ? TASHIA GONZALEZ ? MR#: [id number] ? : 1970 ? Exam Date: 04/18/2025 ?? Ordering Doctor: DR ANGELA REDDY . ? RADIOLOGY REPORT ? PROCEDURE: ? MM TOMOSYNTHESIS SCREENING BI ? COMPARISON: ? MM TOMOSYNTHESIS SCREENING BI, 02/23/2024. ??MM TOMOSYNTHESIS ?? SCREENING BI, 12/23/2022. ??MG MAMM SCREEN 3D DENISSE CAD, 11/08/2021. ??MG MAMM DENISSE ?? SCRN W CAD DIG, 04/02/2013. ? INDICATIONS: ? screening for malignant neoplasm ? Calculator Name ? NCI Breast Cancer Risk Assessment Tool ?? 5 Year Breast Cancer Risk ? 1.80% ?? Lifetime Breast Cancer Risk ? 12.20% ?? Personal Breast Cancer ?No ?? Personal Ovarian Cancer ? No ?? Treatments ? None ?? Family Cancers ? Mother with uterine cancer at age 54; Father with colon ?? cancer at age 65. ? LOCATION: ? [facility] ? BREAST COMPOSITION: ? There are scattered areas of fibroglandular density. ? FINDINGS: ? RIGHT BREAST: ??No significant suspicious finding. ??There is a similar focal ?? asymmetry on the right. ? LEFT BREAST: ??No significant suspicious finding. ??Benign-appearing marker ?? within the along chest wall. ? DIAGNOSTIC CATEGORY 2--BENIGN FINDING. NO CHANGE FROM COMPARISON. ? RECOMMENDATIONS: ? ROUTINE MAMMOGRAM AND CLINICAL EVALUATION IN 12 MONTHS. ? Dictated by: Bo Dc MD on 04/18/2025 at 13:43 ? Approved by: Bo Dc MD on 04/18/2025 at 13:47 ? Dictated By: ?Bo Dc M.D. ? Signed By: ?04/18/25 1348 ? DD/ 1347 ? TD/TT: ? Underground Mining Section Foreman: Procedure Note Radiology, Radiologist, MD - 04/18/2025 [place] [address] Mammography Report Signed Patient: TASHIA GONZALEZ [facility]#: [id number] : 1970Acct:[id number] Age/Sex: 54 / FADM Date: 04/18/25 Loc: MAMMO Attending Dr: Angela Reddy D.O. Ordering Physician: Angela Reddy D.O.Results: Date of Service: 04/18/25Follow Up: Procedure(s): MM tomosynthesis screening BI Accession Number(s): [id number] cc: Kay Devries M.D.; Angela Reddy D.O. Patient Name: TASHIA GONZALEZ MR#: [id number] : 1970 Exam Date: 04/18/2025 Ordering Doctor: DR ANGELA REDDY . RADIOLOGY REPORT PROCEDURE: MM TOMOSYNTHESIS SCREENING BI COMPARISON: MM TOMOSYNTHESIS SCREENING BI, 02/23/2024. MMTOMOSYNTHESIS SCREENING BI, 12/23/2022. MG MAMM SCREEN 3D DENISSE CAD, 11/08/2021. MG MAMMBIL SCRN W CAD DIG, 04/02/2013. INDICATIONS: screening for malignant neoplasm Calculator Name [facility] Breast Cancer Risk Assessment Tool 5 Year Breast Cancer Risk 1.80% Lifetime Breast Cancer Risk 12.20% Personal Breast Cancer No Personal Ovarian Cancer No Treatments None Family Cancers Mother with uterine cancer at age 54; Father with colon cancer at age 65. LOCATION: [facility] BREAST COMPOSITION: There are scattered areas of fibroglandulardensity. FINDINGS: RIGHT BREAST: No significant suspicious finding. There is a similarfocal asymmetry on the right. LEFT BREAST: No significant suspicious finding. Benign-appearing marker within the along chest wall. DIAGNOSTIC CATEGORY 2--BENIGN FINDING. NO CHANGE FROM COMPARISON. RECOMMENDATIONS: ROUTINE MAMMOGRAM AND CLINICAL EVALUATION IN 12 MONTHS. Dictated by: Bo Dc MD on 04/18/2025 at 13:43 Approved by: Bo Dc MD on 04/18/2025 at 13:47 Dictated By: Bo Dc M.D. Signed By:04/18/25 1348 DD/ 1347 TD/TT: Underground Mining Section Foreman: Authorizing ProviderResult TypeResult StatusCorey Maureen DOCLINISYNC IMAGINGFinal Result from Last 3 Months Insurance Care Teams Team MemberRelationshipSpecialtyStart DateEnd Date Kay Devries MD [address] [place] [phone] PCP - GeneralFamily Medicine02/06/23
--- OUTSIDE RECORDS SUMMARY | 2025-05-19 20:37 | XMS_ITS | Clinical Summary ---
Author Organization [employer] [facility] Address [id number] [address] [place] [address] Care Team Providers Care Correctional Food Service Supervisor Name Role Phone Kay Devries MD Primary Care Provider [phone] Allergies No known active allergies Medications MedicationSigDispense QuantityRefillsLast FilledStart DateEnd DateStatus methotrexate 2.5 mg chemo tablet TAKE 4 TABS ONCE A WEEK WITH FOOD. NO ALCOHOL. HOLD IF ON ANTIBIOTICS OR ILL, 1- 2WEEKS AFTER VACCINEActive pregabalin (LYRICA) 100 mg capsule TAKE 1 CAPSULE BY MOUTH EVERY DAYActive Active Problems ProblemNoted DateDiagnosed DateVaricose veins of bilateral lower extremities with pain08/10/2023Venous ywcorbefltgn45/15/2024 Social History Tobacco UseTypesPacks/DayYears UsedDateSmoking Tobacco: NeverSmokeless Tobacco: Never Tobacco Cessation:Counseling Given: Not Answered Alcohol UseStandard Drinks/WeekCommentsNever0 (1 standard drink = 0.6 oz pure alcohol)ChildcareAnswerDate BfepbahtMrfkkkfhcVlfycyk11/02/2020EmploymentAnswer Date HaaqazntQxbbagzintZvvhtip31/02/2020Hunger ScreeningAnswerDate Recorded Within the past 12 months we worried whether our food would run out before we got money to buy more.Never True08/10/2023Within the past 12 months the food we bought just didn't last and we didn't have money to get more.Never True 4Purpose - LifeAnswerDate RecordedPurpose and direction in lifeUnknown 1CommentsUnknownSex and Gender InformationValueDate RecordedSex Assigned at BirthNot on fileLegal IqnIdevtd46/06/2015 11:28 AM EDTGender IdentityNot on fileSexual OrientationNot on file Last Filed Vital Signs Vital SignReadingTime TakenCommentsBlood Ougyqhkp187/8408/10/2023 4:13 PM EST Lcdyc442008/10/2023 4:13 PM ESTTemperature--Respiratory Rate--Oxygen Iwqxoahstb15% 08/10/2023 4:13 PM ESTInhaled Oxygen Concentration--Oskomb63.7 kg (160 lb 3.2 oz)08/10/2023 4:13 PM QAGUptyxs405 cm (5' 2.99 )08/10/2023 4:13 PM ESTBody Mass Index28.39008/10/2023 4:13 PM EST Plan of Treatment Health MaintenanceDue DateLast DoneCommentsDepression Wzbibsefs05/12/1982 DTaP,Tdap and Td Vaccines (1 - Tdap)1988Pap Smear1990Zoster (Shingles) Vaccine (1 of 2)12/06/2019Adult BMI Dstwgpnwu49/15/34806208/10/2023 Tobacco Xqcptgqyn67/15/019595/Influenza Nrfjvhv6002/24/2025 Medical Devices Not on file Insurance Care Teams Team MemberRelationshipSpecialtyStart DateEnd Date Kay Devries MD [facility] [place] [address] [facility]03/27/20
--- OUTSIDE RECORDS SUMMARY | 2025-05-19 20:37 | XMS_ITS | Clinical Summary ---
Author Organization [facility] Address [address], [address] [place] [address] Care Team Providers Care Retail Stock Clerk Name Role Phone Kay Devries MD Primary Care Provider [phone] Allergies No known active allergies Medications MedicationSigDispense QuantityRefillsLast FilledStart DateEnd DateStatus methotrexate (RHEUMATREX) 2.5 MG chemo tablet TAKE 4 TABS ONCE A WEEK WITH FOOD. NO ALCOHOL. HOLD IF ON ANTIBIOTICS OR ILL, 1- 2WEEKS AFTER FCFQJHJ5810/20/2022ctive pregabalin (LYRICA) 100 MG capsule Take by mouth daily.Active Family History Medical HistoryRelationNameCommentsArthritisFatherCancerFatherDiabetesFather CancerMotherRelationNameStatusCommentsFatherDeceasedMotherDeceased Social History Tobacco UseTypesPacks/DayYears UsedDateSmoking Tobacco: NeverSmokeless Tobacco: NeverCommentsNoSex and Gender InformationValueDate RecordedSex Assigned at BirthNot on fileLegal RciInhbwb67/13/2020 7:19 PM EDTGender IdentityNot on fileSexual OrientationNot on file Last Filed Vital Signs Vital SignReadingTime TakenCommentsBlood Ipllgoll126/64003/06/2024 9:17 AM EDT Pulse--Yyycjetucvs59.5 ??C (97.7 ??F)02/07/2020 10:45 AM EDTRespiratory Rate-- Oxygen Saturation--Inhaled Oxygen Concentration--Gnmcfl34.8 kg (156 lb) 03/06/2024 9:17 AM EZGQgxbuk968.6 cm (5' 4 )03/06/2024 9:17 AM EDTBody Mass Index26.78003/06/2024 9:17 AM EDT Plan of Treatment Health MaintenanceDue DateLast DoneCommentsCOVID-19 Vaccine (#1)1974 Depression Wzqtfj2912/05/1981HIV uiheil5512/05/1984Hepatitis C ndmrnb3512/06/1987 DTaP/Tdap/Td vaccine (1 - Tdap)1988Hepatitis B vaccine (1 of 3 - 19+ 3- dose series)1988HPV (without or with Pap)12/06/19999725Gmwtme57/12/2010 Ubzlewmmnxm12/12/2015Colorectal Cancer Jsbbgz3012/05/2014FIT/FOBT: Average risk 2014Fecal-DNA (Cologuard): Average risk2014Sigmoidoscopy/CT ovfjaetwfebd99/12/2015Pneumococcal 50+ years Vaccine (1 of 1 - PCV)12/06/2019 Shingles vaccine (1 of 2)12/06/2019Flu vaccine (#1)5Breast cancer ciahmz18608/4Cervical cancer eepvab0103/06/2027Pap smear03/06/2027 03/06/2024Hepatitis A vaccineAged OutNo longer eligible [...] CYTOLOGYRoutine 03/06/2024 12:00 AM EDT KIERRA SCREENING MGPBGQVFMSkzeduo64/30/2024 9:46 AM EDTfrom Last 3 Months or Most Recently Relevant to Health Maintenance Results * POLICE MATRON Cytology (03/06/2024 12:00 AM EDT)ComponentValueRef RangeTest Method Analysis TimePerformed AtPathologist SignatureCytology ReportPath Number: [id number] DIAGNOSIS Imaged ThinPrep Pap - Cervical (1 monolayer slide): Specimen Adequacy: ? Satisfactory for evaluation. ? -Endocervical/transformation zone component is absent. Descriptive Diagnosis: ? Negative for intraepithelial lesion or malignancy. ?? Cytotech Screener: ??EY Electronically Signed Out Magdy GALE(ASCP) /03/15/2024 Source of Specimen: A: Imaged ThinPrep Pap - Cervical (1 monolayer slide) HPV Reflex?......................HPV if Abnormal Clinical History Z01.419 Routine quickbooks bookkeeper exam without abnormal findings LMP: ??01.23.2024 Processing Lab: [address] [address] Interpretation performed at [address] [address] This Pap Test has been evaluated with the assistance of the Orchid Internet HoldingsPrep Pap Test Imaging System. The Pap smear is a screening test primarily for squamous epithelial lesions, which is subject to both false negative and false positive results. Your patient should be reminded to consult you immediately if she experiences any suspicious signs or symptoms, regardless of her Pap smear result. GYNECOLOGIC CYTOLOGY REPORT Patient Name: TASHIA GONZALEZ [facility] Rec: [id number] [facility] ??[facility] ANATOMIC PATHOLOGY [address] [place] [address]. ??[place], [place] [address] [facility] LABSSpecimen (Source)Anatomical Location / LateralityCollection Method / VolumeCollection TimeReceived Time CERVICAL CYWYTBPS54/05/2024 7:53 AM EDT Narrative Authorizing ProviderResult TypeResult StatusKathermariana Brink PA-C PATHOLOGY/CYTOLOGY ORDERABLESFinal ResultPerforming OrganizationAddress City/State/ZIP CodePhone Number [facility] [address] [place] [address], [place] [phone] [facility] * KIERRA Screening Bilateral (02/23/2024 9:46 AM EDT)Anatomical RegionLaterality ModalityBreastBilateralMammography Narrative Authorizing ProviderResult TypeResult StatusMaria G HUNTER-MICHELL MAMMOGRAPHY ORDERABLESFinal Result from Last 3 Months or Most Recently Relevant to Health Maintenance Insurance Care Teams Team MemberRelationshipSpecialtyStart DateEnd Date Kay Devries MD PCP - GeneralFamily Medicine02/07/20
--- OUTSIDE RECORDS SUMMARY | 2025-05-19 20:37 | XMS_ITS | Encounter Summary ---
Author Organization [facility] Address [address] [place] [address] Care Team Providers Care Steam Trap Worker Name Role Phone Kay Devries MD Primary Care Provider [phone] Encounter Details DateTypeDepartmentCare Team (Latest Contact Info)Hmixlpuapub82/11/2025Telephone [facility] [address] [place] [address] [place] [address] Debbie Pearson MA Social History Tobacco UseTypesPacks/DayYears UsedDateSmoking Tobacco: Never Assessed CommentsUnknownSex and Gender InformationValueDate RecordedSex Assigned at Not on fileLegal TllBsvczv11/15/2023 6:57 PM EDTGender IdentityNot on fileSexual OrientationNot on filedocumented as of this encounter Miscellaneous Notes * Telephone Encounter - Debbie Pearson MA - 05/07/2025 11:00 AM EST Called pt today and notified her of DEXA Results. [facility] Has appt on 05/19/2025 with Isidra Le And will discuss options then. * Telephone Encounter - Debbie Pearson MA - 05/06/2025 4:26 PM EST [facility] for pt to return call regarding Dexa Results. Pt is scheduled with Isidra Le On 05/19/2025 for anannual. Will await phone call back. documented in this encounter Plan of Treatment Not on file documented as of this encounter Visit Diagnoses Not on filedocumented in this encounter Care Teams Team MemberRelationshipSpecialtyStart DateEnd Date Kay Devries MD [address] [place] [address] PCP - GeneralFamily Medicine02/06/23documented as of this encounter
--- OUTSIDE RECORDS SUMMARY | 2025-05-19 20:37 | XMS_ITS | Encounter Summary ---
Author Organization [facility] Address [address] [facility] [place] [address] Care Team Providers Care Inspector Chief Name Role Phone Kay Devries MD Primary Care Provider [phone] Encounter Details DateTypeDepartmentCare Team (Latest Contact Info)Ytskydiuouw30/24/2025bstract [facility] [address] [place] [address] Isidra Soto PA [address] [place], [facility] Social History Tobacco UseTypesPacks/DayYears UsedDateSmoking Tobacco: Never Assessed CommentsUnknownSex and Gender InformationValueDate RecordedSex Assigned at Not on fileLegal RwbSpkpts13/15/2023 6:57 PM EDTGender IdentityNot on fileSexual OrientationNot on filedocumented as of this encounter Plan of Treatment Not on file documented as of this encounter Visit Diagnoses Not on filedocumented in this encounter Care Teams Team MemberRelationshipSpecialtyStart DateEnd Date Kay Devries MD [address] [facility] [place] [address] PCP - GeneralFamily Medicine02/06/23documented as of this encounter
--- OUTSIDE RECORDS SUMMARY | 2025-05-19 20:37 | XMS_ITS | Encounter Summary ---
Author Organization [facility] Address [address] [facility] [place] [address] Care Team Providers Care Faculty Support Coordinator Name Role Phone Kay Devries MD Primary Care Provider [phone] Encounter Details DateTypeDepartmentCare Team (Latest Contact Info)Xhhpnrmmhcz67/24/2025amboo flowsheet [facility] [address] [facility] [address] [place] [address] Isidra Soto PA [address] [place], [facility]11 Social History Tobacco UseTypesPacks/DayYears UsedDateSmoking Tobacco: Never Assessed CommentsUnknownSex and Gender InformationValueDate RecordedSex Assigned at Not on fileLegal OyoNyinkx66/15/2023 6:57 PM EDTGender IdentityNot on fileSexual OrientationNot on filedocumented as of this encounter Plan of Treatment Not on file documented as of this encounter Visit Diagnoses Not on filedocumented in this encounter Care Teams Team MemberRelationshipSpecialtyStart DateEnd Date Kay Devries MD [address] [facility] [place] [address] PCP - GeneralFamily Medicine02/06/23documented as of this encounter
--- OUTSIDE RECORDS SUMMARY | 2025-05-19 20:37 | XMS_ITS | Clinical Summary ---
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 Take with food. For pain 90 tablet 5Active Active Problems ProblemNoted DateDiagnosed DateNumbness and tingling of left leg03/31/2025 Ngmwupbxuqk15/06/2025Osteopenia of multiple sites10/21/2023hronic hip pain, yflomobne93/27/2023Inflammatory ireghyusm29/27/2023NA mzlcveip95/05/2021 Secondary osteoarthritis of multiple sites01/25/2021hronic bilateral low back pain with left-sided ohzlssmx06/02/2021ilateral hand pain01/25/2021hronic pain of both knees01/25/2021hronic elbow pain, right01/25/2021levated sed rate 01/25/2021levated C-reactive protein (CRP)01/25/20218987Zbcjxltrfkoc94/02/2021 Numbness and tingling in both hands01/25/2021Medial epicondylitis of right elbow 01/25/2021Family history of gout01/25/2021Family history of rheumatoid arthritis 01/25/2021ong-term use of high-risk urnipxvigi85/02/2021 Encounters DateTypeDepartmentCare JdtfQrzzdjrkkqn14/09/2025Telephone Rheumatology [address] [place] [address] Riri Cardona MD Zjkbkqz5003/31/2025 8:20 AM EDTOffice Visit Rheumatology [address] [place] [address] Riri Cardona MD Fibromyalgia (Primary Dx); Elevated [...] drink = 0.6 oz pure alcohol)sociallyPHQ-2AnswerDate RecordedPHQ-2 exjyh261rea Deprivation IndexAnswerDate RecordedNational Score (1-100), lower number is lower risk92 04/05/2023State Score (1-10), lower number is lower fkxi6443Data from: https://www.neighborhoodatlas.medicine.[facility].edu/. Last address used for dyuwbndqrwf[address]CommentsNoSex and Gender InformationValueDate RecordedSex Assigned at BirthNot on fileLegal SexFemale 12/09/2013 11:31 AM EDTGender IdentityNot on fileSexual OrientationNot on file Last Filed Vital Signs Vital SignReadingTime TakenCommentsBlood Hgxiwppr416/7010 8:27 AM EDT Ufssy006603/31/2025 8:27 AM EDTTemperature--Respiratory Rate--Oxygen Saturation-- Inhaled Oxygen Concentration--Klypug66.5 kg (148 lb 13 oz)03/31/2025 8:27 AM EDT Bwdluv776.6 cm (5' 4 )01/25/2021 10:11 AM EDTBody Mass Index25.54001/25/2021 10:11 AM EDT Plan of Treatment DateTypeDepartmentCare Team (Latest Contact Info)Wrcjrxmpruu02/09/2026 9:40 AM EDTOffice Visit Rheumatology [address] [place], [place] [address] Riri Cardona MD [address] [place] [address] for osteoarthritis/osteopenia fu OV 6-12months.Health MaintenanceDue DateLast DoneCommentsAnxiety Qgfxupxdl44/12/1988Depression Ttvkfwluo84/12/1988HIV Sujdpzqqu11/12/1988DTaP,Tdap,Td Vaccine (1 - Tdap)1988Hepatitis B Vaccine (1 of 3 - 19+ 3-dose series)1988Cervical Cancer Zexuimmlj57/12/1991CT Pdfemknjqtyi29/12/2015Cologuard (FIT-DNA)12/05/20148351Bylobbvfzow49/12/2015 Colorectal Cancer Vmiewnnzh06/12/2015Fecal Occult Blood2014Lipid Screening 12/05/20142503Jbgwsfolfaqmp28/12/2015Pneumococcal Vaccine: 50+ (1 of 1 - PCV) 12/06/2019Shingrix Vaccine (1 of 2)12/06/2019Mammogram Exwpawhrd39/30/2025 4Covid-19 Vaccine (1 - 2024- season)2025Influenza Vaccine (#1) 2025Diabetes Zlwmncwqm94, 12/18/2023, 09/15/2023, Additional history existsHepatitis C GqmsjeymlQwvadpctt61/02/2021 Procedures Procedure NamePriorityDate/TimeAssociated DiagnosisCommentsVITAMIN D 25 HYDROXY Bbxpyid2603/31/2025 9:02 AM EDT Vitamin D deficiency C-REACTIVE PROTEIN (CRP)Kafrcmz7503/31/2025 9:02 AM EDT Elevated sed rate Elevated C-reactive protein (CRP) SEDIMENTATION XBGDKcfmjuc12/06/2025 9:02 AM EDT Elevated sed rate Elevated C-reactive protein (CRP) COMPLETE BLOOD QJPEZKocezto78/06/2025 9:02 AM EDT Anemia of chronic disease COMPREHENSIVE METABOLIC HUXFUGwmxvmk37/06/2025 9:02 AM EDT Elevated LFTs *HEP C VLMnutnql56/02/2021 11:37 AM EDT Elevated LFTs from Last 3 Months or Most Recently Relevant to Health Maintenance Results * VITAMIN D 25 HYDROXY (03/31/2025 9:02 AM EDT)ComponentValueRef RangeTest MethodAnalysis TimePerformed AtPathologist SignatureVitamin D 25 Etjfjbe09.1 31.0 - 80.0 ng/mL03/31/2025 9:35 PM EDTCTR[facility] Comment: Classification of 25 [place] Vitamin D status: Deficiency/Insufficiency: < or = 30 ng/ml. Sufficiency/Optimal Levels: 31-80 ng/mL Toxicity: > 100 ng/mL. Test performed by chemiluminescent immunoassay. Specimen (Source)Anatomical Location / LateralityCollection Method / Volume Collection TimeReceived TimeBloodBLOOD SPECIMEN / UnknownVenipuncture / Unknown 03/31/2025 9:02 AM EDT1 9:02 AM EDT Narrative [facility] - 03/31/2025 9:35 PM EDT The reference range interval was based on an analysis of samples from healthy adults and may not pertain to children from 0-18 years old. Authorizing ProviderResult TypeResult StatusRiri Cardona MDLABORATORYFinal ResultPerforming OrganizationAddressCity/State/ZIP CodePhone Number [facility] [address] [place] [phone], * SEDIMENTATION RATE, WESTERGREN (03/31/2025 9:02 AM EDT)ComponentValueRef Range Test MethodAnalysis TimePerformed AtPathologist SignatureSed Rate, Westergren 150 - 20 mm/hr03/31/2025 3:25 PM EDTRUMBULL MEMORIAL [facility]OS[facility] LABSpecimen (Source)Anatomical Location / LateralityCollection Method / VolumeCollection TimeReceived TimeBloodBLOOD SPECIMEN / UnknownVenipuncture / Zjozujm2903/31/2025 9:02 AM EDT1 9:02 AM EDT Narrative Authorizing ProviderResult TypeResult StatusRiri Cardona MDLABORATORYFinal ResultPerforming OrganizationAddressty/State/ZIP CodePhone Number [facility] [address] [place] [phone], [place] * (ABNORMAL) COMPREHENSIVE METABOLIC PANEL (03/31/2025 9:02 AM EDT)Component ValueRef RangeTest MethodAnalysis TimePerformed AtPathologist Signature Protein, Total7.56.3 - 8.0 g/dL03/31/2025 7:13 PM EDTRUMBULL MEM[facility]IAL [facility] LABAlbumin4.33.9 - 4.9 g/dL03/31/2025 7:13 PM EDTRUMBULL MEMORIAL [facility] LABCalcium, Total9.98.5 - 10.2 mg/dL03/31/2025 7:13 PM [facility] LABBilirubin, Total0.30.2 - 1.3 mg/dL03/31/2025 7:13 PM EDT [facility] LABAlkaline Nxpnqkuccfw9420 - 123 U/L1 7:13 PM EDTR[facility] RKGPFX6042 - 35 U/L1 7:13 PM EDTR[facility] SSUWOT281 - 38 U/L1 7:13 PM EDT [facility] UXHNqsglpl084(H)74 - 99 mg/dL03/31/2025 7:13 PM [facility] LABComment: The [place] Diabetes Association (ADA) provides guidance for cutoff [...] Standards of Medical Care in Diabetes 2016, [place] Diabetes Association. Diabetes Care. 2016.39(Suppl 1). OMR614 - 21 mg/dL03/31/2025 7:13 PM [facility] Creatinine0.620.58 - 0.96 mg/dL03/31/2025 7:13 PM [facility] STGPxesje891890 - 144 mmol/L1 7:13 PM [facility] LABPotassium4.33.7 - 5.1 mmol/L1 7:13 PM [facility] HYJWpjbfmci11650 - 107 mmol/L1 7:13 PM [facility] SUOSJ93892 - 30 mmol/L1 7:13 PM [facility] LABAnion Wcu764 - 15 mmol/L1 7:13 PM [facility] LABEstimated Glomerular Filtration Enmd385>=60 mL/min/1.73m 03/31/2025 7:13 PM [facility] LABComment:Estimated Glomerular Filtration Rate (eGFR) is [...] VolumeCollection TimeReceived TimeBloodBLOOD SPECIMEN / UnknownVenipuncture / Poaxqgt4303/31/2025 9:02 AM EDT1 9:02 AM EDT Narrative Authorizing ProviderResult TypeResult StatusRiri Cardona MDLABORATORYFinal ResultPerforming OrganizationAddressCity/State/ZIP CodePhone Number [facility] [address] [place] [address], * (ABNORMAL) COMPLETE BLOOD COUNT (03/31/2025 9:02 AM EDT)ComponentValueRef RangeTest MethodAnalysis TimePerformed AtPathologist SignatureWBC6.683.70 - 11.00 k/uL03/31/2025 2:29 PM EDTCTRUMBULL MEMORIAL [facility]OS[facility] LABRBC5.29(H)3.90 - 5.20 m/uL03/31/2025 2:29 PM EDTCTRUMBULL MEM[facility] LABHemoglobin 14.011.5 - 15.5 g/dL03/31/2025 2:29 PM [facility] Qaaynvgzxc47.536.0 - 46.0 %03/31/2025 2:29 PM [facility] NQURIH97.280.0 - 100.0 fL03/31/2025 2:29 PM EDTCTR[facility]BULL [facility] SDAZAG73.526.0 - 34.0 pg03/31/2025 2:29 PM EDTCTRUMBULL [facility] LAB MCHC32.230.5 - 36.0 g/dL03/31/2025 2:29 PM EDTCTRUMBULL [facility] RDW-CV14.611.5 - 15.0 %03/31/2025 2:29 PM EDTCTRUM[facility]ULL [facility] LAB Platelet Irenr343286 - 400 k/uL03/31/2025 2:29 PM EDTCTR[facility] SPBDDH92.89.0 - 12.7 fL03/31/2025 2:29 PM EDTCTRUMBULL [facility] LABAbsolute nRBC<0.01<0.01 k/uL03/31/2025 2:29 PM EDTCTRUMBULL [facility] LABSpecimen (Source)Anatomical Location / LateralityCollection Method / VolumeCollection TimeReceived TimeBloodBLOOD SPECIMEN / Unknown Venipuncture / Wzkhcag9003/31/2025 9:02 AM EDT1 9:02 AM EDT Narrative Authorizing ProviderResult TypeResult StatusRiri Cardona MDLABORATORYFinal ResultPerforming OrganizationAddressCity/State/ZIP CodePhone Number [facility] [address] [place] [phone], [place] * C-REACTIVE PROTEIN (03/31/2025 9:02 AM EDT)ComponentValueRef RangeTest Method Analysis TimePerformed AtPathologist SignatureCRP0.8<0.9 mg/dL03/31/2025 7:13 PM EDTCTRUMBULL [facility] LABSpecimen (Source)Anatomical Location / LateralityCollection Method / VolumeCollection TimeReceived TimeBloodBLOOD SPECIMEN / UnknownVenipuncture / Mrlcrgx7003/31/2025 9:02 AM EDT1 9:02 AM EDT Narrative Authorizing ProviderResult TypeResult StatusRiri FELIPEORATORYFinal ResultPerforming OrganizationAddressCity/State/ZIP CodePhone Number [facility] [address] [place] [phone], [place] * HEP REMOTE PANEL BL (01/25/2021 11:37 AM EDT)ComponentValueRef RangeTest MethodAnalysis TimePerformed AtPathologist SignatureHep B Core Ab, Total WobyejtaZqiwjyzs79/02/2021 9:23 PM EDTCleveland Clinic LaboratoriesHep C Antibody YYDhorzhlaCdgibcsw67/02/2021 9:24 PM EDTCleveland Clinic Laboratories DAvEbVxnjvlwsEynqhqdj35/02/2021 9:23 PM EDTCleveland Clinic LaboratoriesHep B Surface Ab, NhbeMnzorejsAayykuqv40/02/2021 9:23 PM EDTCleveland Clinic LaboratoriesComment:NEGATIVESpecimen (Source)Anatomical Location / Laterality Collection Method / VolumeCollection TimeReceived TimeBloodBLOOD SPECIMEN / Gbnrdme6001/25/2021 11:37 AM EDT01/25/2021 11:40 AM EDT Narrative Authorizing ProviderResult TypeResult StatusRiri Cardona MDLABORATORYFinal ResultPerforming OrganizationAddressCity/State/ZIP CodePhone Number [facility] [address] [place] [address] [facility] [address] [place] [address] from Last 3 Months or Most Recently Relevant to Health Maintenance Insurance * Guarantor: Tashia Gonzalez TypeRelation to PatientDate of BirthPhone Billing AddressPersonal/ZusjqzEfdo20/12/1971 [facility] [place] [address] Care Teams Team MemberRelationshipSpecialtyStart DateEnd Date Kay Devries MD [address] [place] [address] PCP - GeneralFamily Medicine12/09/13
--- OUTSIDE RECORDS SUMMARY | 2025-05-19 20:39 | XMS_ITS | CCD ---
Author Organization [facility] CliniSyva Care Team Providers Care Orchestra Conductor Name Role Phone Trung Magdaleno MD Primary Care Provider [phone] LISA, DR CORRALES Admitting Unavailable KARASIK, DR [...] CARDONA Admitting Unavailable ONEL CARDONA Attending Unavailable AC, DR CARROLL Jacinto Consulting Unavailable DALE ALEMAN Consulting Unavailable TRUNG MAGDALENO Primary Care Physician Trung Magdaleno MD Primary Care Provider Trung Magdaleno MD Primary Care Provider [phone] NILL, Terrence R Referring Unavailable NILL, Terrence R Admitting Unavailable NILL, Terrence R Attending Unavailable NILL, Terrence R Referring Unavailable NILL, Terrence R Admitting Unavailable NILL, Terrence R Attending Unavailable NILL, Terrence Bolanos Attending Unavailable Trung Magdaleno MD Primary Care Provider [phone] Trung Magdaleno MD Primary Care Provider Trung Magdaleno Unavailable Petra Wilson Unavailable SIMON SMITH Attending Unavailable TRUNG MAGDALENO Referring Unavailable TRUNG MAGDALENO Primary Care Unavailable SIMON SMITH Referring Unavailable TRUNG MAGDALENO Primary Care Unavailable TRUNG MAGDALENO Referring Unavailable TRUNG MAGDALENO Primary Care Unavailable GIOVANY RIVAS Attending Unavailable Trung Magdaleno MD Primary Care Provider [phone] JOSHMURPHYDARIA Referring Unavailable TRUNG MAGDALENO Primary Care Unavailable Trung Magdaleno MD Primary Care Provider [phone] TRUNG MAGDALENO Primary Care Unavailable JUSTIN PRESTON Referring Unavailable TRUNG MAGDALENO Primary Care Unavailable JUSTIN PRESTON Attending Unavailable TRUNG MAGDALENO Primary Care Unavailable JUSTIN PRESTON Referring Unavailable TRUNG MAGDALENO Primary Care Unavailable JUSTIN PRESTON Referring Unavailable TRUNG MAGDALENO Primary Care Unavailable JUSTIN PRESTON Attending Unavailable Trung Magdaleno MD Primary Care Provider Medications Current Medications MedicationDrug Class(es)DatesSig (Normalized)Sig (Original)albuterol HFA 90 mcg/inh MDI (1 source)Start: 76-08-8571dbeg 2 puff(s) by inhalation four times daily albuterol HFA 90 mcg/inh MDI 2 puff(s), Inhalation, QID Shortness of breath or wheezing, Refill(s) 0 Start Date: 01/07/22 Status: Orderedamoxicillin 875 mg / clavulanate 125 mg oral tablet (2 sources)Penicillin-class AntibacterialStart: 19-49-6277gpjn 1 tablet by mouth every twelve hoursAmoxicillin-Pot Clavulanate 875-125 MG 1 tablet Orally every 12 hrs for 10 day(s) Dec, Activeascorbic acid 1000 mg oral tablet (20 sources)Vitamin Ctake 1 tablet by mouth in the morningascorbic acid (Vitamin C) 1000 MG tablet Take 1,000 mg by mouth in the morning. ActiveComment on above: Take 1,000 mg by mouth once daily.60 actuat budesonide 0.08 mg/actuat / formoterol fumarate 0.0045 mg/actuat metered dose inhaler (20 sources)Corticosteroid, beta2-Adrenergic AgonistStart: 41-68-4554iavk 1 puff(s) by inhalation in the morningSymbicort 80-4.5 MCG/ACT inhaler Inhale 1 puff in the morning and 1 puff before bedtime. 12/06/2022ctiveStart: 11-28-2020 take 1 puff(s) by mouth twice dailySYMBICORT 80-4.5 mcg/actuation inhaler TAKE 1 PUFF BY MOUTH TWICE A DAY 11/28/2020 Activetake 1 puff(s) by mouth twice daily Symbicort 80-4.5 MCG/ACT TAKE 1 PUFF BY MOUTH TWICE A DAY for 30 ActiveComment on above:TAKE 1 PUFF BY MOUTH TWICE A DAYcholecalciferol 0.01 mg oral capsule (20 sources)Vitamin Dtake 1 capsule by mouth in the morningcholecalciferol (Vitamin D-3) 10 MCG (400 UNIT) capsule Take 400 Units by mouth in the morning. Activetake 1 capsule by mouth once dailycholecalciferol, vitamin D3, 10 mcg (400 unit) cap Take 3,000 Units by mouth once daily. Activetake 1 capsule by mouth once dailycholecalciferol, vitamin D3, 10 mcg (400 unit) cap Take 400 Units by mouth once daily. 0 ActiveComment on above:Take 400 Units by mouth once daily. Take 3,000 Units by mouth once daily.fluticasone propionate 0.05 mg/actuat metered dose nasal spray (2 sources)CorticosteroidStart: 51-69-3124gcdo 1 spray(s) nasal route in the morningfluticasone (Flonase) 50 MCG/ACT nasal spray Administer 1 spray into each nostril in the morning. 01/25/2023 ActiveStart: 36-01-1261onke 1 spray(s) nasal route once dailyFluticasone Propionate 50 MCG/ACT 1 spray in each nostril Nasally Once a day for 30 days Jan, Activemeloxicam 15 mg oral tablet (7 sources)Nonsteroidal Anti-inflammatory DrugStart: 60-49-5622tpje 1 tablet by mouth once daily at mealtime for painmeloxicam (MOBIC) 15 mg tablet Take 1 tablet by mouth once daily. Take with food. For pain 90 tablet 3 05/17/2024 ActiveStart: 10-20-2023 End: 54-97-8240jfeo 1 tablet by mouth once dailymeloxicam (MOBIC) 7.5 mg tablet Indications: Chronic bilateral low back pain with left-sided sciatica , Chronic hip pain, bilateral , Chronic pain of both knees , Cervicalgia Take 1 tablet by mouth once daily. 30 tablet 3 10/20/2023 05/17/2024 Discontinuedmethotrexate 2.5 mg oral tablet (20 sources)Folate Analog Metabolic InhibitorStart: 10-20-2022 End: 22-64-8377lngu 3 tablets by mouth every weekmethotrexate 2.5 MG tablet Take 7.5 mg by mouth 1 (one) time per week. 10/20/2022 ActiveStart: 01-10-2022 End: 02-06-8420zawbaslfqldy 2.5 mg tablet Indications: GEGE positive TAKE [...] ON ANTIBIOTICS OR ILL. HOLD 1-2WEEKS AFTER VACCINES.mv- min/iron/folic/calcium/vitK (WOMEN'S 50 PLUS MULTIVIT-IRON ORAL) (20 sources)mv-min/iron/folic/calcium/vitK (WOMEN'S 50 PLUS MULTIVIT-IRON ORAL) Take by mouth. Activemv-min/iron/folic/calcium/vitK (WOMEN'S 50 PLUS MULTIVIT- IRON ORAL) Take by mouth. 0 ActiveComment on above:Take by mouth.Symbicort 80/4.5 inhalation aerosol with adapter (1 source)Start: 89-47-9332lyrl 2 puff(s) by inhalation twice dailySymbicort 80/4.5 inhalation aerosol with adapter 2 puff(s), Inhalation, BID, Refill(s) 0 Start Date: 01/07/22 Status: Ordered Completed/Discontinued Medications MedicationDrug Class(es)DatesSig (Normalized)Sig (Original)calcium/D3/mag ox/junior copywriter/ai/Zn (CALTRATE + D3 PLUS MINERALS ORAL) (14 sources) End: 73-87-5389qnwjxlw/D3/mag ox/junior copywriter/ai/Zn (CALTRATE + D3 PLUS MINERALS ORAL) Take by mouth. 0 04/05/2023 Discontinuedcalcium/D3/mag ox/junior copywriter/ai/Zn (CALTRATE + D3 PLUS MINERALS ORAL) Take by mouth. 0 ActiveComment on above:Take by mouth. folic acid 1 mg oral tablet (20 sources)Start: 09-14-2021 End: 53-87-3885kmgz 1 tablet by mouth once daily at mealtimefolic acid 1 mg tablet Indications: GEGE positive TAKE 1 TABLET BY MOUTH EVERY DAY WITH FOOD 90 tablet 3 04/05/2023 ActiveComment on above:TAKE 1 TABLET BY MOUTH EVERY DAY WITH FOODMagnesium (14 sources) End: 23-96-6273Jpvkpvfqh 250 mg tab Take 250 mg by mouth. 0 04/05/2023 DiscontinuedMagnesium 250 mg tab Take 250 mg by mouth. 0 ActiveComment on above: Take 250 mg by mouth.jzdgk-9a-jni-epa-fish oil 600-1,200 mg cap (14 sources) End: 60-79-5117rcgvw-7g-kdr-xrl-fish oil 600-1,200 mg cap Take by mouth. 0 04/05/2023 Hmgjipwsxrhmeujgy-4l-ico-epa-fish oil 600-1,200 mg cap Take by mouth. 0 ActiveComment on above:Take by mouth.pregabalin 100 mg oral capsule (20 sources)Start: 03-11-2022 End: 04-67-7794kulg 1 capsule by mouth once dailypregabalin (LYRICA) 100 mg capsule Indications: Chronic bilateral low back pain with left-sided sciatica , Fibromyalgia Take 1 capsule by mouth once daily. 90 capsule 3 05/17/2024 09/21/2024 DiscontinuedStart: 08-16-2021 End: 07-01-9925avkr 1 tablet by mouth once dailypregabalin (LYRICA) 25 mg capsule Indications: Chronic bilateral low back pain with left-sided sciatica Take 1tab of 75mg plus 1tab 25mg by mouth nightly. May cause drowsiness 90 capsule 3 / DiscontinuedStart: 08-16-2021 End: 42-67-5336wtva 1 capsule by mouth once daily, then [...] mg oral tablet (14 sources)Vitamin B12 End: 94-75-3161venh 1 tablet by mouth once dailycyanocobalamin (VITAMIN B-12) 1,000 mcg tab Take 1,000 mcg by mouth once daily. 0 04/05/2023 Discontinued Comment on above:Take 1,000 mcg by mouth once daily. Problems Active Problems Problem ClassificationProblemDateDocumented DateEpisodic/ChronicAcquired foot deformities (2 sources)Valgus deformity, not elsewhere classified, left ankle; Translations: [Valgus deformity]EpisodicAsthma (5 sources)Asthma; Translations: [Asthmatic bronchitis]39-14-3041RbswxnfOuiztvs dysrhythmias (2 sources)Tachycardia; Translations: [Tachycardia, unspecified]Onset: 09-14-9750YmtbuipzTtwrjth obstructive pulmonary disease and bronchiectasis (1 source)Bronchitis; Translations: [Bronchitis, not specified as acute or chronic]EpisodicConditions associated with dizziness or vertigo (2 sources)Benign paroxysmal vertigo, bilateral; Translations: [Dizziness and giddiness]EpisodicDeficiency and other anemia (7 sources)Anemia of chronic disease; Translations: [Anemia in other chronic diseases classified elsewhere]ChronicDeficiency and other anemia (1 source)Anemia in other chronic diseases classified elsewhere; Translations: [Anemia of chronic disease]Onset: 04-61-7626FywpwqyYkylxsidoat chest pain (1 source)Chest pain; Translations: [Chest pain, unspecified]EpisodicNutritional deficiencies (8 sources)Vitamin D deficiency; Translations: [Vitamin D deficiency, unspecified]Onset: 76-30-7691GvmhzmzQvobialmkaq deficiencies (1 source)Cobalamin deficiency; Translations: [Deficiency of other specified B group vitamins]EpisodicOsteoarthritis (20 sources)Degenerative joint disease involving multiple joints; Translations: [Secondary multiple arthritis]Onset: 144660-31-8377CwvpwbkYtwitnldbcvt (3 sources)Postmenopausal osteoporosis; Translations: [Age-related osteoporosis without current pathological fracture]ChronicOther acquired deformities (1 source)Contracture of ankle ublxl76-97-8547NzstuspZboer acquired deformities (1 source)Joint contracture of the ankle and/or foot; Translations: [Contracture, left ankle]ChronicOther acquired deformities (1 source)Acquired varus deformity of joint of lower mcdh47-09-0192MljttqqtPnydq connective tissue disease (20 sources)Fibromyalgia; Translations: [Fibromyalgia]Onset: 01-25-2021 98-26-5150RcordoolZeuua connective tissue disease (1 source)Pain in left foot; Translations: [Pain in left foot]EpisodicOther connective tissue disease (1 source)Tibialis tendinitis; Translations: [Posterior tibial tendinitis, left leg]EpisodicOther diseases of veins and lymphatics (1 source)Chronic venous hypertension (idiopathic) without complications of unspecified lower extremity; Translations: [Chronic venous hypertension (idiopathic) without complications of unspecified lower extremity]Onset: 13-33-5961JzwnxlpPhsyp diseases of veins and lymphatics (2 sources)Venous hypertension; Translations: [Chronic venous hypertension (idiopathic) without complications of unspecified lower extremity]Onset: 514497-91-0268XhfaeizCfudp diseases of veins and lymphatics (2 sources)Venous insufficiency (chronic) (peripheral); Translations: [Venous insufficiency (chronic) (peripheral)]Onset: 89-38-9851FfowzuogXvtcn endocrine disorders (4 sources)Hypoglycemia; Translations: [Hypoglycemia, unspecified]ChronicOther endocrine disorders (1 source)Hypoglycemia, unspecifiedChronicOther female genital disorders (4 sources)Hypertrophy of uterus; Translations: [HYPERTROPHY OF UTERUS]Onset: 79-47-0385FffxaezcJscch female genital disorders (1 source)Hypertrophy of uterus; Translations: [Hypertrophy of uterus]Episodic Other injuries and conditions due to external causes (1 source)History of fall; Translations: [History of falling]EpisodicOther nervous system disorders (1 source)Other chronic pain; Translations: [Chronic bilateral low back pain with left-sided sciatica]Onset: 54-60-8004DdloppeUukjg nervous system disorders (2 sources)Tremor; Translations: [Tremor, unspecified]51-90-9815QkirbiiiElmbx non-traumatic joint disorders (1 source)Arthralgia of the ankle and/or foot; Translations: [Pain in left ankle and joints of left foot]EpisodicOther non-traumatic joint disorders (1 source)Joint pain; Translations: [Pain in unspecified joint]EpisodicOther nutritional; endocrine; and metabolic disorders (2 sources)Body mass index 25-29 - overweight; Translations: [Body mass index (BMI) 25.0-25.9, adult]26-52-3470LkkuapllArzhr nutritional; endocrine; and metabolic disorders (1 source)Overweight; Translations: [Overweight]EpisodicOther screening for suspected conditions (not mental disorders or infectious disease) (20 sources)Other specified abnormal findings of blood chemistry; Translations: [Other abnormal blood chemistry]Onset: 48-97-8988NkfykfhmRocgl upper respiratory infections (1 source)Chronic sinusitis; Translations: [Chronic sinusitis, unspecified] ChronicOther upper respiratory infections (2 sources)Acute sinusitis; Translations: [Acute sinusitis, unspecified]Onset: 30-85-3983OtnvfzsxIttugm media and related conditions (1 source)Unspecified Eustachian tube disorder, left earEpisodicOvarian cyst (1 source)Unspecified ovarian cyst, left side; Translations: [UNSPECIFIED OVARIAN CYST LEFT SIDE]Onset: 24-78-1549OxvnyrkbNnyegfoos (except that caused by tuberculosis or sexually transmitted disease) (1 source)Pneumonia (except that caused by tuberculosis or sexually transmitted disease); Translations: [PNEUMONIA D/T CORONAVIRUS DIS 2019]Onset: 06-22-2021 Residual codes; unclassified (1 source)Family history of malignant neoplasm of digestive organs; Translations: [FAM HX ABDIEL NEOPLASM DIGESTIV ORGN]Onset: 66-71-8643Whqvyvtm Residual codes; unclassified (1 source)Family history of malignant neoplasm of other genital organs; Translations: [FAM HX MALGILBERT NEOPLSM OTH GENIT ORGN]Onset: 00-18-0356Wqlfyxkd Residual codes; unclassified (1 source)Menopause iouyqeu70-74-5537ReloldkiWfmfnrhk codes; unclassified (1 source)Postmenopausal state; Translations: [Asymptomatic menopausal state] EpisodicRespiratory failure; insufficiency; arrest (adult) (1 source)Respiratory failure; insufficiency; arrest (adult)Onset: 08-10-2023 Rheumatoid arthritis and related disease (2 sources)Rheumatoid arthritis; Translations: [Rheumatoid arthritis, unspecified]80-01-9371ZjzikxlGdibrllouqpu (1 source)Patient encounter -92-8363Huaiyvdlcodm (1 source)New PatientOnset: 31-44-0895Eypsjncs veins of lower extremity (3 sources)Varicose veins of bilateral lower extremities with pain; Translations: [Varicose veins of lower extremity]Onset: 998099-84-6441 EpisodicViral infection (2 sources)COVID-19; Translations: [Disease caused by 2019-nCoV]Onset: 06-22-2021 Past or Other Problems Problem ClassificationProblemDateDocumented DateEpisodic/ChronicAbdominal pain (1 source)Pelvic and perineal pain; Translations: [Pelvic and perineal pain] Resolved: 61-73-7109AitlzaohRerqffjbdfrva and screening for infectious disease (20 sources)Anti-nuclear factor positive; Translations: [Other specified abnormal immunological findings in serum]Onset: 91-77-7770LzhpjiyeDybwwvuaigmq breast conditions (1 source)Breast signs and symptoms; Translations: [Other signs and symptoms in breast]Onset: 09-25-2007 Resolved: 71-83-7241HytormxmLolue aftercare (20 sources)H/O: high risk medication; Translations: [Other retirement (current) drug therapy]Onset: 215475-79-0811FwvytecaZwysd aftercare (1 source)Other roasterman (current) drug therapy; Translations: [OTH CUSTODIAL CURRENT DRUG THERAPY]Onset: 00-66-9394JxtjwtthCfaqq aftercare (1 source)History and physical examination, follow-up; Translations: [Encounter for follow-up examination after completed treatment for conditions other than malignant neoplasm] Resolved: 93-54-6313AmsnvaxzSfsdl bone disease and musculoskeletal deformities (6 sources)Osteopenia; Translations: [Other specified disorders of bone density and structure, multiple sites]Onset: 826839-77-1510BihbcdgqQwsqp connective tissue disease (20 sources)Pain of bilateral hands; Translations: [Pain in right hand]Onset: 113388-88-3065ZwvtfzhfGssav connective tissue disease (20 sources)Medial epicondylitis of right humerus; Translations: [Medial epicondylitis, right elbow]Onset: 846661-37-2620CbercwloJdcig connective tissue disease (1 source)Fibromyalgia; Translations: [Fibromyalgia]Onset: 10-03-8957Pvxabgxq Other diseases of veins and lymphatics (1 source)Vascular insufficiency; Translations: [Venous insufficiency (chronic) (peripheral)]16-07-4164VilpayikBwlbx female genital disorders (1 source)Noninflammatory disorder of vulva; Translations: [Other specified noninflammatory disorders of vulva and perineum]Onset: 09-29-2007 Resolved: 35-98-1186NfllurupXewzt hematologic conditions (20 sources)ESR raised; Translations: [Elevated erythrocyte sedimentation rate] Onset: 58-42-7002GgmmnksgThmhf hematologic conditions (1 source)Elevated erythrocyte sedimentation rate; Translations: [Elevated sed rate]Onset: 61-06-7253NrmyrnmfZrvgy lower respiratory disease (3 sources)Shortness of breath; Translations: [SHORTNESS OF BREATH]Onset: 01-27-8121CxlgkpgeZfqju nervous system disorders (20 sources)Paresthesia of hand ; Translations: [Anesthesia of skin]Onset: 981254-28-9616ZkvemtxrRrjid non-traumatic joint disorders (20 sources)Pain in right knee; Translations: [Pain in joint, lower leg]Onset: 949590-89-1209CfrlqmmlYkqmg non-traumatic joint disorders (20 sources)Chronic pain of right upper limb; Translations: [Pain in right elbow]Onset: 698015-59-4255CduhzqppQtukg non-traumatic joint disorders (19 sources)Hip pain; Translations: [Pain in right hip]Onset: 15-48-6827Ptanckgw Other skin disorders (1 source)Hypertrophic condition of skin; Translations: [Other hypertrophic disorders of the skin]Onset: 41-80-3434VhwdcyhlYryfiqoq codes; unclassified (20 sources)FH: Gout; Translations: [Family history of other diseases of the musculoskeletal system and connective tissue]Onset: 645523-67-6455Yiocvpuq Residual codes; unclassified (20 sources)FH: Rheumatoid arthritis; Translations: [Family history of arthritis]Onset: 559777-07-3227XktkmdljPheqtjwdmxa; intervertebral disc disorders; other back problems (20 sources)Chronic low back pain; Translations: [Lumbago with sciatica, left side]Onset: 446809-69-8688ZqlclurcUuckr infection (1 source)Herpesviral vesicular dermatitis; Translations: [Herpesviral vesicular dermatitis]Onset: 84-93-7995Oujbjpak Results Test NameValueInterpretationReference RangeFacilityMM TOMOSYNTHESIS SCREENING BI on 96-83[place] [address] Mammography Report Signed Patient: CHIP LUCAS MR#: [id number] : 1970 Acct:[id number] Age/Sex: 54 / F ADM Date: 04/18/25 Loc: MAMMO Attending Dr: Deon Reddy D.O. Ordering Physician: Deon Reddy D.O. Results: Date of Service: 04/18/25 Follow Up: Procedure(s): MM tomosynthesis screening BI Accession Number(s): [id number] cc: Trung Magdaleno M.D.; Deon Reddy D.O. Patient Name: CHIP LUCAS MR#: [id number] : 1970 Exam Date: 04/18/2025 Ordering Doctor: DR DEON REDDY . RADIOLOGY REPORT PROCEDURE: MM TOMOSYNTHESIS SCREENING BI COMPARISON: MM TOMOSYNTHESIS SCREENING BI, 02/23/2024. MM TOMOSYNTHESIS SCREENING BI, 12/23/2022. MG MAMM SCREEN 3D DENISSE CAD, 11/08/2021. MG MAMM DENISSE SCRN W CAD DIG, 04/02/2013. INDICATIONS: screening for malignant neoplasm Calculator Name NCI Breast Cancer Risk Assessment Tool 5 Year Breast Cancer Risk 1.80% Lifetime Breast Cancer Risk 12.20% Personal Breast Cancer No Personal Ovarian Cancer No Treatments None Family Cancers Mother with uterine cancer at age 54; Father with colon cancer at age 65. LOCATION: [facility] BREAST COMPOSITION: There are scattered areas of fibroglandular density. FINDINGS: RIGHT BREAST: No significant suspicious finding. There is a similar focal asymmetry on the right. LEFT BREAST: No significant suspicious finding. Benign-appearing marker within the along chest wall. DIAGNOSTIC CATEGORY 2--BENIGN FINDING. NO CHANGE FROM COMPARISON. RECOMMENDATIONS: ROUTINE MAMMOGRAM AND CLINICAL EVALUATION IN 12 MONTHS. Dictated by: Bo Dc MD on 04/18/2025 at 13:43 Approved by: Bo Dc MD on 04/18/2025 at 13:47 Dictated By: Bo Dc M.D. Signed By: 04/18/25 1348 DD/ 1347 TD/TT: Supervisor Audit Clerks:TBHRadiology, RadiologistMD - 04/18/2025 [place] [address] Mammography Report Signed Patient: CHIP LUCAS MR#: [id number] : 1970 Acct:[id number] Age/Sex: 54 / F ADM Date: 04/18/25 Loc: MAMMO Attending Dr: Deon Reddy D.O. Ordering Physician: Deon Reddy D.O. Results: Date of Service: 04/18/25 Follow Up: Procedure(s): MM tomosynthesis screening BI Accession Number(s): [id number] cc: Trung Magdaleno M.D.; Deon Reddy D.O. Patient Name: CHIP LUCAS MR#: [id number] : 1970 Exam Date: 04/18/2025 Ordering Doctor: DR DENO REDDY . RADIOLOGY REPORT PROCEDURE: MM TOMOSYNTHESIS SCREENING BI COMPARISON: MM TOMOSYNTHESIS SCREENING BI, 02/23/2024. MM TOMOSYNTHESIS SCREENING BI, 12/23/2022. MG MAMM SCREEN 3D DENISSE CAD, 11/08/2021. MG MAMM DENISSE SCRN W CAD DIG, 04/02/2013. INDICATIONS: screening for malignant neoplasm Calculator Name [facility] Breast Cancer Risk Assessment Tool 5 Year Breast Cancer Risk 1.80% Lifetime Breast Cancer Risk 12.20% Personal Breast Cancer No Personal Ovarian Cancer No Treatments None Family Cancers Mother with uterine cancer at age 54; Father with colon cancer at age 65. LOCATION: [facility] BREAST COMPOSITION: There are scattered areas of fibroglandular density. FINDINGS: RIGHT BREAST: No significant suspicious finding. There is a similar focal asymmetry on the right. LEFT BREAST: No significant suspicious finding. Benign-appearing marker within the along chest wall. DIAGNOSTIC CATEGORY 2--BENIGN FINDING. NO CHANGE FROM COMPARISON. RECOMMENDATIONS: ROUTINE MAMMOGRAM AND CLINICAL EVALUATION IN 12 MONTHS. Dictated by: Bo Dc MD on 04/18/2025 at 13:43 Approved by: Bo Dc MD on 04/18/2025 at 13:47 Dictated By: Bo Dc M.D. Signed By: 04/18/25 1348 DD/ 46 TD/TT: Supervisor Audit Clerks: [facility] observation (narrative)[facility] TOMOSYNTHESIS SCREENING BIOrdered By: Radiologist Radiology on 16-22-6523YLZZMercy Hospital Washington Work Phone: cNPNon [phone] (LEANNE) SHAYYCHIP Aureliano ([id number]) 1970 F Date Time Provider Department 04/03/25 JUSTIN PRESTON During your visit today, we recorded the following information about you: Justin Preston MD 04/03/2025 8:30 PM Signed Please Call patient if Glycosan note not read to review results/released to My Chart if tests completed at [facility]: normal labs and no inflammation. Continue same vitamin D intake with food. Happy to further review and discuss at follow up visit. Thank you. 03/31/25 normal cbc, cmp, esr 15, crp 0.8, vitamin D 50.1; Dannie Ortiz MA 04/04/2025 8:09 AM Signed patient has viewed the [employer] message per [employer]. Allergies As of Date: 04/03/2025 (No Known [...] 03/31/2025 Encounter Status:Closed by DANNIE ORTIZ on 04/04/25[facility]CCh[facility]25([place])D3 [facility] 943710-haljfkmpbyxihw D3 [Mass/Vol]50.1 ng/hUApjfng89.0-80.0[facility] HospitalCommarsh[facility] on above:Order Comment: Specimen Type: BLOOD SPECIMEN Ordering Facility: [facility] Address: [address] [place], [place] [address]Result Comment: Classification of 25 [place] Vitamin D status: Deficiency/Insufficiency: < or = 30 ng/ml. Sufficiency/Optimal Levels: 31-80 ng/mL Toxicity: > 100 ng/mL. Test performed by chemiluminescent immunoassay.Performed By: #### 1989-3 #### [facility] CLIA [id number] [address] [place], [place] [address]K [address] STATES OF AMERICACB panel Auto (Bld)on 97-45-8075Kmyoafaeney distribution width (RBC) [Ratio]14.6 %Iywtay93.5-15.0 [facility] on above:Order Comment: Specimen Type: BLOOD SPECIMEN Ordering Facility: [facility] Address: [address] [place], [place] [address]Performed By: #### 99354-6, 4537-7 #### [facility] CLIA [id number] [address] [place] [address] [place] STATES OF AMERICAHematocrit (Bld) [Volume fraction]43.5 %Pfvwvd44.0-46.0[facility] on above:Order Comment: Specimen Type: BLOOD SPECIMEN Ordering Facility: [facility] Address: [address] [place], [place] [address]Performed By: #### 32149-5, 4537-7 #### [facility] CLIA [id number] [address] [place] [address] STATES OF AMERICAHemoglobin (Bld) [Mass/Vol] 14.0 g/fAWylqwr83.5-15.5CC[facility] on above:Order Comment: Specimen Type: BLOOD SPECIMEN Ordering Facility: [facility] Address: [address] [place], [place] [address]Performed By: #### 32567-3, 4537-7 #### [facility] CLIA [id number] [address] [place] [address] [place] [facility] (RBC) [Entitic mass]26.5 enJnxiqe72.0-34.0[facility] on above:Order Comment: Specimen Type: BLOOD SPECIMEN Ordering Facility: [facility] Address: [address] [place], [place] [address]Performed By: #### 77228-1, 4537-7 #### [facility] CLIA [id number] [address] [place] [address] STATES OF AMERICAMCHC (RBC) [Mass/Vol]32.2 g/bXQgsxhm68.5-36.0[facility] on above:Order Comment: Specimen Type: BLOOD SPECIMEN Ordering Facility: [facility] Address: [address] [place], [place] [address]Performed By: #### 40865-7, 4536-7 #### [facility] CLIA [id number] [address] [place] [address] [place] OF AMERICAMCV (RBC) [Entitic vol]82.2 tFVgzvfp45.0-100.0[facility] on above:Order Comment: Specimen Type: BLOOD SPECIMEN Ordering Facility: [facility] Address: [address] [place], [place] [address]Performed By: #### 22294-1, 7 #### [facility] CLIA [id number] [address] [place], [place] [address]ucleated RBC (Bld) [#/Vol] 10*3/uLNormal<0.01[facility] on above:Order Comment: Specimen Type: BLOOD SPECIMEN Ordering Facility: [facility] Address: [address] [place], [place] [address]Performed By: #### 35490-3, 7 #### [facility] CLIA [id number] [address] [place] [address] [place] OF AMERICAPlatelet mean volume (Bld) [Entitic vol]10.8 fLNormal9.0-12.7CC[facility] on above: Order Comment: Specimen Type: BLOOD SPECIMEN Ordering Facility: [facility] Address: [address] [place], [place] [address]Performed By: #### 75339-1, 4536-12 #### [facility] CLIA [id number] [address] [place] [address] [place] OF AMERICAPlatelets (Bld) [#/Vol]314 10*3/yRDtyhnc686-748CevuhstcpMedina Hospital on above:Order Comment: Specimen Type: BLOOD SPECIMEN Ordering Facility: [facility] Address: [address] [place], [place] [address]Performed By: #### 54824-8, 4536-7 #### [facility] CLIA [id number] [address] [place], [place] [address]RB (Bld) [#/Vol]5.29 10*6/uLHigh3.90-5.20[facility] on above:Order Comment: Specimen Type: BLOOD SPECIMEN Ordering Facility: [facility] Address: [address] [place], [place] [address]Performed By: #### 18271-9, 4537-7 #### [facility] CLIA [id number] [address] [place], [place] [address]W (Bld) [#/Vol]6.68 10*3/uLNormal3.70-11.00[facility] on above:Order Comment: Specimen Type: BLOOD SPECIMEN Ordering Facility: [facility] Address: [address] [place], [place] [address]Performed By: #### 61649-8, 4537-7 #### [facility] CLIA [id number] [address] [place], [place] [address]CNOVon 93-68-4648BWIERmwpsx Visit (LEANNE) CHIP LUCAS ([id number]) 1970 F Date Time Provider Department 03/31/25 [...] machine Next bone mineral density after 04/05/2025 roasterman pain recommendations per primary care provider/pain clinic [...] hips, knees worse in AM. Reports pain /. Has 20min minimal AM stiffness. Feels safe [...] pain 5/10. H (more content not included)...Normal [facility] SerPl-mCncon 66-83-5271TEW [Mass/Vol]0.8 mg/dL Normal<0.9CCleveland Clinic Mer[facility] Hospital on above:Order Comment: Specimen Type: BLOOD SPECIMEN Ordering Facility: [facility] Address: [address] [place], [place] [address]Performed By: #### 32026-6, 1987-10 #### [facility] CLIA [id number] [address] [place] [address] [place] OF AMERICAComprehensive metabolic 2000 panelon 53-74-7276Paivmmz [Mass/Vol]4.3 g/dLNormal3.9-4.9CC[facility] Clinic [facility] on above:Order Comment: Specimen Type: BLOOD SPECIMEN Ordering Facility: [facility] Address: [address] [place], [place] [address]Performed By: #### 49250-2, 1987-10 #### [facility] CLIA [id number] [address] [place] [address] [place] OF AMERICAALP [Catalytic activity/Vol] 98 U/DOuwgtu67-806OhgfmhlgsMedina Hospital on above:Order Comment: Specimen Type: BLOOD SPECIMEN Ordering Facility: [facility] Address: [address] [place], [place] [address]Performed By: #### 19260-9, 1987-10 #### [facility] CLIA [id number] [address] [place], [place] [address] [place] OF AMERICAALT [Catalytic activity/Vol] 22 U/LNormal7-38[facility] on above:Order Comment: Specimen Type: BLOOD SPECIMEN Ordering Facility: [facility] Address: [address] [place] [address]Fxkxgzohv By: #### 77641-0, 1987-10 #### [facility] CLIA [id number] [address] [place] [address] [place] OF AMERICAAnion gap [Moles/Vol]11 mmol/LNormal8-15[facility] on above:Order Comment: Specimen Type: BLOOD SPECIMEN Ordering Facility: [facility] Address: [address] [place], [place] [address]Performed By: #### 96915-5, 1987-10 #### [facility] CLIA [id number] [address] [place], [place] [address] [place] OF AMERICAAST [Catalytic activity/Vol] 23 U/WHottjm89-28RbchqppigMedina Hospital on above:Order Comment: Specimen Type: BLOOD SPECIMEN Ordering Facility: [facility] Address: [address] [place], [place] [address]Performed By: #### 95013-4, 1987-10 #### [facility] CLIA [id number] [address] [place], [place] [address] [place] OF AMERICABilirubin [Mass/Vol]0.3 mg/dLNormal0.2-1.3ClevelTrumbull Regional Medical Center on above:Order Comment: Specimen Type: BLOOD SPECIMEN Ordering Facility: [facility] Address: [address] [place] [address]Vbqrrkrve By: #### 67837-5, 1987-10 #### [facility] CLIA [id number] [address] [place] [address] [place] OF AMERICACalcium [Mass/Vol]9.9 mg/dL Normal8.5-10.2ClevelTrumbull Regional Medical Center on above:Order Comment: Specimen Type: BLOOD SPECIMEN Ordering Facility: [facility] Address: [address] [place] [address]Lnvbicqer By: #### 09815-1, 1987-10 #### [facility] CLIA [id number] [address] [place], [place] [address] [place] OF AMERICAChloride [Moles/Vol]104 mmol/LIwxsfz77-590FfvkzczrqMedina Hospital on above:Order Comment: Specimen Type: BLOOD SPECIMEN Ordering Facility: [facility] Address: [address] [place], [place] [address]Performed By: #### 13983-3, 1987-10 #### [facility] CLIA [id number] [address] [place] [address] [place] AMERICACO2 [Moles/Vol]25 mmol/L Npgpmj52-98BqbkjdmlwMedina Hospital on above:Order Comment: Specimen Type: BLOOD SPECIMEN Ordering Facility: [facility] Address: [address] [place], [place] [address]Performed By: #### 90293-7, 1987-10 #### [facility] CLIA [id number] [address] [place] [address] [place] AMERICACreatinine [Mass/Vol]0.62 mg/dLNormal0.58-0.96[facility] on above:Order Comment: Specimen Type: BLOOD SPECIMEN Ordering Facility: [facility] Address: [address] [place], [place] [address]Performed By: #### 10211-2, 1987-10 #### [facility] [place] [id number] [address] [place] [address] [place] AMERICAeGFRcr SerPlBld CKD-EPI 2020 105 mL/min/1.73m???Normal>=60[facility] on above:Order Comment: Specimen Type: BLOOD SPECIMEN Ordering Facility: [facility] Address: [address] [place], [place] [address]Result Comment: Estimated Glomerular Filtration Rate (eGFR) is [...] not accurately reflect actual GFR.Performed By: #### 71098-6, 1987-10 #### [facility] CLIA [id number] [address] [place] [address] [place] AMERICAGlucose [Mass/Vol]102 mg/dL Ywia65-04FzozvnumiMedina Hospital on above:Order Comment: Specimen Type: BLOOD SPECIMEN Ordering Facility: [facility] Address: [address] [place], [place] [address]Result Comment: The [place] Diabetes Association (ADA) provides guidance for cutoff [...] Standards of Medical Care in Diabetes 2016, [place] [employer] Association. Diabetes Care. 2016.39(Suppl 1).Performed By: #### 64494-5, 1987-10 #### [facility] CLIA [id number] [address] [place] [address] [place] AMERICAPotassium [Moles/Vol]4.3 mmol/LNormal3.7-5.1CC[facility] Clinic [facility] on above:Order Comment: Specimen Type: BLOOD SPECIMEN Ordering Facility: [facility] Address: [address] [place] [address]Ffwersxjn By: #### 78151-8, 1987-10 #### [facility] [place] [id number] [address] [place] [address] [place] AMERICAProtein [Mass/Vol]7.5 g/dL Normal6.3-8.0[facility] on above:Order Comment: Specimen Type: BLOOD SPECIMEN Ordering Facility: [facility] Address: [address] [place], [place] [address]Performed By: #### 19394-9, 1987-10 #### [facility] IA [id number] [address] [place] [address] [place] [facility] PREBLESodium [Moles/Vol]140 mmol/L Vrelhy103-367SxznswlidMedina Hospital on above:Order Comment: Specimen Type: BLOOD SPECIMEN Ordering Facility: [facility] Address: [address] [place], [place] [address]Performed By: #### 43730-4, 1987-10 #### [facility] IA [id number] [address] [place] [address] [place] AMERICAUrea nitrogen [Mass/Vol]16 mg/dLNormal7-21[facility] on above:Order Comment: Specimen Type: BLOOD SPECIMEN Ordering Facility: [facility] Address: [address] [place], [place] [address]Performed By: #### 04072-3, 1987-10 #### [facility] [place] [id number] [address] [place] [address] [place] [facility] PREBLEESR Westergren method (Bld) [Velocity]on 44-91-7475YTY (Bld) [Velocity]15 mm/hNormal0-20[facility] on above:Order Comment: Specimen Type: BLOOD SPECIMEN Ordering Facility: [facility] Address: [address] [place], [place] [address]Performed By: #### 92079-7, 4537-7 #### [facility] IA [id number] [address] [place] [address] [place] AMERICACNPNon [id number] Telephone (LEANNE) CHIP LUCAS ([id number]) 1970 F Date Time Provider Department 05/18/24 JUSTIN PRESTON During your visit today, we recorded the following information about you: Justin Preston MD 05/23/2024 6:32 PM Addendum Please Call patient if Glycosan note not read to review results/released to [...] 7:30 AM Signed patient has viewed the PayParrot message per No[employer] Traveller. Allergies As of Date: 05/18/2024 (No Known [...] 10/21/2023 Encounter Status:Closed by DANNIE ORTIZ on 05/20/24NormalCAkron Children's Hospital-REACTIVE PROTEINon 26-37-3601WWQ [Mass/Vol]0.9 mg/dLHighNINF - 0.9 mg/dLAdena Health SystemCNOVon 00-16-7582JNUCJpsxeb Visit (LEANNE) CHIP LUCAS ([id number]) 1970 F Date Time Provider Department 05/17/24 [...] 0.9, vitamin D 61.7; 04/05/23 saw rheum SAMPLE PROCESSOR taking methotrexate 3tabs week, sometimes make her [...] recent oral ster (more content not included)...NormalMercy Health St. Elizabeth Boardman HospitalCRP SerPl-mCncon 57-23-9995SQM [Mass/Vol]0.9 mg/dLHigh<0.9CChillicothe Hospital Comment on above:Order Comment: Specimen Type: BLOOD SPECIMEN Ordering Facility: [facility] Address: [address] [place], [place] [address]Performed By: #### 1988-5 #### [facility] CLIA [id number] [address] [place] [address] [place] AMERICACRP [Mass/Vol]on 05-17-2024 Interpretation and review of laboratory resultsAbnormalCUpper Valley Medical Center Westergren method (Bld) [Velocity]on 59-36-6988OON (Bld) [Velocity]10 mm/hCleveland ClinicInterpretation and review of laboratory resultsNormal [facility] (Bld) [Velocity]10 mm/hNormal0-20[facility]. Elizabeth Boardman HospitalComment on above:Order Comment: Specimen Type: BLOOD SPECIMEN Ordering Facility[facility] Address: [address] [place], [place] [address]Performed By: #### 4537-7 #### [facility] CLIA [id number] [address] [place] [id number] [place] AMERICAXR CERVICAL 4V AP/LAT/OBLon 99-33-7941JT CERVICAL 4V AP/LAT/OBL* * *Final Report* * [...] Mild cervical spine degenerative changes as described. Supervisor Audit Clerks[facility] Transcribe Date/Time: May 21 2024 8:41A Dictated by : SAVANNA ADAM MD This examination was interpreted and the report reviewed and electronically signed by: SAVANNA ADAM MD on May 21 2024 8:43AM EST [id number] Health St. Elizabeth Boardman HospitalCytology Reporton 31-87-9637Tcwruiip report Cyto stain.thin prep Doc (Cvx/Vag)(NOTE) Path Number: [id number] DIAGNOSIS Imaged ThinPrep Pap - Cervical (1 monolayer slide): Specimen Adequacy: Satisfactory for evaluation. -Endocervical/transformation zone component is absent. Descriptive Diagnosis: Negative for intraepithelial lesion or malignancy. Cytotech Screener: EY Electronically Signed Out Magdy GALE(ASCP) ey/03/15/2024 Source of Specimen: A: Imaged ThinPrep Pap - Cervical (1 monolayer slide) HPV Reflex?......................HPV if Abnormal Clinical History Z01.419 Routine stiff leg operator exam without abnormal findings LMP: 01.23.2024 Processing Lab: [address] [address] Interpretation performed at [address] [address] This Pap Test has been evaluated with the assistance of the Slime SandwichPrep Pap Test Imaging System. The Pap smear is a screening test primarily for squamous epithelial lesions, which is subject to both false negative and false positive results. Your patient should be reminded to consult you immediately if she experiences any suspicious signs or symptoms, regardless of her Pap smear result. GYNECOLOGIC CYTOLOGY REPORT Patient Name: CHIP LUCAS [facility] Rec: [id number] [facility] ANATOMIC PATHOLOGY [address] [place] [address]. [place], [place] [address] NoMarietta Memorial Hospital HospitalXR LUMBAR GENERAL 3V AP/LAT/L5-S1 on 49-22-0203Jicrmaozc ClinicXR HAND GENERAL 3V PA/LAT/OBL BILATERALon 54-77-5062Kniziieen ClinicCoding Summary.on 16-02-1857Fstxib Summary. CD:[id number]:[id number]+PGhlYWQ+ZV3NVXWaU46mjKCynD6OB9xLJS0EAKRBHSECLF0CNB8bz ZR8ZVhnZ0DzdxEw [file] dHls (more content not included)...[facility]itan HospitalCoding Summary. CD:741225PM:[id number]+PGhlYWQ+JB8EETUkB09azHPtiG0QK3mSUO3SEUISBGUXOT4UIW0kl KE0IKpcH6ElmzFm [file] dHls (more content not included)...[facility] HospitalProgress Note-Physicianon 87-44-8990Oboenfmy Note-PhysicianPatient: CHIP LUCAS Age: 51 years Sex: Female : 1970 Associated Diagnoses: None Author: Carlos Hobbs Jr, DO Postoperative Information Post Operative Note: Post Anesthesia Care Unit. Anesthetic utilized: Monitored anesthesia care. Health Status Allergies: Allergic Reactions (Selected) No Known Allergies Problem list: All Problems Varus foot deformity, acquired / SNOMED CT 905230258 / Confirmed Asthma / SNOMED CT 255586971 / Confirmed BMI 26.0-26.9,adult / SNOMED CT 3744664638 / Confirmed Ankle contracture / SNOMED CT 715625099 / Confirmed Menopause / SNOMED CT 445719417 / Confirmed Screening for malignant neoplasm of colon / SNOMED CT 671359741 / Confirmed Rheumatoid arthritis / SNOMED CT 682953825 / Confirmed Tremor / SNOMED CT 63310388 / Confirmed Physical Examination Vital Signs 02/04/2022 [...] nausea and vomiting. Plan Transfer/ Discharge: Condition stable.[facility]itan HospitalComment on above:Result Comment: Electronically Signed By: Carlos [...] Varus foot deformity, acquired / SNOMED CT 107532143 / Confirmed Asthma / SNOMED CT 634859887 / Confirmed BMI 26.0-26.9,adult / SNOMED CT 3429816715 / Confirmed Ankle contracture / SNOMED CT 596815401 / Confirmed Menopause / SNOMED CT 330875654 / Confirmed Screening for malignant neoplasm of colon / SNOMED CT 816634712 / Confirmed Rheumatoid arthritis / SNOMED CT 406140796 / Confirmed Tremor / SNOMED CT 79960701 / Confirmed Histories Past Medical History: No [...] Cardiovascular: Regular rhythm. Neurologic: Alert, Oriented. Plan [place] [employer] Anesthesiologists (ASA) physical status classification: Class II. Anesthetic Preoperative Plan Anesthesia: General. . Anesthetic plan, risks, benefits, and alternatives discussed with the patient and/or family. Communication: face to face with (patient 5 minutes, Patient educated on smoking cesstation).[facility]itan HospitalComment on above:Result Comment: Electronically Signed By: Carlos Hobbs Jr, DO\colton\Date and Time Signed: 02/21/22 08:11 EDTIntraOperative Documentson 02-14-2022 IntraOperative [id number]#1.00CD:127 [facility] HospitalPostoperative Documentson 02-10-2022 Postoperative [id number]#1.00CD:127 [facility] HospitalMain OR Intraoperative Recordon 85-38-4491Ddab OR Intraoperative RecordIntraOp Document Type FT Summary Primary Physician: Terrence GOOD MD Finalized Date/Time: 02/08/22 15:22:08 Pt. Name: CHIP LUCAS/Sex: 1970 Female Med Rec #: [id number] Physician: Terrence GOOD MD Financial #: [id number] Pt. Type: A Room/Bed: / Admit/Disch: 02/04/22 [...] Foreman RN, Lelia Lopez Role Performed Anesthesiologist Remodeler - Primary Staff - Other Patient Clerical Assistant Time In 02/04/22 07:57:00 02/04/22 07:57:00 02/04/22 07:57:00 Time Out 02/04/22 08:13:00 02/04/22 08:13:00 02/04/22 08:13:00 Procedure COLONOSCOPY(.) COLONOSCOPY(.) COLONOSCOPY(.) Comments Dr. Hobbs is supervising Last Modified By: Alexis MEJIA, Amina Espinoza RN, Amina Espinoza RN, Amina Alcaraz 02/04/22 08:13:22 02/04/22 08:13:22 02/04/22 08:13:22 Entry 4 Entry 5 Case Attendee Andreina Frey MD, Terrence Bolanos Role Performed Scrub - Primary Surgeon - Primary Time In 02/04/22 07:57:00 02/04/22 07:57:00 Time Out 02/04/22 08:13:00 02/04/22 08:13:00 Procedure COLONOSCOPY(.) COLONOSCOPY(.) Comments Last Modified By: Alexis MEJIA, Amina Espinoza RN, Amina Alcaraz 02/04/22 08:13:22 02/04/22 08:13:22 Perioperative Protocols FT [...] Time Out Chip Foreman, Given Participants Lelia Lopez, Alexis MEJIA, Shante Goncalves Micala E, NILL MD, Terrence Bolanos Time Out Complete 02/04/22 08:01:00 Outcomes Met? [...] Procedure Yes Primary Surgeon Terrence GOOD MD 02/04/22 08:00:00 Stop 02/04/22 08:11:00 Anesthesia Type [...] and tissue Entry 1 Skin Integrity Intact, [place], Warm, and Skin Abnormality No Dry Outcomes Met? Yes Last Modified By: Amina sEpinoza RN 02/04/22 08:03:25 Post-Care Text: The patient [...] Position Resting at Si (more content not included)...[facility] 76-98-2340Ernhmxp [id number]#1.00CD:127[facility] HospitalDischarge Instructionson 09-13-9575Rbsqdwvrg Instructions [id number]#1.00CD:127[facility] HospitalIntraOperative Documentson 96-66-7622YwixrZtqywoxrr Documents [id number]#1.00CD:127[facility]itan HospitalReminderson 47-11-5533Kxzevdyqz From: Neva Proctor LPN To: N - Clinical; Sent: 02/07/2022 11:55:32 EDT Show up: 01/05/2032 07:00:00 EDT Subject: colonoscopy recall Due Date/Time: 02/05/2032 07:00:00 EDT Reminder/Recall Patient is due for screening colonoscopy 02/05/2032.[facility]itan HospitalColonoscopy Procedure Reporton 51-60-5496Tuubcgxgpla Procedure Report Patient: CHIP LUCAS Age: 51 [...] place. Impression and Plan Diagnosis: Colon, diverticulosis (IDW38-JK K57.30, Discharge, Medical). Course: Progressing as expected. Recommendations: Repeat colonoscopy:: In 10 years. Follow-up:: if problems/questions. Diet:: Regular diet. Medication resumption:: Continue current medications. Return to activities:: After 24 hours. Education and Follow-up: Counseled: Family.[facility] Comment on above:Other Comment: Missing Attachment - attachment storage system not supported [id number] Can be viewed in source systemMissing Attachment - attachment storage system not supported [id number] Can be viewed inssouthwestern medical center – [facility] systemMissing Attachment - attachment storage system not supported [id number] Can be viewed in source systemMissing Attachment - attachment storage system not supported [id number] Can be viewed in source systemMissing Attachment - attachment storage system not supported [id number] Can be viewed in source systemConsent for Treatmenton 82-57-3079Mzoytfe for Treatment [id number]#1.00CD:127NoSt. Rita's HospitalInpatient Patient Summaryon 85-08-9863Tgciifbqy Patient Summary [address] [address] [facility] Clinical Discharge Instructions PERSON INFORMATION Name: CHIP LUCAS PHYSICIANS Admitting Physician: Terrence GOOD MD Attending Physician: Terrence GOOD MD PCP: TRUNG MAGDALENO MD Discharge Diagnosis: Colon, diverticulosis Comment: PATIENT EDUCATION INFORMATION Instructions: Medication Leaflets: Follow up: With: Address: When: Terrence GOOD [address], [address], [facility] [address] [place] [address] Business (1) , only if needed MEDICATION LIST [...] Cap) 1 Capsules By Mouth at bedtime. Comment:[facility] HospitalMain OR PACU I Recordon 83-27-0371Mdcb OR PACU I RecordPACU Phase I Document Type FT Summary Primary Physician: Terrence GOOD MD Finalized Date/Time: 02/04/22 09:00:29 Pt. Name: CHIP LUCAS./Sex: 1970 Female Med Rec #: [id number] Physician: Terrence GOOD MD Financial #: [id number] Pt. Type: A Room/Bed: / Admit/Disch: 02/04/22 [...] Signatures Signed By: Petra Kohli RN 02/04/22 09:00[facility] HospitalMain OR Preoperative Recordon 38-00-4479Klcw OR Preoperative RecordHolding Area Document Type FT Summary Primary Physician: Terrence GOOD MD Finalized Date/Time: 02/04/22 07:46:36 Pt. Name: CHIP LUCAS/Sex: 1970 Female Med Rec #: [id number] Physician: Terrence GOOD MD Financial #: [id number] Pt. Type: A Room/Bed: / Admit/Disch: 02/04/22 [...] Signatures Signed By: Marychuy Lakhani RN 02/04/22 07:46NoUniversity [facility]als [facility] Record on 93-36-7025Fkqpijn [id number]#1.00CD:127 [facility] Record [id number]#1.00CD:127NoSt. Rita's HospitalOutpatient Surgery Discharge Instructionon 33-98-3011Bowczolhbh Surgery Discharge Instruction [address] [address] Patient Discharge Instructions PERSON INFORMATION Name: CHIP [...] THE NEAREST EMERGENCY ROOM OR CALL 911 SHAYY Veras NICOLE D, have received the attached patient education materials/instructions and have verbalized understanding: May we do a follow up call? Yes No I was present when discharge instructions were given Patient Signature Date Clinican/Nurse Signature Date Follow up: With: Address: When: [facility] [address], [place] [id number] Business (1) , only if needed Pharmacy Information: Other: NARCISA Vega You may receive a survey from [employer] asking you to rate your care experience. Your feedback is important and will help us understand what we do well and how we can improve the quality of care we provide to you, your loved ones and our community. It?s an honor to serve you. Thank you for choosing [facility] HERE ARE THE MEDICATION CHANGES THAT OCCURRED [...] at bedtime. PATIENT EDUCATION INFORMATION Instructions: Medication Leaflets:[facility]aritan HospitalPatient Education - Texton 36-95-2781Usxlokj Education - TextNoSt. Rita's HospitalCoding Summary.on 52-75-3955Yrnchs Summary. CD:[id number]+PGhlYWQ+VX7GPVVqV99hqCPijE1WX7iGIG5DWDAAGIUQEX9PCG8ab WJ5HUjhB6AqxrBh [file] cHNl (more content not included)...NormalMercy Health St. Elizabeth Youngstown HospitalCOVID-19 ([facility])on 87-61-8115EIFY-CoV-2 (COVID-19) RNA HÉCTOR+probe Ql (Resp)Not detected NormalNot DetectedMercy Health St. Elizabeth Youngstown HospitalComment on above:Result Comment: This test result should be correlated with clinical presentations and medical history by a healthcare provider to determine its clinical significance. This assay was performed by a reverse transcriptase real-time polymerase chain reaction (rt PCR) method on the [employer] system. This test has been authorized only [...] is terminated or revoked sooner.Performed By: #### [id number] ####[address] [id number]-CnY-6 (COVID-19) RNA HÉCTOR+probe Ql (Unsp spec)PassVan Wert County HospitalComment on above:Performed By: #### [id number] ####[address]Specimen source Nom (Unsp spec)NasalSamaritan HospitalComment on above:Performed By: #### [id number] ####[address]Consent for Treatmenton 79-75-8971Ubmdnbg for Treatment [id number]:127Samaritan HospitalCOVID-19 ([facility])on 76-87-3547DACMSOBM TO INTENSIVE CARE UNIT FOR CONDITION OF INTEREST:FIND:PT:NONormalMercy Health St. Elizabeth Youngstown HospitalComment on above: Performed By: #### [id number] ####[address]EMPLOYED IN A HEALTHCARE SETTING:FIND:PT:Unknown Sam[facility]itan HospitalComment on above:Performed By: #### [id number] ####[address]FIRST TEST FOR CONDITION OF INTEREST:FIND:PT:UnknownSamaritan Hospital Comment on above:Performed By: #### [id number] ####[address]HAS SYMPTOMS RELATED TO CONDITION OF INTEREST:FIND:PT:UnknownNormalMercy Health St. Elizabeth Youngstown HospitalComment on above: Performed By: #### [id number] ####[place] [address] [facility] [id number] FOR CONDITION OF INTEREST:FIND:PT:NO NormalMercy Health St. Elizabeth Youngstown HospitalComment on above:Performed By: #### [id number] ####[place] [address] [facility] [id number] STATUS:FIND:PT:NONormalMercy Health St. Elizabeth Youngstown HospitalComment on above: Performed By: #### [id number] ####[place] [address] [place], [place]RESIDES IN A [facility] CARE SETTING:FIND:PT:Unknown Samaritan HospitalComment on above:Performed By: #### [id number] ####[place] [address] [facility] [id number] Ambulatory Visit Summaryon 27-79-2516Yamjygcxei Visit Summary GWENDOLYN LUCASSRINATH Bedoya :1970 Visit Date:01/10/2022 Ambulatory Visit Instructions Your Care Team Attending Physician - FLORENTINO PURDY, Terrence Bolanos Primary Care Physician - TRUNG MAGDALENO MD This Is Your Medications List Contact prescribing [...] Follow-Up Appointments Monday 10:00 AM EDT Where: [facility] Monday 10:30 AM EDT Where: [facility] Medications What How Much When [...] Rheumatoid arthritis Tremor Varus foot deformity, acquired Samaritan HospitalConsent for Procedure/Surgeryon 87-36-6312Dcbwkrh for Procedure/Surgery [id number]#[id number]:127NoSt. Rita's HospitalPAP ACOG PANEL 2: 30 to 65on 12-19-2021..[facility] Comment on above:Result Comment: Performed at: WBPerformed By: #### [id number] #### [facility] [address] [place] [address] Dr. Wing Short Gdln ACOG Skekplh32-47AxsnjjUakSelect Medical Specialty Hospital - CincinnatiComment on above:Performed By: #### [id number] #### [facility] [address] [place] [address] Dr. Wing StuartDIAGNOSIS:CommentThe MetroHealth SystemComment on above: Result Comment: NEGATIVE FOR INTRAEPITHELIAL LESION OR MALIGNANCY. Performed at: WBPerformed By: #### [id number] #### [facility] [address] [place] [address] Dr. Wing StuartHPV AptimaNegativeNormalNegativeScci Hospital LimaComment on above:Result Comment: This nucleic acid amplification test detects fourteen high-risk HPV types (16,18,31,33,35,39,45,51,52,56,58,59,66,68) without differentiation. Performed at: =GPerformed By: #### [id number] #### [facility] [address] [place] [address] Dr. Wing StuartMethodology:CommentUniversity Hospitals Geneva Medical Center on above: Result Comment: This liquid based ThinPrep(R) pap test was screened with the use of an image guided system. Performed at: WBPerformed By: #### [id number] #### [facility] [address] [place] [address] Dr. Wing StuartNote:CommentUniversity Hospitals Geneva Medical Center on above:Result Comment: The Pap smear is a screening test designed to aid in the detection of premalignant and malignant conditions of the uterine cervix. It is not a diagnostic procedure and should not be used as the sole means of detecting cervical cancer. Both false-positive and false-negative reports do occur. . Performed at: WBPerformed By: #### [id number] #### [facility] [address] [place] [address] Dr. Wing StuartPerformed by:CommentUniversity Hospitals Geneva Medical Center on above: Result Comment: Rosenda Quiroz, Die Sinker (ASCP) Performed at: WBPerformed By: #### [id number] #### [place] [address] [address] Wing StuartSpecimen adequacy:CommentUniversity Hospitals Geneva Medical Center on above:Result Comment: Satisfactory for evaluation. Endocervical and/or squamous metaplastic cells (endocervical component) are present. Performed at: WBPerformed By: #### [id number] #### [facility] [address] [place] [address] Dr. Wing StuartUS PELVIS TRANSVAGon 39-26-9353DG PELVIS TRANSVAGEXAMINATION: US PELVIS TRANSVAG HISTORY: Hypertrophy [...] Electronically authenticated by: CARROLL JOHNSON Date: 2021-12-18 07:59[facility] SystemPhysician Referralon 19-43-3333Aqwyznnhj Referral [id number]:127Samaritan HospitalMG MAMM SCREEN 3D DENISSE CADon 56-89-1464GZ MAMM SCREEN 3D DENISSE CADPatient: CHIP LUCAS Exam Date: 11/08/2021 : 1970 Gender:F Ordering : DR SAVANNA GONZALEZ . Admission #: [id number] Family : Order #: [id number] CLICK HERE TO VIEW EXAM RADIOLOGY REPORT [...] colon cancer at age 64. LOCATION: [facility] BREAST COMPOSITION: Scattered areas fibroglandular density. [...] by: Carroll Johnson MD on 11/08/2021 at 10:55The [facility] SystemXR CHEST 1 Von 82-06-1692VO CHEST 1 VEXAMINATION: XR CHEST 1 V [...] Electronically authenticated by: CARROLL JOHNSON Date: 2021-06-21 15:11[facility] SystemNo Panel Informationon 32-34-1784Osmlspvgv ClinicCBC W/DIFFon 00-44-3471OKBQ ABS0.1 K/uLNormal0.0-0.2St. [facility] Tarzana Medical CenterComment on above:Order Comment: CBN: YES [place]: MAINPerformed By: #### L200.70994 #### Test performed at: [address] [address]Cziigokjb/100 WBC (Bld)0.7 %NormalSt. Providence Tarzana Medical CenterComment on above:Order Comment: CBN: YES [place]: MAINPerformed By: #### L200.96925 #### Test performed at: [address] [address]JMU ABS0.1 K/uLNormal0.0-0.5St. [facility]zana Medical CenterComment on above:Order Comment: CBN: YES [place]: MAINPerformed By: #### L200.74967 #### Test performed at: [address] [address]Xftgumpyaxi/100 WBC (Bld)0.6 %NormalSt. Providence Tarzana Medical CenterComment on above:Order Comment: CBN: YES [place]: MAINPerformed By: #### L200.40677 #### Test performed at: [address] [address]Nlzadbrngyd distribution width (RBC) [Ratio]13.4 %Normal 11.5-14.5St. [facility] Medical CenterCommarshfield medical center on above:Order Comment: CBN: YES [place]: MAINPerformed By: #### L200.62378 #### Test performed at: [address] [address]Mviscumqfg (Bld) [Volume fraction]43.2 %Ypdlzt85.0-48.0St. [facility] Medical CenterCommarshfield medical center on above:Order Comment: CBN: YES [place]: MAINPerformed By: #### L200.59599 #### Test performed at: [address] [address]Fexjtercox (Bld) [Mass/Vol]13.6 g/dMSrdwsn38.0-15.0St. [facility] Medical CenterCommarshfield medical center on above:Order Comment: CBN: YES [place]: MAINPerformed By: #### L200.16983 #### Test performed at: [address] [address]CL %0.5 %NormalSt. Providence Tarzana Medical CenterCommarshfield medical center on above:Order Comment: CBN: YES [place]: MAINPerformed By: #### L200.35596 #### Test performed at: [address] [address]UO ABS0.04 K/uLNormal0-0.05St. [facility] CenterCommarshfield medical center on above:Order Comment: CBN: YES [place]: MAINPerformed By: #### L200.18051 #### Test performed at: [address] [address]Dcdzyluuwqn (Bld) [#/Vol]1.9 10*3/uLNormal1.2-3.5St. [facility] Medical CenterComment on above:Order Comment: CBN: YES [place]: MAINPerformed By: #### L200.29322 #### Test performed at: [address] [address]Ygbjutkzepi/100 WBC (Bld)23.1 %NormalSt. Providence Tarzana Medical CenterComment on above:Order Comment: CBN: YES [place]: MAINPerformed By: #### L200.77089 #### Test performed at: [address] [address]CAK (RBC) [Entitic mass]26.[address]Lrgqfv98.4-34.6St[address] [facility] Medical CenterComment on above:Order Comment: CBN: YES [place]: MAINPerformed By: #### L200.21067 #### Test performed at: [address] [address]LJZD (RBC) [Mass/Vol]31.5 g/lFPziimw56.5-36.5St. [facility] Medical CenterComment on above:Order Comment: CBN: YES [place]: MAINPerformed By: #### L200.91940 #### Test performed at: [place] [id number] (RBC) [Entitic vol]82.6 aQRtfkdm71.0-98.0St[address] [facility] Medical CenterComment on above:Order Comment: CBN: YES [place]: MAINPerformed By: #### L200.81409 #### Test performed at: [place] [id number] ABS0.8 K/uLNormal0.0-1.0St. [facility] Medical CenterComment on above:Order Comment: CBN: YES [place]: MAINPerformed By: #### L200.06213 #### Test performed at: [address], [place] [address]Plswcknfg/100 WBC (Bld)9.5 %NormalSt. Providence Tarzana Medical CenterCommarshfield medical center on above:Order Comment: CBN: YES [place]: MAINPerformed By: #### L200.02215 #### Test performed at: [address] [address]MEQFBAVQAP ABS5.3 K/uLNormal1.4-6.6St. [facility] CenterCommarshfield medical center on above:Order Comment: CBN: YES [place]: MAINPerformed By: #### L200.85718 #### Test performed at: [address] [address]Phoyskacbys/100 WBC (Bld)65.6 %NormalSt. Providence Tarzana Medical CenterCommarshfield medical center on above:Order Comment: CBN: YES [place]: MAINPerformed By: #### L200.67360 #### Test performed at: [address] [address]UYMS #0.000 K/uLNormal0-0.012St. [facility] CenterCommarshfield medical center on above:Order Comment: CBN: YES [place]: MAINPerformed By: #### L200.21370 #### Test performed at: [address] [address]WSXE %0.0 /100 WBCNormal0-0.2St[address] [facility] CenterCommarshfield medical center on above:Order Comment: CBN: YES [place]: MAINPerformed By: #### L200.74903 #### Test performed at: [address] [address]Kpgtxbaq mean volume (Bld) [Entitic vol]11.3 fLNormal 8.7-12.4St. [facility] CenterCommarshfield medical center on above:Order Comment: CBN: YES [place]: MAINPerformed By: #### L200.22133 #### Test performed at: [address], [place] [address]Ufidywncq (Bld) [#/Vol]328 10*3/bUOjywyr923-099Nv. [facility] Tarzana Medical CenterComment on above:Order Comment: CBN: YES [place]: MAINPerformed By: #### L200.31532 #### Test performed at: [address] [address]BNH (Bld) [#/Vol]5.23 10*6/uLNormal3.5-5.5St. [facility] Medical CenterComment on above:Order Comment: CBN: YES [place]: MAINPerformed By: #### L200.45659 #### Test performed at: [address] [address]SDT (Bld) [#/Vol]8.1 10*3/uLNormal3.9-11.0St. [facility] Medical CenterComment on above:Order Comment: CBN: YES [place]: MAINPerformed By: #### L200.54156 #### Test performed at: [address] [address]KCFcv 22-50-0580RDF [Mass/Vol]8.3 mg/LHigh0.0-3.0St. [facility] Medical CenterComment on above:Order Comment: CBN: YES [place]: MAINPerformed By: #### L500.16215 #### Test performed at: [address] [address]ODP 2-3 VIEWS W PELVIS LTon 98-94-0538MMG 2-3 VIEWS W PELVIS LTSTUDY: HIP 2-3 VIEWS W PELVIS LT; 07/10/2020 12:09 pm INDICATION: PAIN. COMPARISON: None. ACCESSION NUMBER(S): [id number] ORDERING CLINICIAN: Ashley Briscoe FINDINGS: The pelvic ring appears intact. No acute fracture or dislocation.. Mild joint space narrowing. IMPRESSION: Mild degenerative changes of the left hip.NormalSt. Providence Tarzana Medical CenterRA FACTOR QUANTon 19-75-6556LW FACTOR QUANT< 10Normal<15[facility]ventist Health DelanoComment on above:Order Comment: CBN: YES [place]: MAINPerformed By: #### L700.72543 #### Test performed at: [place] [id number] [place] [address] Vital Signs Date TimeVital SignValuePerforming OfngugewaHpmxckfw28-81-9806 10:02-0500Body mass index (BMI) [Ratio]26.87 kg/y8QvyfaplnJustin Preston MD Work Phone: [facility]11-22-2024 10:02-0500Body kg Justin Preston MD Work Phone: [facility]11-22-2024 10:02-0500Diastolic blood twpgyrtc05 mm[Hg]Justin Preston MD Work Phone: [facility]11-22-2024 10:02-0500Heart rate71 /min Justin Preston MD Work Phone: [facility]11-22-2024 10:02-0500Systolic blood oyvbufmo640 mm[Hg]Justin Preston MD Work Phone: [facility]02-15-2024 16:13-0500Body hdvihm961 cm Giovany Rivas MD Work Phone: [phone]02-15-2024 16:13-0500Body mass index (BMI) [Ratio]28.39 kg/m2Giovany Rivas MD Work Phone: [phone]02-15-2024 16:13-0500Body nluyoy38.67 kgGiovany Rivas MD Work Phone: [phone]02-15-2024 16:13-0500Diastolic blood ttsgkezd25 mm[Hg]Giovany Rivas MD Work Phone: [phone]02-15-2024 16:13-0500Heart rate 86 /minGiovany Rivas MD Work Phone: [phone]02-15-2024 16:13-6836TtB8% (BldA) [Mass fraction]97 %Giovany Rivas MD Work Phone: [phone]02-15-2024 16:130500Systolic blood pzzcltjy218 mm[Hg]Giovany Rivas MD Work Phone: [phone]01-15-2024 11:08-0500Diastolic blood cwvvvazz77 mm[Hg]Simon Smith PA Work Phone: [phone]01-15-2024 11:08-0500Systolic blood icduohlt939 mm[Hg]Simon Sarah PA Work Phone: [phone]01-15-2024 11:07-0500Body dhtahu782 cmAruy Sarah PA Work Phone: [phone]01-15-2024 11:07-0500Body mass index (BMI) [Ratio]26.57 kg/m2Adacyrus Sarah PA Work Phone: [phone]01-15-2024 11:07-0500Body .04 kgAdacyrus Sarah PA Work Phone: [phone]10-11-2023 09:31-0400Body nkjyqg37.4 kgIsidra Sanchez APRN.REMELT OPERATOR Work Phone: [facility]10-11-2023 09:31-0400Diastolic blood hjznqssu62 mm[Hg]Isidra Sanchez APRN.REMELT OPERATOR Work Phone: [facility]10-11-2023 09:31-0400Heart rate76 /min Isidra Sanchez APRN.REMELT OPERATOR Work Phone: [phone]10-11-2023 09:31-0400Systolic blood jfdtcubw700 mm[Hg]Isidra Sanchez APRN.REMELT OPERATOR Work Phone: [facility]08-02-2023 09:00-0400Body ollezz757.56 cmPetra Wilson Other [employer] Other 08-02-2023 09:00-0400Body mass index (BMI) [Ratio] 26.77 kg/i6JbtimxeiPetra Wilson Other [employer] Other 08-02-2023 09:00-0400Body wsomrz72.76 kgPetra Wilson Other [employer] Other 08-02-2023 09:00-0400Diastolic blood mm[Hg] Petra Wilson Other [employer] Other 08-02-2023 09:00-0400Systolic blood mm[Hg] Petra Wilson Other [employer] Other 06-23-2023 14:00-0400Body ugfdks768.56 cmTrung Magdaleno Other [employer] Other 06-23-2023 14:00-0400Body mass index (BMI) [Ratio] 26.95 kg/b0DgcvxuTrung Magdaleno Other [employer] Other 06-23-2023 14:00-0400Body .22 kgTrung Magdaleno Other [employer] Other 06-23-2023 14:00-0400Diastolic blood zpooxdbf50 mm[Hg] Trung Magdaleno Other [employer] Other 06-23-2023 14:00-0400Systolic blood pjopvfjn349 mm[Hg] Trung Magdaleno Other [employer] Other 04-27-2023 08:23-0400Body sbudzv45.4 kgJustin Preston MD Work Phone: [facility]04-27-2023 08:23-0400Diastolic blood odaeofyn94 mm[Hg]Justin Preston MD Work Phone: [facility]04-27-2023 08:23-0400Heart rate86 /min Justin Preston MD Work Phone: [phone]04-27-2023 08:23-0400Systolic blood muknktzv572 mm[Hg]Justin Preston MD Work Phone: [phone]09-16-2022 08:41-0400Body .85 kgJustin Preston MD Work Phone: [phone]09-16-2022 08:41-0400Diastolic blood ssxezgtb20 mm[Hg]Justin Preston MD Work Phone: [phone]09-16-2022 08:41-0400Heart rate69 /min Justin Preston MD Work Phone: [facility]09-16-2022 08:41-0400Systolic blood ktxzgrye056 mm[Hg]Justin Preston MD Work Phone: [facility]07-18-2022 13:08-0400Blood Pressure LocationMichael NILL [phone]-TjoxrSelect [facility] [place] 07-18-2022 13:08-0400Diastolic blood izrequiv74 mm[Hg] Terrence NILL [phone]-HsdfdSelect [facility]ty [facility] [place] 07-18-2022 13:08-0400Heart rate79 /minMichael NILL [phone]-QaqwkSelect [facility] [place] 07-18-2022 13:08-0400Respiratory rate16 /minMichael NILL [phone]-YiagpFort [facility] Hospital Surgery [place] 620518-66-1482 13:08-0400Systolic blood eziquymf793 mm[Hg] Terrence GOOD [phone]-KydreFort Hamilton Hospital Surgery [place] Encounters Encounter DateEncounter TypeCare ProviderFacilityStart: 04-18-2025 End: 49-71-3026Sozicozew Result EncounterCorey Maureen DO Work Phone: noms External Department UnsolicitedStart: 04-18-2025 End: 68-10-6660Cdyjeyzez Result EncounterCorey Maureen DO Work Phone: noms External Department UnsolicitedStart: 03-31-2025 End: 80-53-0749ykieslimwpZGVTNG E BRAUNFacility:[facility]: 09-20-2024 End: 61-68-9651XstyshPxnqclvs Tsai MD Work Phone: RheumatologyComment on above:Refill RequestStart: 05-18-2024 End: 40-29-9986Xcfzkaxps encounterJustin Preston MD Work Phone: RheumatologyComment on above:ResultsStart: 05-17-2024 End: 81-99-8462Fwhucqyhok hospital visit by physicianXr [facility]ainRad[facility] Comment on above:Cervicalgia [M54.2]Start: 05-17-2024 End: 83-81-6451okcwddeyslXWOCMT E BRAUNFacility:[facility]: 05-17-2024 End: 74-39-6353Fxhqipi encounter procedureJustin Preston MD Work Phone: RheumatologyComment [...] Family history of rheumatoid arthritisStart: 03-06-2024 End: 89-63-0945oqkndgtkijBKDNFHNYUNorthern Light [facility] Hospital HospitalStart: 32-42-2898Yphntyqqi for gynecological examination (general) (routine) without abnormal findingsJersey Shore University Medical Center HospitalStart: 17-65-9990Mmpieo Justin Preston MD Work Phone: RheumatologyComment on above:Refill RequestStart: 37-01-3484Zjpfhfkkk encounterJustin Preston MD Work Phone: RheumatologyComment on above:ResultsStart: 09-16-2023 Telephone encounterJustin Preston MD Work Phone: RheumatologyComment on above:ResultsStart: 08-10-2023 ambulatoryMARCIA E BRAUNProMedica Strathmore HospitalStart: 08-10-2023 End: 06-38-5255ezbnqhkhbfMIYZAvita Health System [facility] HospitalStart: 08-10-2023 End: 15-35-5167Yomxui outpatient visit 15 minutesToashley Rivas MD Work Phone: ProAs[facility] Hospitalca Physicians Rollyt VascularComment on above: Venous hypertension (Primary Dx); Varicose veins of bilateral lower extremities with painStart: 07-10-2023 End: 75-28-0343lqeiodpazpLSGF W SARAHSelect Medical Specialty [facility] Inc Ambulatory PPG Start: 07-10-2023 End: 47-91-4828Qcvngp outpatient new 30 minutesAdam W Sarah HUNTER Work Phone: ProAshtabula [facility] Hospitalca Physicians Jobst VascularComment on above: Venous insufficiency (Primary Dx)Start: 41-14-6466Syyistndb encounterJustin Preston MD Work Phone: RheumatologyComment on above:ResultsStart: 05-04-2023 ambulatoryGirgis E Pierre DO Work Phone: Pain ManagementComment on above:pain questionnaire Start: 29-32-2413P-mail encounter from Lilo Jay DO Work Phone: [facility] MEDICAL CENTERtart: 84-81-0662Zfubfmdht encounter Justin Preston MD Work Phone: RheumatologyComment on above:ResultsStart: 04-06-2023 ambulatoryNo Pcp APRNNCoatesville Veterans Affairs Medical Center EnterpriseStart: 53-56-4454Qnkryulma encounterIsidra Sanchez APRN.REMELT OPERATOR Work Phone: RheumatologyComment on above:ResultsStart: 04-05-2023 End: 51-66-4099Llkltuc encounter Evelia Sanchez APRN.REMELT OPERATOR Work Phone: RheumatologyComment on above:GEGE positive (Primary Dx); Inflammatory arthritis; Chronic bilateral low back pain with left-sided sciatica; Fibromyalgia; Secondary osteoarthritis of multiple sites; Long-term use of high-risk medicationStart: 04-05-2023 End: 04-25-4672Osuvnxzzzr hospital visit by Bjorn Parker [facility] RadiologyComment on above:Postmenopausal osteoporosis of multiple sites [M81.0] Start: 17-23-4133CejlcgOsstcyqr Tsai MD Work Phone: RheumatologyComment on above:Refill RequestStart: 01-25-2023 End: 97-21-4050fchjlgwaopGwzkdpsu Rohrbacher Other [employer] Other Start: 05-83-3654Pxlpxt outpatient visit 15 minutes Petra Rocha [facility] ClinicStart: 12-26-2022 End: 78-22-5649tzdjerzwriDqhbaz Braun Other [employer] Other Start: 19-21-2568Ezuvfhxsf encounterMarcia BraunTuscarawas Hospital ClinicStart: 12-16-2022 End: 41-57-2376nnoizyybplGrjiti Braun Other [facility] [employer] Other Start: 20-40-7617Gaxlka outpatient visit 15 minutes Trung MagdalenoMetroHealth Cleveland Heights Medical Centertart: 45-31-3112Pxnzzipgo encounterJustin Preston MD Work Phone: RheumatologyComment on above:ResultsStart: 10-20-2022 End: 48-15-5647Xnplske encounter procedureJustin Preston MD Work Phone: RheumatologyComment on above:Inflammatory arthritis (Primary Dx); Postmenopausal osteoporosis of multiple sites; Chronic bilateral low back pain with left-sided sciatica; Fibromyalgia; GEGE positive; Chronic pain of both knees; Secondary osteoarthritis of multiple sites; Long-term use of high-risk medication; Family history of gout; Family history of rheumatoid arthritis; Elevated C-reactive protein (CRP); Elevated sed rate; Chronic hip pain, bilateralStart: 58-04-7957Onditwtmm encounterJustin Preston MD Work Phone: RheumatologyComment on above:ResultsStart: 06-14-2022 Gynecological examination normalJennifer Rohrbacher Other [employer] Other Start: 21-67-8520Yyhpvglbl encounterJustin Preston MD Work Phone: RheumatologyComment on above:ResultsStart: 03-13-2022 Telephone encounterJustin Preston MD Work Phone: RheumatologyComment on above:ResultsStart: 03-11-2022 ambulatorySammi Lugo RT(R)RadiologyComment on above:Radiology XRStart: 03-11-2022 End: 10-99-8481Dqcgaug encounter procedureSammi Lugo RT(R)CC [facility] Comment on above:Inflammatory arthritis (Primary Dx); Bilateral hand pain; Chronic bilateral low back pain with left-sided sciatica; Fibromyalgia; GEGE positive; Chronic pain of both knees; Chronic elbow pain, right; Secondary osteoarthritis of multiple sites; Long-term use of high-risk medication; Family history of gout; Family history of rheumatoid arthritis; Elevated C-reactive protein (CRP); Elevated sed rate; Numbness and tingling in both handsStart: 03-11-2022 End: 49-51-5322Rydwkvwzgn hospital visit by physicianXr [facility] Comment on above:Bilateral hand pain [M79.641, M79.642]Start: 41-26-1414Ctsvgqsherie Preston MD Work Phone: RheumatologyComment on above:Refill RequestStart: 02-04-2022 End: 22-50-2153uppsbweejdQkeogmg R NILLFacility:FTMCStart: 45-44-2887Bunmlmlan encounterJustin Preston MD Work Phone: RheumatologyComment on above:ResultsStart: 01-28-2022 End: 42-39-3824reoeapbhorTytoows R NILLFacility:FTMCStart: 01-10-2022 End: 27-04-7334wfpyslkxmeLecgbwt R NILLFacility: kStart: 01-10-2022 End: 90-66-3351Gfdipjr encounter procedureMichael R NILL [phone]-YpwcuSelect [facility] [place] Start: 17-51-0492zjpyygnarkDubzuvu NILLFacility: NorwalkStart: 12-17-2021 End: 92-55-3979tvppsspuycUX SAVANNA KARGONZALOKFacility:E7Jlsoy: 12-17-2021 ambulatoryMichael NILLFacility: Anna MarieevueStart: 12-15-2021 End: 49-38-7954mykhogtmquZV SAVANNA GONZALEZFacility:I5Fkoix: 11-08-2021 End: 85-76-2140nggjfwkybyGT SAVANNA GONZALEZFacility:I0Ronlf: 63-88-7008Faxjualin encounterJustin Preston MD Work Phone: RheumatologyComment on above:ResultsStart: 06-21-2021 End: 56-36-1582oevcucktoaSF TRUNG E SHARLAFacility:U6Lmpin: 01-25-2021 End: 93-11-1525Leeambopyy hospital visit by physicianXr [facility] Comment on above:Bilateral hand pain [M79.641, M79.642] Procedures DateProcedureProcedure DetailPerforming ClinicianStart: 24-98-4360DW TOMOSYNTHESIS SCREENING BICorey Maureen DO Work Phone: Start: 81-38-4387Wfhus hand minimum 3 viewsJustin Preston MD Work Phone: Start: 95-60-6686Qhgre elbow 2 viewsJustin Preston MD Work Phone: Start: 59-05-9206Ukeasyrzc of nerve root of lumbar spine using fluoroscopic guidanceMichael NILL Comment on above:Left L4+L5 50% relief to presentStart: 38-50-6196CkpavtlxzclYxesveg NILL Start: 53-79-3770Uoyrbaqzo visitJennifer Rohrbacher Other Cesarean sectionMichael NILL Depression screeningJennifer Rohrbacher Other Loop electrosurgical excision procedureMichael NILL Screening for malignant neoplasm of breastJennifer Rohrbacher Other Screening for malignant neoplasm of colonJennifer Rohrbacher Other Plan of Treatment DateCare ActivityDetailAuthorStart: 38-18-4354Vxybonyx ScreeningDiabetes ScreeningMemorial Health System [facility] Hospitalvel[facility] ClinicStart: 90-00-5050Jtokhhdd ScreeningDiabetes Screening [facility] ClinicStart: 98-48-1316Zlbyizqo ScreeningDiabetes ScreeningOhioHealth Arthur G.[facility]. [facility], [facility], Cancer Centertart: 74-95-6129Ykkaiahf ScreeningDiabetes ScreeningAdena Health System Start: 30-20-0301Qtsizjbz ScreeningDiabetes ScreeningOhioHealth Arthur G.[facility]. [facility], [facility], Cancer Centertart: 81-43-0801SDLFRXLM SCREENDIABETES SCREENOhioHealth Arthur G.H. [facility], MD, Cancer Centertart: 08-05-2025 DIABETES SCREENDIABETES SCREENOhioHealth Arthur G.[facility]. [facility], [facility], Cancer Centertart: 05-19-2025 End: 80-32-7931Ddosfyj encounter coowwbvfa57/24/2025 9:00 AM EST Procedure Visit NOMXochitl DISLA [address] [place] [id number] Isidra Soto PA [address] [place] [address] NOMXochitl MYRICKtart: 04-29-2025 DIABETES SCREENDIABETES [facility]: 04-08-2025 End: 23-99-5482Thglxkf encounter ygjvgqyfn64/14/2025 11:15 AM EDT Appointment Radiology [address] [place] [address] RFM-AXIAL SKELETONRadiologyComment on above:DXA-AXIAL SKELETONStart: 03-31-2025 End: 66-18-1878Bzddsaj encounter vdbtgelgg43/06/2025 8:20 AM EDT Office Visit Rheumatology [address] [place] [address] Justin Preston MD [address] [facility] [place] [address] for osteoarthritis/osteopenia fu OV 6-12months.Rheumatology Comment on above:for osteoarthritis/osteopenia fu OV 6-12months.Start: 70-59-1184Poofscgoj for malignant neoplasm of breastMammogram ScreeningOhioHealth Arthur G.[facility]. [facility], [facility], Cancer Centertart: 76-42-1752IJHSNVEO SCREENDIABETES SCREENOhioHealth Arthur G.[facility]. [facility], MD, Cancer Centertart: 13-05-3196VMLQAXNZ SCREENDIABETES SCREENOhioHealth Arthur G.H. [facility], MD, Cancer Centertart: 10-21-2024 End: 26-96-0674Fxhbpjv encounter fdrtfdxvi55/28/2025 8:40 AM EDT Office Visit Rheumatology [address] [place] [address] Justin Preston MD [address] [place], [place] [id number] for osteoarthritis/osteopenia/high crp/+GEGE fu OV 6-12months RheumatologyComment on above:for osteoarthritis/osteopenia/high crp/+GEGE fu OV 6-12monthsStart: 24-47-0665Ighwi BMI ScreeningAdult BMI ScreeningAdena [facility]ike [facility] SystemStart: 42-12-0118Gbrvfgg ScreeningTobacco ScreeningProUniversity Hospitals [facility] SystemStart: 04-22-2024 End: 79-70-3760Vlqtjcd encounter jmzkonuub51/28/2024 8:30 AM EDT Office Visit Rheumatology [address] [place] [address] Isidra Sanchez, CRUISE AGENT.REMELT OPERATOR [address] [place] [address] for osteoarthritis/osteopenia/high crp/+GEGE fu OV 6-12months RheumatologyComment on above:for osteoarthritis/osteopenia/high crp/+GEGE fu OV 6-12monthsStart: 23-03-5304Eehcm-19 Vaccine ( season)Covid-19 Vaccine ( season)[facility]: 08-46-0819Xjsgigpsf vaccination [facility]art: 12-17-2023 End: 03-34-946007232174-xxfsuzrarxzefo D3 [Mass/volume] in Serum or PlasmaVITAMIN D 25 HYDROXY Lab Routine Vitamin D deficiency Expected: 12/17/2023 (Approximate), Expires: 09/15/2024[facility] Work Phone: Comment on above:Expected: 12/17/2023 (Approximate), Expires: 09/15/2024Start: 12-17-2023 End: 09-15-2024 reactive protein [Mass/volume] in Serum or PlasmaC-REACTIVE PROTEIN (CRP) Lab Routine Elevated sed rate Elevated C-reactive protein (CRP) Expected: 12/17/2023 (Approximate), Expires: 09/15/2024[facility] Work Phone: Comment on above:Expected: 12/17/2023 (Approximate), Expires: 09/15/2024Start: 12-17-2023 End: 83-26-8645UBY panel - Blood by Automated countCBC Lab Routine Anemia of chronic disease Expected: 12/17/2023 (Approximate), Expires: 09/15/2024[facility] Work Phone: Comment on above:Expected: 12/17/2023 (Approximate), Expires: 09/15/2024Start: 12-17-2023 End: 27-70-2397Fcdpwhknhljbu metabolic 2000 panel - Serum or PlasmaCOMP METABOLIC PANEL Lab Routine Elevated LFTs Expected: 12/17/2023 (Approximate), Expires: 09/15/2024[facility] Work Phone: Comment on above:Expected: 12/17/2023 (Approximate), Expires: 09/15/2024Start: 12-17-2023 End: 73-57-2231Ejkpolinqsh sedimentation rateSED RATE WESTERGREN Lab Routine Elevated sed rate Elevated C-reactive protein (CRP) Expected: 12/17/2023 (Approximate), Expires: 09/15/2024[facility] Work Phone: Comment on above:Expected: 12/17/2023 (Approximate), Expires: 09/15/2024Start: 08-28-2023 End: 090828-xijibfbjvhweww D3 [Mass/volume] in Serum or PlasmaVITAMIN D 25 HYDROXY Lab Routine Vitamin D deficiency Expected: 08/28/2023 (Approximate), Expires: 05/29/2024[facility] Work Phone: Comment on above:Expected: 08/28/2023 (Approximate), Expires: 05/29/2024Start: 08-28-2023 End: 05-29-2024 reactive protein [Mass/volume] in Serum or PlasmaC-REACTIVE PROTEIN (CRP) Lab Routine Elevated sed rate Elevated C-reactive protein (CRP) Expected: 08/28/2023 (Approximate), Expires: 05/29/2024[facility] Work Phone: Comment on above:Expected: 08/28/2023 (Approximate), Expires: 05/29/2024Start: 08-28-2023 End: 87-16-0010NLX panel - Blood by Automated countCBC Lab Routine Anemia of chronic disease Expected: 08/28/2023 (Approximate), Expires: 05/29/2024[facility] Work Phone: Comment on above:Expected: 08/28/2023 (Approximate), Expires: 05/29/2024Start: 08-28-2023 End: 65-10-9674Swonewxbpwoge metabolic 2000 panel - Serum or PlasmaCOMP METABOLIC PANEL Lab Routine Elevated LFTs Expected: 08/28/2023 (Approximate), Expires: 05/29/2024[facility] Work Phone: Comment on above:Expected: 08/28/2023 (Approximate), Expires: 05/29/2024Start: 08-28-2023 End: 77-91-2041Jgkcfjmcyyo sedimentation rateSED RATE WESTERGREN Lab Routine Elevated sed rate Elevated C-reactive protein (CRP) Expected: 08/28/2023 (Approximate), Expires: 05/29/2024[facility] Work Phone: Comment on above:Expected: 08/28/2023 (Approximate), Expires: 05/29/2024Start: 08-21-2023 End: 72-44-3365Zfhzuxh encounter enmjgjgws15/26/2024 11:00 AM EST Office Visit [facility] [address] [place] [phone] Giovany Rivas MD [address] [place] [address], [address] [place] [address] 945- Vadimedicjeffery [facility] VascularStart: 08-14-2023 End: 82-45-1658Lbgkfoh encounter gydrtsbxc17/19/2024 8:30 AM EST Appointment [facility] - Vascular [address] [place] [address] [facility] - VascularStart: 07-10-2023 End: 53-53-2215ZW.doppler Lower extremity vein - bilateralVas venous duplex insufficiency lwr bi Vascular Ultrasound Routine Venous insufficiency Expected: 07/10/2023, Expires: 07/10/2024[facility] Work Phone: Comment on above:Expected: 07/10/2023, Expires: 07/10/2024Start: 65-75-0390Lrsrskzksb Health ScreeningBehavioral Health ScreeningOhioHealth Arthur G.[facility], Cancer Centertart: 14-92-2008Vsetepdeko AssessmentDepression AssessmentOhioHealth Arthur G.[facility]. [facility], [facility], Cancer Centertart: 52-18-2828Pgdlk-19 Vaccine ( season) Covid-19 Vaccine ()[facility] Centertart: 85-30-5616Dfasnmdld vaccinationOhioHealth Arthur G.[facility]. [facility], [facility], Cancer Centertart: 02-06-2023 End: 267820-wvjdfqsowbmlsc D3 [Mass/volume] in Serum or PlasmaVITAMIN D 25 HYDROXY Lab Routine Vitamin D deficiency Expected: 02/06/2023 (Approximate), Expires: 11/07/2023[facility] Work Phone: Comment on above:Expected: 02/06/2023 (Approximate), Expires: 11/07/2023Start: 02-06-2023 End: 11-07-2023 reactive protein [Mass/volume] in Serum or PlasmaC-REACTIVE PROTEIN (CRP) Lab Routine Elevated sed rate Elevated C-reactive protein (CRP) Expected: 02/06/2023 (Approximate), Expires: 11/07/2023[facility] Work Phone: Comment on above:Expected: 02/06/2023 (Approximate), Expires: 11/07/2023Start: 02-06-2023 End: 49-37-3334CRY panel - Blood by Automated countCBC Lab Routine Anemia of chronic disease Expected: 02/06/2023 (Approximate), Expires: 11/07/2023[facility] Work Phone: Comment on above:Expected: 02/06/2023 (Approximate), Expires: 11/07/2023Start: 02-06-2023 End: 66-17-8084Ggfwjhmefqjgd metabolic 2000 panel - Serum or PlasmaCOMP METABOLIC PANEL Lab Routine Elevated LFTs Expected: 02/06/2023 (Approximate), Expires: 11/07/2023[facility] Work Phone: Comment on above:Expected: 02/06/2023 (Approximate), Expires: 11/07/2023Start: 02-06-2023 End: 14-86-2878Fdfbrejwdxl sedimentation rateSED RATE WESTERGREN Lab Routine Elevated sed rate Elevated C-reactive protein (CRP) Expected: 02/06/2023 (Approximate), Expires: 11/07/2023[facility] Work Phone: Comment on above:Expected: 02/06/2023 (Approximate), Expires: 11/07/2023Start: 11-03-2022 End: 70-49-455924894353-krsyfbhbdkgdye D3 [Mass/volume] in Serum or PlasmaVITAMIN D 25 HYDROXY Lab Routine Vitamin D deficiency Expected: 11/03/2022 (Approximate), Expires: 08/06/2023[facility] Work Phone: Comment on above:Expected: 11/03/2022 (Approximate), Expires: 08/06/2023Start: 11-03-2022 End: 08-06-2023 reactive protein [Mass/volume] in Serum or PlasmaC-REACTIVE PROTEIN (CRP) Lab Routine Elevated sed rate Elevated C-reactive protein (CRP) Expected: 11/03/2022 (Approximate), Expires: 08/06/2023[facility] Work Phone: Comment on above:Expected: 11/03/2022 (Approximate), Expires: 08/06/2023Start: 11-03-2022 End: 98-59-5456CZE panel - Blood by Automated countCBC Lab Routine Anemia of chronic disease Expected: 11/03/2022 (Approximate), Expires: 08/06/2023[facility] Work Phone: Comment on above:Expected: 11/03/2022 (Approximate), Expires: 08/06/2023Start: 11-03-2022 End: 67-06-7940Ejqmunvosxgeq metabolic 2000 panel - Serum or PlasmaCOMP METABOLIC PANEL Lab Routine Elevated LFTs Expected: 11/03/2022 (Approximate), Expires: 08/06/2023[facility] Work Phone: Comment on above:Expected: 11/03/2022 (Approximate), Expires: 08/06/2023Start: 11-03-2022 End: 14-04-4309Zozlxfuqzfj sedimentation rateSED RATE WESTERGREN Lab Routine Elevated sed rate Elevated C-reactive protein (CRP) Expected: 11/03/2022 (Approximate), Expires: 08/06/2023[facility] Work Phone: Comment on above:Expected: 11/03/2022 (Approximate), Expires: 08/06/2023Start: 07-31-2022 End: 98-36-204905802143-fnclnrzgurgppz D3 [Mass/volume] in Serum or PlasmaVITAMIN D 25 HYDROXY Lab Routine Vitamin D deficiency Expected: 07/31/2022 (Approximate), Expires: 04/30/2023[facility] Work Phone: Comment on above:Expected: 07/31/2022 (Approximate), Expires: 04/30/2023Start: 07-31-2022 End: 04-30-2023 reactive protein [Mass/volume] in Serum or PlasmaC-REACTIVE PROTEIN (CRP) Lab Routine Elevated sed rate Elevated C-reactive protein (CRP) Expected: 07/31/2022 (Approximate), Expires: 04/30/2023[facility] Work Phone: Comment on above:Expected: 07/31/2022 (Approximate), Expires: 04/30/2023Start: 07-31-2022 End: 87-21-7005YXK panel - Blood by Automated countCBC Lab Routine Anemia of chronic disease Expected: 07/31/2022 (Approximate), Expires: 04/30/2023[facility] Work Phone: Comment on above:Expected: 07/31/2022 (Approximate), Expires: 04/30/2023Start: 07-31-2022 End: 23-09-9112Ennwqqnvkcztn metabolic 2000 panel - Serum or PlasmaCOMP METABOLIC PANEL Lab Routine Elevated LFTs Expected: 07/31/2022 (Approximate), Expires: 04/30/2023[facility] Work Phone: Comment on above:Expected: 07/31/2022 (Approximate), Expires: 04/30/2023Start: 07-31-2022 End: 87-51-6475Qtbuutonhxb sedimentation rateSED RATE WESTERGREN Lab Routine Elevated sed rate Elevated C-reactive protein (CRP) Expected: 07/31/2022 (Approximate), Expires: 04/30/2023[facility] Work Phone: Comment on above:Expected: 07/31/2022 (Approximate), Expires: 04/30/2023Start: 04-61-1272FZVVYGRMSO ASSESSMENTDEPRESSION ASSESSMENT [facility]: 05-02-2022 End: 45-66-700272798674-ovnbddasbpavfs D3 [Mass/volume] in Serum or PlasmaVITAMIN D 25 HYDROXY Lab Routine Vitamin D deficiency Expected: 05/02/2022 (Approximate), Expires: 01/30/2023[facility] Work Phone: Comment on above:Expected: 05/02/2022 (Approximate), Expires: 01/30/2023Start: 05-02-2022 End: 01-30-2023 reactive protein [Mass/volume] in Serum or PlasmaC-REACTIVE PROTEIN (CRP) Lab Routine Elevated sed rate Elevated C-reactive protein (CRP) Expected: 05/02/2022 (Approximate), Expires: 01/30/2023[facility] Work Phone: Comment on above:Expected: 05/02/2022 (Approximate), Expires: 01/30/2023Start: 05-02-2022 End: 60-72-4619ESJ panel - Blood by Automated countCBC Lab Routine Anemia of chronic disease Expected: 05/02/2022 (Approximate), Expires: 01/30/2023[facility] Work Phone: Comment on above:Expected: 05/02/2022 (Approximate), Expires: 01/30/2023Start: 05-02-2022 End: 14-74-8391Xwhgjcgczsyup metabolic 2000 panel - Serum or PlasmaCOMP METABOLIC PANEL Lab Routine Elevated LFTs Expected: 05/02/2022 (Approximate), Expires: 01/30/2023[facility] Work Phone: Comment on above:Expected: 05/02/2022 (Approximate), Expires: 01/30/2023Start: 05-02-2022 End: 74-76-7910Zkdoxwpxunk sedimentation rateSED RATE WESTERGREN Lab Routine Elevated sed rate Elevated C-reactive protein (CRP) Expected: 05/02/2022 (Approximate), Expires: 01/30/2023[facility] Work Phone: Comment on above:Expected: 05/02/2022 (Approximate), Expires: 01/30/2023Start: 19-46-1674Fkvujixjx vaccinationOhioHealth Arthur G.H. [facility], MD, Cancer Centertart: 01-27-2022 End: 10-27-2022 reactive protein [Mass/volume] in Serum or PlasmaC-REACTIVE PROTEIN (CRP) Lab Routine Elevated sed rate Elevated C-reactive protein (CRP) Expected: 01/27/2022 (Approximate), Expires: 10/27/2022[facility] Work Phone: Comment on above:Expected: 01/27/2022 (Approximate), Expires: 10/27/2022Start: 01-27-2022 End: 29-83-3465PLL panel - Blood by Automated countCBC Lab Routine Anemia of chronic disease Expected: 01/27/2022 (Approximate), Expires: 10/27/2022[facility] Work Phone: Comment on above:Expected: 01/27/2022 (Approximate), Expires: 10/27/2022Start: 01-27-2022 End: 24-46-5554Xmkolgyoqtsyn metabolic 2000 panel - Serum or PlasmaCOMP METABOLIC PANEL Lab Routine Elevated LFTs Expected: 01/27/2022 (Approximate), Expires: 10/27/2022[facility] Work Phone: Comment on above:Expected: 01/27/2022 (Approximate), Expires: 10/27/2022Start: 01-27-2022 End: 55-13-7795Rkzywxbypab sedimentation rateSED RATE WESTERGREN Lab Routine Elevated sed rate Elevated C-reactive protein (CRP) Expected: 01/27/2022 (Approximate), Expires: 10/27/2022[facility] Work Phone: Comment on above:Expected: 01/27/2022 (Approximate), Expires: 10/27/2022Start: 01-27-2022 End: 56-60-8753DALUXPM B12 BLOODVITAMIN B12 BLOOD Lab Routine Vitamin B12 deficiency Expected: 01/27/2022 (Approximate), Expires: 10/27/2022[facility] Work Phone: Comment on above:Expected: 01/27/2022 (Approximate), Expires: 10/27/2022Start: 01-27-2022 End: 79-65-0417IRSUIUV D 25 HYDROXYVITAMIN D 25 HYDROXY Lab Routine Vitamin D deficiency Expected: 01/27/2022 (Approximate), Expires: 10/27/2022[facility] Work Phone: Comment on above:Expected: 01/27/2022 (Approximate), Expires: 10/27/2022Start: 96-21-0619POMMNVLECS ASSESSMENTDEPRESSION ASSESSMENT [facility]: 77-11-8665Tlzpmgnyrhvkcg of varicella zoster vaccine Zoster (Shingles) Vaccine (1 of 2)KDS SystemStart: 12-06-2019 Pneumococcal Vaccine: 50+ (1 of 1 - PCV)Pneumococcal Vaccine: 50+ (1 of 1 - PCV) [facility]: 43-25-3204CGPNIQGG VACCINE (1 of 2)SHINGRIX VACCINE (1 of 2)[facility]: 89-37-4329EMZODEGSV (FIT-DNA)COLOGUARD (FIT-DNA) [facility]: 57-55-3501ZrglbgnzsptCYJWHWZSAIILqpedpwkt ClinicStart: 09-91-2144WXOGMXWQNO CANCER SCREENINGCOLORECTAL CANCER SCREENINGAdena Health System Start: 13-85-9328KS COLONOGRAPHYCT COLONOGRAPHYOhioHealth Arthur G.[facility]. [facility] Cancer Centertart: 2014 FECAL OCCULT BLOODFECAL OCCULT BLOODOhioHealth Arthur G.[facility]. [facility] Cancer Centertart: 11-99-3433Wjnvf 1996 panel - Serum or PlasmaLipid ScreeningOhioHealth Arthur G.[facility]. [facility] Cancer Centertart: 91-30-6385Vnhxi panelLipid ScreeningOhioHealth [facility] Centertart: 55-22-9147YLXJY SCREENLIPID SCREEN [facility]ertart: 74-08-8228Xnegiwvfx for malignant neoplasm of colon [facility]art: 60-51-5158OJILKIHQLPFLKLOWMDGSLPJBOVGiyeurtbu Clinic Start: 30-16-6550IvseatlbtqsDwizhevbi ClinicStart: 66-11-6710Dsvjlgwbg for malignant neoplasm of breastMammogram ScreeningOhioHealth Arthur [facility] Cancer Centertart: 12-06-1999 HPV TESTINGHPV TESTINGOhioHealth Arthur G.[facility]. [facility] Cancer Centertart: 49-07-1959Uxbrcixls for malignant neoplasm of cervixHPV TestingOhioHealth Arthur G.H. [facility], [facility] Cancer Centertart: 39-71-8678NJT TESTINGPAP TESTINGOhioHealth Arthur [facility] Cancer Centertart: 12-31-1986Vaxysjhrb for malignant neoplasm of cervixOhioHealth Arthur G.[facility]. [facility] Cancer Centertart: 12-52-1753SPcB,Tdap and Td Vaccines (1 - Tdap) DTaP,Tdap and Td Vaccines (1 - Tdap)[facility]MLafene [facility] Centertart: 1988 Hepatitis B Vaccine (1 of 3 - 19+ 3-dose series)Hepatitis B Vaccine (1 of 3 - 19+ 3-dose series)[facility]: 47-56-9043VHESMECL VACCINE (1 of 2) SHINGRIX VACCINE (1 of 2)[facility]: 25-49-1617Vuzzs microalbumin profileOhioHealth Arthur G.[facility]. [facility], [facility] Cancer Centertart: 29-20-6382Vcxin BMI Follow Up PlanAdult BMI Follow Up PlanProDelaware County Hospitaltart: 32-66-4032Odfjhpg ScreeningAnxiety ScreeningOhioHealth [facility] Centertart: 72-68-9360Qvehcinvun ScreeningDepression ScreeningOhioHealth [facility] Centertart: 94-63-2209EAZ SCREENINGHIV SCREENINGOhioHealth Arthur [facility] Centertart: 66-89-7096VEB screeningHIV ScreeningOhioHealth [facility] Centertart: 86-08-0413Hivkz depression screening assessmentDEPRESSION SCREENINGOhioHealth [facility] Centertart: 26-70-2947THCRN-19 VACCINE (1)COVID-19 VACCINE (1)[facility] Start: 90-57-2253GTQBKDAXBLIB (1 - PCV)PNEUMOCOCCAL (1 - PCV)[facility] Start: 91-10-1066Slyugkcqrhxu vaccinationOhioHealth Arthur G.[facility]. [facility] Cancer Centertart: 17-72-9829Fcbsy- 19 Vaccine (#1)Covid-19 Vaccine (#1)[facility]: 44-62-0909IXVNC-19 VACCINE (#1)COVID-19 VACCINE (#1)[facility]: 59-63-0253JXDMVJYIE B (1 of 3 - 3-dose series)HEPATITIS B (1 of 3 - 3-dose series)[facility]: 68-11-1381Nlvlbollj B Vaccine (1 of 3 - 3-dose series)Hepatitis B Vaccine (1 of 3 - 3-dose series)[facility] End: 54-46-3802OK DXA TRABECULAR BONE SCORE (TBS)BD DXA TRABECULAR BONE SCORE (TBS) Radiology Routine Postmenopausal osteoporosis of multiple sites 1 Occurrences starting 05/17/2024 until 5Cmadison [facility] ClinicComment on above:1 Occurrences starting 05/17/2024 until 06/16/2025 End: 74-79-5225LZJ Skeletal system.axial Views for bone densityDXA-AXIAL SKELETON Radiology Routine Postmenopausal osteoporosis of multiple sites 1 Occurrences starting 05/17/2024 until 5[facility] ClinicComment [facility] above:1 Occurrences starting 05/17/2024 until 06/16/2025 End: 23-66-0831SKH-AXIAL SKELETONDXA-AXIAL SKELETON Radiology Routine Postmenopausal osteoporosis of multiple sites 1 Occurrences starting 10/20[facility]2022 [facility] Work Phone: Comment on above:1 Occurrences starting 10/20/2022 until 4DXA-AXIAL SKELETONDXA-AXIAL SKELETON Radiology Routine Postmenopausal osteoporosis of multiple sites 04/05/2023 9:13 AM [facility] Work Phone: End: 15-90-3814NFM-FOREARM SKELETONDXA-FOREARM SKELETON Radiology Routine Postmenopausal osteoporosis of multiple sites 1 Occurrences starting 10/20/2022 until 11/19/2023[facility] Work Phone: Comment on above:1 Occurrences starting 10/20/2022 until 4DXA-FOREARM SKELETONDXA-FOREARM SKELETON Radiology Routine Postmenopausal osteoporosis of multiple sites 04/05/2023 9:13 AM [facility] Work Phone: End: 46-25-2935TUQ-FOREARM SKELETONDXA-FOREARM SKELETON Radiology Routine Postmenopausal osteoporosis of multiple sites 1 Occurrences starting 05/17/2024 until 06/16/2025[facility] Work Phone: Comment on above:1 Occurrences starting 05/17/2024 until 06/16/2025XR Cervical spine AP and Lateral and obliqueXR CERV OTHER 4V AP/LAT/OBL Radiology Routine Cervicalgia 05/17/2024 11:09 AM [facility] Work Phone: End: 20-96-7184MO Cervical spine AP and Lateral and obliqueXR CERV OTHER 4V AP/LAT/OBL Radiology Routine Cervicalgia 1 Occurrences starting 05/17/2024 until 06/16/2024[facility] Occurrences starting 05/17/2024 until 06/16/2024 End: 12-33-1454WT HAND GENERAL 3V PA/LAT/OBL BILATERALXR HAND GENERAL 3V PA/LAT/OBL BILATERAL Radiology Routine Bilateral hand pain 1 Occurrences starting 03/11/2022 until [facility] Work Phone: Comment on above:1 Occurrences starting 03/11/2022 until 04/10/2023XR HAND GENERAL 3V PA/LAT/OBL BILATERALXR HAND GENERAL 3V PA/LAT/OBL BILATERAL Radiology Routine Bilateral hand pain 03/11/2022 9:52 AM [facility] Work Phone: [facility] Payers DatePayer CategoryPayerPolicy ID2015Medicaid[place] [facility]ICAID [facility] MEDICAID [id number] 2014-Present [phone] [address] [place] [address] [id number] 2008Medicaid (Managed Care)[facility] MEDICAID Member Subscriber Plan / Payer (Effective 2007-Present) Name: Chip Lucas Relation to Subscriber: Self Name: Chip Lucas Payer ID: Not on file Group ID: Not on file Type: Not on file Address: [address] [place] [id number] 2..[id number] 2..1.427224.3.57[id number] 2..1.302067.3.57[id number] 2..1.690331.3.57[id number] 2..1.409538.3.57[id number] 2.0.1.759737.3.57[id number] 2.0.1.026920.3.57[id number] 2..840.1.948683.3.57[id number] 2.16.840.1.104627.3.57[id number] 2..840.1.956814.3.57[id number] 2..840.1.878112.3.57[id number] 2..840.1.30924[id number] Social History DateTypeDetailFacilityStart: 01-25-2021 End: 77-78-4292Ewyzooa smoking status NHISNever smoked tobaccoAdena Health System Start: 01-25-2021 End: 02-52-2318Uiyrvgt use and exposureSmokeless tobacco non-userOhioHealth Arthur G.H. Bing, MD, Cancer Centertart: 08-16-2021 End: 94-58-2727Plggnhe intakeCurrent drinker of alcohol (finding)[facility] Cancer Centertart: 78-15-8474Nwuisnn SDOH Alcohol CommentsociallyCGrand [facility] Start: 30-91-3705Wic Assigned At BirthNot on fileOhioHealth Arthur G.H. Bing, MD, Cancer Centertart: 12-26-2020 End: 20-35-4998Yohjdils to SARS-CoV-2 (event)Not sureOhioHealth Arthur G.H. Bing, MD, Cancer Centertart: 92-21-9493Fyhchgi smoking statusNeverFort [facility] Start: 03-11-2022 End: 93-36-9790Wln Assigned At BirthFemalSumma Health [facility] Start: 03-11-2022 End: 83-03-7593Flroios of Social functionOhioHealth Arthur G.H. Bing, MD, Cancer Centertart: 07-10-2023 End: 16-48-0003Xosyosd intakeLifetime non-drinker (finding)[facility] SystemTobagreat plains [facility] smoking status NHISTobacco smoking consumption unknownNOMS Healthcare Functional Status IrreKladondpjiWursyvTibodqbh20-67-4637Cgrwkvmdrl StatusN/AFcassandra-[facility] General Surgery Mookie Clinical Notes 10-27-2021 to 03-31-2025 Note Date & UcoyKfguDksgbpnx33-25-2990 NoteHNO ID: [id number] Author: JUSTIN PRESTON MD Service: ? Author [...] 0.9, vitamin D 61.7; 04/05/23 saw rheum SAMPLE PROCESSOR taking methotrexate 3tabs week, sometimes make her loopy? 04/05/23 bmd osteopenia 04/05/23 lumbar xrays-Slight disc space narrowing and endplate osteophytes at L4-5 and mild facet hypertrophy. Slight anterolisthesis. L1-2, L2-3 and L3-4 disc spaces are preserved. Posterior confederated coos (more content not included)... [facility]03-29-2025 Telephone encounter Note* Telephone Encounter - Justin [...] above. Please process accordingly. Justin Preston MD [facility]03-29-2025 Miscellaneous Notes* Telephone Encounter - Justin Preston [...] MD 04/05/2023 GEGE positive Rheumatology Isidra Sanchez, CRUISE AGENT.REMELT OPERATOR Upcoming Rheumatology Appointments - Next 365 Days Visit Type Date Time Department [facility] 03/31/2025 8:20 AM [facility] CBC: None on file in the last [...] Instance) Lab Orders None documented in this encounterAdena Health System03-28-2025 Telephone encounter Note * Telephone Encounter - [...] MD 04/05/2023 GEGE positive Rheumatology Isidra Sanchez, CRUISE AGENT.REMELT OPERATOR Upcoming Rheumatology Appointments - Next 365 Days Visit Type Date Time Department [facility] 03/31/2025 8:20 AM [facility] CBC: None on file in the last [...] Open Future (Single Instance) Lab Orders None [facility]11-25-2024 Telephone encounter Note* Telephone Encounter - Dannie Ortiz MA - 05/20/2024 7:30 AM EST patient has viewed the PayParrot message per No.1 Traveller. [facility]11-25-2024 Miscellaneous Notes* Telephone Encounter - Dannie Ortiz MA - 05/20/2024 7:30 AM EST patient has viewed the mychart message per No.1 Traveller. * Telephone Encounter - Justin Preston MD - 05/18/2024 8:05 PM EST Please Call patient if Glycosan note not read to review results/released to My Chart if tests completed at [facility]: One borderline inflammatory test-will monitor. Notify office if agreeable to try a new anti inflammatory medication. Happy to further review and discuss at follow up visit. Thank you. (if high APRs/start dmards/plaquenil/azathioprine/sulfasalazine/arava ) 05/17/24 high crp 0.9;normal esr 10; documented in this encounterAdena Health System11-23-2024 Telephone encounter Note * Telephone Encounter - Justin Preston MD - 05/18/2024 8:05 PM EST Please Call patient if Glycosan note not read to review results/released to My Chart if tests completed at [facility]: One borderline inflammatory test-will monitor. Notify office if agreeable to try a new anti inflammatory medication. Happy to further review and discuss at follow up visit. Thank you. (if high APRs/start dmards/plaquenil/azathioprine/sulfasalazine/arava ) 05/17/24 high crp 0.9;normal esr 10; [facility]11-22-2024 NoteHNO ID: [id number] Author: WILLIE DOMÍNGUEZ RT(R) Service: ? Author [...] PATIENT PRESENTS WITH AN IMPLANTABLE OR ATTACHED PLANNER INTERNSHIP: No RADIOLOGY DEPARTMENT: General X-ray: Exam(s) Completed: Spine X-Ray(s): Cervical AP / LAT / OBL PERIPHERAL IV DATA: Not applicable SIGNED BY: RT Hien(R) May 17, 2024 11:10 [facility]11-22-2024 Instructions* Patient Instructions* Justin Preston MD - [...] machine Next bone mineral density after 04/05/2025 retirement pain recommendations per primary care provider/pain clinic [...] your usual activities immediately. documented in this encounterAdena Health System11-22-2024 NoteHNO ID: [id number] Author: JUSTIN PRESTON MD Service: ? Author [...] 0.9, vitamin D 61.7; 04/05/23 saw rheum SAMPLE PROCESSOR taking methotrexate 3tabs week, sometimes make her [...] home. Has yuly (more content not included)...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 worse pain in AM. Reports pain /10. Has minimal AM stiffness. 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 taking methotrexate 3tabs week, sometimes make her [...] start fall precautions, improved with lyrica change [id number] capsule nightly/notify office if interested in increased [...] labs/tests with patient Provided printed info osteoarthritis 05/17/24 check above tests Modified 05/17/24 KIN 0, [...] machine Next bone mineral density after 04/05/2025 roasterman pain recommendations per primary care provider/pain clinic [...] included preparing to talk with the patient, zopr-vq-rytj patient care, completing clinical documentation, obtaining and/or [...] cc Trung Magdaleno MD documented in this encounterAdena Health System06-28-2024 Telephone encounter Note * Telephone Encounter - [...] above. Please process accordingly. Justin Preston MD [facility]06-28-2024 Miscellaneous Notes* Telephone Encounter - Justin Preston [...] MD 04/05/2023 GEGE positive Rheumatology Isidra Sanchez, CRUISE AGENT.REMELT OPERATOR 10/20/2022 Inflammatory arthritis Rheumatology Justin Preston MD Upcoming Rheumatology Appointments - Next 365 Days Visit Type Date Time Department [facility] 04/22/2024 8:30 AM [facility] 10/21/2024 8:40 AM [facility] CBC: Latest Ref Rng & Units 09/15/2023 [...] Instance) Lab Orders None documented in this encounterAdena Health System06-28-2024 Telephone encounter Note * Telephone Encounter - Malathi Gudino MA - 12/22/2023 7:40 AM EDT Images from the original note were not included. Most recent Rheumatology visit: 10/20/2023 (with Justin Preston) Rheumatology Care Team: None on file Recent Office Visits - This Specialty 10/20/2023 Inflammatory arthritis Rheumatology Justin Preston MD 04/05/2023 GEGE positive Rheumatology Isidra Sanchez, CRUISE AGENT.REMELT OPERATOR 10/20/2022 Inflammatory arthritis Rheumatology Justin Preston MD Upcoming Rheumatology Appointments - Next 365 Days Visit Type Date Time Department [facility] 04/22/2024 8:30 AM [facility] 10/21/2024 8:40 AM [facility] CBC: Latest Ref Rng & Units 09/15/2023 [...] Open Future (Single Instance) Lab Orders None [facility]06-26-2024 Telephone encounter Note* Telephone Encounter - Paty Rosenthal RN - 12/20/2023 7:08 PM EDT Pt identified by name and Pt notified of below message and verbalizes understanding. [facility]06-26-2024 Miscellaneous Notes* Telephone Encounter - Paty Rosenthal [...] 0.9, vitamin D 61.7; 04/05/23 saw rheum SAMPLE PROCESSOR taking methotrexate 3tabs week, sometimes make her loopy? 04/05/23 bmd osteopenia documented in this encounterAdena Health System06-26-2024 Telephone encounter Note * Telephone Encounter - [...] 0.9, vitamin D 61.7; 04/05/23 saw rheum SAMPLE PROCESSOR taking methotrexate 3tabs week, sometimes make her loopy? 04/05/23 bmd osteopenia [facility]03-25-2024 Miscellaneous Notes* Telephone Encounter - Malathi Estrada MA - 09/18/2023 9:10 AM EDT Spoke to pt aware of results and recommendations. 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 documented in this encounterMemorial Health System01-15-2024 History of Present illness Narrative* DALE Hernandez [...] success, and wears them typically during the sparks and while at work. She has no [...] questions regarding her management. Simon Smith PA-C [facility] [place] Pager: [phone] Daytime office/After-hours call number: [phone] DALE Hernandez 07/10/23 1221 documented in this encounterSelect [facility] 123 [id number] Miscellaneous Notes* Telephone Encounter - Malathi Gudino MA - 05/29/2023 10:33 AM EST Pt was notified via . * Telephone Encounter - Justin Preston MD - 05/29/2023 6:39 AM EST Please Call patient if MyChart note not read to review results/released to My Chart if tests completed at F: Stable labs and no inflammation. Continue same [...] 15(17), vitamin D 56.5; documented in this encounterAdena Health System10-18-2023 Miscellaneous Notes* Telephone Encounter - Deepika Villeda [...] 15(17), vitamin D 56.5; documented in this encounterAdena Health System10-12-2023 History of Present illness Narrative* Marcy Garg - 04/06/2023 11:39 AM EDT POPULATION HEALTH NAVIGATION OUTREACH Action/FYI scheduled Patient Identified by Name and : YES, via phone Outreach Outcome/Action Spoke to patient / parent / legal guardian: Patient scheduled Did you use a PCP flex slot to schedule this appointment? N/A Reason for Outreach Care Gap or Scheduling/Wellness visits Payer: Payor: SHAUNA MEDICAID / Plan: [place]AUNA [facility] MEDICAID / Product Type: Medicaid / Care [...] 06, 2023 11:39 AM documented in this encounterAdena Health System10-12-2023 Miscellaneous Notes* Telephone Encounter - Karol Lake - 04/06/2023 9:42 AM EDT Roosevelt Huynh I spoke with Ms. Lucas and she declined to schedule as requested. She stated she would think aboutthings and call us back if she decides to proceed with scheduling a Pain Management consult. Thank you, Karol JONES April 06, 2023 9:42 AM * Telephone Encounter - Indiana Parekh MA - 04/06/2023 8:59 AM EDT Left message for patient to call office regarding below. sent Nosopharmhart routed to scheduling to assist in scheduling pain consult Telephone on 04/05/23 CONSULT TO PAIN MGT * Telephone Encounter - Deepika Villeda RN - 04/05/2023 2:41 PM EDT Left message on machine for pt to call office Please await call back * Telephone Encounter - Isidra Sanchez, CRISTIANO.REMELT OPERATOR - 04/05/2023 12:54 PM EDT Please call [...] pain Avoid aggravating triggers documented in this encounterAdena Health System10-11-2023 Instructions* Patient Instructions* Isidra Sanchez APRN.CNP - [...] machine Next bone mineral density after 04/05/2025 retirement pain recommendations per primary care provider/pain clinic Thank you. documented in this encounterAdena Health System10-11-2023 History of Present illness Narrative* Isidra Sanchez APRN.CNP - 04/05/2023 9:48 AM EDT FOLLOW UP VISIT MD Gwendolyn Hoffmannsrinath Lucas is a 52 year old year old patient here today for follow up of osteoarthritis/ osteopenia/+GEGE/high crp/inflammatory arthritis Interim History: Doing so/so Pain- 08/05 Does not like taking anything for pain Right shoulder upper arm - Elbow tendon pain occasional Thumbs Pains move around Swelling- no AM qyrbsgisn-52-65 min Feels tight and stiff No falls [...] <12 SM ANTIBODY <1.0 AI <0.2 RIBOSOMAL REPAIR SERVICE CLERK <1.0 AI <0.2 CHROMATIN ANTIBODY <1.0 AI <0.2 SSA ANTIBODY <1.0 AI <0.2 SSB ANTIBODY <1.0 AI <0.2 REPAIR SERVICE CLERK ANTIBODY <1.0 AI <0.2 SCLERODERMA AB, [...] with methotrexate trial 2019 Reports pain 11/02 Degenerative joint disease on imaging High esr/crp [...] machine Next bone mineral density after 04/05/2025 retirement pain recommendations per primary care provider/pain clinic Discussed medications dosage, usage, goals of therapy and side effects. Patient instructed to notify provider of any changes in medical condition. Patient in agreement and in understanding of plan. . Follow up: 6 months or sooner Isidra Sanchez APRN.REMELT OPERATOR I spent a total of 34 minutes on the date of the service which included preparing to see the patient, xgnz-fv-rucd patient care, completing clinical documentation, obtaining and/or [...] 69.4 kg (153 lb) documented in this encounterAdena Health System10-11-2023 History of Present illness Narrative* Mayda Gonzalez [...] 05, 2023 8:51 AM documented in this encounterAdena Health System09-26-2023 Miscellaneous Notes* Telephone Encounter - Justin Preston [...] Justin Preston MD * Telephone Encounter - Kathleen Huff - 03/20/2023 11:34 AM EDT Patient has [...] pharmacy. No need to notify patient. Kathleen Jones documented in this encounterAdena Health System08-02-2023 Evaluation note* Encounter Date Diagnosis Assessment Notes [...] verbalizes understanding and agrees to treatment plan. [employer] Other 06-23-2023 Evaluation note* Encounter Date Diagnosis Assessment Notes Treatment Notes Treatment Clinical Notes Nov, Hypoglycemia (ICD-10 - E16.2) Printed lab orders, Will consider completing them, understands that most of treatment is frequent snacks with protein and carbs. Nov,PV (benign positional vertigo), bilateral (ICD-10 - H81.13)Order printed for PT. Pt will set it up. [employer] Other 05-15-2023 Miscellaneous Notes* Telephone Encounter - Irene Maldonado RN - 11/07/2022 6:44 AM EDT Pt notified via AdX[employer] * Telephone Encounter - Justin Preston MD - 11/06/2022 4:23 PM EDT Please Call patient if Scaylhart note not read to review results/released to My Chart if tests completed at F: One mildly high inflammatory test- will monitor. [...] 15(17), vitamin D 56.5; documented in this encounterAdena Health System04-27-2023 History of Present illness Narrative* Justin Preston [...] 12(20), crp 0.7, vitamin D 74.4, vitamin x46-3902; 10/25/21 normal cbc, cmp, esr 20, crp [...] touching your toes, sit-ups, using row machine roasterman pain recommendations per primary care provider/pain clinic [...] which included preparing to see the patient, rygu-aj-zmin patient care, completing clinical documentation, obtaining and/or [...] cc Trung Magdaleno MD documented in this encounterAdena Health System04-27-2023 Instructions* Patient Instructions* Justin Preston MD - [...] machine Next bone mineral density after 10/19/22 retirement pain recommendations per primary care provider/pain clinic [...] your usual activities immediately. documented in this encounterAdena Health System02-13-2023 Miscellaneous Notes* Telephone Encounter - Malathi Gudino MA - 08/08/2022 10:03 AM EST Spoke to pt aware of results and recommendations. * Telephone Encounter - Justin Preston MD - 08/06/2022 9:42 PM EST Please Call patient if Scaylhart note not read to review results/released to [...] 03/11/22 normal hand xrays documented in this encounterAdena Health System11-07-2022 Miscellaneous Notes* Telephone Encounter - Irene Maldonado RN - 05/02/2022 9:25 AM EST Pt notified via S[employer]ppitt * Telephone Encounter - Justin Preston MD - 04/30/2022 9:53 PM EDT Please Call patient if Scaylhart note not read to review results/released to [...] 03/11/22 normal hand xrays documented in this encounterAdena Health System09-19-2022 Miscellaneous Notes* Telephone Encounter - Malathi Gudino MA - 03/14/2022 8:23 AM EDT Pt was notified via . * Telephone Encounter - Justin Preston MD - 03/13/2022 9:47 AM EDT Please Call patient if MyChart note not read to review results/released to My Chart if tests completed at [facility]: Normal hand xrays. May see ortho and or pain clinic if pain symptoms persist or worsen. Happy to further review and discuss at follow up visit. Continue rest of treatment plan per instructions at last office visit. Thank you. 03/11/22 normal hand xrays documented in this encounterAdena Health System09-16-2022 History of Present illness Narrative* Sammi Lugo, RT(R) - 03/11/2022 9:50 AM EDT Radiology Service [...] 11, 2022 9:50 AM documented in this encounterAdena Health System09-16-2022 History of Present illness Narrative* Justin Preston MD - 03/11/2022 8:40 AM EDT Face to face follow up visit for osteoarthritis/ osteopenia/+GEGE/high crp Today's visit 03/11/22:improved with taking lyrica 100mg nightly (but is drowsy the morning afterwards if she takes medication too late in the evening), prefers 100mg capsules since not getting opjolc27kv and 75mg caps at the same time, [...] Low back, thumbs, R>L hips. Reports pain 10/03. minimal AM stiffness. Feels safe at home. [...] 12(20), crp 0.7, vitamin D 74.4, vitamin n85-2596; 10/25/21 normal cbc, cmp, esr 20, crp [...] Toe and heel walk normal. Tone: normal IMPRESSION/DIAGNOSIS:03/11/22 M19.90 Inflammatory arthritis (primary encounter diagnosis) M79.641, [...] touching your toes, sit-ups, using row machine retirement pain recommendations per primary care provider/pain clinic [...] which included preparing to see the patient, ylfc-dp-cuny patient care, completing clinical documentation, obtaining and/or [...] cc Trung Magdaleno MD documented in this encounterAdena Health System09-15-2022 Instructions* Patient Instructions* Justin Preston MD - [...] touching your toes, sit-ups, using row machine retirement pain recommendations per primary care provider/pain clinic Thank you. documented in this encounterAdena Health System08-25-2022 Miscellaneous Notes* Telephone Encounter - Karena Ortiz [...] 365 Days Visit Type Date Time Department [facility] 03/11/2022 8:40 AM [facility] CBC: CBC Latest Ref Rng & Units [...] diagnoses: Vitamin D deficiency documented in this encounterAdena Health System08-15-2022 Note [id number]:127[facility] 02-04-2022 NotePatient: CHIP LUCAS Age: 51 years Sex: Female : 1970 Associated Diagnoses: None Author: FLORENTINO PURDY, Terrence R Subjective no changes to H & PFisher [facility] CenterComment on above:Result Comment: Electronically Signed By: FLORENTINO PURDY, Terrence Bolanos\colton\Date and Time Signed: 02/04/22 09:08 [id number] Miscellaneous Notes* Telephone Encounter - Margie Alvarez [...] 12(20), crp 0.7, vitamin D 74.4, vitamin q21-4856; 10/25/21 normal cbc, cmp, esr 20, crp 0.6, vitamin D 70.2; 07/23/21 normal cbc, cmp, esr 10, crp 0.4; 03/30/21 normal cbc, cmp, esr12, crp 0.7 (1.3) 01/25/21 +GEGE 1:160/homogenous, crp 1.3;NL esr 16, cbc, cmp, vitamin D 76.9, vitamin b12-925;negativequantiferon tb, kristian, dsdna<12, ccp<15; 01/25/21 normal R elbow, both hand, both knee xrays; documented in this encounterAdena Health System07-18-2022 NoteChief Complaint consultation for screening colonoscopy HPI Staff 51 year old female presents on consultation from Dr. Karasik for screening colonoscopy. Denies abdominal or rectal [...] malignant neoplasm of colon: Father. Rheumatoid arthritis: Brother.[facility] HospitalComment on above:Result Comment: Electronically Signed By: FLORENTINO PURDY, Terrence R\.br\Date and Time Signed: 01/10/22 16:55 [id number] Miscellaneous Notes* Telephone Encounter - Karena Ortiz [...] 11:50 AM EDT Please Call patient if MC [...] hand, both knee xrays; documented in this encounterMarietta Osteopathic Clinicaludelaware [facility] + Plan note Future Appointments Appointment Date:01/28/2022 10:00:00 AM Scheduled Provider: Location:[facility] Appointment Type:Surgery PAT COVID Testing Appointment Date:02/04/2022 10:30:00 AM Scheduled Provider: Location:[facility] Appointment Type:Surgery [facility] General Surgery [place] Evaluation note* Diagnosis GEGE positive- Primary Other and unspecified nonspecific immunological findings Elevated LFTs Other abnormal blood chemistry Anemia of chronic disease Anemia of other chronic disease Elevated sed rate Elevated sedimentation rate Elevated C-reactive protein (CRP) Vitamin D deficiency Unspecified vitamin D deficiency Vitamin B12 deficiency Other B-complex deficiencies documented in this encounter [facility] note* Diagnosis Inflammatory arthritis- Primary Unspecified inflammatory polyarthropathy Elevated LFTs Other abnormal blood chemistry Anemia of chronic disease Anemia of other chronic disease Elevated sed rate Elevated sedimentation rate Elevated C-reactive protein (CRP) Vitamin D deficiency Unspecified vitamin D deficiency documented in this encounter [facility] note* Diagnosis GEGE positive Other and unspecified nonspecific immunological findings documented in this encounter [facility] note* Diagnosis Inflammatory arthritis- Primary Unspecified inflammatory [...] in both hands documented in this encounter [facility] note* Diagnosis Inflammatory arthritis- Primary Unspecified inflammatory polyarthropathy Elevated LFTs Other abnormal blood chemistry Anemia of chronic disease Anemia of other chronic disease Elevated sed rate Elevated sedimentation rate Elevated C-reactive protein (CRP) Vitamin D deficiency Unspecified vitamin D deficiency documented in this encounter [facility] note* Diagnosis Inflammatory arthritis- Primary Unspecified inflammatory [...] hip pain, bilateral [facility] Diagnosis Inflammatory arthritis- Primary Unspecified inflammatory polyarthropathy Elevated LFTs Other abnormal blood chemistry Anemia of chronic disease Anemia of other chronic disease Elevated sed rate Elevated sedimentation rate Elevated C-reactive protein (CRP) Vitamin D deficiency Unspecified vitamin D deficiency documented in this encounter [facility] noteNo [employer] Other Evaluation note* Diagnosis Bilateral hand pain Pain in limb [facility]* Diagnosis Bilateral hand pain Pain in limb Chronic pain of both knees Chronic elbow pain, right [facility]* Diagnosis GEGE positive Other and unspecified nonspecific immunological findings [facility]* Diagnosis GEGE positive- Primary Other and unspecified nonspecific immunological findings Inflammatory arthritis Unspecified inflammatory polyarthropathy Chronic bilateral low back pain with left-sided sciatica Fibromyalgia Mylagia and myositis, unspecified Secondary osteoarthritis of multiple sites Osteoarthrosis involving, or with mention of more than one site, but not specified as generalized, multiple sites Long-term use of high-risk medication [facility] Diagnosis Postmenopausal osteoporosis of multiple sites [facility] Diagnosis Chronic bilateral low back pain with left-sided sciatica- Primary [facility] Diagnosis Inflammatory arthritis- Primary Unspecified inflammatory polyarthropathy Elevated LFTs Other abnormal blood chemistry Anemia of chronic disease Anemia of other chronic disease Elevated sed rate Elevated sedimentation rate Elevated C-reactive protein (CRP) Vitamin D deficiency Unspecified vitamin D deficiency documented [facility]* Diagnosis Chronic bilateral low back pain with left-sided sciatica Fibromyalgia Mylagia and myositis, unspecified [facility]* Diagnosis Cervicalgia documented in this encounter [facility] note* Diagnosis Inflammatory arthritis- Primary Unspecified inflammatory [...] history of arthritis [facility]* Diagnosis Venous insufficiency- Primary Unspecified venous (peripheral) insufficiency documented in this encounter [facility]* Diagnosis Venous hypertension- Primary Varicose veins of bilateral lower extremities with pain [facility] Diagnosis Fibromyalgia- Primary Mylagia and myositis, unspecified Chronic bilateral low back pain with left-sided sciatica documented in this encounter [facility] general Narrative - Reported* Type Description Date Medical History Neuropathic pain Medical HistoryAsthmaMedical HistoryRheumatoid arthritisSurgical HistoryC sectionSurgical Historycyst removalSurgical HistorybiopsySurgical Historywisdom teethHospitalization HistorySee Above [employer] Other Hospital course Narrative No data available for this section [facility] Discharge instructions No data available for this section [facility] General Surgery [facility] InstructionsNot on filedocumented in this encounter [facility] SystemInstructionsNot on filedocumented in this encounter [facility] SystemProgress note No data available for this section [facility] General [facility] Reason for referral (narrative)* Diagnostic Procedure Only (Routine) - ClosedSpecialtyDiagnoses / ProceduresReferred By Contact Referred To ContactXR IMAGING Diagnoses Bilateral hand pain Procedures XR HAND GENERAL 3V PA/LAT/OBL BILATERAL RADEX HAND MINIMUM 3 VIEWS Justin Preston MD [address] [place] [address] Xr Imaging Referral IDStatusReasonStotis DateExpiration DateVisits RequestedVisits [id number] Auto-Generated Referral [facility] for referral (narrative)* Diagnostic Procedure Only (Routine) - AuthorizedSpecialtyDiagnoses / ProceduresReferred By Contact Referred To ContactXR IMAGING Diagnoses Postmenopausal osteoporosis of multiple sites Procedures DXA-FOREARM SKELETON DXA BONE DENSITY STUDY 1/>SITES APPENDICLR Justin Hernandez MD [address] [place] [address] Xr Imaging Referral IDStatusReasonStotis DateExpiration DateVisits RequestedVisits [id number] Auto-Generated Referral T [facility] for referral (narrative)* Diagnostic Procedure Only (Routine) - ClosedSpecialtyDiagnoses / ProceduresReferred By ContactReferred To ContactXR IMAGING Diagnoses Bilateral hand pain Procedures XR HAND GENERAL 3V PA/LAT/OBL BILATERAL RADEX HAND MINIMUM 3 VIEWS Justin Preston MD [address] [place] [address] Xr Imaging Referral IDStatusReasonWounded Knee DateExpiration DateVisits RequestedVisits [id number] Auto-Generated Referral [facility] for referral (narrative)* Diagnostic Procedure Only (Routine) - ClosedSpecialtyDiagnoses / ProceduresReferred By ContactReferred To ContactXR IMAGING Diagnoses Chronic elbow pain, right Procedures XR ELBOW GENERAL 2V AP/LAT RT X-RAY ELBOW AP/LATERAL Justin Preston MD [address] [place] [address] Xr Imaging Referral IDStatusReasonStart DateExpiration DateVisits RequestedVisits [id number] Auto-Generated Referral * Diagnostic Procedure Only (Routine) - ClosedSpecialtyDiagnoses / Procedures Referred By ContactReferred To ContactXR IMAGING Diagnoses Chronic pain of both knees Procedures XR KNEE GENERAL 4V AP BOTH/PA BOTH/LAT/MERC BILAT KNEE AP-WGT/LAT/MERCHANT Justin Preston MD [address] [place] [address] Xr Imaging Referral IDStatusReasonStart DateExpiration DateVisits RequestedVisits [id number] Auto-Generated Referral * Diagnostic Procedure Only (Routine) - ClosedSpecialtyDiagnoses / Procedures Referred By ContactReferred To ContactXR IMAGING Diagnoses Bilateral hand pain Procedures XR HAND GENERAL 3V PA/LAT/OBL BILAT X-RAY HAND MINIMUM 3 VIEWS Justin Preston MD [address] [place] [address] Xr Imaging Referral IDStatusReasonStart DateExpiration DateVisits RequestedVisits [id number] Auto-Generated Referral [facility] for referral (narrative)* Diagnostic Procedure Only (Routine) - ClosedSpecialtyDiagnoses / ProceduresReferred By ContactReferred To ContactXR IMAGING Diagnoses Chronic bilateral low back pain with left-sided sciatica Procedures XR LUMBAR GENERAL 3V AP/LAT/L5-S1 RADEX SPINE LUMBOSACRAL 2/3 VIEWS Isidra Sanchez, CRUISE AGENT.REMELT OPERATOR [address] [place] [address] [place] [address] Referral IDStatusReasonStotis DateExpiration DateVisits RequestedVisits [id number] Auto-Generated Referral / T [facility] for referral (narrative)* Diagnostic Procedure Only (Routine) - ClosedSpecialtyDiagnoses / ProceduresReferred By ContactReferred To ContactXR IMAGING Diagnoses Cervicalgia Procedures XR CERV OTHER 4V AP/LAT/OBL RADEX SPINE CERVICAL 4 OR 5 VIEWS Justin Preston MD [address] [place] [address] [place] [address] Referral IDStatusReasonStart DateExpiration DateVisits RequestedVisits [id number] Auto-Generated Referral * Diagnostic Procedure Only (Routine) - AuthorizedSpecialtyDiagnoses / ProceduresReferred By ContactReferred To ContactXR IMAGING Diagnoses Postmenopausal osteoporosis of multiple sites Procedures DXA-AXIAL SKELETON DXA BONE DENSITY STUDY 1/> SITES AXIAL Justin Hernandez MD [address] [place] [address] [place] [address] Referral IDStatusReasonStart DateExpiration DateVisits RequestedVisits [id number] Auto-Generated Referral * Diagnostic Procedure Only (Routine) - AuthorizedSpecialtyDiagnoses / ProceduresReferred By ContactReferred To ContactXR IMAGING Diagnoses Postmenopausal osteoporosis of multiple sites Procedures DXA-FOREARM SKELETON DXA BONE DENSITY STUDY 1/>SITES APPENDICLR Justin Hernandez MD [address] [place] [address] [place] [address] Referral IDStatusReasonStart DateExpiration DateVisits RequestedVisits [id number] Auto-Generated Referral / [facility] for visit Narrative* Diagnostic Procedure Only (Routine) - ClosedSpecialtyDiagnoses / ProceduresReferred By ContactReferred To Contact XR IMAGING Diagnoses Bilateral hand pain Procedures XR HAND GENERAL 3V PA/LAT/OBL BILATERAL RADEX HAND MINIMUM 3 VIEWS Justin Preston MD [address] [place] [address] Xr Imaging Referral IDStatusReasonStart DateExpiration DateVisits RequestedVisits [id number] Auto-Generated Referral / [facility] for visit Narrative* Diagnostic Procedure Only (Routine) - ClosedSpecialtyDiagnoses / ProceduresReferred By ContactReferred To Contact XR IMAGING Diagnoses Chronic elbow pain, right Procedures XR ELBOW GENERAL 2V AP/LAT RT X-RAY ELBOW AP/LATERAL Justin Preston MD [address] [place] [address] Xr Imaging Referral IDStatusReasonStart DateExpiration DateVisits RequestedVisits [id number] Auto-Generated Referral / [facility] for visit Narrative* Diagnostic Procedure Only (Routine) - ClosedSpecialtyDiagnoses / ProceduresReferred By ContactReferred To Contact XR IMAGING Diagnoses Postmenopausal osteoporosis of multiple sites Procedures DXA-FOREARM SKELETON DXA BONE DENSITY STUDY 1/>SITES APPENDICLR SKEL Justin Preston MD [address] [place] [address] [place] [address] Referral IDStatusReasonStart DateExpiration DateVisits RequestedVisits [id number] Auto-Generated Referral / [facility] for visit Narrative* Diagnostic Procedure Only (Routine) - ClosedSpecialtyDiagnoses / ProceduresReferred By ContactReferred To Contact XR IMAGING Diagnoses Cervicalgia Procedures XR CERV OTHER 4V AP/LAT/OBL RADEX SPINE CERVICAL 4 OR 5 VIEWS Justin Preston MD [address] [place] [address] [place] [address] Referral IDStatusReasonStart DateExpiration DateVisits RequestedVisits [id number] Auto-Generated Referral / [facility] Summary Purpose Family History No Family History [...] bi [place], [place] [address] [address] Referral IDStatusReasonStart DateExpiration DateVisits RequestedVisits [id number] / ProceduresReferred By ContactReferred To [facility]Pain [facility] Diagnoses Chronic bilateral low back pain with left-sided sciatica Procedures CONSULT TO PAIN MGT OFFICE/OUTPATIENT [facility] 60-74 MINUTES Isidra Sanchez, CRUISE AGENT.REMELT OPERATOR [address] [place] [address] Anesthesia [place] [address] [place] [address] Referral IDStatusReasonStart DateExpiration DateVisits RequestedVisits [id number] PCP Requested Referral / Additional Source Comments INFORMATION SOURCE (unrecogn ized section and content) DATE CREATED AUTHOR 07/18/2020 [facility] DATE CREATED AUTHOR AUTHOR'S ORGANIZ ATION 12/23/2021 [facility] DATE CREATED AUTHOR AUTHOR'S ORGANIZ ATION 04/29/[address] [facility] DATE CREATED AUTHOR AUTHOR'S ORGANIZ ATION 07/11/2023 [facility] DATE CREATED AUTHOR AUTHOR'S ORGANIZ ATION 08/12/2023 [facility] DATE CREATED AUTHOR AUTHOR'S ORGANIZ ATION 03/18/2024 [facility] DATE CREATED AUTHOR AUTHOR'S ORGANIZ ATION 04/06/[address] [facility] Source Comments (unrecognize d section and content) In the event this informatio n is protected by the Federal Confidentiality of Alcohol and Drug Abuse Patient Records regulations: The Federal rules restrict any use of the information to criminally investigate or prosecute any alcohol or drug abuse patient.[facility] System[facility] the event this information is protected by the Federal Confidentiality of Alcohol and Drug Abuse Patient Records regulations: The Federal rules restrict any use of the information to criminally investigate or prosecute any alcohol or drug abuse patient.[facility] SystemIn the event this information is protected by the Federal Confidentiality of Alcohol and Drug Abuse Patient Records regulations: The Federal rules restrict any use of the information to criminally investigate or prosecute any alcohol or drug abuse patient.[facility] SystemIn the event this information is protected by the Federal Confidentiality of Alcohol and Drug Abuse Patient Records regulations: The Federal rules restrict any use of the information to criminally investigate or prosecute any alcohol or drug abuse patient.[facility] SystemIn the event this information is protected by the Federal Confidentiality of Alcohol and Drug Abuse Patient Records regulations: The Federal rules restrict any use of the information to criminally investigate or prosecute any alcohol or drug abuse patient.[facility] SystemIn the event this information is protected by the Federal Confidentiality of Alcohol and Drug Abuse Patient Records regulations: The Federal rules restrict any use of the information to criminally investigate or prosecute any alcohol or drug abuse patient.[facility] SystemIn the event this information is protected by the Federal Confidentiality of Alcohol and Drug Abuse Patient Records regulations: The Federal rules restrict any use of the information to criminally investigate or prosecute any alcohol or drug abuse patient.[facility] SystemIn the event this information is protected by the Federal Confidentiality of Alcohol and Drug Abuse Patient Records regulations: The Federal rules restrict any use of the information to criminally investigate or prosecute any alcohol or drug abuse patient.[facility] SystemIn the event this information is protected by the Federal Confidentiality of Alcohol and Drug Abuse Patient Records regulations: The Federal rules restrict any use of the information to criminally investigate or prosecute any alcohol or drug abuse patient.[facility] SystemIn the event this information is protected by the Federal Confidentiality of Alcohol and Drug Abuse Patient Records regulations: The Federal rules restrict any use of the information to criminally investigate or prosecute any alcohol or drug abuse patient.[facility] SystemIn the event this information is protected by the Federal Confidentiality of Alcohol and Drug Abuse Patient Records regulations: The Federal rules restrict any use of the information to criminally investigate or prosecute any alcohol or drug abuse patient.[facility] SystemIn the event this information is protected by the Federal Confidentiality of Alcohol and Drug Abuse Patient Records regulations: The Federal rules restrict any use of the information to criminally investigate or prosecute any alcohol or drug abuse patient.[facility] SystemIn the event this information is protected by the Federal Confidentiality of Alcohol and Drug Abuse Patient Records regulations: The Federal rules restrict any use of the information to criminally investigate or prosecute any alcohol or drug abuse patient.[facility] SystemIn the event this information is protected by the Federal Confidentiality of Alcohol and Drug Abuse Patient Records regulations: The Federal rules restrict any use of the information to criminally investigate or prosecute any alcohol or drug abuse patient.[facility] SystemIn the event this information is protected by the Federal Confidentiality of Alcohol and Drug Abuse Patient Records regulations: The Federal rules restrict any use of the information to criminally investigate or prosecute any alcohol or drug abuse patient.[facility] SystemIn the event this information is protected by the Federal Confidentiality of Alcohol and Drug Abuse Patient Records regulations: The Federal rules restrict any use of the information to criminally investigate or prosecute any alcohol or drug abuse patient.[facility] SystemIn the event this information is protected by the Federal Confidentiality of Alcohol and Drug Abuse Patient Records regulations: The Federal rules restrict any use of the information to criminally investigate or prosecute any alcohol or drug abuse patient.[facility] SystemIn the event this information is protected by the Federal Confidentiality of Alcohol and Drug Abuse Patient Records regulations: The Federal rules restrict any use of the information to criminally investigate or prosecute any alcohol or drug abuse patient.[facility] SystemIn the event this information is protected by the Federal Confidentiality of Alcohol and Drug Abuse Patient Records regulations: The Federal rules restrict any use of the information to criminally investigate or prosecute any alcohol or drug abuse patient.[facility] SystemIn the event this information is protected by the Federal Confidentiality of Alcohol and Drug Abuse Patient Records regulations: The Federal rules restrict any use of the information to criminally investigate or prosecute any alcohol or drug abuse patient.[facility] SystemIn the event this information is protected by the Federal Confidentiality of Alcohol and Drug Abuse Patient Records regulations: The Federal rules restrict any use of the information to criminally investigate or prosecute any alcohol or drug abuse patient.[facility] SystemIn the event this information is protected by the Federal Confidentiality of Alcohol and Drug Abuse Patient Records regulations: The Federal rules restrict any use of the information to criminally investigate or prosecute any alcohol or drug abuse patient.[facility] SystemIn the event this information is protected by the Federal Confidentiality of Alcohol and Drug Abuse Patient Records regulations: The Federal rules restrict any use of the information to criminally investigate or prosecute any alcohol or drug abuse patient.[facility] SystemIn the event this information is protected by the Federal Confidentiality of Alcohol and Drug Abuse Patient Records regulations: The Federal rules restrict any use of the information to criminally investigate or prosecute any alcohol or drug abuse patient.[facility] SystemIn the event this information is protected by the Federal Confidentiality of Alcohol and Drug Abuse Patient Records regulations: The Federal rules restrict any use of the information to criminally investigate or prosecute any alcohol or drug abuse patient.[facility] SystemIn the event this information is protected by the Federal Confidentiality of Alcohol and Drug Abuse Patient Records regulations: The Federal rules restrict any use of the information to criminally investigate or prosecute any alcohol or drug abuse patient.[facility] SystemIn the event this information is protected by the Federal Confidentiality of Alcohol and Drug Abuse Patient Records regulations: The Federal rules restrict any use of the information to criminally investigate or prosecute any alcohol or drug abuse patient.[facility] Reason for Visit (unrecogniz ed section and content) ReasonCommentsResultsReasonCommentsRefill RequestReasonCommentsRadiology XR ReasonCommentsPainOngoing right hip pain and behind left knee.ReasonComments Follow UpMedication ProblemDiscuss mtx.ReasonOnset DateCommentsRefill Request 03/20/2023ReasonCommentsResultsReasonCommentsFollow UpPainOngoing generalized pain.ReasonCommentsNew PatientNew patient self referral wants veins on leg checked no recent testingReasonCommentsvenous insufficiency Care Teams (unrecognized sec tion and content) Team MemberRelationshipSpecialtyStart DateEnd Date Trung Magdaleno MD [address] [place] [address] PCP - GeneralFamily Practice12/09/13Team MemberRelationshipSpecialtyStart DateEnd Date Trung Magdaleno MD [address] [place] [address] PCP - GeneralFamily Practice12/09/13Team MemberRelationshipSpecialtyStart DateEnd Date Trung Magdaleno MD [address] [place] [address] PCP - GeneralFamily Practice12/09/13Team MemberRelationshipSpecialtyStart DateEnd Date Trung Magdaleno MD [address] [place] [address] PCP - GeneralFamily Practice12/09/13Team MemberRelationshipSpecialtyStart DateEnd Date Trung Magdaleno MD [address] [place] [address] PCP - GeneralFamily Practice12/09/13Team MemberRelationshipSpecialtyStart DateEnd Date Trung Magdaleno MD [address] [place] [address] PCP - GeneralFamily Practice12/09/13Team MemberRelationshipSpecialtyStart DateEnd Date Trung Magdaleno MD [address] [place] [address] PCP - GeneralFamily Medicine12/09/13Team MemberRelationshipSpecialtyStart DateEnd Date Trung Magdaleno MD [address] [place] [address] PCP - GeneralFamily Medicine12/09/13Team MemberRelationshipSpecialtyStart DateEnd Date Trung Magdaleno MD [address] [place] [address] PCP - GeneralFamily Medicine12/09/13Team MemberRelationshipSpecialtyStart DateEnd Date Trung Magdaleno MD [address] [place] [address] PCP - GeneralFamily Medicine12/09/13Team MemberRelationshipSpecialtyStart DateEnd Date Trung Magdaleno MD [address] [place] [address] PCP - GeneralFamily Medicine12/09/13Team MemberRelationshipSpecialtyStart DateEnd Date Trung Magdaleno MD [address] [place] [address] PCP - GeneralFamily Medicine12/09/13Team MemberRelationshipSpecialtyStart DateEnd Date Trung Magdaleno MD [address] [place] [address] PCP - GeneralFamily Medicine12/09/13Team MemberRelationshipSpecialtyStart DateEnd Date Trung Magdaleno MD [address] [place] [address] PCP - GeneralFamily Medicine12/09/13Team MemberRelationshipSpecialtyStart DateEnd Date Trung Magdaleno MD [address] [place] [address] PCP - GeneralFamily Medicine12/09/13Team MemberRelationshipSpecialtyStart DateEnd Date Trung Magdaleno MD [address] [place] [address] PCP - GeneralFamily Medicine12/09/13Team MemberRelationshipSpecialtyStart DateEnd Date Trung Magdaleno MD [address] [place] [address] PCP - GeneralFamily Medicine12/09/13Team MemberRelationshipSpecialtyStart DateEnd Date Trung Magdaleno MD [address] [place] [address] PCP - GeneralFamily Medicine12/09/13Team MemberRelationshipSpecialtyStart DateEnd Date Trung Magdaleno MD [address] [place] [address] PCP - GeneralFamily Medicine12/09/13Team MemberRelationshipSpecialtyStart DateEnd Date Trung Magdaleno MD [address] [place] [address] PCP - GeneralFamily Medicine12/09/13Team MemberRelationshipSpecialtyStart DateEnd Date Trung Magdaleno MD [address] [place] [address] PCP - GeneralFamily Medicine12/09/13Team MemberRelationshipSpecialtyStart DateEnd Date Trung Magdaleno MD [address] [place] [address] PCP - GeneralFamily Medicine12/09/13Team MemberRelationshipSpecialtyStart DateEnd Date Trung Magdaleno MD [address] [place] [address] PCP - GeneralFamily Medicine12/09/13Team MemberRelationshipSpecialtyStart DateEnd Date Trung Magdaleno MD [address] [place] [address] PCP - GeneralFamily Medicine12/09/13Team MemberRelationshipSpecialtyStart DateEnd Date Trung Magdaleno MD [address] [place] [address] [facility] - [facility]20Team MemberRelationshipSpecialtyStart DateEnd Date Trung Magdaleno MD [address] [place], [place] [id number] PCP - [facility]03/27/20Te MemberRelationshipSpecialtyStotis DateEnd Date Trung Magdaleno MD [facility] - [facility]02/06/23 FOR RECORDS PERTAINING TO PATIENTS WHO ARE [...] BE BASED ON THE PRIMARY CLINICAL RECORDS. [facility] [employer] [facility]. provides no warranty or guarantee of the accuracy or completeness of information in this document.
[2025-05-23 12:08] LABS: Age Gdln ACOG Testing Note (.); IGP, Aptima HPV, rfx 16/18,45 Note (.)
== END 2025-05-19 20:35 | disposition home or self-care (01) ==
LOC: LAB 20:34
PROVIDERS: PCP Family Medicine; Visit Provider Physician Assistant
DX: Z01.419 Encounter for gynecological examination (general) (routine) without abnormal findings (principal)
CPT/HCPCS: 88175